=== PATIENT | male | born 1945 | race Caucasian/White ===

== ENCOUNTER 2019-11-15 10:48 | Outpatient (REF) | payer MEDICARE, BC, OTHER, SELFPAY ==
--- NOTE | 2019-11-15 | US_ITS ---
EXAMINATION: US RETROPERITONEAL COMPLETE (RENAL) CLINICAL INFORMATION: GUANACO. Rule out obstruction. COMPARISON: Renal ultrasound 07/14/2018 and 02/13/2016. KUB 08/19/2016 and 08/10/2015. CT abdomen and pelvis 06/29/2015. TECHNIQUE: Real-time imaging of the kidneys and bladder. FINDINGS: RIGHT KIDNEY: 10.6 x 6.8 x 5.6 cm (SAG x AP x TRV). The kidney is normal in size, contour, and echogenicity. Renal cortical thickness is normal. There is a 4 x 3 x 3 mm echogenic density in the lower pole with twinkle artifact and question acoustic shadowing suggestive of a stone. No focal parenchymal lesions or hydronephrosis. LEFT KIDNEY: 8.4 x 3.6 x 2.7 cm (SAG x AP x TRV). The kidney is small with renal cortical thinning. No calculi or focal parenchymal lesions. No hydronephrosis. BLADDER: Well distended and normal. Bilateral ureteral jets are demonstrated. Prevoid bladder volume is 393 mL. There is no postvoid residual. IMPRESSION: Small right renal stone. Atrophic-appearing left kidney. No hydronephrosis. Unremarkable bladder ultrasound.
== END 2019-11-15 10:49 | disposition home or self-care (01) ==
LOC: HO.HMGCX 10:48
PROVIDERS: PCP Internal Medicine; Visit Provider Internal Medicine
DX: N17.9 Acute kidney failure, unspecified (principal); N15.9 Renal tubulo-interstitial disease, unspecified
CPT/HCPCS: 76775; 76857

== ENCOUNTER 2020-01-09 07:08 | Day surgery (SDC) | payer MEDICARE, BC, OTHER, SELFPAY ==
--- NOTE | 2019-12-27 13:45 | MHC.SHP ---
Pre-Procedural Eval Section A The patient is an INPATIENT: No The History & Physical has been completed within 30 days and I have reviewed it.: Yes Section B Chief Complaint: Cataract Right Eye Allergies: Allergies Allergy/AdvReac Type Severity Reaction Status Date / Time No Known Allergies Allergy Unverified 10/27/19 15:26 [No Known Allergies*] grass, mold, trees Allergy Unknown Uncoded 01/26/19 00:00 Plan Diagnosis/Plan: Unchanged Patient has been examined and remains a candidate for the planned procedure
[2019-12-30 14:10] VITALS: BMI 36.1
--- NOTE | 2020-01-02 14:21 | P.CONAN_ITS ---
Documented by User: Indira Hendricks 01/02/20 14:22 HPI - Anesthesia Eval Consult details Narrative: 74yo M for Cataract Extraction No prev cataract [facility] Past Medical History Medical History Anxiety CKD (chronic kidney disease), stage III Elevated cholesterol History of prostate cancer HTN (hypertension) Peripheral neuropathy Surgical History Surgical History History of carpal tunnel release History of lumbar laminectomy Hx of lithotripsy Hx of prostatectomy Social History Social History Smoking Status: Never smoker Use of substances other than those prescribed or required for medical reasons: No Advance Directives: No Advance Directives Information Provided: No Advance Directives on File: No Meds Allergies Allergy/AdvReac Type Severity Reaction Status Date / Time No Known Allergies Allergy Unverified 10/27/19 15:26 [No Known Allergies*] grass, mold, trees Allergy Unknown Uncoded 01/26/19 00:00 Home Medications Medication Instructions Recorded Confirmed Type atorvastatin 1 tab PO DAILY 12/30/19 12/30/19 History gabapentin 1 tab PO TID 12/30/19 12/30/19 History lisinopril 1 tab PO DAILY 12/30/19 12/30/19 History lorazepam 1 tab PO DAILY PRN 12/30/19 12/30/19 History Exam Exam Date and Time: January 02, 2020 1421 Height,Weight and Vital Signs: Height 5 ft 9 in Weight 111.13 kg Pertinent Lab Results Pertinent Lab Results: Laboratory Tests 07/15/19 09:22 BUN 17 H Creatinine 1.22 Assessment and Plan Assessment Anesthesia Assessment: Chart Reviewed Documented by User: Danya Villagran 01/09/20 08:00 [facility] Past Medical History Medical History Anxiety CKD (chronic kidney disease), stage III Elevated cholesterol History of prostate cancer HTN (hypertension) Peripheral neuropathy Surgical History Surgical History History of carpal tunnel release History of lumbar laminectomy Hx of lithotripsy Hx of prostatectomy Social History Social History Smoking Status: Never smoker Use of substances other than those prescribed or required for medical reasons: No Advance Directives: No Advance Directives Information Provided: No Advance Directives on File: No Meds Allergies Allergy/AdvReac Type Severity Reaction Status Date / Time No Known Allergies Allergy Unverified 10/27/19 15:26 [No Known Allergies*] grass, mold, trees Allergy Unknown Uncoded 01/26/19 00:00 Home Medications Medication Instructions Recorded Confirmed Type atorvastatin 1 tab PO DAILY 12/30/19 12/30/19 History gabapentin 1 tab PO TID 12/30/19 12/30/19 History lisinopril 1 tab PO DAILY 12/30/19 12/30/19 History lorazepam 1 tab PO DAILY PRN 12/30/19 12/30/19 History Exam Airway Mallampati Class: III TM Dist: >3cm Neck ROM: Full Loose/Missing/Broken Teeth: No Heart: RRR Lungs: CTA Assessment and Plan Assessment Anesthesia Assessment: Anesthesia Plan Discussed and Chart Reviewed Final Anesthetic Review NPO: Yes ASA Class: III Final Preanesthetic Review: Meds/Allgs Chart Reviewed, Consent Obtained/Reviewed and Anes Risks/Benef Reviewed Patient Risk: Intermediate Procedure Risk: Low Anesthetic Plan Anesthetic Plan: MAC: Disposition: Standard PACU
[2020-01-09 08:09] VITALS: BP 125/75; PULSE 52; RESP 16; TEMP 36.1; O2SAT 96
[2020-01-09] MEDS: Lactated Ringers 500 ML 50 ML IV (08:13)
[2020-01-09] MEDS: Tetracaine HCl/PF 0.5% Oph Sol 4 ML DROPS 1 DROP EYE-RIGHT (08:13)
[2020-01-09] MEDS: Tropicamide 1 % Ophth Sol 3 ML BTL 1 DROP EYE-RIGHT ×3 (08:14→08:25)
--- NOTE | 2020-01-09 08:57 | HO.PNOPHT ---
Ophthalmology Procedure Procedure Date of Service: 01/09/20 Ophthalmology Viscoelastic: Healon Duet Dual Pack Pro Ophthalmology Lenses: TECNIS [id number] (15.5) Procedure Notes: PREOPERATIVE DIAGNOSIS: Decreased visual acuity right eye secondary to cataract POSTOPERATIVE DIAGNOSIS: Same PROCEDURE: Right cataract extraction with intraocular lens insertion SURGEON: Neto Victoria M.D. ANESTHESIA: Topical/MAC ESTIMATED BLOOD LOSS: None COMPLICATIONS: None After obtaining informed consent, the patient was brought to the operating room suite and placed in the supine position. After adequate sedation per anesthesia, topical drops of Tetracaine were given to the right eye. The eye was then prepped and draped in the usual sterile fashion. The operating room microscope was then positioned over the operative eye and a lid speculum placed. A paracentesis was created. Viscoelastic was then instilled into the anterior chamber. A three plane incision was then created temporally, utilizing a 2.85 mm keratome. Capsulotomy forceps were then utilized to create a circular tear capsulotomy. Hydrodissection and hydrodelineation were carried out until adequate mobilization of the nucleus occurred. Phacoemulsification was then utilized to remove the dense central nucleus followed by removal of the cortical material utilizing the automated aspiration irrigation unit. Viscoelastic was instilled into the posterior capsular bag followed by placement of a posterior chamber intraocular lens without difficulty. The residual Viscoelastic was then removed utilizing the automated IA machine. The wound was checked and found to be watertight. The patient tolerated the procedure well and the lid speculum was removed. Intracameral injection of Vigamox 0.1 mL followed by a subtenon injection of Kenalog-40 0.2 mL were administered. The patient will be seen in the a.m.
[2020-01-09 08:58] VITALS: BP 126/81; PULSE 55; RESP 18; TEMP 36.3; O2SAT 100
== END 2020-01-09 09:25 | disposition home or self-care (01) ==
PROVIDERS: PCP Internal Medicine; Visit Provider Ophthalmology
PROC: (CPT 66985; principal; 2020-01-09 09:00)
DX: H25.11 Age-related nuclear cataract, right eye (principal); H52.4 Presbyopia; I10 Essential (primary) hypertension; C61 Malignant neoplasm of prostate; E78.00 Pure hypercholesterolemia, unspecified; Z87.891 Personal history of nicotine dependence; Z96.1 Presence of intraocular lens; Z79.899 Other long term (current) drug therapy
CPT/HCPCS: 66984; J2250; J3010; J3300; V2632

== ENCOUNTER 2020-01-18 14:45 | Outpatient (REF) | payer MEDICARE, BC, OTHER, SELFPAY ==
[2020-01-18 16:42] LABS: MANUAL DIFF FLAG NO
[2020-01-18 16:43] LABS: Basophils Percent Auto 0.7 % (0-2); Eosinophils Absolute Auto 0.2 X10*3/uL (0.0-0.4); Eosinophils Percent Auto 3.6 % (0-4); Hematocrit 46.8 % (42-52); Imm Gran Abs Auto 0.01 X10*3/uL (0.00-0.03); Imm Gran Pct Auto 0.2 % (0.0-0.4); Lymphocytes Absolute Auto 2.1 X10*3/uL (1.2-4.9); Lymphocytes Percent Auto 34.6 % (20-40); Mean Corpuscular HGB Conc 32.1 g/dl (31.0-36.0); Mean Corpuscular Hemoglobin 31.7 pg (27.0-33.0); Mean Corpuscular Volume 98.9 fL (80-98); Mean Platelet Volume 11.5 fL (9.4-12.4); Monocytes Absolute Auto 0.6 X10*3/uL (0.1-1.2); Monocytes Percent Auto 10.1 % (2-11); Neutrophils Absolute Auto 3.1 X10*3/uL (2.0-8.3); Neutrophils Percent Auto 50.8 % (45-73); Platelet Count 216 X10*3/uL (160-400); Red Blood Count 4.73 X10*6/uL (4.60-5.80); Red Cell Distribution Width 13.2 % (11.0-16.0); White Blood Count 6.1 X10*3/uL (4.8-10.8)
[2020-01-18 17:02] LABS: Alanine Aminotransferase 17 U/L (0-40); Albumin Level 4.2 g/dL (3.5-5.0); Alkaline Phosphatase 128 U/L (39-117); Anion Gap 13 (12-20); Aspartate Amino Transferase 17 U/L (5-37); Blood Urea Nitrogen 22 mg/dL (9-16); Calcium 8.7 mg/dL (8.4-10.2); Carbon Dioxide 27 mmol/L (22-29); Chloride 106 mmol/L (96-108); Estimated Glomerular Filt Rate 54; Glucose Random 85 mg/dL (60-115); Potassium 4.9 mmol/l (3.3-5.1); Sodium 141 mmol/L (135-145); Total Protein 7.2 g/dL (6.5-8.0)
[2020-01-18 17:26] LABS: Prostate Specific Antigen < 0.05 ng/mL (<0.05-4.0)
== END 2020-01-18 14:46 | disposition home or self-care (01) ==
LOC: HO.HMGCLDS 14:45
PROVIDERS: Internal Medicine Medical Oncology; PCP Internal Medicine; Visit Provider Urology
DX: C61 Malignant neoplasm of prostate (principal)
CPT/HCPCS: 36415; 80053; 84153; 85025

== ENCOUNTER → 2020-01-27 09:56 | Outpatient (BNVA) | payer MEDICARE, SELFPAY | PROVIDERS: Visit Provider Urology | DX: C61 Malignant neoplasm of prostate (principal); N20.0 Calculus of kidney | CPT/HCPCS: 99212; Q3014 ==

== ENCOUNTER 2020-02-20 08:29 | Outpatient (REF) | payer MEDICARE, BC, OTHER, SELFPAY ==
--- NOTE | 2020-02-20 | US_ITS ---
EXAMINATION: US RENAL DOPPLER CLINICAL INFORMATION: Hypertension, hyperlipidemia. Evaluate for renal artery stenosis. COMPARISON: None TECHNIQUE: Routine ultrasound imaging followed by Doppler retroperitoneum was performed. FINDINGS: The right kidney is normal size measuring 11.8 cm in length, 6.5 cm in AP, and 5.3 cm in transverse dimension. A lobulated-appearing contour is noted. There is an echogenic stone lower pole measuring 0.4 x 0.3 x 0.4 cm. There is no caliectasis or hydronephrosis. The left kidney measures 8.6 x 3.4 x 4.2 cm. There is mild cortical thinning with increased echogenicity minimally greater on the left. No echogenic stones or hydronephrosis seen. On renal Doppler exam, Right kidney: Proximal renal artery velocity measures 152 cm/s, mid segment measures 134 cm/s, distal segment measures 69 cm/s. Renal aortic ratio measures 1.61 cm. The resistive index average measures 0.66. Left kidney: Proximal left renal artery velocity measures 65 cm/s, mid segment measures 63 cm/s, distal segment measures 47 cm/s. Renal aortic ratio measures 0.69 cm. The resistive index average measures 0.67. US/US renal doppler IMPRESSION: Nonobstructive echogenic stone lower pole right kidney. Mild cortical thinning with increased echogenicity left kidney. Renal Doppler exam is suggestive of No renal artery stenosis in either kidneys. Both renal arteries are patent.
--- NOTE | 2020-02-20 | US_ITS ---
EXAMINATION: US RETROPERITONEAL LIMITED (RENAL ONLY) US/US renal BI FINDINGS/IMPRESSION: Ultrasound retroperitoneum Limited was dictated with ultrasound kidneys
== END 2020-02-20 08:30 | disposition home or self-care (01) ==
LOC: HO.HMGCX 08:29
PROVIDERS: Visit Provider Internal Medicine Nephrology
DX: I10 Essential (primary) hypertension (principal); E78.5 Hyperlipidemia, unspecified
CPT/HCPCS: 76775; 93975

== ENCOUNTER 2020-05-16 07:58 | Outpatient (REF) | payer MEDICARE, BC, OTHER, SELFPAY ==
[2020-05-16 11:21] LABS: MANUAL DIFF FLAG NO
[2020-05-16 11:24] LABS: Glucose Urine UA NEG (NEG); Leukocyte Esterase Urine NEG (NEG); Nitrite Urine NEG (NEG); Urine Blood NEG (NEG); Urine Ketones NEG (NEG); Urine Protein NEG (NEG-TRACE)
[2020-05-16 11:30] LABS: Appearance Urine CLEAR; Color Urine YELLOW
[2020-05-16 11:31] LABS: Basophils Percent Auto 0.5 % (0-2); Eosinophils Absolute Auto 0.2 X10*3/uL (0.0-0.4); Eosinophils Percent Auto 4.2 % (0-4); Hematocrit 39.3 % (42-52); Imm Gran Abs Auto 0.01 X10*3/uL (0.00-0.03); Imm Gran Pct Auto 0.2 % (0.0-0.4); Lymphocytes Absolute Auto 1.9 X10*3/uL (1.2-4.9); Lymphocytes Percent Auto 33.7 % (20-40); Mean Corpuscular HGB Conc 33.1 g/dl (31.0-36.0); Mean Corpuscular Hemoglobin 32.3 pg (27.0-33.0); Mean Corpuscular Volume 97.5 fL (80-98); Mean Platelet Volume 11.9 fL (9.4-12.4); Monocytes Absolute Auto 0.6 X10*3/uL (0.1-1.2); Neutrophils Absolute Auto 2.9 X10*3/uL (2.0-8.3); Neutrophils Percent Auto 50.4 % (45-73); Platelet Count 183 X10*3/uL (160-400); Red Blood Count 4.03 X10*6/uL (4.60-5.80); Red Cell Distribution Width 13.9 % (11.0-16.0); White Blood Count 5.7 X10*3/uL (4.8-10.8)
[2020-05-16 11:34] LABS: Mucus Urine TRACE /LPF; Renal Epithelial Cells Urine TRACE /LPF; Squamous Epithelial Cell Urine TRACE /LPF
[2020-05-16 17:24] LABS: Creatinine Urine 101.61 mg/dL; Microalbum/Creatinine Ratio Ur 4.9 ug/mg cr; Total Protein Urine Random < 7 mg/dL (<12)
[2020-05-16 17:39] LABS: Anion Gap 12 (12-20); Blood Urea Nitrogen 23 mg/dL (9-16); Calcium 8.4 mg/dL (8.4-10.2); Carbon Dioxide 25 mmol/L (22-29); Chloride 108 mmol/L (96-108); Estimated Glomerular Filt Rate 48; Magnesium 2.2 mg/dL (1.6-2.6); Phosphorus 2.8 mg/dL (2.7-4.5); Sodium 141 mmol/L (135-145)
[2020-05-16 18:04] LABS: Vitamin D 25-OH Total 11.9 ng/mL (>30)
[2020-05-16 18:47] LABS: Renal w Reflex Lab Use Only Order verified
[2020-05-17 11:26] LABS: Calcium (PTHI) 8.6 mg/dL (8.6-10.3); PTHI 171 pg/mL (14-64)
== END 2020-05-16 07:59 | disposition home or self-care (01) ==
LOC: HO.HMGCLDS 07:58
PROVIDERS: PCP Internal Medicine; Visit Provider Internal Medicine Nephrology
DX: I10 Essential (primary) hypertension (principal); E78.5 Hyperlipidemia, unspecified
CPT/HCPCS: 36415; 80051; 81001; 82040; 82043; 82306; 82310; 82565; 83735; 83970; 84100; 84156; 84520; 85025

== ENCOUNTER 2020-05-22 17:46 | Outpatient (REF) | payer MEDICARE, BC, OTHER, SELFPAY ==
--- NOTE | ~2020-05-22 | MR_ITS ---
MR LUMBAR SPINE WITHOUT AND WITH CONTRAST CLINICAL INFORMATION: Worsening stenosis. Left nerve root. COMPARISON: Lumbar spine MRI 02/12/2018. TECHNIQUE: MRI of the lumbar spine was obtained using routine sequences with and without contrast. Intravenous contrast: Gadavist 10 mL FINDINGS: Severe rightward convex scoliotic curvature of the lumbar spine associated with grade 1 left lateral listhesis of L2 on L3 again noted. Stable grade 1 retrolisthesis of L1 on L2, L2 on L3, and L3 on L4. Severe disc volume loss at all lumbar levels. Degenerative endplate signal changes throughout the lumbar spine. There are no acute fractures. Vertebral body heights are maintained. There is severe left renal atrophy. There is bilateral perinephric stranding. No pathologic enhancement along the cauda equina nerve roots. T12-L1: Diffuse annular disc bulge and moderate right and mild left hypertrophic facet arthropathy. Stable right subarticular zone stenosis with mild mass effect on the traversing right nerve root. Stable moderate to severe right-sided foraminal stenosis with mass effect on the exiting right nerve root. L1-L2: Diffuse annular disc bulge the superimposed shallow left paracentral disc protrusion and moderate bilateral facet arthropathy and ligamentum flavum thickening. Stable mild central canal stenosis and moderate to severe right foraminal stenosis with mass effect on the exiting right nerve root. L2-L3: Left paracentral/far left lateral disc osteophyte protrusion compresses the traversing left L3 nerve root within the left subarticular zone and results in moderate left foraminal stenosis with mass effect on the extraforaminal left L2 nerve root. Findings are unchanged. L3-L4: There are right hemilaminectomy changes. Left paracentral/left lateral disc osteophyte protrusion continues to compress the traversing left L4 nerve root within the left subarticular zone and results in severe left foraminal stenosis with compression of the exiting left L3 nerve root. A far right lateral disc osteophyte protrusion results in mass effect on the extraforaminal right L3 nerve root. These findings are unchanged. Enhancing granulation/scar tissue within the epidural space contacting the traversing nerve roots bilaterally. L4-L5: Laminectomy changes. Diffuse annular disc bulges in part disc osteophyte and severe bilateral facet arthropathy and ligamentum flavum thickening. There is enhancing granulation/scar tissue throughout the epidural space inseparable from the traversing nerve roots bilaterally. Progressive epidural lipomatosis contributes to worsening moderate to severe central canal stenosis at the L4-L5 disc level and there is similar severe left and moderate to severe right foraminal stenosis with mass effect on the exiting left greater than right L4 nerve roots. L5-S1: There is a diffuse annular disc bulge that is in part disc osteophyte and there is bilateral facet arthropathy and ligamentum flavum thickening. Mild narrowing of the central canal. Stable severe bilateral foraminal stenosis with compression of the exiting L5 nerve roots bilaterally. MR/MR lumbar spine wo/w con IMPRESSION: - Severe rightward convex scoliotic curvature of the lumbar spine superimposed on advanced multilevel degenerative disc disease and hypertrophic facet arthropathy. - At L4-L5, progressive epidural lipomatosis results in worsening moderate to severe central canal stenosis at the L4-L5 disc level and fairly severe central canal stenosis of the L5 vertebral body level. - Additional advanced spondylitic changes throughout the lumbar spine with mass effect on multiple traversing and exiting nerve roots remains unchanged as discussed in detail above. - There is stable enhancing granulation/scar tissue throughout the epidural space at the L3-L4 and L4-L5 levels status post laminectomies at these levels that remains inseparable from the traversing nerve roots at these levels.
== END 2020-05-22 17:47 | disposition home or self-care (01) ==
LOC: HO.MRI 17:46
PROVIDERS: Visit Provider Physical Medicine & Rehabilitation
DX: M48.061 Spinal stenosis, lumbar region without neurogenic claudication (principal)
CPT/HCPCS: 72158; A9585

== ENCOUNTER 2020-07-17 11:16 | Outpatient (REF) | payer MEDICARE, BC, OTHER, SELFPAY ==
[2020-07-17 14:12] LABS: MANUAL DIFF FLAG NO
[2020-07-17 14:19] LABS: Basophils Percent Auto 0.8 % (0-2); Eosinophils Absolute Auto 0.2 X10*3/uL (0.0-0.4); Eosinophils Percent Auto 4.2 % (0-4); Hematocrit 43.4 % (42-52); Hemoglobin 13.8 g/dl (14.0-18.0); Imm Gran Abs Auto 0.01 X10*3/uL (0.00-0.03); Imm Gran Pct Auto 0.2 % (0.0-0.4); Lymphocytes Percent Auto 42.9 % (20-40); Mean Corpuscular HGB Conc 31.8 g/dl (31.0-36.0); Mean Corpuscular Hemoglobin 31.1 pg (27.0-33.0); Mean Corpuscular Volume 97.7 fL (80-98); Mean Platelet Volume 11.8 fL (9.4-12.4); Monocytes Absolute Auto 0.5 X10*3/uL (0.1-1.2); Monocytes Percent Auto 9.8 % (2-11); Neutrophils Percent Auto 42.1 % (45-73); Platelet Count 202 X10*3/uL (160-400); Red Blood Count 4.44 X10*6/uL (4.60-5.80); Red Cell Distribution Width 13.1 % (11.0-16.0); White Blood Count 4.7 X10*3/uL (4.8-10.8)
[2020-07-17 14:40] LABS: Alanine Aminotransferase 16 U/L (0-40); Alkaline Phosphatase 156 U/L (39-117); Anion Gap 10 (12-20); Aspartate Amino Transferase 21 U/L (5-37); Bilirubin Total 1.7 mg/dL (0.0-1.0); Blood Urea Nitrogen 18 mg/dL (9-16); Carbon Dioxide 28 mmol/L (22-29); Chloride 106 mmol/L (96-108); Estimated Glomerular Filt Rate 40; Glucose Random 92 mg/dL (60-115); Sodium 139 mmol/L (135-145); Total Protein 6.6 g/dL (6.5-8.0)
[2020-07-17 15:42] LABS: PSA,Total (Free>4and<10) < 0.05 ng/mL (0.00-4.00)
== END 2020-07-17 11:17 | disposition home or self-care (01) ==
LOC: HO.HMGCLDS 11:16
PROVIDERS: PCP Internal Medicine; Visit Provider Internal Medicine Medical Oncology
DX: I10 Essential (primary) hypertension (principal); C61 Malignant neoplasm of prostate; Z12.5 Encounter for screening for malignant neoplasm of prostate
CPT/HCPCS: 36415; 80053; 84153; 85025

== ENCOUNTER 2020-08-02 08:09 | Outpatient (REF) | payer MEDICARE, BC, OTHER, SELFPAY ==
--- NOTE | ~2020-08-02 | XR_ITS ---
EXAMINATION: XR HAND, RIGHT CLINICAL INFORMATION: Pain. COMPARISON: None TECHNIQUE: PA, lateral, and oblique views of the right hand. FINDINGS: There is loss of PIP and DIP joint space with periarticular spurring PIP joint first digit and PIP and DIP joints with digit. No acute fracture, dislocation or subluxation seen. The soft tissues are normal. XR/XR hand RT min 3V IMPRESSION: Mild degenerative changes PIP and DIP joints as described above. No acute fracture or dislocation seen.
== END 2020-08-02 08:10 | disposition home or self-care (01) ==
LOC: HO.HOSX 08:09
PROVIDERS: Visit Provider Physician Assistant
DX: M65.311 Trigger thumb, right thumb (principal)
CPT/HCPCS: 20550; 73130; 99212; J1020

== ENCOUNTER 2020-11-16 08:39 | Outpatient (REF) | payer MEDICARE, BC, OTHER, SELFPAY ==
[2020-11-16 11:31] LABS: Hematocrit 41.1 % (42-52); Hemoglobin 13.4 g/dl (14.0-18.0); Mean Corpuscular HGB Conc 32.6 g/dl (31.0-36.0); Mean Corpuscular Hemoglobin 31.2 pg (27.0-33.0); Mean Corpuscular Volume 95.8 fL (80-98); Mean Platelet Volume 11.6 fL (9.4-12.4); Platelet Count 204 X10*3/uL (160-400); Red Blood Count 4.29 X10*6/uL (4.60-5.80); Red Cell Distribution Width 13.8 % (11.0-16.0); White Blood Count 5.1 X10*3/uL (4.8-10.8)
[2020-11-16 11:34] LABS: Appearance Urine CLEAR; Color Urine YELLOW; Glucose Urine UA NEG (NEG); Leukocyte Esterase Urine NEG (NEG); Nitrite Urine NEG (NEG); PH 6.5 (5.0-8.0); Urine Blood NEG (NEG); Urine Ketones NEG (NEG); Urine Protein NEG (NEG-TRACE)
[2020-11-16 11:45] LABS: Anion Gap 12 (12-20); Blood Urea Nitrogen 17 mg/dL (9-16); Calcium 9.3 mg/dL (8.4-10.2); Carbon Dioxide 28 mmol/L (22-29); Chloride 106 mmol/L (96-108); Estimated Glomerular Filt Rate 48; Phosphorus 2.7 mg/dL (2.7-4.5); Potassium 4.5 mmol/L (3.3-5.1); Sodium 141 mmol/L (135-145)
[2020-11-16 11:46] LABS: Squamous Epithelial Cell Urine TRACE /LPF; WBC Urine 0-2 /HPF (0-4)
[2020-11-16 11:52] LABS: Microalbum/Creatinine Ratio Ur 9.9 ug/mg cr; Protein/Creatinine Ratio, Ur 0.07 (<0.2); Total Protein Urine Random 12 mg/dL (<12)
[2020-11-16 12:12] LABS: Vitamin D 25-OH Total 40.4 ng/mL (>30)
[2020-11-20 15:56] LABS: Calcium (PTHI) 9.2 mg/dL (8.6-10.3); PTHI 99 pg/mL (14-64)
== END 2020-11-16 08:40 | disposition home or self-care (01) ==
LOC: HO.HMGCLDS 08:39
PROVIDERS: PCP Internal Medicine; Visit Provider Internal Medicine Nephrology
DX: N25.0 Renal osteodystrophy (principal); I12.9 Hypertensive chronic kidney disease with stage 1 through stage 4 chronic kidney disease, or unspecified chronic kidney disease; N18.31 Chronic kidney disease, stage 3a
CPT/HCPCS: 36415; 80051; 81001; 82040; 82043; 82306; 82310; 82565; 83735; 83970; 84100; 84156; 84520; 85027; 87086

== ENCOUNTER 2021-01-16 09:37 | Outpatient (REF) | payer MEDICARE, BC, OTHER, SELFPAY ==
[2021-01-16 11:21] LABS: MANUAL DIFF FLAG NO
[2021-01-16 11:34] LABS: Basophils Percent Auto 0.6 % (0-2); Eosinophils Absolute Auto 0.2 X10*3/uL (0.0-0.4); Eosinophils Percent Auto 4.5 % (0-4); Hematocrit 40.7 % (42.0-52.0); Imm Gran Abs Auto 0.02 X10*3/uL (0.00-0.03); Imm Gran Pct Auto 0.4 % (0.0-0.4); Lymphocytes Absolute Auto 1.7 X10*3/uL (1.2-4.9); Lymphocytes Percent Auto 34.4 % (20-40); Mean Corpuscular HGB Conc 31.9 g/dl (31.0-36.0); Mean Corpuscular Volume 97.1 fL (80.0-98.0); Mean Platelet Volume 11.4 fL (9.4-12.4); Monocytes Absolute Auto 0.5 X10*3/uL (0.1-1.2); Monocytes Percent Auto 9.5 % (2-11); Neutrophils Absolute Auto 2.5 x10*3/uL (2.0-8.3); Neutrophils Percent Auto 50.6 % (45-73); Platelet Count 207 X10*3/uL (160-400); Red Blood Count 4.19 X10*6/uL (4.60-5.80); Red Cell Distribution Width 13.9 % (11.0-16.0); White Blood Count 4.9 X10*3/uL (4.8-10.8)
[2021-01-16 11:56] LABS: Alanine Aminotransferase 14 U/L (0-40); Albumin Level 3.8 g/dL (3.5-5.0); Alkaline Phosphatase 130 U/L (39-117); Anion Gap 12 (12-20); Aspartate Amino Transferase 20 U/L (5-37); Blood Urea Nitrogen 21 mg/dL (9-16); Calcium 9.1 mg/dL (8.4-10.2); Carbon Dioxide 29 mmol/L (22-29); Chloride 106 mmol/L (96-108); Estimated Glomerular Filt Rate 48; Glucose Random 89 mg/dL (60-115); Potassium 4.5 mmol/L (3.3-5.1); Sodium 142 mmol/L (135-145); Total Protein 6.4 g/dL (6.5-8.0)
[2021-01-16 12:16] LABS: Prostate Specific Antigen < 0.05 ng/mL (<0.05-4.0)
[2021-01-16 12:22] LABS: Prostate Specific Antigen Scr < 0.05 ng/mL (<0.05-4.0)
== END 2021-01-16 09:38 | disposition home or self-care (01) ==
LOC: HO.HMGCLDS 09:37
PROVIDERS: Absent Provider Urology; PCP Internal Medicine; Visit Provider Internal Medicine Medical Oncology
DX: C61 Malignant neoplasm of prostate (principal)
CPT/HCPCS: 36415; 80053; 84153; 85025

== ENCOUNTER 2021-01-24 18:41 | Emergency (ER) | payer MEDICARE, BC, OTHER, SELFPAY ==
[2021-01-24 18:47] VITALS: BP 142/85; PULSE 66; RESP 20; TEMP 36.6; O2SAT 96; BMI 30.1
[2021-01-24 19:23] LABS: MANUAL DIFF FLAG NO
[2021-01-24 19:24] LABS: Basophils Percent Auto 0.5 % (0-2); Eosinophils Absolute Auto 0.3 X10*3/uL (0.0-0.4); Eosinophils Percent Auto 4.5 % (0-4); Hematocrit 41.1 % (42.0-52.0); Hemoglobin 13.2 g/dl (14.0-18.0); Imm Gran Abs Auto 0.01 X10*3/uL (0.00-0.03); Imm Gran Pct Auto 0.2 % (0.0-0.4); Lymphocytes Percent Auto 34.7 % (20-40); Mean Corpuscular HGB Conc 32.1 g/dl (31.0-36.0); Mean Corpuscular Volume 96.5 fL (80.0-98.0); Mean Platelet Volume 10.5 fL (9.4-12.4); Monocytes Absolute Auto 0.6 X10*3/uL (0.1-1.2); Monocytes Percent Auto 10.1 % (2-11); Neutrophils Absolute Auto 2.9 x10*3/uL (2.0-8.3); Platelet Count 198 X10*3/uL (160-400); Red Blood Count 4.26 X10*6/uL (4.60-5.80); Red Cell Distribution Width 13.8 % (11.0-16.0); White Blood Count 5.7 X10*3/uL (4.8-10.8)
--- NOTE | 2021-01-24 23:39 | ED.GENADULT ---
HPI - General Adult General Chief complaint: General Medical Stated complaint: nose bleed Time Seen by Provider: 01/24/21 23:39 Source: patient and family ( ) Mode of arrival: ambulatory Limitations: no limitations History of Present Illness HPI narrative: 75-year-old male came in for evaluation of left nostril bleeding. left nostril bleeding started about 6 hours ago, patient stated that he blew his nose earlier today then started to bleed, patient applied external pinching on the nose with no success to stop the bleeding. Patient declined using any anticoagulation Or anti-platelet, patient declined any chest pain, no dizziness, no lightheadedness. While patient in the ED applying pressure in his nose, left nostril bleeding has stopped. Related Data Home Medications Medication Instructions Recorded Confirmed atorvastatin 10 mg tablet 1 tab PO DAILY 12/30/19 12/30/19 gabapentin 600 mg tablet 1 tab PO TID 12/30/19 12/30/19 lisinopril 10 mg tablet 1 tab PO DAILY 12/30/19 12/30/19 lorazepam 0.5 mg tablet 1 tab PO DAILY PRN 12/30/19 12/30/19 Allergies Allergy/AdvReac Type Severity Reaction Status Date / Time No Known Allergies Allergy Verified 08/02/20 10:15 [No Known Allergies*] grass, mold, trees Allergy Unknown Sneezing Uncoded 08/02/20 10:15 Review of Systems Review of Systems: All other systems are reviewed and are negative Constitutional: Reports as per HPI and Reports no additional constitutional complaints Eyes: Reports as per HPI and Reports no additional eye complaints Reports system reviewed and no additional complaints, except as documented Cardiovascular: Reports as per HPI and Reports no additional cardiovascular complaints Respiratory: Reports as per HPI and Reports no additional respiratory complaints Gastrointestinal: Reports as per HPI and Reports no additional gastrointestinal complaints Genitourinary: Reports no additional female genitourinary complaints Musculoskeletal: Reports no additional musculoskeletal complaints Skin/Breast: Reports system reviewed and no additional complaints, except as docu Psychiatric: Reports no additional psychiatric complaints Endocrine: Reports no additional endocrine complaints Hematologic/Lymphatic: Reports no additional hematologic/lymphatic complaints Allergic/Immunologic: Reports no additional allergic/immunologic complaints Reports system reviewed and no additional complaints, except as documented and Reports Abnormal speech present PMFSH Past Medical History Medical History Anxiety CKD (chronic kidney disease), stage III Elevated cholesterol History of prostate cancer HTN (hypertension) Peripheral neuropathy Surgical History History of carpal tunnel release History of lumbar laminectomy Hx of lithotripsy Hx of prostatectomy Social History Social History Advance Directives: No 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 Blood pressure normal. Heart rate normal. Respiration rate normal. Temperature normal. Oxygen saturation normal. Appearance: Alert. Oriented X3. No acute distress. Head: Normal external exam. Normocephalic. Atraumatic. No Rodriguez signs noted. No raccoon eyes noted Eyes: PERRLA. EOMI. Conjunctiva and sclera normal. Eyelids normal. ENT: TM's Normal. Pharynx normal. Uvula midline. Moist mucous membranes. No trismus noted. No drooling noted. No muffled voice noted. no active nostril bleeding, dry blood in the left nostril. Neck: Normal inspection. Neck supple. FROM. No adenopathy. Thyroid Normal. No meningeal signs. No neck mass noted. CVS: Normal heart rate and rhythm. Heart sound normal. No murmurs noted. Pulses normal throughout. Respiratory: No respiratory distress. Painless inspiration. Breath sounds normal. No wheezes/rales/rhonchi noted. Chest nontender. No accessory muscle usage noted or decreased air movement noted. Abdomen: Soft and nontender. Bowel sounds normal in all 4 quadrants. No distention noted. No organomegaly noted. No visible injury noted. Back: No CVA tenderness. Full range of motion noted. Skin: Skin warm and dry. Normal skin color. Normal skin turgor. No rashes/lesions/lacerations noted. Extremities: No lower extremity edema. Extremities exhibit normal range of motion. Extremities nontender. Neuro: Oriented X 3. Cranial nerve exam: II-XII are grossly intact No motor deficit. No sensory deficit. Reflexes normal. Course Course Course Narrative: Assessment and plan patient was observed in the emergency department stubbed left nostril bleeding after patient applied external pinching on the nose, patient has no symptoms at the current time, patient's orthostatic vital sign is stable. Cbc is stable. Will discharge to follow-up with PCP patient was instructed to apply external pension for good 10 minute if bleeding reoccur, and avoid hard blowing of the nose. Medical Decision Making Lab Data Lab results reviewed: Yes I reviewed the patient's lab results. Result diagrams: 01/24/21 19:17 Labs: Lab Results 01/24/21 Range/Units 19:17 WBC 5.7 (4.8-10.8) X10*3/uL RBC 4.26 L (4.60-5.80) X10*6/uL Hgb 13.2 L (14.0-18.0) g/dl Hct 41.1 L (42.0-52.0) % MCV 96.5 (80.0-98.0) fL MCH 31.0 (27.0-33.0) pg MCHC 32.1 (31.0-36.0) g/dl RDW 13.8 (11.0-16.0) % Plt Count 198 (160-400) X10*3/uL MPV 10.5 (9.4-12.4) fL Immature Gran % (Auto) 0.2 (0.0-0.4) % Neut % (Auto) 50.0 (45-73) % Lymph % (Auto) 34.7 (20-40) % [place] % (Auto) 10.1 (2-11) % Eos % (Auto) 4.5 H (0-4) % Baso % (Auto) 0.5 (0-2) % Lymph # (Auto) 2.0 (1.2-4.9) X10*3/uL [place] # (Auto) 0.6 (0.1-1.2) X10*3/uL Eos # (Auto) 0.3 (0.0-0.4) X10*3/uL Baso # (Auto) 0.0 (0.0-0.2) X10*3/uL Abs Immat Gran (auto) 0.01 (0.00-0.03) X10*3/uL Absolute Neuts (auto) 2.9 (2.0-8.3) x10*3/uL Absolute Nucleated RBC 0.000 (0.0-0.012) X10*3/uL Nucleated RBC % (auto) 0.0 (0.0-0.2) /100WBC Discharge Plan Discharge Clinical Impression: Acute anterior epistaxis Patient Disposition: Home, Self-Care Instructions: Nosebleed (ED) Prescriptions: No Action gabapentin 600 mg tablet 1 tab PO TID RF: 0 atorvastatin 10 mg tablet 1 tab PO DAILY RF: 0 lorazepam 0.5 mg tablet 1 tab PO DAILY PRN (Reason: Anxiety) RF: 0 lisinopril 10 mg tablet 1 tab PO DAILY RF: 0 Referrals: Jarred Ramon MD [Primary Care Provider] - 2 days
--- NOTE | 2021-01-24 23:59 | PC.NURSE ---
Pt resting on stretcher in nad, breathing with ease on RA, skin warm dry and normal in appearance for age and race. Pt aaox4, speaking in complete clear sentences, pt denies pain/discomfort, denies dizziness, lightheadedness, SOB, CP. Pt without active bleeding at this time. Pt's sitting at bedside. Pt stretcher in lowest locked position, rails raised, call tao within reach.
[2021-01-25 00:04] VITALS: BP 122/78; PULSE 88; RESP 16; TEMP 36.6; O2SAT 95
[2021-01-25 00:05] VITALS: BP 131/80; PULSE 70; RESP 16; TEMP 36.6; O2SAT 94
--- NOTE | 2021-01-25 00:56 | PC.NURSE ---
Pt continues to have no bleeding
[2021-01-25 01:20] VITALS: BP 135/84; PULSE 76; RESP 16; TEMP 36.6; O2SAT 96
== END 2021-01-25 01:26 | disposition home or self-care (01) ==
PROVIDERS: Emergency Provider Emergency Medicine; PCP Internal Medicine
DX: R04.0 Epistaxis (principal)
CPT/HCPCS: 36415; 85025; 99283; 99284

== ENCOUNTER → 2021-01-29 08:51 | Outpatient (BNVA) | payer MEDICARE, BC, OTHER, SELFPAY | PROVIDERS: PCP Internal Medicine; Visit Provider Urology | DX: N20.0 Calculus of kidney (principal); C61 Malignant neoplasm of prostate | CPT/HCPCS: Q3014 ==

== ENCOUNTER 2021-07-17 08:25 | Outpatient (REF) | payer MEDICARE, BC, OTHER, SELFPAY ==
[2021-07-17 11:41] LABS: MANUAL DIFF FLAG NO
[2021-07-17 11:52] LABS: Basophils Percent Auto 0.4 % (0-2); Eosinophils Absolute Auto 0.3 X10*3/uL (0.0-0.4); Eosinophils Percent Auto 6.6 % (0-4); Hemoglobin 13.2 g/dl (14.0-18.0); Imm Gran Abs Auto 0.01 X10*3/uL (0.00-0.03); Imm Gran Pct Auto 0.2 % (0.0-0.4); Lymphocytes Absolute Auto 1.7 X10*3/uL (1.2-4.9); Lymphocytes Percent Auto 38.2 % (20-40); Mean Corpuscular HGB Conc 32.2 g/dl (31.0-36.0); Mean Corpuscular Hemoglobin 30.8 pg (27.0-33.0); Mean Corpuscular Volume 95.6 fL (80.0-98.0); Mean Platelet Volume 11.7 fL (9.4-12.4); Monocytes Absolute Auto 0.5 X10*3/uL (0.1-1.2); Neutrophils Percent Auto 43.6 % (45-73); Platelet Count 178 X10*3/uL (160-400); Red Blood Count 4.29 X10*6/uL (4.60-5.80); Red Cell Distribution Width 14.5 % (11.0-16.0); White Blood Count 4.6 X10*3/uL (4.8-10.8)
[2021-07-17 12:06] LABS: Alanine Aminotransferase 15 U/L (0-40); Alkaline Phosphatase 133 U/L (39-117); Anion Gap 14 (12-20); Aspartate Amino Transferase 19 U/L (5-37); Bilirubin Total 1.7 mg/dL (0.0-1.0); Blood Urea Nitrogen 17 mg/dL (9-16); Carbon Dioxide 24 mmol/L (22-29); Chloride 108 mmol/L (96-108); Estimated Glomerular Filt Rate 55; Glucose Random 86 mg/dL (60-115); Potassium 4.2 mmol/L (3.3-5.1); Sodium 142 mmol/L (135-145); Total Protein 6.8 g/dL (6.5-8.0)
[2021-07-17 12:19] LABS: Prostate Specific Antigen < 0.05 ng/mL (<0.05-4.0)
== END 2021-07-17 08:26 | disposition home or self-care (01) ==
LOC: HO.HMGCLDS 08:25
PROVIDERS: PCP Internal Medicine; Visit Provider Internal Medicine Medical Oncology
DX: C61 Malignant neoplasm of prostate (principal); I10 Essential (primary) hypertension; Z12.5 Encounter for screening for malignant neoplasm of prostate
CPT/HCPCS: 36415; 80053; 84153; 85025

== ENCOUNTER 2021-07-17 09:00 | Outpatient (RCR) | payer MEDICARE, BC, OTHER, SELFPAY | END 2021-11-08 14:10 | disposition home or self-care (01) | LOC: HO.PTCHIC 09:00 | PROVIDERS: PCP Internal Medicine; Visit Provider Physical Medicine & Rehabilitation | DX: M54.50 Low back pain, unspecified (principal); M48.061 Spinal stenosis, lumbar region without neurogenic claudication; M51.36 Other intervertebral disc degeneration, lumbar region | CPT/HCPCS: 97110; 97162 ==

== ENCOUNTER 2021-08-14 08:10 | Outpatient (REF) | payer MEDICARE, BC, OTHER, SELFPAY ==
[2021-08-14 11:29] LABS: Appearance Urine CLEAR; Color Urine YELLOW; Glucose Urine UA NEG (NEG); Leukocyte Esterase Urine NEG (NEG); Nitrite Urine NEG (NEG); Urine Blood 1+ (NEG); Urine Ketones NEG (NEG); Urine Protein NEG (NEG-TRACE)
[2021-08-14 11:33] LABS: MANUAL DIFF FLAG NO
[2021-08-14 11:40] LABS: Basophils Percent Auto 0.7 % (0-2); Eosinophils Absolute Auto 0.3 X10*3/uL (0.0-0.4); Eosinophils Percent Auto 5.9 % (0-4); Hematocrit 41.8 % (42.0-52.0); Hemoglobin 13.4 g/dl (14.0-18.0); Imm Gran Abs Auto 0.01 X10*3/uL (0.00-0.03); Imm Gran Pct Auto 0.2 % (0.0-0.4); Lymphocytes Absolute Auto 1.8 X10*3/uL (1.2-4.9); Lymphocytes Percent Auto 39.9 % (20-40); Mean Corpuscular HGB Conc 32.1 g/dl (31.0-36.0); Mean Corpuscular Hemoglobin 30.8 pg (27.0-33.0); Mean Corpuscular Volume 96.1 fL (80.0-98.0); Mean Platelet Volume 12.3 fL (9.4-12.4); Monocytes Absolute Auto 0.4 X10*3/uL (0.1-1.2); Monocytes Percent Auto 8.5 % (2-11); Neutrophils Absolute Auto 2.1 x10*3/uL (2.0-8.3); Neutrophils Percent Auto 44.8 % (45-73); Platelet Count 175 X10*3/uL (160-400); Red Blood Count 4.35 X10*6/uL (4.60-5.80); Red Cell Distribution Width 14.3 % (11.0-16.0); White Blood Count 4.6 X10*3/uL (4.8-10.8)
[2021-08-14 11:57] LABS: Squamous Epithelial Cell Urine TRACE /LPF; WBC Urine 0 /HPF (0-4)
[2021-08-14 12:37] LABS: Anion Gap 10 (12-20); Blood Urea Nitrogen 16 mg/dL (9-16); Calcium 8.9 mg/dL (8.4-10.2); Carbon Dioxide 28 mmol/L (22-29); Chloride 108 mmol/L (96-108); Estimated Glomerular Filt Rate 55; Magnesium 1.9 mg/dL (1.6-2.6); Phosphorus 2.8 mg/dL (2.7-4.5); Potassium 4.6 mmol/L (3.3-5.1); Sodium 141 mmol/L (135-145)
[2021-08-14 13:10] LABS: Microalbum/Creatinine Ratio Ur 12.9 ug/mg cr; Total Protein Urine Random < 7 mg/dL (<12)
[2021-08-15 13:47] LABS: PTHI 98 pg/mL (16-77)
== END 2021-08-14 08:11 | disposition home or self-care (01) ==
LOC: HO.HMGCLDS 08:10
PROVIDERS: PCP Internal Medicine; Visit Provider Internal Medicine Nephrology
DX: N25.0 Renal osteodystrophy (principal); I12.9 Hypertensive chronic kidney disease with stage 1 through stage 4 chronic kidney disease, or unspecified chronic kidney disease; N18.31 Chronic kidney disease, stage 3a
CPT/HCPCS: 36415; 80051; 81001; 82040; 82043; 82306; 82310; 82565; 83735; 83970; 84100; 84156; 84520; 85025; 87086

== ENCOUNTER → 2021-12-24 08:28 | Outpatient (BNVA) | payer MEDICARE, BC, OTHER, SELFPAY | PROVIDERS: PCP Internal Medicine; Visit Provider Orthopaedic Surgery | DX: R22.32 Localized swelling, mass and lump, left upper limb (principal) | CPT/HCPCS: 99202 ==

== ENCOUNTER 2021-12-27 08:22 | Outpatient (REF) | payer MEDICARE, BC, OTHER, SELFPAY ==
--- NOTE | ~2021-12-27 | US_ITS ---
EXAMINATION: US RETROPERITONEAL LIMITED (RENAL ONLY) CLINICAL INFORMATION: Calculus of kidney. COMPARISON: Renal ultrasound 02/20/2020 and 11/15/2019. X-ray abdomen KUB 08/19/2016 and 08/10/2015. CT abdomen and pelvis 06/29/2015. TECHNIQUE: Real-time imaging of the kidneys. FINDINGS: RIGHT KIDNEY: 10.9 x 6.2 x 6.3 cm (SAG x AP x TRV). The kidney is normal in size and contour. Renal cortical thickness is normal. No focal parenchymal lesions or hydronephrosis. There is a echogenic stone in lower pole measuring 2.57 x 0.24 x 0.45 cm. There is no caliectasis. LEFT KIDNEY: 7.9 x 3.3 x 4.5 cm (SAG x AP x TRV). The kidney is normal in size, contour, and echogenicity. Renal cortical thickness is normal. No focal parenchymal lesions or hydronephrosis. There is an echogenic stone in midpole laterally measuring 0.31 x 0.20 x 0.33 cm. There is no caliectasis. US/US renal BI IMPRESSION: Bilateral nonobstructive echogenic renal calculi. No caliectasis or hydronephrosis. An echogenic 0.4 cm stone was noted in the lower pole right kidney on previous ultrasound renal Doppler 02/20/2020.
[2021-12-27 12:17] LABS: Prostate Specific Antigen < 0.10 ng/mL (<0.05-4.0)
== END 2021-12-27 08:23 | disposition home or self-care (01) ==
LOC: HO.HMGCX 08:22
PROVIDERS: PCP Internal Medicine; Visit Provider Urology
DX: Z12.5 Encounter for screening for malignant neoplasm of prostate (principal); N20.0 Calculus of kidney; C61 Malignant neoplasm of prostate; N13.8 Other obstructive and reflux uropathy; N40.1 Benign prostatic hyperplasia with lower urinary tract symptoms
CPT/HCPCS: 36415; 76775; 84153

== ENCOUNTER 2021-12-30 08:54 | Day surgery (SDC) | payer MEDICARE, BC, OTHER, SELFPAY ==
[2021-12-30 09:04] VITALS: BP 156/95; PULSE 65; RESP 16; TEMP 36.5; O2SAT 96; BMI 30.2
--- NOTE | 2021-12-30 09:13 | MHC.SHP ---
Pre-Procedural Eval Section A Date of Service: 12/30/21 The patient is an INPATIENT: No Changes since office visit: No Cold of Flu in the past 2 weeks, No New Medical Problems, No Changes in Medication and No Patient answered all questions The History & Physical has been completed within 30 days and I have reviewed it.: Yes Section B Chief Complaint: Localized swelling, mass and lump, left upper limb Allergies: Allergies Allergy/AdvReac Type Severity Reaction Status Date / Time grass, mold, trees Allergy Unknown Sneezing Uncoded 12/30/21 09:04 Plan I have reviewed the history and physical and performed a pertinent physical examination on my patient. No changes have occurred unless specified.
--- NOTE | 2021-12-30 09:13 | W.PM.OPN ---
Operative Note Operative Note Date of Service: 12/30/21 Narrative: Operative Note Preop diagnosis: 1. left middle finger mass and possible foreign body Postop diagnosis: . Left middle finger mucous cyst Procedure: 1. left middle finger mucous cyst excision and biopsy Surgeon: Chelle Lopez MD Anesthesia: digital block using 1% lidocaine with epinephrine Findings: 6 mm diameter mucous cyst on the dorsal radial aspect of the left middle finger. It was filled with clear viscous fluid consistent with a ganglion. Of interest, there was actually a smaller mucous cyst measuring perhaps 2-3 mm in diameter with in the larger cyst. This was also filled with clear viscous fluid consistent with a ganglion. This cyst was excised and sent for histopathology no plastic or other foreign body was found within either of the cysts. EBL: Less than 5 mL Tourniquet time: None Specimens: Left middle finger cystic mass Complications: None Disposition: Brought to recovery room in stable condition Plan: Follow-up for 7-10 days for wound check and suture removal and to check pathology Indications: The patient is 76 years old, with left middle finger cystic mass with concern about possible plastic foreign body . The risks and benefits of operative treatment including but not limited to risk of damage to blood vessels, nerves, tendons, infection, persistent pain, persistent symptoms, recurrence or possible need for additional surgery were discussed with the patient and the patient wishes to proceed with surgery. Procedure: Once consent was obtained a digital block was performed in the preop area using a combination of 1% lidocaine with epinephrine. The patient was then brought back to the operating suite and placed on the operative table in supine position. the upper extremity and the limb was prepped and draped in a standard surgical fashion. a finger tourniquet was placed about the base of the left middle finger. Once assured that we had a good block, I made a 1.5 cm longitudinal incision directly over the cystic mass that was positioned over the dorsal radial aspect of the left middle finger D IP joint. The incision was made through the skin to the subcutaneous tissues using a 15. Blade. There was clear viscous fluid consistent with a ganglion within the cystic mass. Within this ganglion cyst, interestingly, there was a smaller 2-3 mm diameter cystic mass. This also was filled with clear viscous fluid consistent with a ganglion. This deeper cystic mass was excised with its stalk tracking back to the radial aspect of the D IP joint. Was then placed on the back table to be sent for histopathology. No foreign bodies or soft tissue masses other than the 2 cystic masses noted above were identified. The skin overlying the larger cystic mass was very thin. Once satisfied with Our excisional biopsy the wound was copiously irrigated with normal saline and hemostasis was obtained with a brief period of local pressure. The skin edges were reapproximated with some 5.0 nylon suture material and a sterile dressing was applied. The patient appears to have tolerated the procedure well and with no complications. All digits were well vascularized at the conclusion of the case.
[2021-12-30 10:26] VITALS: BP 135/85; PULSE 64; RESP 18; O2SAT 94
== END 2021-12-30 10:55 | disposition home or self-care (01) ==
PROVIDERS: PCP Internal Medicine; Visit Provider Orthopaedic Surgery
PROC: (CPT 26160; principal; 2021-12-30 12:00)
DX: M67.442 Ganglion, left hand (principal); I12.9 Hypertensive chronic kidney disease with stage 1 through stage 4 chronic kidney disease, or unspecified chronic kidney disease; N18.30 Chronic kidney disease, stage 3 unspecified; G62.9 Polyneuropathy, unspecified; E78.00 Pure hypercholesterolemia, unspecified; Z85.46 Personal history of malignant neoplasm of prostate
CPT/HCPCS: 26160; 88304; J0171

== ENCOUNTER → 2022-01-14 08:32 | Outpatient (BNVA) | payer MEDICARE, BC, OTHER, SELFPAY | PROVIDERS: PCP Internal Medicine; Visit Provider Orthopaedic Surgery | DX: Z47.89 Encounter for other orthopedic aftercare (principal); Z87.39 Personal history of other diseases of the musculoskeletal system and connective tissue | CPT/HCPCS: 99212 ==

== ENCOUNTER 2022-01-15 08:15 | Outpatient (REF) | payer MEDICARE, BC, OTHER, SELFPAY ==
[2022-01-15 11:17] LABS: MANUAL DIFF FLAG NO
[2022-01-15 11:41] LABS: Basophils Percent Auto 0.9 % (0-2); Eosinophils Absolute Auto 0.2 X10*3/uL (0.0-0.4); Eosinophils Percent Auto 5.3 % (0-4); Hematocrit 42.4 % (42.0-52.0); Hemoglobin 13.8 g/dl (14.0-18.0); Imm Gran Abs Auto 0.01 X10*3/uL (0.00-0.03); Imm Gran Pct Auto 0.2 % (0.0-0.4); Lymphocytes Absolute Auto 1.8 X10*3/uL (1.2-4.9); Mean Corpuscular HGB Conc 32.5 g/dl (31.0-36.0); Mean Corpuscular Hemoglobin 31.2 pg (27.0-33.0); Mean Corpuscular Volume 95.9 fL (80.0-98.0); Mean Platelet Volume 11.4 fL (9.4-12.4); Monocytes Absolute Auto 0.5 X10*3/uL (0.1-1.2); Monocytes Percent Auto 10.8 % (2-11); Neutrophils Absolute Auto 1.9 x10*3/uL (2.0-8.3); Neutrophils Percent Auto 42.8 % (45-73); Platelet Count 203 X10*3/uL (160-400); Red Blood Count 4.42 X10*6/uL (4.60-5.80); Red Cell Distribution Width 13.6 % (11.0-16.0); White Blood Count 4.5 X10*3/uL (4.8-10.8)
[2022-01-15 12:47] LABS: Alanine Aminotransferase 15 U/L (0-40); Albumin Level 4.1 g/dL (3.5-5.0); Alkaline Phosphatase 140 U/L (39-117); Anion Gap 10 (12-20); Aspartate Amino Transferase 19 U/L (5-37); Bilirubin Total 1.7 mg/dL (0.0-1.0); Blood Urea Nitrogen 16 mg/dL (9-16); Calcium 9.2 mg/dL (8.4-10.2); Carbon Dioxide 30 mmol/L (22-29); Chloride 106 mmol/L (96-108); Estimated Glomerular Filt Rate 59; Glucose Random 87 mg/dL (60-115); Potassium 4.3 mmol/L (3.3-5.1); Prostate Specific Antigen < 0.10 ng/mL (<0.05-4.0); Sodium 142 mmol/L (135-145); Total Protein 6.7 g/dL (6.5-8.0)
== END 2022-01-15 08:16 | disposition home or self-care (01) ==
LOC: HO.HMGCLDS 08:15
PROVIDERS: PCP Internal Medicine; Visit Provider Internal Medicine Medical Oncology
DX: C61 Malignant neoplasm of prostate (principal); I10 Essential (primary) hypertension; E78.5 Hyperlipidemia, unspecified
CPT/HCPCS: 36415; 80053; 84153; 85025

== ENCOUNTER 2022-01-20 09:01 | Day surgery (SDC) | payer MEDICARE, BC, OTHER, SELFPAY ==
--- NOTE | 2022-01-17 12:28 | HO.ANESPROP2 ---
Documented by User: Indira Hendricks NP 01/17/22 12:28 HPI - Anesthesia Eval Consult details Narrative: 76yo M for Colonoscopy PMFSH Active Problems Active Problems: All Active Problems (Updated 01/17/22 @ 11:54 by Elizabeth Granger, JENNIFER) Prostate cancer (Acute) Nephrolithiasis (Acute) Trigger thumb, right thumb (Acute) Mass of left finger (Acute) Ganglion cyst of finger of left hand (Acute) Past Medical History Medical History Anxiety Cataract Cataract, right CKD (chronic kidney disease), stage III Duodenal ulcer Elevated cholesterol History of prostate cancer HTN (hypertension) Hydronephrosis Peripheral neuropathy Sinus infection Surgical History Surgical History (Updated 01/17/22 @ 11:54 by Elizabeth Granger RN) History of carpal tunnel release History of left hip replacement History of lumbar laminectomy Hx of lithotripsy Hx of prostatectomy Social History Social History Patient Tobacco Use Status: Former Tobacco user Quit Date: 50 years ago Use of substances other than those prescribed or required for medical reasons: No Are you DNR?: No Advance Directives: No Advance Directives Information Provided: Yes Current occupational status: retired 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 Allergies Allergy/AdvReac Type Severity Reaction Status Date / Time grass, mold, trees Allergy Unknown Sneezing Uncoded 12/30/21 09:04 Home Medications Medication Instructions Recorded Confirmed Last Taken Type atorvastatin 10 mg tablet 1 tab PO DAILY 12/30/19 12/30/19 Unknown History gabapentin 600 mg tablet 1 tab PO TID 12/30/19 12/30/19 01/09/20 06:30 History lisinopril 10 mg tablet 1 tab PO DAILY 12/30/19 12/30/19 Unknown History lorazepam 0.5 mg tablet 1 tab PO DAILY PRN Anxiety 12/30/19 12/30/19 Unknown History econazole 1 % topical cream appl topical BEDTIME 01/29/21 Unknown History ergocalciferol (vitamin D2) 1,250 PO 01/29/21 Unknown History mcg (50,000 unit) capsule (Vitamin D2) betamethasone dipropionate 0.05 % 1 appl topical BID 12/24/21 Unknown History topical ointment Exam Exam Date and Time: January 17, 2022 1228 Assessment and Plan Assessment Anesthesia Assessment: Chart Reviewed Documented by User: Ryan Flowers MD 01/20/22 10:54 [facility] [place] Past Medical History Medical History Anxiety Cataract Cataract, right CKD (chronic kidney disease), stage III Duodenal ulcer Elevated cholesterol History of prostate cancer HTN (hypertension) Hydronephrosis Peripheral neuropathy Sinus infection Family History Family history of problems with anesthesia: No Surgical History Surgical History (Updated 01/17/22 @ 11:54 by Elizabeth Granger RN) History of carpal tunnel release History of left hip replacement History of lumbar laminectomy Hx of lithotripsy Hx of prostatectomy History of Problems with Anesthesia: No Social History Social History Patient Tobacco Use Status: Former Tobacco user Quit Date: 50 years ago Use of substances other than those prescribed or required for medical reasons: No Are you DNR?: No Advance Directives: No Advance Directives Information Provided: Yes Current occupational status: retired 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 Allergies Allergy/AdvReac Type Severity Reaction Status Date / Time grass, mold, trees Allergy Unknown Sneezing Uncoded 12/30/21 09:04 Home Medications Medication Instructions Recorded Confirmed Last Taken Type atorvastatin 10 mg tablet 1 tab PO DAILY 12/30/19 12/30/19 Unknown History gabapentin 600 mg tablet 1 tab PO TID 12/30/19 12/30/19 01/09/20 06:30 History lisinopril 10 mg tablet 1 tab PO DAILY 12/30/19 12/30/19 Unknown History lorazepam 0.5 mg tablet 1 tab PO DAILY PRN Anxiety 12/30/19 12/30/19 Unknown History econazole 1 % topical cream appl topical BEDTIME 01/29/21 Unknown History ergocalciferol (vitamin D2) 1,250 PO 01/29/21 Unknown History mcg (50,000 unit) capsule (Vitamin D2) betamethasone dipropionate 0.05 % 1 appl topical BID 12/24/21 Unknown History topical ointment Exam Airway Mallampati Class: III TM Dist: >3cm Neck ROM: Full Heart: rr Lungs: clear Assessment and Plan Final Anesthetic Review Family History of Problems with Anesthesia: No History of Problems with Anesthesia: No NPO: Yes ASA Class: III Final Preanesthetic Review: No Changes in Pt Med Stat, Meds/Allgs Chart Reviewed, Consent Obtained/Reviewed and Anes Risks/Benef Reviewed Patient Risk: Intermediate Procedure Risk: Low Anesthetic Plan Anesthetic Plan: MAC: Disposition: Standard PACU
[2022-01-20 09:27] VITALS: BMI 29.7
[2022-01-20 09:30] VITALS: BP 144/79; PULSE 63; RESP 16; TEMP 36.4; O2SAT 96
[2022-01-20] MEDS: Lactated Ringers 1,000 ML 100 ML IVCONT (09:52)
[2022-01-20 11:43] VITALS: BP 96/45; PULSE 62; RESP 15; TEMP 36.3; O2SAT 98
--- NOTE | 2022-01-20 11:44 | P.BOP_ITS ---
Brief Operative Note Date of Service: 01/20/22 Pre-op diagnosis: Screening Post-op diagnosis: other (Polyps) Procedure: Colonoscopy to the cecum and TI with bx/removal of polyps Surgeon: Donavan Driscoll Anesthesia: MAC Was an Insights Analyst used for this Procedure?: No Estimated blood loss (mL): 2.0 Pathology: other (A. Ascending colon polyps) Condition: stable Disposition: PACU
[2022-01-20 11:58] VITALS: BP 133/78; PULSE 57; RESP 16; TEMP 36.7; O2SAT 98
--- NOTE | 2022-01-20 12:50 | OP_ITS ---
SURGEON: Donavan Driscoll MD INDICATIONS: The patient presents for evaluation of colorectal cancer screening and personal history of tubular adenoma of the colon. Full consent has been obtained from him for this, including risks of bleeding and perforation. PREOPERATIVE DIAGNOSIS: Colorectal cancer screening and personal history of tubular adenoma of the colon. POSTOPERATIVE DIAGNOSIS: PROCEDURE PERFORMED: Colonoscopy to the cecum and terminal ileum with biopsy and removal of polyps. ESTIMATED BLOOD LOSS: COMPLICATIONS: ANESTHESIA: Monitored anesthesia care. ASSISTANTS: SPECIMENS: POSTOPERATIVE DIAGNOSES: Colorectal cancer screening and personal history of tubular adenoma of the colon, colon polyps, diverticulosis, and internal hemorrhoids. DESCRIPTION OF PROCEDURE: The patient was placed in the left lateral decubitus position. The digital rectal exam revealed no abnormalities. The Olympus video pediatric colonoscope was entered into the rectum and advanced easily to the cecum. Once in the cecum, I did identify normal-appearing cecal pouch with appendiceal orifice and a normal-appearing ileocecal valve. The terminal ileum was cannulated and appeared normal. The scope withdrawn back in the colon. The entire cecum and ileocecal valve appeared normal. The scope was slowly withdrawn assessing all mucosal surfaces carefully. Preparation was excellent. In the ascending colon were 4 flat less than 10 mm polyps, which were all biopsied and completely removed with cold biopsy forceps. These were all placed in the same container. I did not visualize any sign of other polyps, colitis, nor angiodysplasia. There was a moderate amount of sigmoid diverticulosis. In the rectum, scope was retroflexed visualizing internal hemorrhoids, but no other pathology. The rectal mucosa appeared normal. Scope was straightened and withdrawn from the patient. He tolerated the procedure well, and was returned to the recovery area in stable condition. IMPRESSION: 1. Colon polyps. 2. Diverticulosis. 3. Internal hemorrhoids. PLAN: The results of the biopsies will be checked. Given his relatively minimal findings and his age, I do not think, he would need any further screening colonoscopies in the future. He will otherwise see me on a p.r.n. basis. MD JONO Martinez/RYAN / [phone]
== END 2022-01-20 12:29 | disposition home or self-care (01) ==
PROVIDERS: PCP Internal Medicine; Visit Provider Internal Medicine
PROC: 0DJD8ZZ Inspection of Lower Intestinal Tract, Via Natural or Artificial Opening Endoscopic (ICD-10-PCS; CPT 45378; principal; 2022-01-20 10:30)
DX: Z12.11 Encounter for screening for malignant neoplasm of colon (principal); D12.2 Benign neoplasm of ascending colon; K57.30 Diverticulosis of large intestine without perforation or abscess without bleeding; K64.8 Other hemorrhoids; Z86.010 Personal history of colon polyps; I12.9 Hypertensive chronic kidney disease with stage 1 through stage 4 chronic kidney disease, or unspecified chronic kidney disease; N18.30 Chronic kidney disease, stage 3 unspecified; Z79.899 Other long term (current) drug therapy
CPT/HCPCS: 45380; 88305

== ENCOUNTER → 2022-02-06 08:24 | Outpatient (BNVA) | payer MEDICARE, BC, OTHER, SELFPAY | PROVIDERS: PCP Internal Medicine; Visit Provider Urology | DX: C61 Malignant neoplasm of prostate (principal); N20.0 Calculus of kidney | CPT/HCPCS: 99212 ==

== ENCOUNTER 2022-05-19 07:48 | Outpatient (REF) | payer MEDICARE, BC, OTHER, SELFPAY ==
[2022-05-19 11:12] LABS: MANUAL DIFF FLAG NO
[2022-05-19 11:22] LABS: Basophils Percent Auto 0.6 % (0-2); Eosinophils Absolute Auto 0.3 X10*3/uL (0.0-0.4); Eosinophils Percent Auto 5.9 % (0-4); Hematocrit 42.2 % (42.0-52.0); Hemoglobin 13.9 g/dl (14.0-18.0); Imm Gran Abs Auto 0.01 X10*3/uL (0.00-0.03); Imm Gran Pct Auto 0.2 % (0.0-0.4); Lymphocytes Absolute Auto 2.1 X10*3/uL (1.2-4.9); Lymphocytes Percent Auto 43.2 % (20-40); Mean Corpuscular HGB Conc 32.9 g/dl (31.0-36.0); Mean Corpuscular Hemoglobin 31.7 pg (27.0-33.0); Mean Corpuscular Volume 96.3 fL (80.0-98.0); Mean Platelet Volume 11.6 fL (9.4-12.4); Monocytes Absolute Auto 0.4 X10*3/uL (0.1-1.2); Monocytes Percent Auto 8.4 % (2-11); Neutrophils Percent Auto 41.7 % (45-73); Platelet Count 182 X10*3/uL (160-400); Red Blood Count 4.38 X10*6/uL (4.60-5.80); Red Cell Distribution Width 13.5 % (11.0-16.0); White Blood Count 4.8 X10*3/uL (4.8-10.8)
[2022-05-19 11:52] LABS: Alanine Aminotransferase 15 U/L (0-40); Albumin Level 3.8 g/dL (3.5-5.0); Alkaline Phosphatase 135 U/L (39-117); Anion Gap 10 (12-20); Aspartate Amino Transferase 19 U/L (5-37); Bilirubin Total 1.9 mg/dL (0.0-1.0); Blood Urea Nitrogen 16 mg/dL (9-16); Carbon Dioxide 28 mmol/L (22-29); Chloride 110 mmol/L (96-108); Cholesterol 131 mg/dL; Estimated Glomerular Filt Rate 53; Glucose Fasting 87 mg/dL (60-99); HDL Cholesterol 45 mg/dL; LDL Cholesterol Calculated 71 mg/dl; Potassium 4.2 mmol/L (3.3-5.1); Sodium 144 mmol/L (135-145); Total Protein 6.3 g/dL (6.5-8.0); Triglycerides 79 mg/dL
[2022-05-19 12:11] LABS: Prostate Specific Antigen < 0.10 ng/mL (<0.05-4.0)
== END 2022-05-19 07:49 | disposition home or self-care (01) ==
LOC: HO.HMGCLDS 07:48
PROVIDERS: PCP Internal Medicine; Visit Provider Internal Medicine Medical Oncology
DX: Z12.5 Encounter for screening for malignant neoplasm of prostate (principal); C61 Malignant neoplasm of prostate; E78.5 Hyperlipidemia, unspecified
CPT/HCPCS: 36415; 80053; 80061; 84153; 85025

== ENCOUNTER 2022-05-27 11:08 | Outpatient (REF) | payer MEDICARE, BC, OTHER, SELFPAY ==
--- NOTE | ~2022-05-27 | XR_ITS ---
EXAMINATION: XR HAND, LEFT CLINICAL INFORMATION: Left hand pain COMPARISON: Correlation x-ray right hand 08/02/2020 TECHNIQUE: PA, lateral, and oblique views of the left hand. FINDINGS: Mild triscaphe and first CMC joint osteoarthritis. Mild third and fifth DIP joint space narrowing. No acute fracture or dislocation. No erosions. No abnormal soft tissue calcification. XR/XR hand LT min 3V IMPRESSION: Mild arthritis of the triscaphe joint, first CMC, third and fifth PIP joints detailed above. No acute fracture or dislocation.
== END 2022-05-27 11:09 | disposition home or self-care (01) ==
LOC: HO.HOSX 11:08
PROVIDERS: Visit Provider Orthopaedic Surgery
DX: M79.642 Pain in left hand (principal); M67.442 Ganglion, left hand
CPT/HCPCS: 73130; 99212

== ENCOUNTER 2022-06-16 11:09 | Day surgery (SDC) | payer MEDICARE, BC, OTHER, SELFPAY ==
--- NOTE | 2022-06-16 09:25 | P.OP_ITS ---
Operative Note Operative Note Date of Service: 06/16/22 Narrative: Operative Note Preop diagnosis: 1. Left middle finger DIP joint osteoarthritis and mucous cyst with recurrence Postop diagnosis: 1. same Procedure: 1. Left middle finger mucous cyst excision 2. Left middle finger DIP joint arthrotomy and excision of osteophytes. Surgeon: Chelle Lopez MD Anesthesia: Digital block using 1% lidocaine with epinephrine Findings: mucous cyst on radial aspect of D IP joint healing after rupture about 2 weeks ago. The remains of the mucous cyst adjacent to the radial aspect of the D IP joint were excised and sent for pathology. EBL: Less than 5 mL Tourniquet time: None Specimens: None Complications: None Disposition: Brought to recovery room in stable condition Plan: Follow-up for 7-10 days for wound check and suture removal Indications: The patient is 77 years old, with left middle finger D IP joint osteoarthritis and a mucous cyst that has been unresponsive to nonoperative management. The risks and benefits of operative treatment i ncluding but not limited to risk of damage to blood vessels, nerves, tendons, infection, persistent pain, persistent symptoms, recurrence or possible need for additional surgery were discussed with the patient and the patient wishes to proceed with surgery. Procedure: Once consent was obtained a digital block was performed in the preop area using a combination of 1% lidocaine with epinephrine. The patient was then brought back to the operating suite and placed on the operative table in supine position. A tourniquet was applied to the proximal aspect of the left upper extremity and the limb was prepped and draped in a standard surgical fashion. Once assured that we had a good block, an L-shaped incision was made over the dorsal aspect of the left middle finger distal phalanx. The incision was made through the skin to the subcutaneous tissues using a #15 blade. Careful dissection was made down to the level of the mucous cyst and extensor mechanism using iris scissors. The cyst Had ruptured about 2 weeks ago and there was a 2 mm diameterhealing wound over the radial aspect of the left middle finger D IP joint. the L-shaped flap was retracted ulnarly, revealing it to us the remains of the deflated mucous cyst sitting atop the radial aspect of the D IP joint. A 15. Blade and some iris scissors were used to excise the mucous cyst. It was placed on the back table to be sent for histopathology. An arthrotomy was performed on the Radial side of the extensor mechanism at the D IP joint. The periarticular osteophytes were excised using a rongeur. Once satisfied, the wound was copiously irrigated with normal saline and hemostasis was obtained with a brief period of local pressure and bipolar electrocautery. The skin edges were reapproximated with some 5.0 Prolene suture material and a sterile dressing was applied. The patient appears to have tolerated the procedure well and with no complications. All digits were well vascularized at the conclusion of the case.
[2022-06-16 11:36] VITALS: BMI 33.7
[2022-06-16 11:37] VITALS: BP 198/92; PULSE 54; RESP 18; TEMP 36.5; O2SAT 97
[2022-06-16 14:10] VITALS: BP 177/97; PULSE 60; RESP 16; O2SAT 96
--- NOTE | 2022-06-16 14:35 | MHC.SHP ---
Pre-Procedural Eval Section A Date of Service: 06/16/22 The patient is an INPATIENT: No Changes since office visit: No Cold of Flu in the past 2 weeks, No New Medical Problems, No Changes in Medication and No Patient answered all questions The History & Physical has been completed within 30 days and I have reviewed it.: Yes Section B Chief Complaint: Ganglion, left hand Allergies: Allergies Allergy/AdvReac Type Severity Reaction Status Date / Time grass, mold, trees Allergy Unknown Sneezing Uncoded 05/27/22 09:33 Plan I have reviewed the history and physical and performed a pertinent physical examination on my patient. No changes have occurred unless specified. Time Spent With Patient Time: Total time managing care of this patient today ____ minutes.
== END 2022-06-16 14:12 | disposition home or self-care (01) ==
PROVIDERS: PCP Internal Medicine; Visit Provider Orthopaedic Surgery
PROC: (CPT 26160; principal; 2022-06-16 14:00)
DX: M67.442 Ganglion, left hand (principal); M19.042 Primary osteoarthritis, left hand
CPT/HCPCS: 26160; 26080; 88304; J0171

== ENCOUNTER → 2022-07-01 09:34 | Outpatient (BNVA) | payer MEDICARE, BC, OTHER, SELFPAY | PROVIDERS: PCP Internal Medicine; Visit Provider Orthopaedic Surgery | DX: Z47.89 Encounter for other orthopedic aftercare (principal); Z87.39 Personal history of other diseases of the musculoskeletal system and connective tissue | CPT/HCPCS: 99212 ==

== ENCOUNTER 2022-08-06 07:48 | Outpatient (REF) | payer MEDICARE, BC, OTHER, SELFPAY ==
--- NOTE | ~2022-08-06 | MR_ITS ---
EXAMINATION: MR LUMBAR SPINE WITHOUT AND WITH CONTRAST CLINICAL INFORMATION: Evaluate for worsening stenosis. COMPARISON: Lumbar spine MRI 05/22/2020. TECHNIQUE: MRI of the lumbar spine was obtained using routine sequences without and with intravenous contrast. A total of 10 mL Gadavist was intravenously administered. FINDINGS: There is redemonstration of severe rightward convex scoliotic curvature, similar compared with prior. There is left lateral listhesis of L1 on L2. There is advanced intervertebral disc height loss throughout the lumbosacral levels with varying degrees of edema seen from T12 through S1. The distal spinal cord appears normal. The conus medullaris terminates normally at the L1 level. There is no abnormal enhancement along the cauda equina nerve roots. There is severe atrophy of the left kidney. There is fatty atrophy of the posterior paraspinal musculature. SPINAL LEVELS: T11-T12: Moderate to severe right neural foraminal stenosis without change. T12-L1: Moderate to severe right neural foraminal stenosis without change. L1-L2: Disc bulging with facet arthropathy. Mild spinal canal stenosis. Stable severe right neural foraminal stenosis with compression of the exiting right L1 nerve root. L2-L3: Complete loss of the disc space with partial fusion, progressed from prior. Posterior osteophytic ridging with facet arthropathy resulting in similar left subarticular stenosis and mild spinal canal stenosis. Osteophytic ridging results in compression of the extraforaminal left and right L2 nerve roots without significant change. L3-L4: Posterior decompression changes. Severe facet arthropathy with disc bulging resulting in similar left subarticular stenosis with compression of the traversing left L4 nerve root. Severe left neural foraminal stenosis with compression of the exiting left L3 nerve root, mildly progressed. Stable abutment of the extraforaminal right L3 nerve root. L4-L5: Posterior decompression changes. Disc bulging with severe facet arthropathy resulting in similar moderate spinal canal stenosis. Stable severe left neural foraminal stenosis with compression of the exiting left L4 nerve root. Right neural foramen is narrowed but without definite L4 nerve root compression. L5-S1: Disc bulging with severe facet arthropathy. Mild spinal canal stenosis. Stable severe bilateral neural foraminal stenosis with compression of both exiting L5 nerve roots. MR/MR lumbar spine wo/w con IMPRESSION: Advanced degenerative spondylosis in the setting of severe rightward convex scoliotic curvature without significant change compared with prior. Advanced multilevel degenerative spondylosis with varying degrees of spinal canal, subarticular, and neural foraminal stenosis. Spinal canal stenosis appears moderate at L4-L5. Multilevel foraminal nerve root compression is again demonstrated with compression of multiple exiting nerve roots.
== END 2022-08-06 07:49 | disposition home or self-care (01) ==
LOC: HO.MRI 07:48
PROVIDERS: PCP Internal Medicine; Visit Provider Physical Medicine & Rehabilitation
DX: M48.061 Spinal stenosis, lumbar region without neurogenic claudication (principal)
CPT/HCPCS: 72158; A9585

== ENCOUNTER 2022-08-13 08:13 | Outpatient (REF) | payer MEDICARE, BC, OTHER, SELFPAY | END 2022-08-13 08:14 | disposition home or self-care (01) | LOC: HO.HMGCLDS 08:13 | PROVIDERS: PCP Internal Medicine; Visit Provider Internal Medicine Nephrology | DX: I12.9 Hypertensive chronic kidney disease with stage 1 through stage 4 chronic kidney disease, or unspecified chronic kidney disease (principal); N18.31 Chronic kidney disease, stage 3a; N25.0 Renal osteodystrophy; R82.90 Unspecified abnormal findings in urine | CPT/HCPCS: 36415; 80051; 81001; 82040; 82043; 82306; 82310; 82565; 83735; 83970; 84100; 84156; 84520; 85027; 87086 ==

== ENCOUNTER 2022-09-22 08:24 | Outpatient (REF) | payer MEDICARE, BC, OTHER, SELFPAY ==
[2022-09-22 11:59] LABS: MANUAL DIFF FLAG NO
[2022-09-22 12:17] LABS: Basophils Percent Auto 0.7 % (0-2); Eosinophils Absolute Auto 0.2 X10*3/uL (0.0-0.4); Eosinophils Percent Auto 5.2 % (0-4); Hematocrit 41.5 % (42.0-52.0); Hemoglobin 13.4 g/dl (14.0-18.0); Imm Gran Abs Auto 0.01 X10*3/uL (0.00-0.03); Imm Gran Pct Auto 0.2 % (0.0-0.4); Lymphocytes Absolute Auto 1.8 X10*3/uL (1.2-4.9); Lymphocytes Percent Auto 40.6 % (20-40); Mean Corpuscular HGB Conc 32.3 g/dl (31.0-36.0); Mean Corpuscular Hemoglobin 31.2 pg (27.0-33.0); Mean Corpuscular Volume 96.7 fL (80.0-98.0); Monocytes Absolute Auto 0.4 X10*3/uL (0.1-1.2); Monocytes Percent Auto 9.8 % (2-11); Neutrophils Absolute Auto 1.9 x10*3/uL (2.0-8.3); Neutrophils Percent Auto 43.5 % (45-73); Platelet Count 193 X10*3/uL (160-400); Red Blood Count 4.29 X10*6/uL (4.60-5.80); Red Cell Distribution Width 13.7 % (11.0-16.0); White Blood Count 4.4 X10*3/uL (4.8-10.8)
[2022-09-22 12:58] LABS: Alanine Aminotransferase 15 U/L (0-40); Albumin Level 3.7 g/dL (3.5-5.0); Alkaline Phosphatase 112 U/L (39-117); Anion Gap 11 (12-20); Aspartate Amino Transferase 21 U/L (5-37); Bilirubin Total 1.4 mg/dL (0.0-1.0); Blood Urea Nitrogen 15 mg/dL (9-16); Calcium 9.2 mg/dL (8.4-10.2); Carbon Dioxide 27 mmol/L (22-29); Chloride 109 mmol/L (96-108); Estimated Glomerular Filt Rate > 60; Glucose Random 90 mg/dL (60-115); Potassium 4.3 mmol/L (3.3-5.1); Sodium 143 mmol/L (135-145); Total Protein 6.8 g/dL (6.5-8.0)
[2022-09-22 13:06] LABS: Prostate Specific Antigen < 0.10 ng/mL (<0.05-4.0)
== END 2022-09-22 08:25 | disposition home or self-care (01) ==
LOC: HO.HMGCLDS 08:24
PROVIDERS: PCP Internal Medicine; Visit Provider Internal Medicine Medical Oncology
DX: Z12.5 Encounter for screening for malignant neoplasm of prostate (principal); C61 Malignant neoplasm of prostate; I10 Essential (primary) hypertension; E78.5 Hyperlipidemia, unspecified; E66.3 Overweight
CPT/HCPCS: 36415; 80053; 84153; 85025

== ENCOUNTER 2022-12-11 12:52 | Outpatient (REF) | payer MEDICARE, BC, OTHER, SELFPAY ==
--- NOTE | ~2022-12-11 | XR_ITS ---
EXAMINATION: XR PELVIS CLINICAL INFORMATION: Hip pain COMPARISON: 04/01/2018 TECHNIQUE: AP view of the pelvis and crosstable lateral view of right hip. FINDINGS: There is well-positioned left hip prosthesis. There is diffuse osteopenia more prominent periarticular. On the right there is progression of osteoarthritis of the right hip joint with narrowing of the joint space, marginal spurring and subchondral sclerosis. There are changes of degenerative spondylosis at the level of L5-S1 and L4-L5. XR/XR pelvis 1-2V IMPRESSION: Well-positioned left hip prosthesis. Diffuse osteopenia. Progression of osteoarthritis of the right hip joint and changes of degenerative spondylosis in the lower lumbar spine
== END 2022-12-11 12:53 | disposition home or self-care (01) ==
LOC: HO.HOSX 12:52
PROVIDERS: Visit Provider Orthopaedic Surgery
DX: M16.11 Unilateral primary osteoarthritis, right hip (principal); M25.561 Pain in right knee; Z96.642 Presence of left artificial hip joint
CPT/HCPCS: 72170; 99212

== ENCOUNTER 2022-12-11 14:06 | Outpatient (AMB) | payer MEDICARE, BC, OTHER, SELFPAY ==
--- NOTE | 2022-12-11 14:21 | A.OFFVIS_ITS ---
Intake Vital Signs 12/11/22 14:22 Height 5 ft 10 in Weight 235 lb BMI 33.7 Intake Visit Reasons: New Prob- Right hip pain Intake Note: Gulshan is a 77 year old male who presnets today for a new problem visit with complaints of right hip and right knee pain. Patient reports that he has been having ongoing pain for about 1 year now. He has history left hip replacement about 5-6 years ago with NE. Allergies grass, mold, trees Allergy (Unknown, Uncoded 12/11/22 14:22) Sneezing HPI New Prob- Right hip pain HPI Details Gulshan is a 77 year old man who presents with complaints of right hip & knee pain. He complains of pain with daily activity, worse with prolonged walking. He says his pain is more intermittent and he says he has not been walking as often, which may have been helping his pain. He localizes his pain to his groin and says he feels it radiate down his leg and into his knee. He denies any prior treatment options. He has a hx of a left IRWIN in ~2017, which he says went well. 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 Review of Systems Const All systems reviewed & are unremarkable except as noted in HPI and below Physical Exam Vital Signs: BMI result Body Mass Index 33.7 Const General: no acute distress, alert and awake Orientation/consciousness: patient oriented x3 HEENT Head: Yes normocephalic and Yes atraumatic Eyes EOM: EOMs intact bilaterally Resp Effort & Inspection: normal respiratory effort and able to speak in complete sentences Cardio Jugular venous distension: no JVD Skin General skin exam: turgor normal Rashes: no rashes Neuro General: patient oriented x3 Extrem Other: + impingement right hip limited motion antalgic gait Psych Appearance: grossly normal Affect: normal affect Attitude: cooperative Results Reviewed Results Reviewed: I personally reviewed relevant radiographs. Right severe hip OA Left IRWIN in expected post operative position with no hardware complications or evidence of loosening Assessment & Plan Assessment & Plan (1) Osteoarthritis of right hip: Code(s): M16.11 - Unilateral primary osteoarthritis, right hip Plan: This is a 77 year old man with severe right hip OA. He has pain with daily activity, worse with prolonged ambulation, and limited ROM. He denies any prior treatment and has limited his ambulation and other activities to minimize his pain. I discussed his diagnosis and treatment options. I recommend he remain act lefty as tolerated & NSAIDs. If his symptoms persist or worsen he can follow up to discuss surgery, but he is not in a large amount of pain or particularly limited at this time. He is considering sometime in the new year to discuss surgery. He can follow up prn. Plan Scribed for Mickey Baez MD by Yury Tucker, medical billing assistant, on 12/11/22 at 2:45 PM, EST. Orders: Orders XR pelvis 1-2V 12/11/22 M25.559 - Pain in unspecified hip Coding Level of Care Code Est Pt Level 4 (42634) Diagnoses Osteoarthritis of right hip M16.11
[2022-12-11 14:22] VITALS: BMI 33.7
== END 2022-12-11 15:27 | disposition home or self-care (01) ==
PROVIDERS: PCP Internal Medicine; Visit Provider Orthopaedic Surgery
DX: M16.11 Unilateral primary osteoarthritis, right hip (principal)
CPT/HCPCS: 99213

== ENCOUNTER 2023-01-21 09:03 | Outpatient (REF) | payer MEDICARE, BC, OTHER, SELFPAY ==
[2023-01-21 11:24] LABS: MANUAL DIFF FLAG NO
[2023-01-21 11:33] LABS: Basophils Percent Auto 0.6 % (0-2); Eosinophils Absolute Auto 0.2 X10*3/uL (0.0-0.4); Eosinophils Percent Auto 4.9 % (0-4); Hematocrit 45.5 % (42.0-52.0); Hemoglobin 14.7 g/dl (14.0-18.0); Lymphocytes Absolute Auto 1.6 X10*3/uL (1.2-4.9); Mean Corpuscular HGB Conc 32.3 g/dl (31.0-36.0); Mean Corpuscular Hemoglobin 31.1 pg (27.0-33.0); Mean Corpuscular Volume 96.2 fL (80.0-98.0); Mean Platelet Volume 11.9 fL (9.4-12.4); Monocytes Absolute Auto 0.5 X10*3/uL (0.1-1.2); Neutrophils Absolute Auto 2.4 x10*3/uL (2.0-8.3); Neutrophils Percent Auto 51.5 % (45-73); Platelet Count 163 X10*3/uL (160-400); Red Blood Count 4.73 X10*6/uL (4.60-5.80); Red Cell Distribution Width 13.8 % (11.0-16.0); White Blood Count 4.7 X10*3/uL (4.8-10.8)
[2023-01-21 11:38] LABS: Alanine Aminotransferase 16 U/L (0-40); Albumin Level 4.1 g/dL (3.5-5.0); Alkaline Phosphatase 136 U/L (39-117); Anion Gap 11 (12-20); Aspartate Amino Transferase 20 U/L (5-37); Bilirubin Total 2.3 mg/dL (0.0-1.0); Blood Urea Nitrogen 14 mg/dL (9-16); Calcium 9.5 mg/dL (8.4-10.2); Carbon Dioxide 27 mmol/L (22-29); Chloride 107 mmol/L (96-108); Estimated Glomerular Filt Rate 60; Glucose Random 92 mg/dL (60-115); Potassium 4.3 mmol/L (3.3-5.1); Sodium 141 mmol/L (135-145); Total Protein 7.3 g/dL (6.5-8.0)
[2023-01-21 14:13] LABS: Prostate Specific Antigen < 0.10 ng/mL (<0.05-4.0)
== END 2023-01-21 09:04 | disposition home or self-care (01) ==
LOC: HO.HMGCLDS 09:03
PROVIDERS: Absent Provider Urology; PCP Internal Medicine; Visit Provider Internal Medicine Medical Oncology
DX: Z12.5 Encounter for screening for malignant neoplasm of prostate (principal); C61 Malignant neoplasm of prostate; E66.3 Overweight; E78.5 Hyperlipidemia, unspecified
CPT/HCPCS: 80053; 84153; 85025

== ENCOUNTER 2023-01-23 07:59 | Outpatient (REF) | payer MEDICARE, BC, SELFPAY ==
--- NOTE | ~2023-01-23 | US_ITS ---
EXAMINATION: US RETROPERITONEAL LIMITED (RENAL ONLY) CLINICAL INFORMATION: Calculus of kidney. COMPARISON: Renal ultrasound 12/27/2021 and 02/20/2020. X-ray KUB 08/19/2016 and 08/10/2015. CT abdomen and pelvis 06/29/2015. TECHNIQUE: Real-time imaging of the kidneys. FINDINGS: RIGHT KIDNEY: 10.2 x 5.8 x 5.7 cm (SAG x AP x TRV). The kidney is normal in size, contour, and echogenicity. Renal cortical thickness is normal. There is an echogenic focus seen at the lower pole of the right kidney measuring 4 mm with twinkle artifact consistent with a nonobstructing renal calculus. No focal parenchymal lesions or hydronephrosis. LEFT KIDNEY: 7.2 x 3.6 x 4.2 cm (SAG x AP x TRV). The kidney is small and demonstrates significant cortical thinning and volume loss. No calculi or focal parenchymal lesions. In the left lateral mid kidney, there is a small echogenic focus seen with some twinkle artifact which may be an area of calcification rather than a stone in the collecting system. No hydronephrosis. US/US renal BI IMPRESSION: 1. Nonobstructing right lower pole renal calculus. Similar finding can be seen on the 06/29/2015 CT scan. 2. Small left kidney with cortical thinning and volume loss. A similar finding can be seen on the 06/29/2015 CT scan.
== END 2023-01-23 08:00 | disposition home or self-care (01) ==
LOC: HO.HMGCX 07:59
PROVIDERS: PCP Internal Medicine; Visit Provider Urology
DX: N20.0 Calculus of kidney (principal)
CPT/HCPCS: 76775

== ENCOUNTER 2023-03-09 09:57 | Outpatient (AMB) | payer MEDICARE, BC, OTHER, SELFPAY ==
--- NOTE | 2023-03-09 10:46 | A.OFFVIS_ITS ---
Intake Intake Visit Reasons: 1Y PSA/US(01/23)set Intake Note: Patient is present for PSA & Ultrasound Results: PSA <0.10 ng/mL, 01/21/2023 Urology Medication: None Blood Thinner: None Administrative Executive Required: No Accompanied by: Self / Same As Patient Allergies grass, mold, trees Allergy (Unknown, Uncoded 03/09/23 10:47) Sneezing Medication List - Last Reconciled 03/09/23 by Gardenia Aavlos MD atorvastatin 1 tab PO DAILY betamethasone dipropionate 0.05% 1 appl topical BID econazole 1% appl topical BEDTIME ergocalciferol (vitamin D2) (Vitamin D2) PO gabapentin 1 tab PO TID lisinopril 1 tab PO DAILY lorazepam 1 tab PO DAILY PRN HPI HPI Comments History of Present Illness Details Danilo is a 77 year old male who is here for follow up due to history of nephrolithiasis and prostate cancer. Primary treatment, Prostatectomy (RRP/Robotic) - [facility]. PSA <0.10 ng/mL, 01/21/2023 Gulshan states he is doing well, ocassional leakage, discussed to continue kegel exercises. I have reviewed renal US 01/31/23-- Nonobstructing right lower pole renal calculus 4 mm. Small left kidney with cortical thinning and volume loss. A similar findings can be seen on the 06/29/2015 CT scan. Review of chart: Nephrolithiasis/Urolithiasis: - small stone right side.. Urolithiasis was diagnosed May 2015. 24 Hour urine evaluation none on file. Prior treatment(s) include June 2015 left , ureteroscopy. Prior imaging includes June [address] (computed tomography) scan of the abdomen/pelvis (stone protocol) - left hydronephrosis, retrograde, ureteroscopy Feb 2016 , a renal ultrasound - no stones - atrophic left 01/30 renal US - small left stone, right cyst Current therapeutic plan will be to continue with imaging surveillance. Prostate cancer: 2015 robotic prostatectomy Continue with Kegel exercises for slight leakage Prostate cancer was diagnosed [address] Adames. Initial therapy included Primary treatment, Prostatectomy (RRP/Robotic) - [facility]. Recent labs included a PSA (prostate-specific antigen), < 0.1, Plan: 03/06/23-- FU in one year - renal US and PSA PFSH Medical History Cataract, right Cataract Duodenal ulcer Hydronephrosis Sinus infection Anxiety CKD (chronic kidney disease), stage III History of prostate cancer Peripheral neuropathy Elevated cholesterol HTN (hypertension) Surgical History History of left hip replacement History of carpal tunnel release Hx of lithotripsy History of lumbar laminectomy Hx of prostatectomy Social History Patient Tobacco Use Status: Former Tobacco user Quit Date: 50 years ago Current occupational status: retired 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 Review of Systems Const All systems reviewed & are unremarkable except as noted in HPI and below Reports no additional complaints Eyes Reports no additional complaints ENT Reports no additional complaints Card Denies dyspnea Resp Denies cough and Denies dyspnea GI Reports no additional complaints Musc Reports no additional complaints Skin/Breast Denies rash and Denies unusual bruising Neuro Reports no additional complaints Psych Reports no additional complaints Endo Reports no additional complaints Wesley/Lymph Reports no additional complaints Aller/Immun Reports no additional complaints Physical Exam Const General: healthy appearing, no acute distress and well developed Orientation/consciousness: patient oriented x3 HEENT Head: Yes normocephalic and Yes atraumatic Eyes Conjunctivae: conjunctivae normal Neck Neck: Yes normal visual inspection Chest Chest palpation & inspection: normal inspection of the chest Resp Effort & Inspection: normal respiratory effort Cardio Rate: regular rate GI Inspection: Yes normal to inspection Skin General skin exam: no rashes or lesions noted Neuro General: patient oriented x3 Psych Appearance: grossly normal Affect: normal affect Results AMB Urinalysis, Automated UA Leukoctes 0 Jeny/uL Last Edit by MILLICENT Johnson on 03/09/23 10:49 UA Nitrite Negative Last Edit by MILLICENT Johnson on 03/09/23 10:49 UA Urobilinogen 0.2 mg/dL Last Edit by Walter Mcgraw Graham on 03/09/23 10:4 9 UA Protein 0 mg/dL Last Edit by Walter Mcgraw Graham on 03/09/23 10:49 UA pH 6.0 Last Edit by Walter Mcgraw [facility] on 03/09/23 10:49 UA Blood 0 Jarred/uL Last Edit by Walter Mcgraw Graham on 03/09/23 10:49 UA Specific [place] 1.015 Last Edit by Walter Mcgraw [facility] on 03/09/23 10: 49 UA Ketone Negative Last Edit by Walter Mcgraw Graham on 03/09/23 10:49 UA Bilirubin 0 mg/dL Last Edit by Walter Mcgraw Graham on 03/09/23 10:49 UA Glucose 0 mg/dL Last Edit by Walter Mcgraw Graham on 03/09/23 10:49 Results Reviewed Results Reviewed: Laboratory Last Values Urine pH (Auto) 6.0 03/09/23 10:47 Specific [place] (Auto) 1.015 03/09/23 10:47 Urine Protein (Auto) 0 mg/dL 03/09/23 10:47 Glucose (UA)(Auto) 0 mg/dL 03/09/23 10:47 Urine Ketones (Auto) Negative 03/09/23 10:47 Urine Blood (Auto) 0 Ajrred/uL 03/09/23 10:47 Urine Nitrite (Auto) Negative 03/09/23 10:47 Urine Bilirubin (Auto) 0 mg/dL 03/09/23 10:47 Urine Urobilinogen (Auto) 0.2 mg/dL 03/09/23 10:47 Leukocyte Esterase (Auto) 0 Jeny/uL 03/09/23 10:47 Date of Service: 01/23/23 EXAMINATION: US RETROPERITONEAL LIMITED (RENAL ONLY) CLINICAL INFORMATION: Calculus of kidney. COMPARISON: Renal ultrasound 12/27/2021 and 02/20/2020. X-ray KUB 08/19/2016 and 08/10/2015. CT abdomen and pelvis 06/29/2015. TECHNIQUE: Real-time imaging of the kidneys. FINDINGS: RIGHT KIDNEY: 10.2 x 5.8 x 5.7 cm (SAG x AP x TRV). The kidney is normal in size, contour, and echogenicity. Renal cortical thickness is normal. There is an echogenic focus seen at the lower pole of the right kidney measuring 4 mm with twinkle artifact consistent with a nonobstructing renal calculus. No focal parenchymal lesions or hydronephrosis. LEFT KIDNEY: 7.2 x 3.6 x 4.2 cm (SAG x AP x TRV). The kidney is small and demonstrates significant cortical thinning and volume loss. No calculi or focal parenchymal lesions. In the left lateral mid kidney, there is a small echogenic focus seen with some twinkle artifact which may be an area of calcification rather than a stone in the collecting system. No hydronephrosis. IMPRESSION: 1. Nonobstructing right lower pole renal calculus. Similar finding can be seen on the 06/29/2015 CT scan. 2. Small left kidney with cortical thinning and volume loss. A similar finding can be seen on the 06/29/2015 CT scan. Assessment & Plan Assessment & Plan (1) Nephrolithiasis: Code(s): N20.0 - Calculus of kidney (2) Prostate cancer: Code(s): C61 - Malignant neoplasm of prostate Plan US renal and PSA in one year Orders: Orders PSA,Total (Free>4and<10) 10 Months C61 - Malignant neoplasm of prostate US renal BI 10 Months N20.0 - Calculus of kidney AMB Urinalysis Automated Today Z13.9 - Encounter for screening, unspecified Patient Instructions: The patient had an opportunity to ask questions regarding treatment plan. All questions were answered. Imaging, Laboratory studies and physical exam results were discussed and reviewed in detail. No major barriers to understanding were identified. The patient expressed understanding and agreement with the above treatment plan. The patient is aware they should contact our office by phone for worsening of their current condition or the appearance of new symptoms. Compliance is encouraged with any medications and followup testing that is ordered. It is a privilege to be allowed the opportunity to participate in the urologic care of your patient. If you have any questions or concerns regarding treatment for the above conditions please do not hesitate to contact me. The office telephone contact is [phone]. This note is constructed in part using voice recognition software. While every effort has been made to ensure accuracy law firm administrator errors may have been included. Yours sincerely, Gardenia Avalos MD Coding Level of Care Code Est Pt Level 4 (07279) Diagnoses Nephrolithiasis N20.0 Prostate cancer C61
== END 2023-03-09 11:27 | disposition home or self-care (01) ==
PROVIDERS: Visit Provider Urology
DX: N20.0 Calculus of kidney (principal); C61 Malignant neoplasm of prostate; Z13.9 Encounter for screening, unspecified
CPT/HCPCS: 99214

== ENCOUNTER → 2023-03-09 09:57 | Outpatient (BNVA) | payer MEDICARE, BC, OTHER, SELFPAY | PROVIDERS: Visit Provider Urology | DX: N20.0 Calculus of kidney (principal); C61 Malignant neoplasm of prostate | CPT/HCPCS: 81003; 99212 ==

== ENCOUNTER 2023-05-22 09:20 | Outpatient (REF) | payer MEDICARE, BC, OTHER, SELFPAY ==
[2023-05-22 10:30] LABS: MANUAL DIFF FLAG NO
[2023-05-22 10:45] LABS: Basophils Percent Auto 0.6 % (0-2); Eosinophils Absolute Auto 0.2 X10*3/uL (0.0-0.4); Eosinophils Percent Auto 4.5 % (0-4); Hematocrit 43.5 % (42.0-52.0); Hemoglobin 14.3 g/dl (14.0-18.0); Imm Gran Abs Auto 0.01 X10*3/uL (0.00-0.03); Imm Gran Pct Auto 0.2 % (0.0-0.4); Lymphocytes Absolute Auto 1.8 X10*3/uL (1.2-4.9); Lymphocytes Percent Auto 35.8 % (20-40); Mean Corpuscular HGB Conc 32.9 g/dl (31.0-36.0); Mean Corpuscular Hemoglobin 31.3 pg (27.0-33.0); Mean Corpuscular Volume 95.2 fL (80.0-98.0); Mean Platelet Volume 10.7 fL (9.4-12.4); Monocytes Absolute Auto 0.5 X10*3/uL (0.1-1.2); Monocytes Percent Auto 9.3 % (2-11); Neutrophils Absolute Auto 2.4 x10*3/uL (2.0-8.3); Neutrophils Percent Auto 49.6 % (45-73); Platelet Count 211 X10*3/uL (160-400); Red Blood Count 4.57 X10*6/uL (4.60-5.80); Red Cell Distribution Width 13.5 % (11.0-16.0); White Blood Count 4.9 X10*3/uL (4.8-10.8)
[2023-05-22 11:18] LABS: Prostate Specific Antigen < 0.10 ng/mL (<0.05-4.0)
[2023-05-22 11:41] LABS: Alanine Aminotransferase 16 U/L (0-40); Albumin Level 3.8 g/dL (3.5-5.0); Alkaline Phosphatase 139 U/L (39-117); Anion Gap 12 (12-20); Aspartate Amino Transferase 22 U/L (5-37); Bilirubin Total 1.8 mg/dL (0.0-1.0); Blood Urea Nitrogen 16 mg/dL (9-16); Calcium 9.3 mg/dL (8.4-10.2); Carbon Dioxide 26 mmol/L (22-29); Chloride 109 mmol/L (96-108); Cholesterol 133 mg/dL (<200); Estimated Glomerular Filt Rate > 60; Glucose Fasting 90 mg/dL (60-99); HDL Cholesterol 43 mg/dL (>40); LDL Cholesterol Calculated 72 mg/dL (<100); Potassium 4.3 mmol/L (3.3-5.1); Sodium 143 mmol/L (135-145); Total Protein 6.9 g/dL (6.5-8.0); Triglycerides 92 mg/dL (<150)
== END 2023-05-22 09:21 | disposition home or self-care (01) ==
LOC: HO.HMGCLDS 09:20
PROVIDERS: PCP Internal Medicine; Visit Provider Internal Medicine Medical Oncology
DX: C61 Malignant neoplasm of prostate (principal); E78.5 Hyperlipidemia, unspecified; E66.3 Overweight; Z12.5 Encounter for screening for malignant neoplasm of prostate
CPT/HCPCS: 36415; 80053; 80061; 84153; 85025

== ENCOUNTER 2023-06-15 08:34 | Outpatient (AMB) | payer MEDICARE, BC, OTHER, SELFPAY ==
[2023-06-15 08:44] VITALS: BMI 33.4
--- NOTE | 2023-06-15 08:44 | MHC.OFFVIS ---
Vital Signs 06/15/23 08:44 Height 5 ft 10 in Weight 233 lb BMI 33.4 Intake Visit Reasons: OV - discuss surgery for rt hip Intake Note: Danilo is an 78 year old male who presents today for a follow up of his Right Hip OA. At his last visit with us in December IRWIN was discussed but he was relatively asymptomatic at the time. Allergies grass, mold, trees Allergy (Unknown, Uncoded 03/09/23 10:47) Sneezing HPI HPI OV - discuss surgery for rt hip: Details: Gulshan comes in today with ongoing right hip pain. He underwent a successful left IRWIN in 2018. He has been doign well with his left hip but for years has been having pain with daily activities and pain with walking. The pain localizes to his right anterior hip and groin. He has pain with standing from a seated position, walking, stairs, getting into and out of automobiles. 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 Physical Exam Vital Signs: BMI result Body Mass Index 33.4 Const General: cooperative, healthy appearing, no acute distress and well groomed Orientation/consciousness: oriented to person and oriented to place HEENT Head: Yes normal to inspection, Yes normocephalic and Yes atraumatic Eyes General: appearance normal, both eyes and all related structures Alignment and Position: alignment normal Conjunctivae: conjunctivae normal EOM: EOMs intact bilaterally Neck Neck: Yes normal visual inspection and Yes trachea midline Resp Other: No rerpiratory distress Effort & Inspection: normal respiratory effort and able to speak in complete sentences GI Other: No abdominal distension Back/Spine/Pelvis Cervical Spine: normal cervical lordosis and cervical ROM normal Skin General skin exam: no rashes or lesions noted Neuro General: oriented to person, oriented to place and gait normal Extrem Other: + impingement with no internal rotation possible + STinchfield and + gait antalgia Results Reviewed Results Reviewed: I personally reviewed relevant radiographs. Left IRWIN in expected post operative position with no hardware complications or evidence of loosening Right hip OA, severe Assessment & Plan Assessment & Plan (1) Osteoarthritis of right hip: Code(s): M16.11 - Unilateral primary osteoarthritis, right hip Category: Medical Plan: This is an 78 yo M with right hip OA that is severe. His quality of life is diminished and he cannot perform his ADLs. He would like to be able to walk for more than just a few minutes without pain and difficulty. He cannot take NSAIDs. He had a successful left IRWIN 6 years ago and I recommend right IRWIN. I discussed the risks benefits and alternatives including but not limited to the risk of pain, infection, stiffness, dislocation, fracture, LLD, need for further surgery as well as potential medical complications such as blood clots, pulmonary embolism and cardiac complications. He expressed understanding and we will proceed forward accordingly. Coding Level of Care Code Est Pt Level 4 (41294) Diagnoses Osteoarthritis of right hip M16.11
== END 2023-06-15 09:06 | disposition home or self-care (01) ==
PROVIDERS: PCP Internal Medicine; Visit Provider Orthopaedic Surgery
DX: M16.11 Unilateral primary osteoarthritis, right hip (principal)
CPT/HCPCS: 99214

== ENCOUNTER → 2023-06-15 08:34 | Outpatient (BNVA) | payer MEDICARE, BC, OTHER, SELFPAY | PROVIDERS: PCP Internal Medicine; Visit Provider Orthopaedic Surgery | DX: M16.11 Unilateral primary osteoarthritis, right hip (principal) | CPT/HCPCS: 99212 ==

== ENCOUNTER → 2023-08-07 10:44 | Outpatient (BNVA) | payer MEDICARE, BC, OTHER, SELFPAY | PROVIDERS: PCP Internal Medicine | DX: Z01.818 Encounter for other preprocedural examination (principal) ==

== ENCOUNTER 2023-08-17 07:23 | Outpatient (REF) | payer MEDICARE, BC, OTHER, SELFPAY ==
[2023-08-17 10:16] LABS: MANUAL DIFF FLAG NO
[2023-08-17 10:16] LABS: Appearance Urine Clear; Color Urine Yellow; Glucose Urine UA Negative (Negative); Leukocyte Esterase Urine Negative (Negative); Nitrite Urine Negative (Negative); PH 7.5 (5.0-9.0); Specific Gravity - Urine 1.015 (1.005-1.025); Urine Blood Negative (Negative); Urine Ketones Negative (Negative); Urine Protein Negative (Neg-Trace)
[2023-08-17 10:20] LABS: Bacteria Urine None Seen (None Seen); Hyaline Casts Urine 0-2 /LPF (0-2); RBC Urine 0-2 /HPF (0-2); Squamous Epithelial Cell Urine 0-2 /HPF (0-2); WBC Urine 0-5 /HPF (0-5)
[2023-08-17 10:23] LABS: Basophils Percent Auto 0.7 % (0-2); Eosinophils Absolute Auto 0.3 X10*3/uL (0.0-0.4); Eosinophils Percent Auto 6.2 % (0-4); Hematocrit 41.6 % (42.0-52.0); Hemoglobin 13.7 g/dl (14.0-18.0); Imm Gran Abs Auto 0.01 X10*3/uL (0.00-0.03); Imm Gran Pct Auto 0.2 % (0.0-0.4); Lymphocytes Absolute Auto 1.8 X10*3/uL (1.2-4.9); Lymphocytes Percent Auto 40.1 % (20-40); Mean Corpuscular HGB Conc 32.9 g/dl (31.0-36.0); Mean Corpuscular Hemoglobin 31.5 pg (27.0-33.0); Mean Corpuscular Volume 95.6 fL (80.0-98.0); Mean Platelet Volume 11.9 fL (9.4-12.4); Monocytes Absolute Auto 0.5 X10*3/uL (0.1-1.2); Monocytes Percent Auto 10.7 % (2-11); Neutrophils Absolute Auto 1.9 x10*3/uL (2.0-8.3); Neutrophils Percent Auto 42.1 % (45-73); Platelet Count 188 X10*3/uL (160-400); Red Blood Count 4.35 X10*6/uL (4.60-5.80); Red Cell Distribution Width 13.7 % (11.0-16.0); White Blood Count 4.5 X10*3/uL (4.8-10.8)
[2023-08-17 10:42] LABS: Anion Gap 10 (12-20); Blood Urea Nitrogen 20 mg/dL (9-16); Carbon Dioxide 26 mmol/L (22-29); Chloride 109 mmol/L (96-108); Estimated Glomerular Filt Rate 59; Potassium 4.2 mmol/L (3.3-5.1); Sodium 141 mmol/L (135-145)
[2023-08-17 12:24] LABS: Creatinine Urine 62.26 mg/dL; Microalbum/Creatinine Ratio Ur 11.2 ug/mg cr (<30); Total Protein Urine Random < 7 mg/dL (<12)
== END 2023-08-17 07:24 | disposition home or self-care (01) ==
LOC: HO.HMGCLDS 07:23
PROVIDERS: PCP Internal Medicine; Visit Provider Internal Medicine Nephrology
DX: I12.9 Hypertensive chronic kidney disease with stage 1 through stage 4 chronic kidney disease, or unspecified chronic kidney disease (principal); N18.31 Chronic kidney disease, stage 3a; N25.0 Renal osteodystrophy
CPT/HCPCS: 36415; 80051; 81001; 82043; 82310; 82565; 82570; 84156; 84520; 85025

== ENCOUNTER 2023-08-31 08:52 | Outpatient (AMB) | payer MEDICARE, BC, OTHER, SELFPAY ==
--- NOTE | 2023-08-31 08:59 | MHC.OFFVIS ---
Vital Signs 08/31/23 09:04 Height 5 ft 10 in Weight 233 lb BMI 33.4 Intake Visit Reasons: Pre-Op: R IRWIN w/NE 09/08/23 Intake Note: Gulshan an 79 year old male who presents today for a preoperative visit for right IRWIN on 09/08/23 with NE. Pain management agreement reviewed and signed. Allergies grass, mold, trees Allergy (Unknown, Uncoded 08/31/23 09:04) Sneezing Medication List - Last Reconciled 08/31/23 by Pacheco Flood PA-C amlodipine 10 mg PO DAILY atorvastatin 1 tab PO DAILY betamethasone dipropionate 0.05% 1 appl topical BID econazole 1% appl topical BEDTIME ergocalciferol (vitamin D2) (Vitamin D2) PO gabapentin 1 tab PO TID lisinopril 20 mg PO DAILY lorazepam 1 tab PO DAILY PRN walker Folding Front wheeled walker HPI Comments Details: Mr Heredia presents to the office today for preop visit. He is scheduled for right total hip arthroplasty with Dr. Baez. He continues to have ongoing pain and difficulty with ambulation in the right hip, which is affecting his quality of life; therefore, he has elected to move forward with surgery. 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 Review of Systems Const All systems reviewed & are unremarkable except as noted in HPI and below Physical Exam Vital Signs: BMI result Body Mass Index 33.4 Const General: cooperative, healthy appearing, comfortable, no acute distress, well developed and alert Orientation/consciousness: patient oriented x3 HEENT Head: Yes normal to inspection, Yes normocephalic and Yes atraumatic Eyes General: appearance normal, both eyes and all related structures Neck Neck: Yes normal visual inspection and Yes no lymphadenopathy Resp Effort & Inspection: normal respiratory effort and able to speak in complete sentences Cardio Rate: regular rate Peripheral pulses: Peripheral pulses 2+ throughout GI Inspection: Yes normal to inspection Palpation (GI): Soft to palpation Skin General skin exam: no rashes or lesions noted Neuro General: patient oriented x3 Extrem Other: Right hip normal to inspection. There are no open wounds or abrasions. Pain with range of motion of the hip and with hip flexion. He walks with antalgic gait. Neurovascularly intact. Psych Appearance: grossly normal Mental Status: mental status grossly normal Assessment & Plan Assessment & Plan (1) Osteoarthritis of right hip: Code(s): M16.11 - Unilateral primary osteoarthritis, right hip Category: Medical Plan I discussed in detail the procedure and what to expect pre and post operatively. We discussed the risks, benefits and alternatives to the surgery as well as the rehabilitation course. The risks; which include, but are not limited to infection, bleeding, nerve injury, ongoing pain, swelling, and stiffness, perioperative risk of injury to bones and soft tissues, and blood clots. I?ve answered all questions and with their understanding they have consented to move forward with Right total hip arthroplasty with Dr. Nestor Alonso post op due to GI bleed with aspirin. Coding Level of Care Code Est Pt Level 3 (23145) Diagnoses Osteoarthritis of right hip M16.11
[2023-08-31 09:04] VITALS: BMI 33.4
== END 2023-08-31 09:29 | disposition home or self-care (01) ==
PROVIDERS: PCP Internal Medicine; Visit Provider Physician Assistant
DX: M16.11 Unilateral primary osteoarthritis, right hip (principal)
CPT/HCPCS: 99024

== ENCOUNTER → 2023-08-31 08:52 | Outpatient (BNVA) | payer MEDICARE, BC, OTHER, SELFPAY | PROVIDERS: PCP Internal Medicine; Visit Provider Physician Assistant | DX: M16.11 Unilateral primary osteoarthritis, right hip (principal) | CPT/HCPCS: 99212 ==

== ENCOUNTER 2023-09-08 06:34 | Inpatient (IN) | payer MEDICARE, BC, OTHER, SELFPAY ==
[2023-08-31 10:07] VITALS: BP 109/66; PULSE 56; RESP 18; O2SAT 95; BMI 31.5
--- NOTE | 2023-08-31 10:38 | HO.ANESPROP2 ---
Documented by User: Indira Hendricks NP 09/07/23 12:01 HPI - Anesthesia Eval Consult details Narrative: 78yo M for Right Hip Total Replacement Medically cleared No recent illness No CP/SOB with limited activity, able to do some yardwork, only limited by hip pain CKD: follows Dr Jaime KESSLER Active Problems Active Problems: All Active Problems Osteoarthritis of right hip (Acute) Ganglion cyst of finger of left hand (Acute) Mass of left finger (Acute) Trigger thumb, right thumb (Acute) Nephrolithiasis (Acute) Prostate cancer (Acute) Past Medical History Medical History Arthritis Degenerative joint disease Cataract, right Cataract Duodenal ulcer Hydronephrosis Sinus infection Anxiety CKD (chronic kidney disease), stage III History of prostate cancer Peripheral neuropathy Elevated cholesterol HTN (hypertension) Family History Family history of problems with anesthesia: No Surgical History Surgical History Hx of hand surgery History of esophagogastroduodenoscopy (EGD) H/O colonoscopy History of left hip replacement History of carpal tunnel release Hx of lithotripsy History of lumbar laminectomy Hx of prostatectomy History of Problems with Anesthesia: No Social History Social History Are you a primary neonatal critical care nurse to a significant other at home: No Do you presently have visiting nurse or other home services: No Patient Tobacco Use Status: Former Tobacco user Use of substances other than those prescribed or required for medical reasons: No Have you been hit, kicked, punched, or otherwise hurt by someone within the past year? 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 Allergies Allergy/AdvReac Type Severity Reaction Status Date / Time grass, mold, trees Allergy Unknown Sneezing Uncoded 09/08/23 06:54 Home Medications ?Medication ?Instructions ?Recorded ?Confirmed ?Last Taken ?Type atorvastatin 10 mg tablet 1 tab PO BEDTIME 12/30/19 08/31/23 Unknown History gabapentin 600 mg tablet 1 tab PO TID 12/30/19 08/31/23 01/09/20 06:30 History lorazepam 0.5 mg tablet 1 tab PO BEDTIME PRN Insomnia 12/30/19 08/31/23 Unknown History econazole 1 % topical cream 1 appl topical BEDTIME 01/29/21 08/31/23 Unknown History ergocalciferol (vitamin D2) 1,250 1,250 mcg PO QMONTH 01/29/21 08/31/23 Unknown History mcg (50,000 unit) capsule (Vitamin D2) betamethasone dipropionate 0.05 % 1 appl topical BID PRN Skin 12/24/21 08/31/23 Unknown History topical ointment Irritation amlodipine 10 mg tablet 10 mg PO BEDTIME 08/07/23 08/31/23 Unknown History amoxicillin 500 mg tablet 2,000 mg PO DIRECTED 08/31/23 08/31/23 Unknown History multivitamin 1 tab PO BEDTIME 08/31/23 08/31/23 Unknown History ketoconazole 2 % topical cream 1 appl topical 09/08/23 Unknown History lisinopril 20 mg tablet 20 mg PO DAILY 09/08/23 Unknown History Exam Height,Weight and Vital Signs: Height 5 ft 10.5 in Weight 101.151 kg Last Vital Signs Pulse 56 08/31/23 10:07 Resp 18 08/31/23 10:07 BP 109/66 08/31/23 10:07 Pulse Ox 95 08/31/23 10:07 O2 Del Method Room Air 08/31/23 10:07 Pertinent Lab Results Pertinent Lab Results: Laboratory Tests 08/17/23 07:42 WBC 4.5 L Hgb 13.7 L Hct 41.6 L Plt Count 188 Sodium 141 Potassium 4.2 Chloride 109 H Carbon Dioxide 26 BUN 20 H Creatinine 1.19 Lab Results 08/31/23 08/31/23 Range/Units 10:25 11:05 Nasal Screen MRSA (PCR) NEGATIVE (Negative) Nasal S. aureus Screen NEGATIVE (Negative) Nasal MRSA/S.aureus Interp SEE NOTE Blood Type O Positive Antibody Screen NEGATIVE Airway TM Dist: >3cm Neck ROM: Full Loose/Missing/Broken Teeth: No (4 x implants upper molars) Heart: RRR Lungs: CTAB Assessment and Plan Assessment Anesthesia Assessment: Anesthesia Plan Discussed and PAT Visit Final Anesthetic Review Family History of Problems with Anesthesia: No History of Problems with Anesthesia: No Documented by User: Radha Victor MD 09/08/23 08:42 [facility] Past Medical History Medical History Arthritis Degenerative joint disease Cataract, right Cataract Duodenal ulcer Hydronephrosis Sinus infection Anxiety CKD (chronic kidney disease), stage III History of prostate cancer Peripheral neuropathy Elevated cholesterol HTN (hypertension) Surgical History Surgical History Hx of hand surgery History of esophagogastroduodenoscopy (EGD) H/O colonoscopy History of left hip replacement History of carpal tunnel release Hx of lithotripsy History of lumbar laminectomy Hx of prostatectomy Social History Social History Are you a primary neonatal critical care nurse to a significant other at home: No Do you presently have visiting nurse or other home services: No Patient Tobacco Use Status: Former Tobacco user Use of substances other than those prescribed or required for medical reasons: No Have you been hit, kicked, punched, or otherwise hurt by someone within the past year? 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 Allergies Allergy/AdvReac Type Severity Reaction Status Date / Time grass, mold, trees Allergy Unknown Sneezing Uncoded 09/08/23 06:54 Home Medications ?Medication ?Instructions ?Recorded ?Confirmed ?Last Taken ?Type atorvastatin 10 mg tablet 1 tab PO BEDTIME 12/30/19 08/31/23 Unknown History gabapentin 600 mg tablet 1 tab PO TID 12/30/19 08/31/23 01/09/20 06:30 History lorazepam 0.5 mg tablet 1 tab PO BEDTIME PRN Insomnia 12/30/19 08/31/23 Unknown History econazole 1 % topical cream 1 appl topical BEDTIME 01/29/21 08/31/23 Unknown History ergocalciferol (vitamin D2) 1,250 1,250 mcg PO QMONTH 01/29/21 08/31/23 Unknown History mcg (50,000 unit) capsule (Vitamin D2) betamethasone dipropionate 0.05 % 1 appl topical BID PRN Skin 12/24/21 08/31/23 Unknown History topical ointment Irritation amlodipine 10 mg tablet 10 mg PO BEDTIME 08/07/23 08/31/23 Unknown History amoxicillin 500 mg tablet 2,000 mg PO DIRECTED 08/31/23 08/31/23 Unknown History multivitamin 1 tab PO BEDTIME 08/31/23 08/31/23 Unknown History ketoconazole 2 % topical cream 1 appl topical 09/08/23 Unknown History lisinopril 20 mg tablet 20 mg PO DAILY 09/08/23 Unknown History Assessment and Plan Assessment Anesthesia Assessment: Chart Reviewed Final Anesthetic Review NPO: Yes ASA Class: III Final Preanesthetic Review: No Changes in Pt Med Stat, Meds/Allgs Chart Reviewed, Consent Obtained/Reviewed and Anes Risks/Benef Reviewed Patient Risk: Intermediate Procedure Risk: Intermediate Anesthetic Plan Anesthetic Plan: GA Disposition: Standard PACU
[2023-08-31 12:07] LABS: MRSA Nasal PCR NEGATIVE (Negative); SA Nasal PCR NEGATIVE (Negative)
--- NOTE | 2023-09-01 14:25 | P.PNNP_ITS ---
Subjective Subjective Date of Service: 08/25/23 Interval history: RTANE PT seen 08/25/23 in [facility] for CKD 3a stable [place] R THR later this month Ok from renal standpoint to go forward with surgery If renal or HTN prob occur feel free to contact me Physical Exam Vital Signs: Vital Signs: Last Vital Signs Pulse 56 08/31/23 10:07 Resp 18 08/31/23 10:07 BP 109/66 08/31/23 10:07 Pulse Ox 95 08/31/23 10:07 O2 Del Method Room Air 08/31/23 10:07 BMI result Body Mass Index 31.5 Procedures Date of Service Date of Service: 09/01/23 Assessment & Plan Time Spent With Patient Time: Total time managing care of this patient today ____ minutes.
[2023-09-08] VITALS (12 sets, daily range): BP systolic 112–152; BP diastolic 63–75; PULSE 50–69; RESP 10–18; TEMP 35.7–36.8; O2SAT 87–98; BMI 33.7
--- NOTE | ~2023-09-08 | XR_ITS ---
EXAMINATION: XR PELVIS CLINICAL INFORMATION: Right total hip arthroplasty, postoperative evaluation COMPARISON: X-ray pelvis and hip on 12/11/2022 TECHNIQUE: AP view of the pelvis and right hip. FINDINGS: BONES: Bony structures are intact. There is no focal bone destruction or periosteal reaction seen. JOINTS: There is normal alignment of bilateral total hip arthroplasty prostheses. SOFT TISSUE: Soft tissue is normal. No abnormal air collection is seen. XR/XR pelvis 1-2V IMPRESSION: 1. Unchanged normal pelvis x-ray. No fracture or dislocation is seen. 2. Unchanged normal alignment of right total hip arthroplasty prostheses. No fracture or dislocation or signs of loosening are seen. 3. Interval successful right total hip arthroplasty with normal alignment of prostheses.
--- NOTE | ~2023-09-08 | US_ITS ---
EXAMINATION: NONINVASIVE ASSESSMENT OF THE ARTERIES OF BOTH LOWER EXTREMITIES INCLUDING BILATERAL LOWER EXTREMITY DUPLEX. CLINICAL INFORMATION: Dusky feet bilaterally COMPARISON: None TECHNIQUE: duplex Doppler techniques with wave form analysis and measurement of velocities in the common femoral, profunda femoral, superficial femoral, popliteal, tibial and peroneal arteries. The study was performed only at rest. FINDINGS: RIGHT LEG Common femoral artery: 113 cm/s, Multiphasic Profunda femoris artery: 79 cm/s, Multiphasic Superficial femoral artery (proximal): 87 cm/s, Multiphasic Superficial femoral artery (mid): 94 cm/s, Multiphasic Superficial femoral artery (distal): 86 cm/s, Multiphasic Proximal Popliteal artery: 84 cm/s, Multiphasic Mid posterior tibial artery: 86 cm/s, Multiphasic Multiple thigh collaterals. LEFT LEG: Common femoral artery: 102 cm/s, Multiphasic Profunda femoris artery: 89 cm/s, Multiphasic Superficial femoral artery (proximal): 79 cm/s, Multiphasic Superficial femoral artery (mid): 94 cm/s, Multiphasic Superficial femoral artery (distal): 75 cm/s, Multiphasic Proximal Popliteal artery: 93 cm/s, Multiphasic Mid posterior tibial artery: 101 cm/s, Multiphasic Multiple thigh collaterals. There is complex popliteal fossa fluid collection with a calcification measuring 2.6 x 1.3 x 2.3cm. US/US arterial duplex LE BI IMPRESSION: 1. No hemodynamically significant stenosis in the bilateral lower extremities. 2. Complex left popliteal fossa fluid collection with a calcification measuring 2.6 x 1.3 x 2.3 cm.
--- OUTSIDE RECORDS SUMMARY | 2023-09-08 06:47 | XMS_ITS ---
Author Organization Donavan Kirkpatrick III, MD Address [address] [place] [address] [place] [address] Care Team Providers Care Profile Trimmer Name Role Phone Jarred Ramon MD Primary Care Provider Unavailab Donavan Man Unavailable [phone] REASON FOR VISIT Re:Annual Patient Experience Survey SOCIAL HISTORY Sex Assigned At : Social History Observation Description Sex Assigned At Male Encounters Encounter Location Date Provider Diagnosis Donavan Kirkpatrick III, MD [address] [place] [address] [place] [address] 11/21/2022 Donavan Kirkpatrick PLAN OF TREATMENT Next Appt Details Provider Name:Donavan Kirkpatrick, 11/27/2023 10:30:00 AM, [address] [place] [address] [address] MARTINEZ, [place], [id number],
--- OUTSIDE RECORDS SUMMARY | 2023-09-08 06:47 | XMS_ITS ---
Author Organization Donavan Kirkpatrick III, MD Address [address] [place] [address] Care Team Providers Care Reed Cleaner Name Role Phone Jarred Ramon MD Primary Care Provider UnavailDonavan Joseph Unavailable [phone] ALLERGIES Allergen (clinical drug ingredient) Drug/Non Drug Allergy documented on EMR Reaction Allergy Type Onset Date Status Mold Unknown Allergy Active Cockroach Unknown Allergy Active Grass Mix Pollens Allergen Ext Unknown Drug Allergy Active REASON FOR VISIT Prostate cancer, Osteoarthritis, Spinal stenosis, Hypertension, Hyperlipidemia, Low back pain MEDICATIONS Medication SIG (Take, Route, Frequency, Duration) Notes Start Date End Date Status Atorvastatin Calcium 10 MG 1 tablet Oral ly Once a day Active LORazepam 0.5 MG 1 tablet at bedtime as needed Orally Three times a day Active Gabapentin 600 MG 1 tablet Orally thre e times a day Active Lisinopril 10 MG 1 tablet Orally Once a day Active SOCIAL HISTORY Tobacco Use: Social History Observation Description Date Details (start date - stop date) Former Smoker NA - NA Sex Assigned At : Social History Observation Description Sex Assigned At Male Tobacco Use/Smoking Question Answer Notes Patient is a former smoker How long has it been since you last smoked? > 10 years Additional Findings: Tobacco Non-User Ex-cigaret te smoker VITAL SIGNS BMI 29.98 kg/m2 01/27/2023 Blood pressure systolic 138 mm Hg 01/28/20 23 Blood pressure diastolic 80 mm Hg 023 Heart Rate 68 /min 01/27/2023 Height 71.5 in 01/27/2023 Temperature 98.3 degrees Fahrenheit 01/28/20 23 Weight 218 lbs 01/27/2023 Encounters Encounter Location Date Provider Diagnosis Donavan Kirkpatrick III, MD [address] [place] [address] [address] [place] [id number] 01/27/2023 Donavan Kirkpatrick Prostate cancer C61 ; Hyperlipidemia E78.5 ; Overweight E66.3 ; Hypertension I10 and Former smoker Z87.891 ASSESSMENTS Encounter Date Diagnosis Assessment Notes Treatment Notes Treatment Clinical Notes 01/27/2023 Prostate cancer (ICD-10 - C61) There was no sign of recurrent or progressive prostate cancer on today's examination. He has no bone pain. His PSA remains undetectable. 01/27/2023 Hyperlipidemia (ICD-10 - E78.5) His lipids are in their target range and no change in his therapy is needed. I recommended aggressive weight loss and a healthy Mediterranean diet. 01/27/2023 Overweight (ICD-10 - E66.3) He has gained 3 pounds, which is winter clothing. His body mass index is 29.8. We discussed his weight loss strategy, diet and nutrition. We made a plan to lose weight at a rate of one half of a pound per week. 01/27/2023 Hypertension (ICD-10 - I10) His blood pressure is in the normal range today. I recommended a regimen of weight loss and sodium restriction. 01/27/2023 Former smoker (ICD-1 0 - Z87.891) He is highly motivated not to smoke. We have developed a plan for prevention of relapse in times of stress and illness. PLAN OF TREATMENT Medication Medication Name Sig Start Date Stop Date Notes Atorvastatin Calcium 10 MG 1 tablet Orally Once a day LORazepam 0.5 MG 1 tablet at bedtime as needed Orally Three times a day Gabapentin 600 MG 1 tablet Orally thre e times a day Lisinopril 10 MG 1 tablet Orally Once a day Pending Test Test Name Order Date PROFILE, FASTING (COMPREHENSIVE METABOLI C) 01/27/2023 PSA, TOTAL 01/27/2023 CBC WITH AUTO DIFF 01/27/2023 Lipid Panel 01/27/2023 Next Appt Details Follow Up: 4 Months, Reason: OV Provider Name:Donavan Kirkpatrick, 11/27/2023 10:30:00 AM, [address] [place] [address] [address] [place], [place], [phone], Progress Notes * Examination Category Sub-Category Detail Notes General Examination GENERAL APPEARANCE: pleasant , well nourished, well developed, in no acute distress, calm and relaxed , overweight HEAD: atraumatic, normocep halic EYES: eomi, perrla, anicte inocencio, conjugate EARS: normal NOSE: septum intact NECK/THYROID: no jugular venous di stention, no carotid bruit, thyroid normal HEART: no clicks, gallops, murmurs, or rubs, regular rhythm, S1, S2 normal, no s3, or vascular bruits LUNGS: clear to auscultatio n ABDOMEN: bowel sounds normal, no ascites, no organomegaly, no mass , overweight NEUROLOGIC: alert and oriented, cranial nerves 2-12 grossly intact, deep tendon reflexes 2+ symmetrical, motor strength normal upper and lower extremities, sensory exam intact SKIN: no suspicious lesion s, anicteric PERIPHERAL PULSES: normal BREASTS: no masses palpable b ilaterally MUSCULOSKELETAL: extremities unremark able, no clubbing, cyanosis or edema LYMPH NODES: no enlarged lymph no daniel,spleen normal RECTAL EXAM: not examined PSYCH: alert, oriented ORAL CAVITY: normal, unremarkable History and Physical Notes * HPI (History of Present Illness) Category Sub-Category Detail Notes COVID-19 Screening Questions Have you expe rienced fever, chills, cough, sore throat, shortness of breath, difficulty breathing, muscle aches, loss of taste or smell?: No Have you been exposed to the virus with n the last 10 days?: No Have you travelled internationally in e last 10 days?: No Have you been exposed to COVID-19 in the past?: No
--- OUTSIDE RECORDS SUMMARY | 2023-09-08 06:47 | XMS_ITS ---
Author Organization Donavan Kirkpatrick III, MD Address [address] [place] [address] Care Team Providers Care District Customs Director Name Role Phone Jarred Ramon MD Primary Care Provider UnavailDonavan Joseph Unavailable [phone] ALLERGIES Allergen (clinical drug ingredient) Drug/Non Drug Allergy documented on EMR Reaction Allergy Type Onset Date Status Mold Unknown Allergy Active Cockroach Unknown Allergy Active Grass Mix Pollens Allergen Ext Unknown Drug Allergy Active REASON FOR VISIT Prostate cancer, Spinal stenosis, Osteoarthritis, Low back pain, Hypertension MEDICATIONS Medication SIG (Take, Route, Frequency, Duration) Notes Start Date End Date Status Lisinopril 10 MG 1 tablet Orally Once a day Active LORazepam 0.5 MG 1 tablet at bedtime as needed Orally Three times a day Active Atorvastatin Calcium 10 MG 1 tablet Oral ly Once a day Active Gabapentin 600 MG 1 tablet Orally thre e times a day Active SOCIAL HISTORY Tobacco Use: [...] Additional Findings: Tobacco Non-User Ex-cigaret te smoker PROBLEMS Problem Type ICD Code Onset Dates Problem Status W/U Status Risk SNOMED Code Notes Problem Obesity, unspecified (E66.9) Active confirmed [id number] His body mass index is 30. We discussed diet and nutrition. He has been unrestrained in his consumption of ice cream at night. We made a plan to lose weight at a rate of one half of a pound per week. VITAL SIGNS BMI 30.12 kg/m2 05/29/2023 Blood pressure systolic 136 mm Hg 05/29/19 24 Blood pressure diastolic 79 mm Hg 024 Heart Rate 59 /min 05/29/2023 Height 71.5 in 05/29/2023 Temperature 97.3 degrees Fahrenheit 05/29/19 Weight 219 lbs 05/29/2023 Encounters Encounter Location Date Provider Diagnosis Donavan Kirkpatrick III, MD [address] [place] [address] [address] [place], [place] [phone] 05/29/2023 Donavan Kirkpatrick Prostate cancer C61 ; Osteoarthritis M19.90 ; Hypertension I10 ; Spinal stenosis M48.00 ; Atrophy of left kidney N26.1 ; Hyperlipidemia E78.5 ; Former smoker Z87.891 and Obesity, unspecified E66.9 ASSESSMENTS Encounter Date Diagnosis Assessment Notes Treatment Notes Treatment Clinical Notes 05/29/2023 Prostate cancer (ICD-10 - C61) There was no sign of recurrent or progressive prostate cancer on today's examination. He has no bone pain. His PSA remains undetectable. 05/29/2023 Osteoarthritis (ICD-10 - M19.90) He is going to have his right hip replaced this summer. His other joints are occasionally painful but he says they do not bother him too much. 05/29/2023 Hypertension (ICD-10 - I10) 05/29/2023 Spinal stenosis (ICD-10 - M48.00) He has chronic low back pain from spinal stenosis which was diagnosed in the past. There has been no increase in the pain or change in the pattern that would suggest involvement of the lumbar spine with prostate cancer. His symptoms will be followed carefully and observed. 05/29/2023 Atrophy of left kidney (ICD-10 - N26.1) His renal function is very good considering this problem. He will continue his primary care to control his blood pressure. 05/29/2023 Hyperlipidemia (ICD-10 - E78.5) His lipids are in their target range and no change in his therapy is needed. I recommended aggressive weight loss and a healthy Mediterranean diet. 05/29/2023 Former smoker (ICD-1 0 - Z87.891) He is highly motivated not to smoke. We have developed a plan for prevention of relapse in times of stress and illness. 05/29/2023 Obesity, unspecified (ICD-10 - E66.9) His body mass index is 30. We discussed diet and nutrition. He has been unrestrained in his consumption of ice cream at night. We made a plan to lose weight at a rate of one half of a pound per week. PLAN OF TREATMENT Medication Medication Name Sig Start Date Stop Date Notes Lisinopril 10 MG 1 tablet Orally Once a day LORazepam 0.5 MG 1 tablet at bedtime as needed Orally Three times a day Atorvastatin Calcium 10 MG 1 tablet Orally Once a day Gabapentin 600 MG 1 tablet Orally thre e times a day Pending Test Test Name Order Date PROFILE, RANDOM (COMPREHENSIVE METABOLIC ) 05/29/2023 PSA, TOTAL 05/29/2023 CBC w DIFF 05/29/2023 Next Appt Details Follow Up: 6 Months, Reason: ov review labs Provider Name:Donavan Kirkpatrick, 11/27/2023 10:30:00 AM, [address] [place] [address] DR, [facility] [address], [place], [address], Progress Notes * Examination Category Sub-Category Detail Notes General Examination GENERAL APPEARANCE: pleasant , well nourished, well developed, in no acute distress, calm and relaxed , obese , elderly man HEAD: atraumatic, normocep halic EYES: eomi, perrla, anicte inocencio, conjugate EARS: normal NOSE: septum intact NECK/THYROID: no jugular venous di stention, no carotid bruit, thyroid normal HEART: no clicks, gallops, murmurs, or rubs, regular rhythm, S1, S2 normal, no s3, or vascular bruits LUNGS: clear to auscultatio n ABDOMEN: bowel sounds normal, no ascites, no organomegaly, no mass , centripital obesity NEUROLOGIC: alert and oriented, cranial nerves 2-12 grossly intact, deep tendon reflexes 2+ symmetrical, motor strength normal upper and lower extremities, sensory exam intact SKIN: no suspicious lesion s, anicteric PERIPHERAL PULSES: normal BREASTS: no masses palpable b ilaterally MUSCULOSKELETAL: extremities unremark able, no clubbing, cyanosis or edema, Moderate pain to range of motion right hip LYMPH NODES: no enlarged lymph no daniel,spleen [...] days?: No Have you travelled internationally in [facility] last 10 days?: No Have you been exposed to COVID-19 in the past?: No
--- OUTSIDE RECORDS SUMMARY | 2023-09-08 06:47 | XMS_ITS | Patient Health Record ---
Author Organization Donavan Kirkpatrick III, MD Address [address] [place] [address] Care Team Providers Care Tool Straightener Name Role Phone Jarred Ramon MD Primary Care Provider UnavailDonavan Joseph Unavailable [phone] ALLERGIES Allergen (clinical drug ingredient) Drug/Non Drug Allergy documented on EMR Reaction Allergy Type Onset Date Status Mold Unknown Allergy Active Cockroach Unknown Allergy Active Grass Mix Pollens Allergen Ext Unknown Drug Allergy Active RESULTS Component Value Reference Range Notes Complete Blood Count Auto Di ff Reviewed date:09/29/2022 09:17:05 AM Interpretation: Performing Lab:[facility], [address] [place] [phone] Notes/Report: White Blood Count 4.4 4.8-10.8 X10*3/uL Red Blood Count 4.29 4.60-5.80 X10*6/uL Hemoglobin 13.4 14.0-18.0 g/dl Hematocrit 41.5 42.0-52.0 % Mean Corpuscular Volume 96.7 80.0-98.0 fL Mean Corpuscular Hemoglobin 31.2 27.0-33.0 pg Mean Corpuscular HGB Conc 32.3 31.0-36.0 g/dl Red Cell Distribution Width 13.7 11.0-16.0 % Platelet Count 193 160-400 X10*3/uL Mean Platelet Volume 12.0 9.4-12.4 fL Neutrophils Percent Auto 43.5 45-73 % Imm Gran Pct Auto 0.2 0.0-0.4 % Lymphocytes Percent Auto 40.6 20-40 % Monocytes Percent Auto 9.8 2-11 % Eosinophils Percent Auto 5.2 0-4 % Basophils Percent Auto 0.7 0-2 % NRBC Pct Auto 0.0 0.0-0.2 /100WBC Neutrophils Absolute Auto 1.9 2.0-8.3 x10*3/u L Imm Gran Abs Auto 0.01 0.00-0.03 X10*3/uL Lymphocytes Absolute Auto 1.8 1.2-4.9 X10*3/u L Monocytes Absolute Auto 0.4 0.1-1.2 X10*3/uL Eosinophils Absolute Auto 0.2 0.0-0.4 X10*3/u L Basophils Absolute Auto 0.0 0.0-0.2 X10*3/uL NRBC Abs Auto 0.000 0.0-0.012 X10*3/uL Comprehensive Met. Panel Reviewed date:09/29/2022 09:16:57 AM Interpretation: Performing Lab:[address] [phone] Notes/Report: Sodium 143 135-145 mmol/L Potassium 4.3 3.3-5.1 mmol/L Chloride 109 96-108 mmol/L Carbon Dioxide 27 22-29 mmol/L Anion Gap 11 12-20 Blood Urea Nitrogen 15 9-16 mg/dL Creatinine 1.12 0.5-1.4 mg/dL Estimated Glomerular Filt Rate > 60 NOTE: For -Gibraltarian individuals, multiply the result by 1.210. Chronic Kidney Disease: Estimated GFR < 60 mL/min/1.73m2 Severe Kidney Disease: Estimated GFR < 15 mL/min/1.73m2 Glucose Random 90 60-115 mg/dL Calcium 9.2 8.4-10.2 mg/dL Bilirubin Total 1.4 0.0-1.0 mg/dL Aspartate Amino Transferase 21 5-37 U/L Alanine Aminotransferase 15 0-40 U/L Total Protein 6.8 6.5-8.0 g/dL Albumin Level 3.7 3.5-5.0 g/dL Alkaline Phosphatase 112 39-117 U/L Prostate Specific Antigen Reviewed date:09/29/2022 09:16:40 AM Interpretation: Performing Lab:[address] [phone] Notes/Report: Prostate Specific Antigen < 0.10 <0.05-4.0 ng/mL PSA methodology: [employer] Alinity i Chemiluminescent Microparticle Immunoassay (CMIA) Complete Blood Count Auto Di ff Reviewed date:01/27/2023 10:23:17 AM Interpretation: Performing Lab:[facility], [address] [place] [phone] Notes/Report: White Blood Count 4.7 4.8-10.8 X10*3/uL Red Blood Count 4.73 4.60-5.80 X10*6/uL Hemoglobin 14.7 14.0-18.0 g/dl Hematocrit 45.5 42.0-52.0 % Mean Corpuscular Volume 96.2 80.0-98.0 fL Mean Corpuscular Hemoglobin 31.1 27.0-33.0 pg Mean Corpuscular HGB Conc 32.3 31.0-36.0 g/dl Red Cell Distribution Width 13.8 11.0-16.0 % Platelet Count 163 160-400 X10*3/uL Mean Platelet Volume 11.9 9.4-12.4 fL Neutrophils Percent Auto 51.5 45-73 % Imm Gran Pct Auto 0.0 0.0-0.4 % Lymphocytes Percent Auto 33.0 20-40 % Monocytes Percent Auto 10.0 2-11 % Eosinophils Percent Auto 4.9 0-4 % Basophils Percent Auto 0.6 0-2 % NRBC Pct Auto 0.0 0.0-0.2 /100WBC Neutrophils Absolute Auto 2.4 2.0-8.3 x10*3/u L Imm Gran Abs Auto 0.00 0.00-0.03 X10*3/uL Lymphocytes Absolute Auto 1.6 1.2-4.9 X10*3/u L Monocytes Absolute Auto 0.5 0.1-1.2 X10*3/uL Eosinophils Absolute Auto 0.2 0.0-0.4 X10*3/u L Basophils Absolute Auto 0.0 0.0-0.2 X10*3/uL NRBC Abs Auto 0.000 0.0-0.012 X10*3/uL Comprehensive Met. Panel Reviewed date:01/27/2023 10:23:17 AM Interpretation: Performing Lab:[facility], [address] [place] [phone] Notes/Report: Sodium 141 135-145 mmol/L Potassium 4.3 3.3-5.1 mmol/L Chloride 107 96-108 mmol/L Carbon Dioxide 27 22-29 mmol/L Anion Gap 11 12-20 Blood Urea Nitrogen 14 9-16 mg/dL Creatinine 1.18 0.5-1.4 mg/dL Estimated Glomerular Filt Rate 60 NOTE: For -Gibraltarian individuals, multiply the result by 1.210. Chronic Kidney Disease: Estimated GFR < 60 mL/min/1.73m2 Severe Kidney Disease: Estimated GFR < 15 mL/min/1.73m2 Glucose Random 92 60-115 mg/dL Calcium 9.5 8.4-10.2 mg/dL Bilirubin Total 2.3 0.0-1.0 mg/dL Aspartate Amino Transferase 20 5-37 U/L Alanine Aminotransferase 16 0-40 U/L Total Protein 7.3 6.5-8.0 g/dL Albumin Level 4.1 3.5-5.0 g/dL Alkaline Phosphatase 136 39-117 U/L Prostate Specific Antigen Reviewed date:01/27/2023 10:23:17 AM Interpretation: Performing Lab:[facility], [address] [place] [phone] Notes/Report: Prostate Specific Antigen < 0.10 <0.05-4.0 ng/mL PSA methodology: [employer] Alinity i Chemiluminescent Microparticle Immunoassay (CMIA) Complete Blood Count Auto Di ff Reviewed date:05/24/2023 07:54:37 PM Interpretation: Performing Lab:[address] [phone] Notes/Report: White Blood Count 4.9 4.8-10.8 X10*3/uL Red Blood Count 4.57 4.60-5.80 X10*6/uL Hemoglobin 14.3 14.0-18.0 g/dl Hematocrit 43.5 42.0-52.0 % Mean Corpuscular Volume 95.2 80.0-98.0 fL Mean Corpuscular Hemoglobin 31.3 27.0-33.0 pg Mean Corpuscular HGB Conc 32.9 31.0-36.0 g/dl Red Cell Distribution Width 13.5 11.0-16.0 % Platelet Count 211 160-400 X10*3/uL Mean Platelet Volume 10.7 9.4-12.4 fL Neutrophils Percent Auto 49.6 45-73 % Imm Gran Pct Auto 0.2 0.0-0.4 % Lymphocytes Percent Auto 35.8 20-40 % Monocytes Percent Auto 9.3 2-11 % Eosinophils Percent Auto 4.5 0-4 % Basophils Percent Auto 0.6 0-2 % NRBC Pct Auto 0.0 0.0-0.2 /100WBC Neutrophils Absolute Auto 2.4 2.0-8.3 x10*3/u L Imm Gran Abs Auto 0.01 0.00-0.03 X10*3/uL Lymphocytes Absolute Auto 1.8 1.2-4.9 X10*3/u L Monocytes Absolute Auto 0.5 0.1-1.2 X10*3/uL Eosinophils Absolute Auto 0.2 0.0-0.4 X10*3/u L Basophils Absolute Auto 0.0 0.0-0.2 X10*3/uL NRBC Abs Auto 0.000 0.0-0.012 X10*3/uL Comprehensive [place]. Panel Fa st Reviewed date:05/24/2023 07:54:37 PM Interpretation: Performing Lab:[facility], [address] [place] [phone] Notes/Report: Sodium 143 135-145 mmol/L Potassium 4.3 3.3-5.1 mmol/L Chloride 109 96-108 mmol/L Carbon Dioxide 26 22-29 mmol/L Anion Gap 12 12-20 Blood Urea Nitrogen 16 9-16 mg/dL Creatinine 1.05 0.5-1.4 mg/dL Estimated Glomerular Filt Rate > 60 NOTE: For -Gibraltarian individuals, multiply the result by 1.210. Chronic Kidney Disease: Estimated GFR < 60 mL/min/1.73m2 Severe Kidney Disease: Estimated GFR < 15 mL/min/1.73m2 Glucose Fasting 90 60-99 mg/dL Calcium 9.3 8.4-10.2 mg/dL Bilirubin Total 1.8 0.0-1.0 mg/dL Aspartate Amino Transferase 22 5-37 U/L Alanine Aminotransferase 16 0-40 U/L Total Protein 6.9 6.5-8.0 g/dL Albumin Level 3.8 3.5-5.0 g/dL Alkaline Phosphatase 139 39-117 U/L Lipid Panel Reviewed date:05/24/2023 07:54:37 PM Interpretation: Performing Lab:[facility], [address] [place] [phone] Notes/Report: Triglycerides 92 <150 mg/dL Desirable Triglyceride: less than 150 mg/dL Borderline High Triglyceride 150-199 mg/dL High Triglyceride: 200-499 mg/dL Very High Triglyceride: greater than or equal to 5OO mg/dL Cholesterol 133 <200 mg/dL Desirable Cholesterol: less than 200 mg/dL Borderline High Cholesterol: 200-239 mg/dL High Cholesterol: greater than 239 mg/dL LDL Cholesterol Calculated 72 <100 mg/dL Desirable LDL: less than 100 mg/dL Near Optimal/Above Optimal LDL: 110-129 mg/dL Borderline High LDL: 130-159 mg/dL High LDL: 160-189 mg/dL Very High LDL: greater than or equal to 190 mg/dL HDL Cholesterol 43 >40 mg/dL Desirable HDL: greater than 40 mg/dL Note: This HDL assay may give artificially low results in patients with liver disease. Prostate Specific Antigen Reviewed date:05/24/2023 07:54:37 PM Interpretation: Performing Lab:[facility], [address] [place] [phone] Notes/Report: Prostate Specific Antigen < 0.10 <0.05-4.0 ng/mL PSA methodology: [employer] Alinity i Chemiluminescent Microparticle Immunoassay (CMIA) REASON FOR REFERRAL No Information MEDICATIONS Medication SIG (Take, Route, Frequency, Duration) Notes Start Date End Date Status Lisinopril 10 MG 1 tablet Orally Once a day Active LORazepam 0.5 MG 1 tablet at bedtime as needed Orally Three times a day Active Atorvastatin Calcium 10 MG 1 tablet Oral ly Once a day Active Gabapentin 600 MG 1 tablet Orally thre e times a day Active IMMUNIZATIONS Vaccine Route Administration Date Status Comme nts COVID PFIZER Unknown 12/20/2020 Administered COVID PFIZER Unknown 03/11/2020 Administered COVID PFIZER Unknown 04/01/2020 Administered SOCIAL HISTORY Tobacco Use: Social History Observation Description Date Details (start date - stop date) Former Smoker NA - NA Sex Assigned At : Social History Observation Description Sex Assigned At Male Tobacco Use/Smoking Question Answer Notes Patient is a former smoker How long has it been since you last smoked? > 10 years Additional Findings: Tobacco Non-User Ex-cigaret te smoker Alcohol Screen Question Answer Notes Did you have a drink containing alcohol in the p ast year? No Points 0 Interpretation Negative PROBLEMS Problem Type ICD Code Onset Dates Problem Status W/U Status Risk SNOMED Code Notes Problem Former smoker (Z87.891) Active confirmed 9826617 He is highly motivated not to smoke. We have developed a plan for prevention of relapse in times of stress and illness. Problem Hyperlipidemia (E78.5) Active confirmed 77513814 His lipids are in their target range and no change in his therapy is needed. I recommended aggressive weight loss and a healthy Mediterranean diet. Problem Spinal stenosis (M48.00) Active confirmed 82859715 He has chronic low back pain from spinal stenosis which was diagnosed in the past. There has been no increase in the pain or change in the pattern that would suggest involvement of the lumbar spine with prostate cancer. His symptoms will be followed carefully and observed. Problem Overweight (E66.3) Active confirmed 755180227 He has gained 3 pounds, which is winter clothing. His body mass index is 29.8. We discussed his weight loss strategy, diet and nutrition. We made a plan to lose weight at a rate of one half of a pound per week. Problem Hypertension (I10) Active confirmed 89833541 His blood pressure is in the normal range today. I recommended a regimen of weight loss and sodium restriction. Problem Prostate cancer (C61) Active confirmed 112542503 There was no sign of recurrent or progressive prostate cancer on today's examination. He has no bone pain. His PSA remains undetectable. Problem Anxiety (F41.9) Active confirmed 960218 02 Problem Obesity, unspecified (E66.9) Active confirmed 032987938 His body mass index is 30. We discussed diet and nutrition. He has been unrestrained in his consumption of ice cream at night. We made a plan to lose weight at a rate of one half of a pound per week. Problem Low back pain (M54.5) Active confirmed 820407119 His low back pain was minimal today and did not impair his ability to live his life normally. No change in his regimen as needed. Problem Carpal tunnel syndrome (G56.00) Active confirmed 26873149 Problem Colonic polyp (K63.5) Active confirmed 00455199 He is up-to-date with colonoscopies. It is recommended that he undergo periodic colonoscopy and 5 year intervals as he has a history of tubular adenoma. Problem Osteoarthritis (M19.90) Active confirmed 380729002 He is going to have his right hip replaced this summer. His other joints are occasionally painful but he says they do not bother him too much. Problem Atrophy of left kidney (N26.1) Active confirmed 087854850 His renal function is very good considering this problem. He will continue his primary care to control his blood pressure. VITAL SIGNS Heart Rate 59 /min 05/29/2023 Temperature 97.3 degrees Fahrenheit 05/29/2023 Blood pressure diastolic 79 mm Hg 05/29/2023 Height 71.5 in 05/29/2023 Blood pressure systolic 136 mm Hg 05/29/2023 Weight 219 lbs 05/29/2023 BMI 30.12 kg/m2 05/29/2023 Encounters Encounter Location Date Provider Diagnosis Donavan Kirkpatrick III, MD [address] [place] [address] [place] [address] 09/29/2022 Donavan Kirkpatrick Prostate cancer C61 ; Hyperlipidemia E78.5 ; Overweight E66.3 ; Hypertension I10 ; Atrophy of left kidney N26.1 and Low back pain M54.5 Donavan Kirkpatrick III, MD [address] [place] [address] [place] [phone] 01/27/2023 Donavan Kirkpatrick Prostate cancer C61 ; Hyperlipidemia E78.5 ; Overweight E66.3 ; Hypertension I10 and Former smoker Z87.891 Donavan Kirkpatrick III, MD [address] [place] [address] [place] [address] 05/29/2023 Donavan Kirkpatrick Prostate cancer C61 ; Osteoarthritis M19.90 ; Hypertension I10 ; Spinal stenosis M48.00 ; Atrophy of left kidney N26.1 ; Hyperlipidemia E78.5 ; Former smoker Z87.891 and Obesity, unspecified E66.9 Donavan Kirkpatrick III, MD [address] [place] [address] [place] [address] 11/21/2022 Donavan Kirkpatrick ASSESSMENTS Encounter Date Diagnosis Assessment Notes Treatment Notes Treatment Clinical Notes 09/29/2022 Hyperlipidemia (ICD-10 - E78.5) His lipids are well controlled and no change in the regimen is necessary. 09/29/2022 Prostate cancer (ICD-10 - C61) There was no sign of recurrent or progressive prostate cancer on today's examination. He has no bone pain. His PSA remains undetectable. 01/27/2023 Hyperlipidemia (ICD-10 - E78.5) His lipids are in their target range and no change in his therapy is needed. I recommended aggressive weight loss and a healthy Mediterranean diet. 01/27/2023 Prostate cancer (ICD-10 - C61) There was no sign of recurrent or progressive prostate cancer on today's examination. He has no bone pain. His PSA remains undetectable. 05/29/2023 Prostate cancer (ICD-10 - C61) There was no sign of recurrent or progressive prostate cancer on today's examination. He has no bone pain. His PSA remains undetectable. 05/29/2023 Osteoarthritis (ICD-10 - M19.90) He is going to have his right hip replaced this summer. His other joints are occasionally painful but he says they do not bother him too much. 09/29/2022 Overweight (ICD-10 - E66.3) We reviewed his weight loss strategy and dilated nutrition today. We made a plan to lose weight at a rate of one half of a pound per week. 01/27/2023 Overweight (ICD-10 - E66.3) He has gained 3 pounds, which is winter clothing. His body mass index is 29.8. We discussed his weight loss strategy, diet and nutrition. We made a plan to lose weight at a rate of one half of a pound per week. 05/29/2023 Hypertension (ICD-10 - I10) 09/29/2022 Hypertension (ICD-10 - I10) His blood pressure is in the normal range today. I recommended a regimen of weight loss and sodium restriction. 01/27/2023 Hypertension (ICD-10 - I10) His blood pressure is in the normal range today. I recommended a regimen of weight loss and sodium restriction. 05/29/2023 Spinal stenosis (ICD-10 - M48.00) He has chronic low back pain from spinal stenosis which was diagnosed in the past. There has been no increase in the pain or change in the pattern that would suggest involvement of the lumbar spine with prostate cancer. His symptoms will be followed carefully and observed. 09/29/2022 Atrophy of left kidney (ICD-10 - N26.1) His renal function is very good considering this problem. He will continue his primary care to control his blood pressure. 01/27/2023 Former smoker (ICD-1 0 - Z87.891) He is highly motivated not to smoke. We have developed a plan for prevention of relapse in times of stress and illness. 05/29/2023 Atrophy of left kidney (ICD-10 - N26.1) His renal function is very good considering this problem. He will continue his primary care to control his blood pressure. 09/29/2022 Low back pain (ICD-1 0 - M54.5) His low back pain was minimal today and did not impair his ability to live his life normally. No change in his regimen as needed. 05/29/2023 Hyperlipidemia (ICD-10 - E78.5) His lipids [...] a pound per week. PLAN OF TREATMENT Pending Test Test Name Order Date PROFILE, FASTING (COMPREHENSIVE METABOLI C) 07/15/2017 PROFILE, FASTING (COMPREHENSIVE METABOLI C) 01/27/2023 PROFILE, RANDOM (COMPREHENSIVE METABOLIC ) 01/15/2018 PROFILE, RANDOM (COMPREHENSIVE METABOLIC ) 01/20/2019 PROFILE, RANDOM (COMPREHENSIVE METABOLIC ) 05/29/2023 PROFILE, RANDOM (COMPREHENSIVE METABOLIC ) 01/24/2020 PROFILE, RANDOM (COMPREHENSIVE METABOLIC ) 01/24/2021 PROFILE, RANDOM (COMPREHENSIVE METABOLIC ) 07/15/2017 PROFILE, RANDOM (COMPREHENSIVE METABOLIC ) 07/16/2018 PROFILE, RANDOM (COMPREHENSIVE METABOLIC ) 07/25/2019 PROFILE, RANDOM (COMPREHENSIVE METABOLIC ) 07/24/2020 PROFILE, RANDOM (COMPREHENSIVE METABOLIC ) 09/29/2022 PSA, TOTAL 09/29/2022 PSA, TOTAL 01/15/2018 PSA, TOTAL 01/20/2019 PSA, TOTAL 05/29/2023 PSA, TOTAL 01/24/2020 PSA, TOTAL 01/24/2021 PSA, TOTAL 07/15/2017 PSA, TOTAL 01/27/2023 PSA, TOTAL 07/16/2018 PSA, TOTAL 07/25/2019 PSA, TOTAL SCREEN 07/24/2020 CBC w DIFF 07/25/2019 CBC w DIFF 07/24/2020 CBC w DIFF 09/29/2022 CBC w DIFF 01/15/2018 CBC w DIFF 01/20/2019 CBC w DIFF 05/29/2023 CBC w DIFF 01/24/2020 CBC w DIFF 01/24/2021 CBC w DIFF 07/15/2017 CBC w DIFF 07/16/2018 CBC WITH AUTO DIFF 01/27/2023 Lipid Panel 01/27/2023 Next Appt Details Provider Name:Donavan Kirkpatrick, 11/27/2023 10:30:00 AM, [address] [place] [address], [place] [address], [place], [address], Insurance Providers Payer Name Payer Address Payer Phone Subscriber Number Group Number Insured Name Patient Relationship to Insured Coverage Start Date Coverage End Date MEDICARE NGS [address] [place] [address] [id number] Tabitha Obrienn Self - patient is the insured [facility] [address] [place], [place] [id number] [phone] [id number] Tabitha Obrienn Self - patient is the insured [facility] [address] [place] [address] [id number] Jethro Obrien Self - patient is the insured MEDICAL (GENERAL) HISTORY Medical History History ICD Code carcinoma prostate [id number] JO 3+4= 08/18 2013 colonic polyps and tubular adenoma osteoarthritis chronic back pain from spinal stenosis atrophic left kidney hypertension hyperlipidemia anxiety carpal tunnel syndrome, right wrist sinusitis obesity former smoker abstinent 40 years Surgical History Surgery Date(Month/Year) right eye cataract surgery 12/2019 lumbar back surgery 08/11/2016 left eye cataract surgery 05/2016 left hip surgery 03/24/2017 radical prostatectomy [facility] 01/23 colonoscopy 08/2011 colonoscopy 02/2006 colonoscopy 10/1999 biopsy of prostate 2013
[2023-09-08] MEDS: Lactated Ringers 1,000 ML 100 ML IVCONT ×3 (06:58→20:31)
[2023-09-08] MEDS: oxyCODONE HCl ER 10 MG TAB.ER.12H PO (07:13)
--- NOTE | 2023-09-08 07:24 | MHC.SHP ---
Pre-Procedural Eval Section A - 24 Hr Update-Section A only Date of Service: 09/08/23 The patient is an INPATIENT: No Changes since office visit: No Cold of Flu in the past 2 weeks, No New Medical Problems, No Changes in Medication and No Patient answered all questions The patient has been examined within 24 hours of the surgical procedure. The History & Physical has been completed within 30 days and I have reviewed it.: Yes Section B - Complete if H&P > 30 days Chief Complaint: Rt Erickson Allergies: Allergies Allergy/AdvReac Type Severity Reaction Status Date / Time grass, mold, trees Allergy Unknown Sneezing Uncoded 09/08/23 06:54 Plan I have reviewed the history and physical and performed a pertinent physical examination on my patient. No changes have occurred unless specified. Time Spent With Patient Time: Total time managing care of this patient today ____ minutes.
--- NOTE | 2023-09-08 09:26 | P.DS_ITS ---
DS: Providers Provider Date of Service: 09/09/23 Date of admission: 09/08/23 06:34 Primary care physician: Jarred Ramon MD DS: Summary Hospital Course Hospital Course: The patient underwent a successful right total hip arthroplasty, they were transferred to PACU and then to the floor to recover. During their stay, their vitals were stable, afebrile at 97.7. Labs were unremarkable, H/H 12.0/36.3. POD 1 they were started on Lovenox for DVT ppx as the patient has a history of a GI bleed with ASA, they also received Physical Therapy services twice a day. Prior to discharge, their dressing was clean dry and intact, and the plan was to be discharged home with VNA services. Time Attestation Discharge Coordination Time (in mins): 30 Quality: Safe Use of Opioids Does Pt have an Active Cancer Diagnosis on the Problem List?: No Quality: Stroke Does the patient have a stroke diagnosis?: No Physical Exam Vital Signs: Vital Signs: Last Vital Signs Temp 97.9 F 09/08/23 07:15 Pulse 61 09/08/23 07:15 Resp 18 09/08/23 07:15 BP 133/75 09/08/23 07:15 Pulse Ox 95 09/08/23 07:15 O2 Del Method Room Air 09/08/23 07:15 BMI result Body Mass Index 31.5 Const: General: cooperative, healthy appearing and no acute distress Resp: Effort & Inspection: normal respiratory effort and able to speak in complete sentences Cardio: Rate: regular rate Peripheral pulses: Peripheral pulses 2+ throughout GI: Palpation (GI): Soft to palpation Skin: Lesions: no lesions Rashes: no rashes Extrem: Other: right hip dressing is c/d/i. Able to dorsi/plantar flex. Calf is supple and nontender. Sensation intact. Pedal pulse intact. DS: Data Data Completed and Pending Pending studies at discharge: Pending at discharge 09/08/23 09:07 Surgical [PTH] Routine Discharge Plan Discharge Anticipated Discharge Date/Time: 09/09/23 13:00 Patient Disposition: Home Health Service Discharge Diagnosis: s/p RTHA Referrals: Pacheco Flood PA-C [[employer]] - 09/24/23 9:45 am Discharge Medications: New acetaminophen 325 mg Tablet 650 mg PO Q6H PRN (Reason: Pain, Mild (Pain Scale 1-3), fever or headache) 30 Days Qty: 240 0RF docusate sodium 100 mg Capsule 100 mg PO BID 30 Days Qty: 60 0RF oxycodone 5 mg Tablet 5 mg PO Q4H PRN (Reason: Pain, Moderate(Pain Scale 4-6)) 7 Days Qty: 42 0RF Rx Instructions: Partial Fill upon patient request. enoxaparin 40 mg/0.4 mL Syringe 40 mg subcut Q24H 42 Days Qty: 16.8 0RF Continued (DME) walker Misc See Rx Instructions .MEDSUPPLY Qty: 1 0RF Rx Instructions: Folding Front wheeled walker gabapentin 600 mg tablet 600 mg PO TID atorvastatin 10 mg tablet 1 tab PO BEDTIME lorazepam 0.5 mg tablet 0.5 mg PO BEDTIME PRN (Reason: Insomnia) multivitamin Tablet 1 tab PO BEDTIME lisinopril 20 mg tablet 20 mg PO DAILY ergocalciferol (vitamin D2) [Vitamin D2] 1,250 mcg (50,000 unit) capsule 1,250 mcg PO QMONTH Rx Instructions: next dose 09-18-23 amlodipine 10 mg tablet 10 mg PO BEDTIME Discharge Orders: Discharge Order (Routine); Ordered 09/09/23 Ordered By: Frannie Reed Diet: Advance to usual diet Activity on Discharge: Use cane or walker Stand Alone Forms: Patient Portal Discharge page Print Language: [place] Care Plan Goals: restore fxn to right hip Health Concerns: None Plan of Treatment: Physical Therapy for total hip arthroplasty: posterior precautions, gait training, ROM, strength Limit stair climbing No showering, no tub bath-keep dressing clean, dry and intact No driving x6 weeks Continue Lovenox x 6 weeks Follow up with [facility] in 2 weeks Assessment: stable for d/c
--- NOTE | 2023-09-08 09:28 | W.MHC.F2F ---
Service Date Service Date: 09/08/23 Encounter Date of encounter: 09/09/23 Reasons for Services Signs and symptoms assessed: s/p RTHA Pt. is considered homebound due to recent surgery. Unable to drive, poor balance, poor gait mechanics. Reason for care home: administration of IV, SQ, or IM injection Reason for physical therapy: home safety and mobility, therapeutic exercises, restore joint function, gait/transfer training, assess need for DME and ADL training Reason for occupational therapy: home safety and mobility, therapeutic exercises, restore joint function, gait/transfer training, assess need for DME and ADL training Homebound: Leaving the home is medically contraindicated at this time without the asist of a device and/or another person due th the listed conditions above and below. Reason homebound: unsteady gait / fall risk, leg weakness, pain with ambulation, pain with transfers, poor balance / fall risk and unable to drive Certification: Based on the above findings, I certify that this patient is confined to the home and needs intermittent care home care, physical therapy and/or speech therapy, or continues to need occupational therapy. The patient is under my care, and I have initiated the establishment of the plan of care. The patient will be followed by a physician who will periodically review the plan of care. Time Spent With Patient Time: Total time managing care of this patient today ____ minutes.
--- NOTE | 2023-09-08 10:23 | PM.OP ---
Brief Operative Note Date of Service: 09/08/23 Pre-op diagnosis: right hip OA Post-op diagnosis: same Procedure: Right IRWIN Implants: Blane Trident2 50/20deg Kemp Accolade2 #8 127/+7.5 35 ceramic Surgeon: Mickey Baez MD Anesthesia: GETA and local Was an Wildlife Ecology Professor used for this Procedure?: No Wildlife Ecology Professor: Pacheco Flood Estimated blood loss (mL): 250 IV fluids (mL): 1,000 Pathology: other Condition: stable Disposition: PACU Assessment and Plan (No Qualifiers) Assessment and Plan (1) Status post right hip replacement: Status: Acute Plan: ASA WBAT
--- NOTE | 2023-09-08 10:35 | W.PM.OPN ---
Operative Note Operative Note Date of Service: 09/08/23 Narrative: Date of Service: 09/08/23 Pre-op diagnosis: right hip OA Post-op diagnosis: same Procedure: Right IRWIN Implants: Edwards Trident2 50/20deg Blane Accolade2 #8 127/+7.5 35 ceramic Surgeon: Mickey Baez MD Anesthesia: GETA and local Was an Weight Loss Sales Consultant used for this Procedure?: No Weight Loss Sales Consultant: Pacheco Flood Estimated blood loss (mL): 250 IV fluids (mL): 1,000 Pathology: other Condition: stable Disposition: PACU Patient was brought into the operating room and placed in the right lateral decubitus position. All bony prominences were well padded and the limb was prepped and draped in standard sterile fashion. A time-out was called to identify proper site procedure proper surgeon IV antibiotics and 1 g of tranexamic acid were administered. I began by making a curvilinear incision over the posterolateral aspect of the greater trochanter. Dissection was taken down to the tensor fascia which was incised in line with the incision and a Charnley retractor was placed. Cautery was used to maintain hemostasis. The hip was internally rotated and the external rotators were identified. The vessels were cauterized and a full-thickness capsular/external rotator layer was developed starting just proximal to the piriformis. This layer was tagged and a dull Hohmann retractor was placed underneath the neck in the hip was dislocated. A neck cut was made 1 cm proximal to the lesser trochanter and the head and neck were removed and measured 46-48mm on the back table. The head was deformed and eburnated. I then removed the labrum and cauterized the fovea. I started with a 44 reamer and medialized to the inner table. I sequentially reamed up to a size 54 and impacted a 54mm cup at 45 degrees of inclination and 25 degrees of version. I then placed a 20 deg posterior lipped liner and turned my attention to the femur. I identified the piriformis insertion and used this as a starting point for my poonam cutter. The medius tendon was protected with a Hibs retractor. A Charnley awl was inserted in the canal and a curved curette used to remove the lateral bone. I irrigated copiously. I then sequentially broached in the patient's natural version to a size 8 and placed my trial implants. I used a #8/127/+7.5 based on my pre-operative plan. I trialed and was satisfied with the stability and length. I removed all instrumentation and copiously irrigated. I placed my final femoral implant and again took the hip through range of motion and was satisfied with the stability and length. The final +7.5 implant was impacted in place and the hip reduced. I then irrigated copiously and placed 1 g of local tranexamic acid. I performed a capsular closure with 2.0 fiberwire, Shirley's fascia with 0 Vicryl, subcuticular with 2-0 Vicryl and the skin with fanny. Patient was placed into a sterile dressing. Patient was extubated brought to the recovery room in stable condition. There were no known complications.
--- NOTE | 2023-09-08 11:02 | P.CONHOSP_ITS ---
History of Present Illness Data of Consult Service Date: 09/08/23 Requesting physician: Pacheco Flood Primary Care Provider: Jarred Ramon MD HPI Reason for consult: medical management 78 year old male with ckd stage 3, htn, hld, hx prostate cancer, anxiety admitted to orthopedic surgery for OA R hip s/p IRWIN with consult placed to hospitalist service for medical management. His only complaint at this time is 4/10 pain R hip and fatigue. No lightheadedness, n/v, sob, chest pain. Vitals stable though does remain on 2L postoperatively, satting 96%. No cigarettes, illicit substances or alcohol. Review of Systems 2 Review of Systems: Yes all other systems are reviewed and are negative [facility] Medical History Arthritis Degenerative joint disease Cataract, right Cataract Duodenal ulcer Hydronephrosis Sinus infection Anxiety CKD (chronic kidney disease), stage III History of prostate cancer Peripheral neuropathy Elevated cholesterol HTN (hypertension) Surgical History Hx of hand surgery History of esophagogastroduodenoscopy (EGD) H/O colonoscopy History of left hip replacement History of carpal tunnel release Hx of lithotripsy History of lumbar laminectomy Hx of prostatectomy Social History Household Members: Family Housing: House Are you a primary healthcare business analyst to a significant other at home: No Do you presently have visiting nurse or other home services: No Patient Tobacco Use Status: Former Tobacco user Use of substances other than those prescribed or required for medical reasons: No Have you been hit, kicked, punched, or otherwise hurt by someone within the past year? 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 Allergies Allergy/AdvReac Type Severity Reaction Status Date / Time grass, mold, trees Allergy Unknown Sneezing Uncoded 09/08/23 06:54 Active Medications: Current Medications Acetaminophen (Acetaminophen 325 Mg Tablet) 650 mg PO Q6H PRN PRN Reason: Pain, Mild (Pain Scale 1-3), fever or headache Celecoxib (Celecoxib 200 Mg Capsule) 200 mg PO BID [facility] Docusate Sodium (Docusate Sodium 100 Mg Capsule) 100 mg PO BID [facility] Enoxaparin Sodium (Enoxaparin Sodium 40 Mg/0.4 Ml Syringe) 40 mg SUBCUT Q24H [facility] Gabapentin (Gabapentin 600 Mg Tablet) 600 mg PO TID [facility] Hydromorphone HCl (Hydromorphone Hcl 0.5 Mg/0.5 Ml Syringe) 0.25 mg IVPUSH Q4H PRN; Protocol PRN Reason: Pain, Severe (Pain Scale 7-10) Lactated Ringer's (Lr) 1,000 mls @ 100 mls/hr IVCONT .Q10H MARLYN Stop: 09/09/23 09:32 Cefazolin Sodium/Dextrose (Ancef) 2 gm in 50 mls @ 100 mls/hr IV POSTOP ONE Stop: 09/08/23 11:28 Lorazepam (Lorazepam 0.5 Mg Tablet) 0.5 mg PO BEDTIME PRN PRN Reason: Insomnia Non-Formulary Medication (Betamethasone Dipropionate) 1 appl TOPICAL BID PRN PRN Reason: Skin Irritation Non-Formulary Medication (Econazole) 1 appl TOPICAL BEDTIME MARLYN Ondansetron HCl (Ondansetron Hcl 4 Mg/2 Ml Vial) 4 mg IVPUSH Q8H PRN PRN Reason: Nausea and Vomiting Oxycodone HCl (Oxycodone Hcl Immed Release 5 Mg Tablet) 5 mg PO Q4H PRN PRN Reason: Pain, Moderate(Pain Scale 4-6) Sodium Chloride (0.9 % Sodium Chloride Flush 3 Ml Syringe) 3 ml IVFLUSH QSHIFT [facility] Home Medications ?Medication ?Instructions ?Recorded ?Confirmed ?Last Taken ?Type atorvastatin 10 mg tablet 1 tab PO BEDTIME 12/30/19 08/31/23 Unknown History gabapentin 600 mg tablet 1 tab PO TID 12/30/19 08/31/23 01/09/20 06:30 History lorazepam 0.5 mg tablet 1 tab PO BEDTIME PRN Insomnia 12/30/19 08/31/23 Unknown History econazole 1 % topical cream 1 appl topical BEDTIME 01/29/21 08/31/23 Unknown History ergocalciferol (vitamin D2) 1,250 1,250 mcg PO QMONTH 01/29/21 08/31/23 Unknown History mcg (50,000 unit) capsule (Vitamin D2) betamethasone dipropionate 0.05 % 1 appl topical BID PRN Skin 12/24/21 08/31/23 Unknown History topical ointment Irritation amlodipine 10 mg tablet 10 mg PO BEDTIME 08/07/23 08/31/23 Unknown History amoxicillin 500 mg tablet 2,000 mg PO DIRECTED 08/31/23 08/31/23 Unknown History multivitamin 1 tab PO BEDTIME 08/31/23 08/31/23 Unknown History ketoconazole 2 % topical cream 1 appl topical 09/08/23 Unknown History lisinopril 20 mg tablet 20 mg PO DAILY 09/08/23 Unknown History Physical Exam 2 Vital Signs and Narrative: Vital Signs: Last Vital Signs Temp 97.8 F 09/08/23 10:39 Pulse 61 09/08/23 10:39 Resp 14 09/08/23 10:39 BP 117/64 09/08/23 10:39 Pulse Ox 96 09/08/23 10:39 O2 Del Method Nasal Cannula wit h Capnography 09/08/23 10:39 O2 Flow Rate 3 09/08/23 10:39 BMI result Body Mass Index 31.5 Constitutional - Awake and Alert, No apparent distress Eyes - PERRLA, EOMI Cardiovascular - S1S2, RRR, No edema Respiratory - Normal lung expansion, Normal respiratory effort, No respiratory distress, CTA bilaterally Gastrointestinal - NT / ND; +BS; No rebound or guarding Extremities - no calf tenderness bilaterally, no swelling Skin - Warm/Dry Neurological - Alert & oriented x3 Results Labs 09/08/23 11:29 Assessment and Plan (1) Status post right hip replacement: Status: Acute Plan 78 year old male with ckd stage 3, htn, hld, hx prostate cancer, anxiety admitted to orthopedic surgery for OA R hip s/p IRWIN with consult placed to hospitalist service for medical management. #OA R hipe s/p IRWIN -plan including pain management per ortho surgery #HTN -blood pressures reasonably controlled intra and post operatively -resume amlodipine on discharge, or this even if blood pressures become uncontrolled #HLD -statin #Anxiety -continue lorazepam Thank you for allowing me to participate in this consult. Signing off at this time. Please do not hesitate to call for further questions or for any acute medical issues.
--- NOTE | 2023-09-08 11:31 | PC.NURSE ---
+ CMS to RLE
[2023-09-08 11:50] LABS: Creatinine Clr Calc Pharmacy 57.1; Estimated Glomerular Filt Rate 55
[2023-09-08] MEDS: oxyCODONE HCl Immed Release 5 MG TABLET PO (12:18)
--- NOTE | 2023-09-08 12:51 | PHA.MEDREC ---
Addendum entered by Marlyn Arnett RPh 09/08/23 13:14: reviewed by [facility] Original Note: Pharmacy Consult ? Medication Reconciliation Pharmacy has completed the medication reconciliation. Spoke to patient to confirm med list. Patient states he takes vitamin D2 Qmonth last dose on 08-18-23 , next dose is 09-18-23. patient stays he is not taking Betamethasone Dipropionate 0.05 % oint apply bid, Econazole 1% cream apply at bedtime, and Ketoconazole cream.
[2023-09-08] MEDS: ceFAZolin Sodium/Dextrose,Iso 2 GM/50 ML PIGGYBACK IV (13:20)
[2023-09-08] MEDS: Gabapentin 600 MG TABLET PO ×2 (14:04→20:29)
[2023-09-08] MEDS: Celecoxib 200 MG CAPSULE PO (20:29)
[2023-09-08] MEDS: Docusate Sodium 100 MG CAPSULE PO (20:29)
[2023-09-08] MEDS: Acetaminophen 325 MG TABLET 650 MG PO (22:44)
[2023-09-09 03:00] VITALS: BP 116/78; PULSE 68; RESP 18; TEMP 36.5; O2SAT 96
[2023-09-09] MEDS: Lactated Ringers 1,000 ML 100 ML IVCONT (05:10)
[2023-09-09 06:35] LABS: MANUAL DIFF FLAG NO
[2023-09-09 06:42] LABS: Basophils Percent Auto 0.1 % (0-2); Hematocrit 36.3 % (42.0-52.0); Imm Gran Abs Auto 0.05 X10*3/uL (0.00-0.03); Imm Gran Pct Auto 0.4 % (0.0-0.4); Lymphocytes Absolute Auto 1.1 X10*3/uL (1.2-4.9); Lymphocytes Percent Auto 10.2 % (20-40); Mean Corpuscular HGB Conc 33.1 g/dl (31.0-36.0); Mean Corpuscular Hemoglobin 31.7 pg (27.0-33.0); Mean Corpuscular Volume 95.8 fL (80.0-98.0); Mean Platelet Volume 11.4 fL (9.4-12.4); Monocytes Absolute Auto 0.9 X10*3/uL (0.1-1.2); Neutrophils Absolute Auto 9.1 x10*3/uL (2.0-8.3); Neutrophils Percent Auto 81.3 % (45-73); Platelet Count 175 X10*3/uL (160-400); Red Blood Count 3.79 X10*6/uL (4.60-5.80); White Blood Count 11.2 X10*3/uL (4.8-10.8)
[2023-09-09 06:55] LABS: Anion Gap 14 (12-20); Blood Urea Nitrogen 21 mg/dL (9-16); Calcium 9.3 mg/dL (8.4-10.2); Carbon Dioxide 22 mmol/L (22-29); Chloride 107 mmol/L (96-108); Creatinine Clr Calc Pharmacy 67.1; Estimated Glomerular Filt Rate > 60; Glucose Fasting 110 mg/dL (60-99); Potassium 4.7 mmol/L (3.3-5.1); Sodium 138 mmol/L (135-145)
[2023-09-09 07:00] VITALS: BP 102/67; PULSE 68; RESP 16; TEMP 37.1; O2SAT 94
[2023-09-09] MEDS: Gabapentin 600 MG TABLET PO (08:16)
[2023-09-09] MEDS: Docusate Sodium 100 MG CAPSULE PO (08:16)
[2023-09-09] MEDS: Enoxaparin Sodium 40 MG/0.4 ML SYRINGE SUBCUT (08:17)
--- NOTE | 2023-09-09 08:42 | MHC.CM.PN ---
pt dcd home with ns
--- NOTE | 2023-09-09 10:07 | HO.POSTANES ---
Post Anesthesia Evaluation Post Anesthesia Evaluation Date of Service: 09/08/23 Vital Signs: Vital Signs Temp Pulse Resp BP Pulse Ox O2 Del Method 09/09/23 07:00 98.7 F 68 16 102/67 94 Room Air 09/09/23 03:00 97.7 F 68 18 116/78 96 Room Air 09/08/23 23:00 97.3 F 65 18 116/70 95 Room Air Anesthesia: General Mental Status: Awake Pain Control: Satisfactory Nausea/Vomiting: None Hydration: Adequate Anesthesia-Related Issues: No Anes. Related Issues
== END 2023-09-09 10:31 | disposition home health service (06) | DRG 470 ==
LOC: HO.SSSA 09:26 → HO.S3 10:09
PROVIDERS: Orthopaedic Surgery; Admitting Provider Physician Assistant; PCP Internal Medicine; Visit Provider Physician Assistant
PROC: 0SR903A Replacement of Right Hip Joint with Ceramic Synthetic Substitute, Uncemented, Open Approach (ICD-10-PCS; CPT 27130; principal; 2023-09-08 07:30)
DX: M16.11 Unilateral primary osteoarthritis, right hip (principal); N18.32 Chronic kidney disease, stage 3b; I12.9 Hypertensive chronic kidney disease with stage 1 through stage 4 chronic kidney disease, or unspecified chronic kidney disease; F41.9 Anxiety disorder, unspecified; Z85.46 Personal history of malignant neoplasm of prostate; E78.5 Hyperlipidemia, unspecified; Z87.891 Personal history of nicotine dependence; Z79.899 Other long term (current) drug therapy
CPT/HCPCS: 36415; 72170; 80048; 82565; 85025; 86850; 86900; 86901; 87640; 87641; 88304; 88311; 93925; 97110; 97116; 97161; 97165; 97530; C1776; J0131; J0690; J1100; J1650; J2371; J2405; J2598; J2704; J2795; J3010; J7120

== ENCOUNTER → 2023-09-08 06:34 | Outpatient (BNV) | payer MEDICARE, BC, OTHER, SELFPAY | PROVIDERS: Admitting Provider Physician Assistant; PCP Internal Medicine; Visit Provider Orthopaedic Surgery | DX: Z47.1 Aftercare following joint replacement surgery (principal); Z96.641 Presence of right artificial hip joint | CPT/HCPCS: 27130; 99024; G0180 ==

== ENCOUNTER → 2023-09-08 06:34 | Outpatient (BNV) | payer MEDICARE, BC, OTHER, SELFPAY | PROVIDERS: Admitting Provider Physician Assistant; PCP Internal Medicine; Visit Provider Physician Assistant | DX: Z96.641 Presence of right artificial hip joint (principal); I10 Essential (primary) hypertension | CPT/HCPCS: 99221 ==

== ENCOUNTER 2023-09-24 09:36 | Outpatient (AMB) | payer MEDICARE, BC, OTHER, SELFPAY ==
--- NOTE | 2023-09-24 09:44 | A.OFFVIS_ITS ---
Intake Visit Reasons: 2 WK PO: R IRWIN w/NE 09/08/23 Intake Note: Gulshan an 78 year old male who presents today for a post operative right IRWIN on 09/08/23 NE. Patient reports having some discomfort however overall he is doing well. Allergies grass, mold, trees Allergy (Unknown, Uncoded 09/24/23 09:46) Sneezing Medication List - Last Reconciled 09/24/23 by Pacheco Flood PA-C acetaminophen 650 mg (2 x 325 mg) PO Q6H PRN 30 days amlodipine 10 mg PO BEDTIME atorvastatin 1 tab PO BEDTIME docusate sodium 100 mg PO BID 30 days enoxaparin 40 mg (0.4 mL) subcut Q24H 42 days ergocalciferol (vitamin D2) (Vitamin D2) 1,250 mcg PO QMONTH gabapentin 600 mg PO TID lisinopril 20 mg PO DAILY lorazepam 0.5 mg PO BEDTIME PRN multivitamin 1 tab PO BEDTIME oxycodone 5 mg PO Q4H PRN 7 days walker Folding Front wheeled walker HPI HPI 2 WK PO: R IRWIN w/NE 09/08/23: Details: 78-year-old male who returns to the office today for post-op right IRWIN, 09/08/[address] Baez. He states he has mild discomfort in his hip however he is doing well overall. He has no concerns today. [facility] Medical History Arthritis Degenerative joint disease Cataract, right Cataract Duodenal ulcer Hydronephrosis Sinus infection Anxiety CKD (chronic kidney disease), stage III History of prostate cancer Peripheral neuropathy Elevated cholesterol HTN (hypertension) Surgical History Hx of hand surgery History of esophagogastroduodenoscopy (EGD) H/O colonoscopy History of left hip replacement History of carpal tunnel release Hx of lithotripsy History of lumbar laminectomy Hx of prostatectomy Social History Household Members: Family Housing: House Are you a primary pet caretaker to a significant other at home: No Do you presently have visiting nurse or other home services: No Patient Tobacco Use Status: Former Tobacco user service: No Current occupational status: retired 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 No redness or drainage. Calf supple, nontender. NVI. Assessment & Plan Assessment & Plan (1) Status post right hip replacement: Code(s): Z96.641 - Presence of right artificial hip joint Category: Surgical Plan Cherelle removed, steri strips applied. He will begin to transition to Outpatient PT to continue working on Gait training, ROM and quad strength. No driving for another 4 weeks. He will require ppx abx for dental procedures. He will f/u in 4 weeks, sooner if needed. Orders: Orders PT Evaluation and Treatment Today Z96.641 - Presence of right artificial hip shereen int Patient Instructions: Scribed for Pacheco Flood PA-C, by Daniel Lopez medical consultant, on 09/24/2023 at 9:45 AM EST.? I, Pacheco Flood PA-C, have personally reviewed and agree with the information entered by the scribe. Coding Level of Care Code Global (12044) Diagnoses Status post right hip replacement Z96.641
== END 2023-09-24 10:23 | disposition home or self-care (01) ==
PROVIDERS: PCP Internal Medicine; Visit Provider Physician Assistant
DX: Z96.641 Presence of right artificial hip joint (principal)
CPT/HCPCS: 99024

== ENCOUNTER → 2023-09-24 09:36 | Outpatient (BNVA) | payer MEDICARE, BC, OTHER, SELFPAY | PROVIDERS: PCP Internal Medicine; Visit Provider Physician Assistant | DX: Z47.1 Aftercare following joint replacement surgery (principal); Z96.641 Presence of right artificial hip joint | CPT/HCPCS: 99212 ==

== ENCOUNTER 2023-10-15 09:01 | Outpatient (AMB) | payer MEDICARE, BC, OTHER, SELFPAY ==
--- NOTE | 2023-10-15 09:06 | MHC.OFFVIS ---
Vital Signs 10/15/23 09:07 Height 5 ft 11 in Weight 225 lb BMI 31.4 Intake Visit Reasons: 6 WK PO: R IRWIN w/NE 09/08/23 Intake Note: Danilo is an 78 year old male who presents today for a post operative appointment s/p Right IRWIN 09/08/23. Patient reports that he is doing well but he still has some pain on the right lateral thigh area when laying flat on his back or if he sits weird. He continues to work with phsyical therapy which is going well but is diffuclut. Allergies grass, mold, trees Allergy (Unknown, Uncoded 09/24/23 09:46) Sneezing HPI HPI 6 WK PO: R IRWIN w/NE 09/08/23: Details: Danilo is an 78 year old male who presents today for a post operative appointment s/p Right IRWIN 09/08/23. Patient reports that he is doing well but he still has some pain on the right lateral thigh area when laying flat on his back or if he sits weird. He continues to work with physical therapy which is going well but is difficult. [facility] Medical History Arthritis Degenerative joint disease Cataract, right Cataract Duodenal ulcer Hydronephrosis Sinus infection Anxiety CKD (chronic kidney disease), stage III History of prostate cancer Peripheral neuropathy Elevated cholesterol HTN (hypertension) Surgical History Hx of hand surgery History of esophagogastroduodenoscopy (EGD) H/O colonoscopy History of left hip replacement History of carpal tunnel release Hx of lithotripsy History of lumbar laminectomy Hx of prostatectomy Social History Household Members: Family Housing: House Are you a primary urgent care physician assistant to a significant other at home: No Do you presently have visiting nurse or other home services: No Patient Tobacco Use Status: Former Tobacco user service: No Current occupational status: retired 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 Continue cane and PT. Coding Level of Care Code Global (20971) Diagnoses Status post right hip replacement Z96.641
[2023-10-15 09:07] VITALS: BMI 31.4
== END 2023-10-15 09:20 | disposition home or self-care (01) ==
PROVIDERS: PCP Internal Medicine; Visit Provider Orthopaedic Surgery
DX: Z96.641 Presence of right artificial hip joint (principal)
CPT/HCPCS: 99024

== ENCOUNTER → 2023-10-15 09:01 | Outpatient (BNVA) | payer MEDICARE, BC, OTHER, SELFPAY | PROVIDERS: PCP Internal Medicine; Visit Provider Orthopaedic Surgery | DX: M79.651 Pain in right thigh (principal); Z47.1 Aftercare following joint replacement surgery; Z96.641 Presence of right artificial hip joint | CPT/HCPCS: 99212 ==

== ENCOUNTER 2023-11-18 10:02 | Outpatient (REF) | payer MEDICARE, BC, OTHER, SELFPAY ==
[2023-11-18 13:29] LABS: MANUAL DIFF FLAG NO
[2023-11-18 14:00] LABS: Basophils Percent Auto 0.8 % (0-2); Eosinophils Absolute Auto 0.3 X10*3/uL (0.0-0.4); Eosinophils Percent Auto 4.9 % (0-4); Hematocrit 41.1 % (42.0-52.0); Hemoglobin 13.3 g/dl (14.0-18.0); Imm Gran Abs Auto 0.01 X10*3/uL (0.00-0.03); Imm Gran Pct Auto 0.2 % (0.0-0.4); Lymphocytes Absolute Auto 1.7 X10*3/uL (1.2-4.9); Lymphocytes Percent Auto 31.9 % (20-40); Mean Corpuscular HGB Conc 32.4 g/dl (31.0-36.0); Mean Corpuscular Hemoglobin 31.3 pg (27.0-33.0); Mean Corpuscular Volume 96.7 fL (80.0-98.0); Mean Platelet Volume 12.5 fL (9.4-12.4); Monocytes Absolute Auto 0.5 X10*3/uL (0.1-1.2); Monocytes Percent Auto 9.3 % (2-11); Neutrophils Absolute Auto 2.8 x10*3/uL (2.0-8.3); Neutrophils Percent Auto 52.9 % (45-73); Platelet Count 177 X10*3/uL (160-400); Red Blood Count 4.25 X10*6/uL (4.60-5.80); Red Cell Distribution Width 13.7 % (11.0-16.0); White Blood Count 5.3 X10*3/uL (4.8-10.8)
[2023-11-18 14:13] LABS: Alanine Aminotransferase 15 U/L (0-40); Albumin Level 4.1 g/dL (3.5-5.0); Alkaline Phosphatase 131 U/L (39-117); Anion Gap 12 (12-20); Aspartate Amino Transferase 19 U/L (5-37); Bilirubin Total 1.3 mg/dL (0.0-1.0); Blood Urea Nitrogen 20 mg/dL (9-16); Calcium 9.4 mg/dL (8.4-10.2); Carbon Dioxide 25 mmol/L (22-29); Chloride 109 mmol/L (96-108); Estimated Glomerular Filt Rate 58; Glucose Random 93 mg/dL (60-115); Potassium 4.4 mmol/L (3.3-5.1); Sodium 142 mmol/L (135-145); Total Protein 7.4 g/dL (6.5-8.0)
[2023-11-18 14:22] LABS: Prostate Specific Antigen < 0.10 ng/mL (<0.05-4.0)
== END 2023-11-18 10:03 | disposition home or self-care (01) ==
LOC: HO.HMGCLDS 10:02
PROVIDERS: PCP Internal Medicine; Visit Provider Internal Medicine Medical Oncology
DX: C61 Malignant neoplasm of prostate (principal); M19.90 Unspecified osteoarthritis, unspecified site; I10 Essential (primary) hypertension; Z12.5 Encounter for screening for malignant neoplasm of prostate
CPT/HCPCS: 36415; 80053; 84153; 85025

== ENCOUNTER 2023-11-26 08:37 | Outpatient (AMB) | payer MEDICARE, BC, OTHER, SELFPAY ==
[2023-11-26 08:38] VITALS: BMI 31.4
--- NOTE | 2023-11-26 08:38 | MHC.OFFVIS ---
Vital Signs 11/26/23 08:38 Height 5 ft 11 in Weight 225 lb BMI 31.4 Intake Visit Reasons: PO: R IRWIN w/NE 09/08/23 Intake Note: Danilo is an 78 year old male who presents today for a post operative appointment s/p Right IRWIN 09/08/23. Patient reports that he is having pain in the the thigh while sitting and laying down, this pain resolves after movement. This pain has been present for about one month, denies any injury. He has brought these symptoms to the attention of the therapists at [facility] who suggested to mention it to the surgeon. He also has questions in regards to sleeping, he was instructed to sleep on his back with pillows under the knee for support, however he is a side sleeping and wondering when he can return to normal sleeping habits Allergies grass, mold, trees Allergy (Unknown, Uncoded 09/24/23 09:46) Sneezing HPI HPI PO: R IRWIN w/NE 09/08/23: Details: Danilo is an 78 year old male who presents today for a post operative appointment s/p Right IRWIN 09/08/23. Patient reports that he is having pain in the the thigh while sitting and laying down, this pain resolves after movement. This pain has been present for about one month, denies any injury. He has brought these symptoms to the attention of the therapists at [facility] who suggested to mention it to the surgeon. He also has questions in regards to sleeping, he was instructed to sleep on his back with pillows under the knee for support, however he is a side sleeping and wondering when he can return to normal sleeping habits [facility] Medical History Arthritis Degenerative joint disease Cataract, right Cataract Duodenal ulcer Hydronephrosis Sinus infection Anxiety CKD (chronic kidney disease), stage III History of prostate cancer Peripheral neuropathy Elevated cholesterol HTN (hypertension) Surgical History (Updated 11/26/23 @ 11:56 by Mickey Baez MD) History of right hip replacement (09/08/23) Hx of hand surgery History of esophagogastroduodenoscopy (EGD) H/O colonoscopy History of left hip replacement History of carpal tunnel release Hx of lithotripsy History of lumbar laminectomy Hx of prostatectomy Social History Household Members: Family Housing: House Are you a primary transitional care manager to a significant other at home: No Do you presently have visiting nurse or other home services: No Patient Tobacco Use Status: Former Tobacco user service: No Current occupational status: retired 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 He walks with gait antalgia but negative Trendelenburg gait negative Trendelenburg sign. Results Reviewed Results Reviewed: I personally reviewed relevant radiographs. Right IRWIN in expected post operative position with no hardware complications or evidence of loosening Assessment & Plan Assessment & Plan (1) Status post right hip replacement: Code(s): Z96.641 - Presence of right artificial hip joint Category: Surgical Plan: Status post right hip replacement doing well with likely back related leg pain that is not affecting his activity but he has very poor gait mechanics. It is a little paradoxical and not sure why he is walking the way he is but I would like him to try a 1 cm shoe lift in the contralateral shoe. I discussed this with him. He will see me back in 6-8 weeks. (2) History of left hip replacement: Comment: 2018 Code(s): Z96.642 - Presence of left artificial hip joint Category: Surgical Plan: Orders: Orders XR pelvis 1-2V Today M25.559 - Pain in unspecified hip Medications: New [shoe lift, left] As directed 1 ea 0RF Coding Level of Care Code Global (79708) Diagnoses Status post right hip replacement Z96.641 History of left hip replacement Z96.642
== END 2023-11-26 09:18 | disposition home or self-care (01) ==
PROVIDERS: PCP Internal Medicine; Visit Provider Orthopaedic Surgery
DX: Z96.641 Presence of right artificial hip joint (principal); Z96.642 Presence of left artificial hip joint
CPT/HCPCS: 99024

== ENCOUNTER 2024-01-05 11:36 | Outpatient (AMB) | payer MEDICARE, BC, OTHER, SELFPAY ==
--- NOTE | 2024-01-05 11:41 | A.OFFVIS_ITS ---
Vital Signs 01/05/24 11:44 Height 5 ft 11 in Weight 225 lb BMI 31.4 Intake Visit Reasons: OV- R IRWIN w/NE 09/08/23 Intake Note: Danilo is an 78 year old male who presents today for a post operative appointment s/p Right IRWIN 09/08/23, at his last visit he was given a 1cm shoe lift. He reports that he did receive the shoe lift, which he does not notice much of a difference. He was given a muscle relaxer which has taken his pain away. At this time has had no concerns. Allergies grass, mold, trees Allergy (Unknown, Uncoded 01/05/24 11:41) Sneezing HPI HPI OV- R IRWIN w/NE 09/08/23: Details: Danilo is an 78 year old male who presents today for a post operative appointment s/p Right IRWIN 09/08/23, at his last visit he was given a 1cm shoe lift. He reports that he did receive the shoe lift, which he does not notice much of a difference. He was given a muscle relaxer which has taken his pain away. At this time has had no concerns. He continues to walk with a Trendelenburg gait but this does not bother him. [facility] Medical History Arthritis Degenerative joint disease Cataract, right Cataract Duodenal ulcer Hydronephrosis Sinus infection Anxiety CKD (chronic kidney disease), stage III History of prostate cancer Peripheral neuropathy Elevated cholesterol HTN (hypertension) Surgical History (Updated 11/26/23 @ 11:56 by Mickey Baez MD) History of right hip replacement (09/08/23) Hx of hand surgery History of esophagogastroduodenoscopy (EGD) H/O colonoscopy History of left hip replacement History of carpal tunnel release Hx of lithotripsy History of lumbar laminectomy Hx of prostatectomy Social History Household Members: Family Housing: House Are you a primary critical care unit manager to a significant other at home: No Do you presently have visiting nurse or other home services: No Patient Tobacco Use Status: Former Tobacco user service: No Current occupational status: retired 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 Positive Trendelenburg gait on the right with a equivocal Trendelenburg sign. He can contract his gluteal musculature. Assessment & Plan Assessment & Plan (1) Status post right hip replacement: Code(s): Z96.641 - Presence of right artificial hip joint Category: Surgical Plan: Status post bilateral hip replacement right being more recently done. He has no complaints but his gait is not normal. He has very weak gluteal musculature on the right and I recommend exercises to try to strengthen this. It I think physical therapy at least once a week is still warranted. Orders: Orders PT Evaluation and Treatment 01/05/24 Z96.641 - Presence of right artificial hip joint Coding Level of Care Code Est Pt Level 3 (47522) Diagnoses Status post right hip replacement Z96.641
[2024-01-05 11:44] VITALS: BMI 31.4
== END 2024-01-05 11:58 | disposition home or self-care (01) ==
PROVIDERS: PCP Internal Medicine; Visit Provider Orthopaedic Surgery
DX: Z47.1 Aftercare following joint replacement surgery (principal); Z96.641 Presence of right artificial hip joint
CPT/HCPCS: 99213

== ENCOUNTER → 2024-01-05 11:36 | Outpatient (BNVA) | payer MEDICARE, BC, OTHER, SELFPAY | PROVIDERS: PCP Internal Medicine; Visit Provider Orthopaedic Surgery | DX: R26.89 Other abnormalities of gait and mobility (principal); M62.81 Muscle weakness (generalized); Z96.641 Presence of right artificial hip joint | CPT/HCPCS: 99212 ==

== ENCOUNTER 2024-01-28 09:00 | Outpatient (RCR) | payer MEDICARE, BC, OTHER, SELFPAY ==
--- NOTE | 2023-10-01 13:30 | MHC.PT.EP ---
[facility] [place] Office [place] Office [place] Office [address] Mary Hernandez [address] [phone] F: [phone] F: [phone] F: [phone] F: [phone] Physical Therapy Plan of Care Date of Evaluation: 10/01/23 Date of Surgery: Diagnosis: s/p R IRWIN 09/08/23 Assessment: Patient is an 78 year old R handed male who presents with s/s consistent with R IRWIN on 09/08/23, R hip pain. 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 Patient past medical history includes back pain and L IRWIN. Current impairments include pain, posture, gait mechanics, ROM, strength, activity tolerance and functional mobility. Functional limitations include decreased ability to stand, walk, negotiate stairs, transfer, and be on feet for longer durations. Patient is motivated with good rehab potential. Skilled PT will address impairments and functional limitations in order to achieve goals. Frequency and Duration: The patient will be seen 2x/week for 5 weeks Short Term Goals: I with HEP - 2 weeks Able to amb with cane 500 feet with min gait deviations - 3 weeks Max pain 2/10 with daily activities - 3 weeks Clearance Rep Goals: Able to negotiate stairs reciprocally to cellar - 5 weeks LEFS 44/80 - 5 weeks Strength 4/5 grossly - 5 weeks Able to walk 1000 feet with LRAD - 5 weeks Treatment Plan: Modalities to reduce pain, spasms and effusion. Manual therapy to restore motion and function. Therapeutic exercise to improve strength and flexibility. Neuromuscular re-education for posture and balance. Therapeutic activities to return to functional activities of daily living. Electronically signed by: Frederick Son, PT Please sign and return to therapist. Thank you for your referral.
--- NOTE | 2024-04-29 12:16 | MHC.PT.DC ---
[facility] [place] [facility] [place] [facility] [place] [facility] [address] Mary Hernandez [address] [phone] F: [phone] F: [phone] F: [phone] F: [phone] Physical Therapy Discharge Report Diagnosis: s/p R IRWIN 09/08/23 Date of Surgery: Date of Evaluation: 10/01/23 Date of Discharge: 02/09/24 Treatments to Date: 21 Cancellations to Date: No Shows to Date: Discharge Status: Improved Function Independent with HEP Patient Elected to Stop Discharge Summary: 01/28/24: we reviewed all exercises and issued updated HEP. he will plan to continue until his follow up MD appt and call back if needed. He is I with HEP. Able to amb 500 feet but with gait deviations. He has 4/10 pain with activities during the day. He is able to amb with no AD. His LEFS is 46/80. He has demonstrated slow and steady progress throughout and is appropriate to d/c to HEP at this time. 01/25; Pt performing exs daily. Pt conts with antalgic gait pattern. Pt has one remaining visist and sees NW. 01/21/24: pt challenged with balance and requires SBA with EC interventions. 01/18; Pt challenged with balance exs and unilateral bridge. Pt needs assist with s/l abd. 01/13; Pt requires assist with S/L abd. Pt challenged with tandem EC, and unilateral bridge. 01/11; Pt unable to abd in s/l past 10 degrees. Pt able to A SLR. Pt amb with limp without a sc. Conet with strengthening, balance exs. 12/15; Pt will get back to us if further PT is needed. Pt I with HEP. 12/07; Pt conts with a limp with c/o pain R thigh. Pt sees in 1 month. NV assess lift. 12/01/23: after discussing the plan at length with Gulshan we decided to continue 1x/week for 3-4 more weeks to continue to pursue strength gains as well as helping him transition to walking with lift. 11/24; Pt unable to abd past 10 degrees in s/l and has dif keeping knee straight. Pt conts with poor gait. Pt sees and wishes to wait before he vasu another appt. 11/13/23: pt still has difficulty maintaining stability in 1 LE stance. we will progress program 2 more visits then transition to HEP focused on progress strength/balance/stability in single leg stance. 11/09; Pt has 1 remianing visit. Pt I with HEP. Pt has no problems wit stairs. Pt I with HEP. 11/04; Pt conts with an anatalgic gait patter with sc. Pt progressing with balance exs. Pt has 2 booked appts. 10/29/23: pt progressed with balance activities and stair activities. no adverse reactions. motivated to improve. we will continue to progress as tolerated. 10/26; Pt liked rolling pin to reduce sxs of thigh pain. Cont with balance exs. 10/20/23: pt progressing well with skilled PT. no adverse reactions. motivated and encouraged him to use stepper at home. 10/15/23: pt progressing with stairs and educated/cued on mechanics. encouraged him to use R LE for up/down with Hand rails at home. 10/12; Pt fatigued after exs. Pt challenged with balance exs. NV stairs. 10/08/23: pt progressing slowly. requires cues for upright posture and pacing of exercise. requires SBA/CGA for balance ex. 10/05; Pt has been doing exs at home will bring in program NV to review and condense. Pt balance challenged with foam. No increase in pain after exs. NV Bridge, psoas stretch and review balance exs. Patient is an 78 year old R handed male who presents with s/s consistent with R IRWIN on 09/08/23, R hip pain. 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 Patient past medical history includes back pain and L IRWIN. Current impairments include pain, posture, gait mechanics, ROM, strength, activity tolerance and functional mobility. Functional limitations include decreased ability to stand, walk, negotiate stairs, transfer, and be on feet for longer durations. Patient is motivated with good rehab potential. Skilled PT will address impairments and functional limitations in order to achieve goals. Electronically signed by: Frederick Son, PT Please sign and return to therapist. Thank you for your referral.
== END 2024-04-29 12:16 | disposition home or self-care (01) ==
LOC: HO.PTCHIC 09:00
PROVIDERS: PCP Internal Medicine; Visit Provider Physician Assistant
DX: Z96.641 Presence of right artificial hip joint (principal)
CPT/HCPCS: 97110; 97112; 97116; 97163; 97530

== ENCOUNTER 2024-03-02 08:15 | Outpatient (REF) | payer MEDICARE, BC, OTHER, SELFPAY ==
--- NOTE | ~2024-03-02 | US_ITS ---
CLINICAL HISTORY: N20.0 - Calculus of kidney US Renal Comparison: None Findings: Right kidney normal size and echotexture, 10.2 cm length. Left kidney 8.3 cm length. Ytpatzog-ib-folmxe left renal cortical atrophy width questionable increased cortical echogenicity. No hydronephrosis. 5 mm right lower polar renal nonobstructive stone. No renal mass lesion. IMPRESSION: Atrophied left kidney. 5 mm right lower polar renal nonobstructive stone. This document has been electronically signed by: Nohemy Jaramillo MD on 03/03/2024 09:08:20
--- OUTSIDE RECORDS SUMMARY | 2024-03-02 08:22 | XMS_ITS | Clinical Summary ---
Author Organization [facility] Facility Address [address] [address] Care Team Providers Care Ambulette Driver Name Role Phone Jarred Ramon MD Primary Care Provider [phone] Allergies Active Allergy Reactions Criticality Noted Date Comments Molds & Smuts 08/25/2023 Other Reaction(s): Unknown Medications atorvastatin (LIPITOR) 10 MG tablet Take 1 tablet by mouth at bed time Active econazole nitrate 1 % cream 04/20/2020 Active Gabapentin, Once-Daily, 600 MG tablet Take 1 tablet by mouth 3 (three) times a day Active lisinopril (PRINIVIL,ZESTR IL) 10 MG tablet Take 20 mg by mouth 1 (one) time each day Active Magnesium Citrate 125 MG capsule Take 2 capsules by mouth 1 (one) time each day Active LORazepam (ATIVAN) 0.5 MG tablet Take 0.5 mg by mouth every 6 (six) hours if needed for anxiety Active ergocalciferol 1.25 MG (48333 UT) capsule TAKE ONE CAPSULE BY MOUTH EVERY 30 DAYS 8 capsule 2 11/03/2023 Active Active Problems Problem Noted Date Diagnosed Date Essential hypertension 05/25/2020 Hyperlipidemia 05/25/2020 Stage 3a chronic kidney disease 05/25/2020 Renal osteodystrophy 05/25/2020 Hypertensive chronic kidney disease 05/25/2020 Family History Medical History Relation Comments Heart disease Father Cancer Mother Heart disease Mother Relation Status Comments Father Mother Social History Tobacco Use Types Packs/Day Years Used Date Smoking Tobacco: Never Alcohol Use Standard Drinks/Week Comments No 0 (1 standard drink = 0.6 oz pur e alcohol) Sex and Gender Information Value Date Recorded Sex Assigned at Not on file Legal Sex Male 4:58 PM EST Gender Identity Not on file Sexual Orientation Not on file Last Filed Vital Signs Vital Sign Reading Time Taken Comments Blood Pressure 119/64 08/25/2023 1:09 PM EDT Pulse 70 08/25/2023 1:09 PM EDT Temperature - - Respiratory Rate - - Oxygen Saturation 92% 08/25/2023 1:09 PM EDT Inhaled Oxygen Concentration - - Weight 99.6 kg (219 lb 9.6 oz) 08/25/2023 1:09 P M EDT Height 180.3 cm (5' 11 ) 01/27/2020 12:00 PM EST Body Mass Index 30.63 01/27/2020 12:00 PM EST Plan of Treatment Upcoming Encounters Date Type Department Care Team (Late st Contact Info) Description 08/23/2024 1:00 PM EDT [facility] [address] [phone] Doug Sandoval MD [address] [phone] Health Maintenance Due Date Last Done Comments Pneumococcal Vaccine: 65+ Ye ars (1 of 2 - PCV) 04/29/1951 Influenza Vaccine (#1) 2023 Hepatitis B Vaccine Aged Out No longe r eligible based on patient's age to complete this topic Insurance [facility] MEDICARE [facility] MEDICARE [facility] Care Teams Ambulette Driver Relationship Specialty Start Date End Date Jarred Ramon MD [address] [place] [address] PCP - General Internal Medicine 08/20/22
[2024-03-02 11:23] LABS: PSA,Total (Free>4and<10) < 0.10 ng/mL (0.00-4.00)
== END 2024-03-02 08:16 | disposition home or self-care (01) ==
LOC: HO.HMGCX 08:15
PROVIDERS: PCP Internal Medicine; Visit Provider Urology
DX: N20.0 Calculus of kidney (principal); C61 Malignant neoplasm of prostate; Z12.5 Encounter for screening for malignant neoplasm of prostate
CPT/HCPCS: 36415; 76775; 84153

== ENCOUNTER → 2024-03-02 08:23 | Outpatient (BNV) | payer MEDICARE, BC, OTHER, SELFPAY | PROVIDERS: PCP Internal Medicine; Visit Provider Radiology Diagnostic Radiology | DX: N20.0 Calculus of kidney (principal) | CPT/HCPCS: 76775 ==

== ENCOUNTER 2024-04-07 11:44 | Outpatient (REF) | payer MEDICARE, BC, OTHER, SELFPAY ==
--- NOTE | ~2024-04-07 | XR_ITS ---
CLINICAL HISTORY: M25.559 - Pain in unspecified hip 1 view pelvis Comparison: 11/26/2023 Findings: No acute fracture or dislocation. Bilateral hip prostheses are intact and well aligned. No significant arthritic changes. Soft tissues are unremarkable. IMPRESSION: 1. No acute findings. This document has been electronically signed by: Tan Becker MD on 04/07/2024 19:20:25
--- OUTSIDE RECORDS SUMMARY | 2024-04-07 14:17 | XMS_ITS | Clinical Summary ---
Author Organization [facility] Facility Address [address] [address] Care Team Providers Care Machine Dyer Name Role Phone Jarred Ramon MD Primary Care Provider [phone] Allergies Active Allergy Reactions Criticality Noted Date [...] needed for anxiety Active ergocalciferol 1.25 MG (00157 UT) capsule TAKE ONE CAPSULE BY MOUTH [...] [facility] [address] [phone] Doug Sandoval MD [address] [phone] Health Maintenance Due Date Last Done Comments Pneumococcal Vaccine: 65+ Ye ars (1 of 2 - PCV) 04/29/1951 Influenza Vaccine (#1) 2023 Hepatitis B Vaccine Aged Out No longe r eligible based on patient's age to complete this topic Insurance [facility] MEDICARE [facility] MEDICARE [facility] Care Teams Machine Dyer Relationship Specialty Start Date End Date Jarred Ramon MD [address] [place] [address] PCP - General Internal Medicine 08/20/22
--- OUTSIDE RECORDS SUMMARY | 2024-04-07 14:17 | XMS_ITS ---
Author Organization Donavan Kirkpatrick III, MD Address [address] [place] [address] [place] [address] Care Team Providers Care Ui Programmer Name Role Phone Jarred Ramon MD Primary Care Provider Unavailab Donavan Man Unavailable [phone] Allergies Allergen (clinical drug ingredient) Drug/Non Drug Allergy documented on EMR Reaction Allergy Type Onset Date Status Mold Unknown Allergy Active Cockroach Unknown Allergy Active Grass Mix Pollens Allergen Ext Unknown Drug Allergy Active REASON FOR VISIT Prostate cancer, Spinal stenosis, Osteoarthritis, Low back pain, Hypertension Medications Medication SIG (Take, Route, Frequency, Duration) [...] e times a day Active Social History Tobacco Use: Social History Observation Description Date Details (start date - stop date) Former Smoker NA - NA Sex Assigned At : Social History Observation Description Sex Assigned At Male Tobacco Use/Smoking Question Answer Notes Patient is a former smoker How long has it been since you last smoked? > 10 years Additional Findings: Tobacco Non-User Ex-cigaret te smoker Problems Problem Type SNOMED Code ICD Code Onset Dates Problem Status W/U Status Risk Notes Problem 124308056 Obesity, unspecified (E66.9) Active confirmed His body mass index is 30. We discussed diet and nutrition. He has been unrestrained in his consumption of ice cream at night. We made a plan to lose weight at a rate of one half of a pound per week. Vital Signs Temperature 97.3 degrees Fahrenheit 05/29/19 24 Blood pressure systolic 136 mm Hg 05/29/19 24 Blood pressure diastolic 79 mm Hg 024 Heart Rate 59 /min 05/29/2023 Height 71.5 in 05/29/2023 Weight 219 lbs 05/29/2023 BMI 30.12 kg/m2 05/29/2023 Encounters Encounter Location Date Provider Diagnosis Donavan Kirkpatrick III, MD [address] [place] [address] [place] [phone] 05/29/2023 Donavan Kirkpatrick Prostate cancer C61 ; Osteoarthritis M19.90 ; Hypertension I10 ; Spinal stenosis M48.00 ; Atrophy of left kidney N26.1 ; Hyperlipidemia E78.5 ; Former smoker Z87.891 and Obesity, unspecified E66.9 Assessments Encounter Date Diagnosis (ICD Code) Assessment Notes Treat ment Notes Treatment Clinical Notes 05/29/2023 Prostate cancer [...] Reason: ov review labs Provider Name:Donavan Kirkpatrick, 05/31/2024 09:00:00 AM, [address] [place] [address] [address] [place] [address], [id number], Progress Notes * Anamaria OBRIENOB:1945 (78 yo M)Acc No.[id number]:05/29/2023 Progress Notes Patient:?Yan Jethro Provider:?Donavan Kirkpatrick MD :1945???Age:78 Y???Sex:Male Curtis e:05/29/2023 Address:[address] [place], [place] [id number] Pcp:Jarred Ramon MD Subjective: * Chief Complaints: * ???Prostate cancerSpinal jesenia nosisOsteoarthritisLow back painHypertension * HPI: ???COVID-19 Screening:? He returns to the office for management of numerous issues. His arthritis is stable and does not bother him overly. He is scheduled to have a right hip replacement this summer at [facility] with Dr. Baez.He has no other bone pain. He has no bleeding. His blood pressure was stable today at 136/79. He is not smoking. He is trying to lose weight. ?Questions?Have you experienced fever, chills, cough, sore throat, shortness of breath, difficulty breathing, muscle aches, loss of taste or smell??No ?Have you been exposed to the virus within the last 10 days??No ?Have you travelled internationally in the last 10 days??No ?Have you been exposed to COVID-19 in the past??No * ROS:?General/Constitutional:?pain?Right hip, otherwise only normal aches and pains.?Chills?denies.?Fatigue?admits.?Fever?denies.?ENT:?Decreased hearing?mild.?Respiratory:?Cough?denies.?Cardiovascular:?Chest pain with exertion?denies.?Dyspnea on exertion?denies.?Shortness of breath?denies.?Gastrointestinal:?Constipation?that is mild.?Decreased appetite?denies.?Diarrhea?denies.?Heartburn?denies.?Nausea?denies.?Rectal bleeding?denies.?Vomiting?denies.?Hematology:?bruising?denies.?petechiae?denies.?Swollen glands?none have been noted.?Genitourinary:?Frequent urination?once a night.?Musculoskeletal:?Muscle aches?denies.?Painful joints?Right hip and lumbar spine.?Sciatica?denies.?Weakness?denies.?Skin:?Itching?denies.?Rash?denies.?Skin lesion(s)?denies.?Neurologic:?Difficulty speaking?denies.?Dizziness?denies.?Headache?denies.?Low back pain?that is chronic.?Psychiatric:?Depressed mood?denies.? * Medical History:? * Surgical History:?biopsy of prostate 2014colonoscopy 10/1999colonoscopy 02/2006colonoscopy 08/2011radical prostatectomy [facility] 01/23/2014le hip surgery 03/24/2017le eye cataract surgery 05/2016lumbar back surgery 08/11/2016rig eye cataract surgery 12/2019 * Hospitalization/Major Diagno stic Procedure:?Denies Past Hospitalization * Family History:?Father: dece ased 74 yrs, of heartattack, diagnosed with CVD.?Mother: 93 yrs, of heart failure, diagnosed with CVD.?Children: alive.?Son(s): alive.?1 brother(s) , 1 sister(s) - healthy. 2 son(s) . .? One child has Down's syndrome. Two half-sisters, one of cancer. His father of a myocardial infarction and congestive heart failure. He Has 2 Sons Jerry and Danilo. He Has No Grandchildren. His brother had a diagnosis of bladder cancer in 2014. * Social History:?Tobacco Use:?Tobacco Use/Smoking?Patient is a?former smoker ?How long has it been since you last smoked??> 10 years ?Additional Findings: Tobacco Non-User?Ex-cigarette smoker ???He has been to Iesha for 42 years and they have 2 children. 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 He was born in [facility]. * Medications:?TakingLisinopri l 20 MG Tablet 1 tablet Orally Once a dayAtorvastatin Calcium 10 MG Tablet 1 tablet Orally Once a dayLORazepam 0.5 MG Tablet 1 tablet at bedtime as needed Orally Three times a dayGabapentin 600 MG Tablet 1 tablet Orally three times a dayMedication List reviewed and reconciled with the patientTaking Lisinopril 20 MG Tablet 1 tablet Orally Once a dayTaking Atorvastatin Calcium 10 MG Tablet 1 tablet Orally Once a dayTaking LORazepam 0.5 MG Tablet 1 tablet at bedtime as needed Orally Three times a dayTaking Gabapentin 600 MG Tablet 1 tablet Orally three times a dayMedication List reviewed and reconciled with the patient * Allergies:?Grass Mix Pollens Allergen ExtMoldCockroachno[Allergies Verified] Objective: * Vitals:?Ht: 71.5, Wt:219, BM I:30.12, BP:136/79, HR:59, Temp:97.3. * ???Past Orders: Lab:Prostate Specific Antige n * Order Date 05/22/2023 01/21/2023 09/22/2022 Prostate Specific Antigen < 0.10 (Ref Range: <0.05-4.0 ng/mL) < 0.10 (Ref Range: <0.05-4.0 ng/mL) < 0.10 (Ref Range: <0.05-4.0 ng/mL) * Lab:Lipid Panel * Order Date 05/22/2023 05/19/2022 Triglycerides 92 (Ref Range: <150 mg/dL) 79 (Ref Range: mg/dL) Cholesterol 133 (Ref Range: <200 mg/dL) 131 (Ref Range: mg/dL) LDL Cholesterol Calculated 72 (Ref Range: <100 mg/dL) 71 (Ref Range: mg/dl) HDL Cholesterol 43 (Ref Range: >40 mg/dL) 45 (Ref Range: mg/dL) * Lab:Comprehensive [place]. Pane l Fast * Order Date 05/22/2023 05/19/2022 Sodium 143 (Ref Range: 135-145 mmol/L) 144 (Ref Range: 135-145 mmol/L) Bilirubin Total 1.8?H (Ref Range: 0.0-1.0 mg/dL) 1.9?H (Ref Range: 0.0-1.0 mg/dL) Aspartate Amino Transferase 22 (Ref Range: 5-37 U/L) 19 (Ref Range: 5-37 U/L) Alanine Aminotransferase 16 (Ref Range: 0-40 U/L) 15 (Ref Range: 0-40 U/L) Total Protein 6.9 (Ref Range: 6.5-8.0 g/dL) 6.3?L (Ref Range: 6.5-8.0 g/dL) Albumin Level 3.8 (Ref Range: 3.5-5.0 g/dL) 3.8 (Ref Range: 3.5-5.0 g/dL) Alkaline Phosphatase 139?H (Ref Range: 39-117 U/L) 135?H (Ref Range: 39-117 U/L) Potassium 4.3 (Ref Range: 3.3-5.1 mmol/L) 4.2 (Ref Range: 3.3-5.1 mmol/L) Chloride 109?H (Ref Range: 96-108 mmol/L) 110?H (Ref Range: 96-108 mmol/L) Carbon Dioxide 26 (Ref Range: 22-29 mmol/L) 28 (Ref Range: 22-29 mmol/L) Anion Gap 12 (Ref Range: 12-20) 10?L (Ref Range: 12-20) Blood Urea Nitrogen 16 (Ref Range: 9-16 mg/dL) 16 (Ref Range: 9-16 mg/dL) Creatinine 1.05 (Ref Range: 0.5-1.4 mg/dL) 1.30 (Ref Range: 0.5-1.4 mg/dL) Estimated Glomerular Filt Rate > 60 53 Glucose Fasting 90 (Ref Range: 60-99 mg/dL) 87 (Ref Range: 60-99 mg/dL) Calcium 9.3 (Ref Range: 8.4-10.2 mg/dL) 9.0 (Ref Range: 8.4-10.2 mg/dL) * Lab:Complete Blood Count Aut o Diff * Order Date 05/22/2023 01/21/2023 09/22/2022 White Blood Count 4.9 (Ref Range: 4.8-10.8 X10*3/uL) 4.7?L (Ref Range: 4.8-10.8 X10*3/uL) 4.4?L (Ref Range: 4.8-10.8 X10*3/uL) Red Blood Count 4.57?L (Ref Range: 4.60-5.80 X10*6/uL) 4.73 (Ref Range: 4.60-5.80 X10*6/uL) 4.29?L (Ref Range: 4.60-5.80 X10*6/uL) Hemoglobin 14.3 (Ref Range: 14.0-18.0 g/dl) 14.7 (Ref Range: 14.0-18.0 g/dl) 13.4?L (Ref Range: 14.0-18.0 g/dl) Hematocrit 43.5 (Ref Range: 42.0-52.0 %) 45.5 (Ref Range: 42.0-52.0 %) 41.5?L (Ref Range: 42.0-52.0 %) Mean Corpuscular Volume 95.2 (Ref Range: 80.0-98.0 fL) 96.2 (Ref Range: 80.0-98.0 fL) 96.7 (Ref Range: 80.0-98.0 fL) Mean Corpuscular Hemoglobin 31.3 (Ref Range: 27.0-33.0 pg) 31.1 (Ref Range: 27.0-33.0 pg) 31.2 (Ref Range: 27.0-33.0 pg) Mean Corpuscular HGB Conc 32.9 (Ref Range: 31.0-36.0 g/dl) 32.3 (Ref Range: 31.0-36.0 g/dl) 32.3 (Ref Range: 31.0-36.0 g/dl) Red Cell Distribution Width 13.5 (Ref Range: 11.0-16.0 %) 13.8 (Ref Range: 11.0-16.0 %) 13.7 (Ref Range: 11.0-16.0 %) Platelet Count 211 (Ref Range: 160-400 X10*3/uL) 163 (Ref Range: 160-400 X10*3/uL) 193 (Ref Range: 160-400 X10*3/uL) Mean Platelet Volume 10.7 (Ref Range: 9.4-12.4 fL) 11.9 (Ref Range: 9.4-12.4 fL) 12.0 (Ref Range: 9.4-12.4 fL) Neutrophils Percent Auto 49.6 (Ref Range: 45-73 %) 51.5 (Ref Range: 45-73 %) 43.5?L (Ref Range: 45-73 %) Imm Gran Pct Auto 0.2 (Ref Range: 0.0-0.4 %) 0.0 (Ref Range: 0.0-0.4 %) 0.2 (Ref Range: 0.0-0.4 %) Lymphocytes Percent Auto 35.8 (Ref Range: 20-40 %) 33.0 (Ref Range: 20-40 %) 40.6?H (Ref Range: 20-40 %) Monocytes Percent Auto 9.3 (Ref Range: 2-11 %) 10.0 (Ref Range: 2-11 %) 9.8 (Ref Range: 2-11 %) Eosinophils Percent Auto 4.5?H (Ref Range: 0-4 %) 4.9?H (Ref Range: 0-4 %) 5.2?H (Ref Range: 0-4 %) Basophils Percent Auto 0.6 (Ref Range: 0-2 %) 0.6 (Ref Range: 0-2 %) 0.7 (Ref Range: 0-2 %) NRBC Pct Auto 0.0 (Ref Range: 0.0-0.2 /100WBC) 0.0 (Ref Range: 0.0-0.2 /100WBC) 0.0 (Ref Range: 0.0-0.2 /100WBC) Neutrophils Absolute Auto 2.4 (Ref Range: 2.0-8.3 x10*3/uL) 2.4 (Ref Range: 2.0-8.3 x10*3/uL) 1.9?L (Ref Range: 2.0-8.3 x10*3/uL) Imm Gran Abs Auto 0.01 (Ref Range: 0.00-0.03 X10*3/uL) 0.00 (Ref Range: 0.00-0.03 X10*3/uL) 0.01 (Ref Range: 0.00-0.03 X10*3/uL) Lymphocytes Absolute Auto 1.8 (Ref Range: 1.2-4.9 X10*3/uL) 1.6 (Ref Range: 1.2-4.9 X10*3/uL) 1.8 (Ref Range: 1.2-4.9 X10*3/uL) Monocytes Absolute Auto 0.5 (Ref Range: 0.1-1.2 X10*3/uL) 0.5 (Ref Range: 0.1-1.2 X10*3/uL) 0.4 (Ref Range: 0.1-1.2 X10*3/uL) Eosinophils Absolute Auto 0.2 (Ref Range: 0.0-0.4 X10*3/uL) 0.2 (Ref Range: 0.0-0.4 X10*3/uL) 0.2 (Ref Range: 0.0-0.4 X10*3/uL) Basophils Absolute Auto 0.0 (Ref Range: 0.0-0.2 X10*3/uL) 0.0 (Ref Range: 0.0-0.2 X10*3/uL) 0.0 (Ref Range: 0.0-0.2 X10*3/uL) NRBC Abs Auto 0.000 (Ref Range: 0.0-0.012 X10*3/uL) 0.000 (Ref Range: 0.0-0.012 X10*3/uL) 0.000 (Ref Range: 0.0-0.012 X10*3/uL) * Examination: ???General Examination: ?GENERAL APPEARANCE:?pleasant, well nourished, well developed, in no acute distress, calm and relaxed , obese , elderly man.?HEAD:?atraumatic, normocephalic.?EYES:?eomi, perrla, anicteric, conjugate.?EARS:?normal.?NOSE:?septum intact.?ORAL CAVITY:?normal, unremarkable.?NECK/THYROID:?no jugular venous distention, no carotid bruit, thyroid normal.?LYMPH NODES:?no enlarged lymph nodes,spleen normal.?SKIN:?no suspicious lesions, anicteric.?HEART:?no clicks, gallops, murmurs, or rubs, regular rhythm, S1, S2 normal, no s3, or vascular bruits.?LUNGS:?clear to auscultation .?BREASTS:??no masses palpable bilaterally.?ABDOMEN:?bowel sounds normal, no ascites, no organomegaly, no mass , centripital obesity.?RECTAL EXAM:?not examined.?MUSCULOSKELETAL:?extremities unremarkable, no clubbing, cyanosis or edema, Moderate pain to range of motion right hip.?PERIPHERAL PULSES:?normal.?NEUROLOGIC:?alert and oriented, cranial nerves 2-12 grossly intact, deep tendon reflexes 2+ symmetrical, motor strength normal upper and lower extremities, sensory exam intact.?PSYCH:?alert, oriented.? Assessment: * Assessment: 1.?Prostate cancer - C61 (Pr imary), There was no sign of recurrent or progressive prostate cancer on today's examination. He has no bone pain. His PSA remains undetectable.?2.?Osteoarthritis - M19.90, He is going to have his right hip replaced this summer. His other joints are occasionally painful but he says they do not bother him too much.?3.?Hypertension - I10?4. Spinal stenosis - M48.00, He has chronic low back pain from spinal stenosis which was diagnosed in the past. There has been no increase in the pain or change in the pattern that would suggest involvement of the lumbar spine with prostate cancer. His symptoms will be followed carefully and observed.?5.?Atrophy of left kidney - N26.1, His renal function is very good considering this problem. He will continue his primary care to control his blood pressure.?6.?Hyperlipidemia - E78.5, His lipids are in their target range and no change in his therapy is needed. I recommended aggressive weight loss and a healthy Mediterranean diet.?7.?Former smoker - Z87.891, He is highly motivated not to smoke. We have developed a plan for prevention of relapse in times of stress and illness.?8.?Obesity, unspecified - E66.9, His body mass index is 30. We discussed diet and nutrition. He has been unrestrained in his consumption of ice cream at night. We made a plan to lose weight at a rate of one half of a pound per week.? Plan: * Treatment: 2.?Osteoarthritis?LAB: PROFILE, RANDOM (COMPREHENSIVE METABOLIC) ?LAB: PSA, TOTAL ?LAB: CBC w DIFF 3.?Hypertension?LAB: PROFILE, RANDOM (COMPREHENSIVE METABOLIC) ?LAB: PSA, TOTAL ?LAB: CBC w DIFF * Procedure Codes:? * Preventive Medicine:? ??Counseling:?Care goal follow-up plan:?Counseling for abnormal BMI given?Yes ?Above Normal BMI Follow-up?Dietary management education, guidance, and counseling, Dietary needs education, Exercise promotion: strength training, Exercise promotion: stretching, Feeding regime, Giving encouragement to exercise, Lifestyle education regarding diet, Nutrition / feeding management, Nutrition therapy, Prescribed activity/exercise education, Prescribed diet education, Prescribed dietary intake, Special diet education, Weight monitoring , Intervention, Order not done: Medical or Other reason not done ?Smoking/Tobacco Use?Patient counseled on the dangers of tobacco use and urged to quit.?05/29/2023 * Follow Up:?6 Months (Reason: ov review labs ) * Images: * Sign off status: Completed true * Provider:?Donavan Kirkpatrick MD Date:?05/10 Generated for [place]/Jimmy/eTransmitting on:?04/07/2024 02:16 PM EST History and Physical Notes * HPI [...]
--- OUTSIDE RECORDS SUMMARY | 2024-04-07 14:17 | XMS_ITS | Patient Health Record ---
Author Organization Donavan Kirkpatrick III, MD Address [address] [place] [address] Care Team Providers Care Cotton Grower Name Role Phone Jarred Ramon MD Primary Care Provider UnavailDonavan Joseph Unavailable [phone] Allergies Allergen (clinical drug ingredient) Drug/Non Drug Allergy documented on EMR Reaction Allergy Type Onset Date Status Mold Unknown Allergy Active Cockroach Unknown Allergy Active Grass Mix Pollens Allergen Ext Unknown Drug Allergy Active Results Component Value Reference Range Notes Complete Blood Count Auto Di ff Reviewed date:05/24/2023 07:54:37 PM Interpretation: Performing Lab:[facility], [address] [place] [phone] Notes/Report: White Blood Count 4.9 4.8-10.8 X10*3/uL [...] NRBC Abs Auto 0.000 0.0-0.012 X10*3/uL Comprehensive [place]. Panel Fa Reviewed date:05/24/2023 07:54:37 PM Interpretation: Performing Lab:[address] [phone] Notes/Report: Sodium 143 135-145 mmol/L Potassium 4.3 3.3-5.1 mmol/L Chloride 109 96-108 mmol/L Carbon Dioxide 26 22-29 mmol/L Anion Gap 12 12-20 Blood Urea Nitrogen 16 9-16 mg/dL Creatinine 1.05 0.5-1.4 mg/dL Estimated Glomerular Filt Rate > 60 NOTE: For -Italian individuals, multiply the result by 1.210. Chronic [...] Panel Reviewed date:05/24/2023 07:54:37 PM Interpretation: Performing Lab:[facility], [address] [place] [phone] Notes/Report: Triglycerides 92 <150 mg/dL Desirable Triglyceride: [...] Antigen Reviewed date:05/24/2023 07:54:37 PM Interpretation: Performing Lab:[facility], [address] [place] [phone] Notes/Report: Prostate Specific Antigen < 0.10 <0.05-4.0 ng/mL PSA methodology: [employer] Al[employer] i Chemiluminescent Microparticle Immunoassay (CMIA) Complete Blood Count Auto Di ff Reviewed date:11/23/2023 07:11:15 AM Interpretation: Performing Lab:[facility], [address] [place] [phone] Notes/Report: White Blood Count 5.3 4.8-10.8 X10*3/uL Red Blood Count 4.25 4.60-5.80 X10*6/uL Hemoglobin 13.3 14.0-18.0 g/dl Hematocrit 41.1 42.0-52.0 % Mean Corpuscular Volume 96.7 80.0-98.0 fL Mean Corpuscular Hemoglobin 31.3 27.0-33.0 pg Mean Corpuscular HGB Conc 32.4 31.0-36.0 g/dl Red Cell Distribution Width 13.7 11.0-16.0 % Platelet Count 177 160-400 X10*3/uL Mean Platelet Volume 12.5 9.4-12.4 fL Neutrophils Percent Auto 52.9 45-73 % Imm Gran Pct Auto 0.2 0.0-0.4 % Lymphocytes Percent Auto 31.9 20-40 % Monocytes Percent Auto 9.3 2-11 % Eosinophils Percent Auto 4.9 0-4 % Basophils Percent Auto 0.8 0-2 % NRBC Pct Auto 0.0 0.0-0.2 /100WBC Neutrophils Absolute Auto 2.8 2.0-8.3 x10*3/u L Imm Gran Abs Auto 0.01 0.00-0.03 X10*3/uL Lymphocytes Absolute Auto 1.7 1.2-4.9 X10*3/u L Monocytes Absolute Auto 0.5 0.1-1.2 X10*3/uL Eosinophils Absolute Auto 0.3 0.0-0.4 X10*3/u L Basophils Absolute Auto 0.0 0.0-0.2 X10*3/uL NRBC Abs Auto 0.000 0.0-0.012 X10*3/uL Comprehensive Met. Panel Reviewed date:11/23/2023 07:11:15 AM Interpretation: Performing Lab:[address] [phone] Notes/Report: Sodium 142 135-145 mmol/L Potassium 4.4 3.3-5.1 mmol/L Chloride 109 96-108 mmol/L Carbon Dioxide 25 22-29 mmol/L Anion Gap 12 12-20 Blood Urea Nitrogen 20 9-16 mg/dL Creatinine 1.21 0.5-1.4 mg/dL Estimated Glomerular Filt Rate 58 NOTE: For -Italian individuals, multiply the result by 1.210. Chronic Kidney Disease: Estimated GFR < 60 mL/min/1.73m2 Severe Kidney Disease: Estimated GFR < 15 mL/min/1.73m2 Glucose Random 93 60-115 mg/dL Calcium 9.4 8.4-10.2 mg/dL Bilirubin Total 1.3 0.0-1.0 mg/dL Aspartate Amino Transferase 19 5-37 U/L Alanine Aminotransferase 15 0-40 U/L Total Protein 7.4 6.5-8.0 g/dL Albumin Level 4.1 3.5-5.0 g/dL Alkaline Phosphatase 131 39-117 U/L Prostate Specific Antigen Reviewed date:11/23/2023 07:11:15 AM Interpretation: Performing Lab:[address] [phone] Notes/Report: Prostate Specific Antigen < 0.10 <0.05-4.0 ng/mL PSA methodology: [employer] i Chemiluminescent Microparticle Immunoassay (CMIA) Reason For Referral No Information Medications Medication SIG (Take, Route, Frequency, Duration) Notes Start Date End Date Status Lisinopril 10 MG 1 tablet Orally Once a day Active Atorvastatin Calcium 10 MG 1 tablet Oral ly Once a day Active LORazepam 0.5 MG 1 tablet at bedtime as needed Orally Three times a day Active Gabapentin 600 MG 1 tablet Orally thre e times a day Active Immunizations Vaccine Route Administration Date Status Comme nts COVID PFIZER Unknown 12/20/2020 Administered COVID PFIZER Unknown 03/11/2020 Administered COVID PFIZER Unknown 04/01/2020 Administered Social History Sex Assigned At : Social History Observation Description Sex Assigned At Male Alcohol Screen Question Answer Notes Did you have a drink containing alcohol in the p ast year? No Points 0 Interpretation Negative Problems Problem Type SNOMED Code ICD Code Onset Dates Problem Status W/U Status Risk Notes Problem 5779807 Former smoker (Z87.891) Active confirmed He is highly motivated not to smoke. We have developed a plan for prevention of relapse in times of stress and illness. Problem 71322708 Hyperlipidemia (E78.5) Active confirmed His lipids are in their target range and no change in his therapy is needed. I recommended aggressive weight loss and a healthy Mediterranean diet. Problem 02220290 Spinal stenosis (M48.00) Active confirmed He has chronic low back pain from spinal stenosis which was diagnosed in the past. There has been no increase in the pain or change in the pattern that would suggest involvement of the lumbar spine with prostate cancer. His symptoms will be followed carefully and observed. Problem 793983152 Overweight (E66.3) Active confirmed He has gained 3 pounds, which is winter clothing. His body mass index is 29.8. We discussed his weight loss strategy, diet and nutrition. We made a plan to lose weight at a rate of one half of a pound per week. Problem 48043618 Hypertension (I10) Active confirmed His blood pressure is in the normal range today. I recommended a regimen of weight loss and sodium restriction. Problem 403752872 Prostate cancer (C61) Active confirmed There was no sign of recurrent or progressive prostate cancer on today's examination. He has no bone pain. His PSA remains undetectable. Problem 27816626 Anxiety (F41.9) Active confirmed Problem 585391103 Obesity, unspecified (E66.9) Active confirmed His body mass index is 30. We discussed diet and nutrition. He has been unrestrained in his consumption of ice cream at night. We made a plan to lose weight at a rate of one half of a pound per week. Problem 471284432 Low back pain (M54.5) Active confirmed His low back pain was minimal today and did not impair his ability to live his life normally. No change in his regimen as needed. Problem 22596862 Carpal tunnel syndrome (G56.00) Active confirmed Problem 71602004 Colonic polyp (K63.5) Active confirmed He is up-to-date with colonoscopies. It is recommended that he undergo periodic colonoscopy and 5 year intervals as he has a history of tubular adenoma. Problem 808368979 Osteoarthritis (M19.90) Active confirmed He is going to have his right hip replaced this summer. His other joints are occasionally painful but he says they do not bother him too much. Problem 326028953 Atrophy of left kidney (N26.1) Active confirmed His renal function is very good considering this problem. He will continue his primary care to control his blood pressure. Vital Signs Heart Rate 54 /min 11/27/2023 Temperature 97.5 degrees Fahrenheit 11/27/2023 Blood pressure diastolic 66 mm Hg 11/27/2023 Height 71.5 in 11/27/2023 Blood pressure systolic 119 mm Hg 11/27/2023 Weight 228 lbs 11/27/2023 BMI 31.35 kg/m2 11/27/2023 Encounters Encounter Location Date Provider Diagnosis Donavan Kirkpatrick III, MD [address] [place] [address] [place] [phone] 05/29/2023 Donavan Kirkpatrick Prostate cancer C61 ; Osteoarthritis M19.90 ; Hypertension I10 ; Spinal stenosis M48.00 ; Atrophy of left kidney N26.1 ; Hyperlipidemia E78.5 ; Former smoker Z87.891 and Obesity, unspecified E66.9 Donavan Kirkpatrick III, MD [address] [place] [address] [place] [phone] 11/27/2023 Donavan Kirkpatrick Prostate cancer C61 ; [...] do not bother him too much. 11/27/2023 Prostate cancer (ICD-10 - C61) There [...] too much. 05/29/2023 Hypertension (ICD-10 - I10) 11/27/2023 Spinal stenosis (ICD-10 - M48.00) He has chronic low back pain from spinal stenosis which was diagnosed in the past. There has been no increase in the pain or change in the pattern that would suggest involvement of the lumbar spine with prostate cancer. His symptoms will be followed carefully and observed. 05/29/2023 Spinal stenosis (ICD-10 - M48.00) He [...] of weight loss and sodium restriction. 05/29/2023 Atrophy of left kidney (ICD-10 - N26.1) His renal function is very good considering this problem. He will continue his primary care to control his blood pressure. 11/27/2023 Hyperlipidemia (ICD-10 - E78.5) His lipids are in their target range and no change in his therapy is needed. I recommended aggressive weight loss and a healthy Mediterranean diet. 05/29/2023 Hyperlipidemia (ICD-10 - E78.5) His lipids are in their target range and no change in his therapy is needed. I recommended aggressive weight loss and a healthy Mediterranean diet. 11/27/2023 Atrophy of left kidney (ICD-10 - N26.1) His renal function is very good considering this problem. He will continue his primary care to control his blood pressure. 05/29/2023 Former smoker (ICD-1 0 - Z87.891) He is highly motivated not to smoke. We have developed a plan for prevention of relapse in times of stress and illness. 11/27/2023 Obesity, unspecified (ICD-10 - E66.9) His body mass index is 30. We discussed diet and nutrition. He has been unrestrained in his consumption of ice cream at night. We made a plan to lose weight at a rate of one half of a pound per week. 05/29/2023 Obesity, unspecified (ICD-10 - E66.9) His body mass index is 30. We discussed diet and nutrition. He has been unrestrained in his consumption of ice cream at night. We made a plan to lose weight at a rate of one half of a pound per week. Plan Of Treatment Pending Test Test Name Order Date PROFILE, FASTING (COMPREHENSIVE METABOLI C) 07/15/2017 PROFILE, FASTING (COMPREHENSIVE METABOLI C) 01/27/2023 PROFILE, FASTING (COMPREHENSIVE METABOLI C) 11/27/2023 PROFILE, RANDOM (COMPREHENSIVE METABOLIC ) 09/29/2022 PROFILE, RANDOM (COMPREHENSIVE METABOLIC ) 01/15/2018 PROFILE, RANDOM (COMPREHENSIVE METABOLIC ) 01/20/2019 PROFILE, RANDOM (COMPREHENSIVE METABOLIC ) 01/24/2020 PROFILE, RANDOM (COMPREHENSIVE METABOLIC ) 05/29/2023 PROFILE, RANDOM (COMPREHENSIVE METABOLIC ) 01/24/2021 PROFILE, RANDOM (COMPREHENSIVE METABOLIC ) 07/15/2017 PROFILE, RANDOM (COMPREHENSIVE METABOLIC ) 07/16/2018 PROFILE, RANDOM (COMPREHENSIVE METABOLIC ) 07/25/2019 PROFILE, RANDOM (COMPREHENSIVE METABOLIC ) 07/24/2020 PSA, TOTAL 07/25/2019 PSA, TOTAL 11/27/2023 PSA, TOTAL 09/29/2022 PSA, TOTAL 01/15/2018 PSA, TOTAL 01/20/2019 PSA, TOTAL 01/24/2020 PSA, TOTAL 05/29/2023 PSA, TOTAL 01/24/2021 PSA, TOTAL 07/15/2017 PSA, TOTAL 01/27/2023 PSA, TOTAL 07/16/2018 PSA, TOTAL SCREEN 07/24/2020 CBC w DIFF 07/16/2018 CBC w DIFF 07/25/2019 CBC w DIFF 07/24/2020 CBC w DIFF 09/29/2022 CBC w DIFF 01/15/2018 CBC w DIFF 01/20/2019 CBC w DIFF 01/24/2020 CBC w DIFF 05/29/2023 CBC w DIFF 01/24/2021 CBC w DIFF 07/15/2017 CBC WITH AUTO DIFF 01/27/2023 CBC WITH AUTO DIFF 11/27/2023 Lipid Panel 01/27/2023 Lipid Panel 11/27/2023 Next Appt Details Provider Name:Donavan Kaya, 05/31/2024 09:00:00 AM, [address] [place] [address] [address]Z, [place], [address], Insurance Providers Payer Name Payer Address Payer Phone Subscriber Number Group Number Insured Name Patient Relationship to Insured Coverage Start Date Coverage End Date MEDICARE NGS [address] [place] [address] [id number] Tabitha Obrienn Self - patient is the insured [facility] [address] [place], [place] [phone] [id number] Tabitha Obrienn Self - patient is the insured [facility] [address] [place] [address] [id number] Jethro Obrien Self - patient is the insured Medical (General) History Medical History History ICD Code carcinoma prostate [id number] JO 3+4= 08/18 2013 colonic polyps and tubular adenoma osteoarthritis chronic back pain from spinal stenosis atrophic left kidney hypertension hyperlipidemia anxiety carpal tunnel syndrome, right wrist sinusitis obesity former smoker abstinent 40 years The patient has a history of prostate cancer, which was treated with surgery over six years ago. He also has a history of cataract surgery in both eyes. Surgical History Surgery Date(Month/Year) biopsy of prostate 2013 colonoscopy 10/1999 colonoscopy 02/2006 colonoscopy 08/2011 radical prostatectomy [facility] 01/23 left hip surgery 03/24/2017 left eye cataract surgery 05/2016 lumbar back surgery 08/11/2016 right eye cataract surgery 12/2019 Hip replacement surgery, prostatectomy, cataract surgery Hospitalization History Reason Date(Month/Year) No history
--- OUTSIDE RECORDS SUMMARY | 2024-04-07 14:17 | XMS_ITS ---
Author Organization Donavan Kirkpatrick III, MD Address [address] [place] [address] [place] [address] Care Team Providers Care Receivable Executive Name Role Phone Jarred Ramon MD Primary Care Provider Unavailab Donavan Man Unavailable [phone] Allergies Allergen (clinical drug ingredient) Drug/Non Drug Allergy documented on EMR Reaction Allergy Type Onset Date Status Mold Unknown Allergy Active Cockroach Unknown Allergy Active Grass Mix Pollens Allergen Ext Unknown Drug Allergy Active REASON FOR VISIT Prostate cancer, Osteoarthritis, Spinal stenosis, Hypertension, Hyperlipidemia, Low back pain Medications Medication SIG (Take, Route, Frequency, Duration) Notes Start Date End Date Status Atorvastatin Calcium 10 MG 1 tablet Oral ly Once a day Active LORazepam 0.5 MG 1 tablet at bedtime as needed Orally Three times a day Active Gabapentin 600 MG 1 tablet Orally thre e times a day Active Lisinopril 10 MG 1 tablet Orally Once a day Active Social History Tobacco Use: [...] Additional Findings: Tobacco Non-User Ex-cigaret te smoker Vital Signs Temperature 98.3 degrees Fahrenheit 01/28/20 23 Blood pressure systolic 138 mm Hg 01/28/20 23 Blood pressure diastolic 80 mm Hg 023 Heart Rate 68 /min 01/27/2023 Height 71.5 in 01/27/2023 Weight 218 lbs 01/27/2023 BMI 29.98 kg/m2 01/27/2023 Encounters Encounter Location Date Provider Diagnosis Donavan Kirkpatrick III, MD [address] [place] [address] [place] [address] 01/27/2023 Donavan Kirkpatrick Prostate cancer C61 ; Hyperlipidemia E78.5 ; Overweight E66.3 ; Hypertension I10 and Former smoker Z87.891 Assessments Encounter Date Diagnosis (ICD Code) Assessment Notes Treat ment Notes Treatment Clinical Notes 01/27/2023 Prostate cancer [...] relapse in times of stress and illness. Plan Of Treatment Medication Medication Name Sig [...] 4 Months, Reason: OV Provider Name:Donavan Kirkpatrick, 05/31/2024 09:00:00 AM, [address] [place] [address] [address], [place], [address], Progress Notes * Champ OBRIEN:1945 (77 yo M)Acc No.[id number]:01/27/2023 Progress Notes Patient:Jethro Goodson Provider:?Donavan Kirkpatrick MD :1945???Age:77 Y???Sex:Male Curtis e:01/27/2023 Address:[address] [place], [place] [id number] Pcp:Jarred Ramon MD Subjective: * Chief Complaints: * ???Prostate cancerOsteoarthr itisSpinal stenosisHypertensionHyperlipidemiaLow back pain * HPI: ???COVID-19 Screening:?Questions?Have you experienced fever, chills, cough, sore throat, shortness of breath, difficulty breathing, muscle aches, loss of taste or smell??No ?Have you been exposed to the virus within the last 10 days??No ?Have you travelled internationally in the last 10 days??No ?Have you been exposed to COVID-19 in the past??No ? He returns to the office for a routine scheduled visit to manage his medical issues. His low back pain is present but mild and he is doing well with his medication. He says his back is getting worse over time but he ddoes not wish to take stronger medication at this time. He is doing well with acetaminophen and ibuprofen.He arises frrom sleep once or twice a night depending on his fluid intake. His blood work was reviewed with him in detail. His PSA is not detectable. His blood pressure is138/80. * ROS:?General/Constitutional:?pain?Intermittent mild to moderate low back pain, otherwise only normal aches and pains.?Chills?denies.?Fatigue?admits.?Fever?denies.?ENT:?Decreased hearing?mild.?Respiratory:?Cough?denies.?Cardiovascular:?Chest pain with exertion?denies.?Dyspnea on exertion?denies.?Shortness of breath?denies.?Gastrointestinal:?Constipation?occasional.?Decreased appetite?denies.?Diarrhea?denies.?Heartburn?denies.?Nausea?denies.?Rectal bleeding?denies.?Vomiting?denies.?Hematology:?bruising?denies.?petechiae?denies.?Swollen glands?none have been noted.?Genitourinary:?Frequent urination?once a night.?Musculoskeletal:?Muscle aches?denies.?Painful joints?denies.?Sciatica?denies.?Weakness?denies.?Skin:?Itching?denies.?Rash?denies.?Skin lesion(s)?denies.?Neurologic:?Difficulty speaking?denies.?Dizziness?denies.?Headache?denies.?Low back pain?that is chronic.?Psychiatric:?Depressed mood?denies.? * Medical History:? * Surgical History:?biopsy of prostate 2013colonoscopy 10/1999colonoscopy 02/2006colonoscopy 08/2011radical prostatectomy [facility] 01/23/2014[facility] hip surgery 03/24/2017[facility] eye cataract surgery 05/2016[facility] 08/11/2016formerly [facility] eye cataract surgery 12/2019 * Hospitalization/Major Diagno [...] had a diagnosis of bladder cancer in 2015. * Social History:?Tobacco Use:?Tobacco Use/Smoking?Patient is a?former smoker ?How long has it been since you last smoked??> 10 years ?Additional Findings: Tobacco Non-User?Ex-cigarette smoker ???He has been to Iesha for 42 years and they have 2 children. 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 He was born in [facility]. * Medications:?TakingLisinopri l 10 MG Tablet 1 tablet Orally Once [...] Allergen ExtMoldCockroachno[Allergies Verified] Objective: * Vitals:?Ht: 71.5, Wt:218, BM I:29.98, BP:138/80, HR:68, Temp:98.3, Wt-k.88. * ???Past Orders: Lab:Complete Blood Count Aut o Diff * Order Date 01/21/2023 09/22/2022 05/19/2022 White Blood Count 4.7?L (Ref Range: 4.8-10.8 X10*3/uL) 4.4?L (Ref Range: 4.8-10.8 X10*3/uL) 4.8 (Ref Range: 4.8-10.8 X10*3/uL) Red Blood Count 4.73 (Ref Range: 4.60-5.80 X10*6/uL) 4.29?L (Ref Range: 4.60-5.80 X10*6/uL) 4.38?L (Ref Range: 4.60-5.80 X10*6/uL) Hemoglobin 14.7 (Ref Range: 14.0-18.0 g/dl) 13.4?L (Ref Range: 14.0-18.0 g/dl) 13.9?L (Ref Range: 14.0-18.0 g/dl) Hematocrit 45.5 (Ref Range: 42.0-52.0 %) 41.5?L (Ref Range: 42.0-52.0 %) 42.2 (Ref Range: 42.0-52.0 %) Mean Corpuscular Volume 96.2 (Ref Range: 80.0-98.0 fL) 96.7 (Ref Range: 80.0-98.0 fL) 96.3 (Ref Range: 80.0-98.0 fL) Mean Corpuscular Hemoglobin 31.1 (Ref Range: 27.0-33.0 pg) 31.2 (Ref Range: 27.0-33.0 pg) 31.7 (Ref Range: 27.0-33.0 pg) Mean Corpuscular HGB Conc 32.3 (Ref Range: 31.0-36.0 g/dl) 32.3 (Ref Range: 31.0-36.0 g/dl) 32.9 (Ref Range: 31.0-36.0 g/dl) Red Cell Distribution Width 13.8 (Ref Range: 11.0-16.0 %) 13.7 (Ref Range: 11.0-16.0 %) 13.5 (Ref Range: 11.0-16.0 %) Platelet Count 163 (Ref Range: 160-400 X10*3/uL) 193 (Ref Range: 160-400 X10*3/uL) 182 (Ref Range: 160-400 X10*3/uL) Mean Platelet Volume 11.9 (Ref Range: 9.4-12.4 fL) 12.0 (Ref Range: 9.4-12.4 fL) 11.6 (Ref Range: 9.4-12.4 fL) Neutrophils Percent Auto 51.5 (Ref Range: 45-73 %) 43.5?L (Ref Range: 45-73 %) 41.7?L (Ref Range: 45-73 %) Imm Gran Pct Auto 0.0 (Ref Range: 0.0-0.4 %) 0.2 (Ref Range: 0.0-0.4 %) 0.2 (Ref Range: 0.0-0.4 %) Lymphocytes Percent Auto 33.0 (Ref Range: 20-40 %) 40.6?H (Ref Range: 20-40 %) 43.2?H (Ref Range: 20-40 %) Monocytes Percent Auto 10.0 (Ref Range: 2-11 %) 9.8 (Ref Range: 2-11 %) 8.4 (Ref Range: 2-11 %) Eosinophils Percent Auto 4.9?H (Ref Range: 0-4 %) 5.2?H (Ref Range: 0-4 %) 5.9?H (Ref Range: 0-4 %) Basophils Percent Auto 0.6 (Ref Range: 0-2 %) 0.7 (Ref Range: 0-2 %) 0.6 (Ref Range: 0-2 %) NRBC Pct Auto 0.0 (Ref Range: 0.0-0.2 /100WBC) 0.0 (Ref Range: 0.0-0.2 /100WBC) 0.0 (Ref Range: 0.0-0.2 /100WBC) Neutrophils Absolute Auto 2.4 (Ref Range: 2.0-8.3 x10*3/uL) 1.9?L (Ref Range: 2.0-8.3 x10*3/uL) 2.0 (Ref Range: 2.0-8.3 x10*3/uL) Imm Gran Abs Auto 0.00 (Ref Range: 0.00-0.03 X10*3/uL) 0.01 (Ref Range: 0.00-0.03 X10*3/uL) 0.01 (Ref Range: 0.00-0.03 X10*3/uL) Lymphocytes Absolute Auto 1.6 (Ref Range: 1.2-4.9 X10*3/uL) 1.8 (Ref Range: 1.2-4.9 X10*3/uL) 2.1 (Ref Range: 1.2-4.9 X10*3/uL) Monocytes Absolute Auto 0.5 (Ref Range: 0.1-1.2 X10*3/uL) 0.4 (Ref Range: 0.1-1.2 X10*3/uL) 0.4 (Ref Range: 0.1-1.2 X10*3/uL) Eosinophils Absolute Auto 0.2 (Ref Range: 0.0-0.4 X10*3/uL) 0.2 (Ref Range: 0.0-0.4 X10*3/uL) 0.3 (Ref Range: 0.0-0.4 X10*3/uL) Basophils Absolute Auto 0.0 (Ref Range: 0.0-0.2 X10*3/uL) 0.0 (Ref Range: 0.0-0.2 X10*3/uL) 0.0 (Ref Range: 0.0-0.2 X10*3/uL) NRBC Abs Auto 0.000 (Ref Range: 0.0-0.012 X10*3/uL) 0.000 (Ref Range: 0.0-0.012 X10*3/uL) 0.000 (Ref Range: 0.0-0.012 X10*3/uL) * Lab:Comprehensive Met. Panel * Order Date 01/21/2023 09/22/2022 01/15/2022 Sodium 141 (Ref Range: 135-145 mmol/L) 143 (Ref Range: 135-145 mmol/L) 142 (Ref Range: 135-145 mmol/L) Bilirubin Total 2.3?H (Ref Range: 0.0-1.0 mg/dL) 1.4?H (Ref Range: 0.0-1.0 mg/dL) 1.7?H (Ref Range: 0.0-1.0 mg/dL) Aspartate Amino Transferase 20 (Ref Range: 5-37 U/L) 21 (Ref Range: 5-37 U/L) 19 (Ref Range: 5-37 U/L) Alanine Aminotransferase 16 (Ref Range: 0-40 U/L) 15 (Ref Range: 0-40 U/L) 15 (Ref Range: 0-40 U/L) Total Protein 7.3 (Ref Range: 6.5-8.0 g/dL) 6.8 (Ref Range: 6.5-8.0 g/dL) 6.7 (Ref Range: 6.5-8.0 g/dL) Albumin Level 4.1 (Ref Range: 3.5-5.0 g/dL) 3.7 (Ref Range: 3.5-5.0 g/dL) 4.1 (Ref Range: 3.5-5.0 g/dL) Alkaline Phosphatase 136?H (Ref Range: 39-117 U/L) 112 (Ref Range: 39-117 U/L) 140?H (Ref Range: 39-117 U/L) Potassium 4.3 (Ref Range: 3.3-5.1 mmol/L) 4.3 (Ref Range: 3.3-5.1 mmol/L) 4.3 (Ref Range: 3.3-5.1 mmol/L) Chloride 107 (Ref Range: 96-108 mmol/L) 109?H (Ref Range: 96-108 mmol/L) 106 (Ref Range: 96-108 mmol/L) Carbon Dioxide 27 (Ref Range: 22-29 mmol/L) 27 (Ref Range: 22-29 mmol/L) 30?H (Ref Range: 22-29 mmol/L) Anion Gap 11?L (Ref Range: 12-20) 11?L (Ref Range: 12-20) 10?L (Ref Range: 12-20) Blood Urea Nitrogen 14 (Ref Range: 9-16 mg/dL) 15 (Ref Range: 9-16 mg/dL) 16 (Ref Range: 9-16 mg/dL) Creatinine 1.18 (Ref Range: 0.5-1.4 mg/dL) 1.12 (Ref Range: 0.5-1.4 mg/dL) 1.19 (Ref Range: 0.5-1.4 mg/dL) Estimated Glomerular Filt Rate 60 > 60 59 Glucose Random 92 (Ref Range: 60-115 mg/dL) 90 (Ref Range: 60-115 mg/dL) 87 (Ref Range: 60-115 mg/dL) Calcium 9.5 (Ref Range: 8.4-10.2 mg/dL) 9.2 (Ref Range: 8.4-10.2 mg/dL) 9.2 (Ref Range: 8.4-10.2 mg/dL) * Lab:Prostate Specific Antige n * Order Date 01/21/2023 09/22/2022 05/19/2022 Prostate Specific Antigen < 0.10 (Ref Range: <0.05-4.0 ng/mL) < 0.10 (Ref Range: <0.05-4.0 ng/mL) < 0.10 (Ref Range: <0.05-4.0 ng/mL) * Examination: ???General Examination: ?GENERAL APPEARANCE:?pleasant, well nourished, well developed, in no acute distress, calm and relaxed , overweight.?HEAD:?atraumatic, normocephalic.?EYES:?eomi, perrla, anicteric, conjugate.?EARS:?normal.?NOSE:?septum intact.?ORAL CAVITY:?normal, unremarkable.?NECK/THYROID:?no jugular venous distention, no carotid bruit, thyroid normal.?LYMPH NODES:?no enlarged lymph nodes,spleen normal.?SKIN:?no suspicious lesions, anicteric.?HEART:?no clicks, gallops, murmurs, or rubs, regular rhythm, S1, S2 normal, no s3, or vascular bruits.?LUNGS:?clear to auscultation .?BREASTS:??no masses palpable bilaterally.?ABDOMEN:?bowel sounds normal, no ascites, no organomegaly, no mass , overweight.?RECTAL EXAM:?not examined.?MUSCULOSKELETAL:?extremities unremarkable, no clubbing, cyanosis or edema.?PERIPHERAL PULSES:?normal.?NEUROLOGIC:?alert and oriented, cranial nerves 2-12 grossly intact, deep tendon reflexes 2+ symmetrical, motor strength normal upper and lower extremities, sensory exam intact.?PSYCH:?alert, oriented.? Assessment: * Assessment: 1.?Prostate cancer - C61 (Pr imary), There was no sign of recurrent or progressive prostate cancer on today's examination. He has no bone pain. His PSA remains undetectable.?2.?Hyperlipidemia - E78.5, His lipids are in their target range and no change in his therapy is needed. I recommended aggressive weight loss and a healthy Mediterranean diet.?3.?Overweight - E66.3, He has gained 3 pounds, which is winter clothing. His body mass index is 29.8. We discussed his weight loss strategy, diet and nutrition. We made a plan to lose weight at a rate of one half of a pound per week.?4.?Hypertension - I10, His blood pressure is in the normal range today. I recommended a regimen of weight loss and sodium restriction.?5.?Former smoker - Z87.891, He is highly motivated not to smoke. We have developed a plan for prevention of relapse in times of stress and illness.? Plan: * Treatment: 2.?Hyperlipidemia?LAB: PROFILE, FASTING (COMPREHENSIVE METABOLIC) ?LAB: PSA, TOTAL ?LAB: CBC WITH AUTO DIFF ?LAB: Lipid Panel 3.?Overweight?LAB: PROFILE, FASTING (COMPREHENSIVE METABOLIC) ?LAB: PSA, TOTAL ?LAB: CBC WITH AUTO DIFF ?LAB: Lipid Panel * Procedure Codes:? * Preventive Medicine:? ??Counseling:?Care [...] dangers of tobacco use and urged to quit.?01/27/2023 * Follow Up:?4 Months (Reason: OV) * Images: * Sign off status: Completed true * Provider:?Donavan Kirkpatrick MD Date:?01/09 Generated for Printi ng/Favijayag/eTransmitting on:?04/07/2024 02:16 PM EST History and Physical [...]
--- OUTSIDE RECORDS SUMMARY | 2024-04-07 14:17 | XMS_ITS ---
Author Organization Donavan Kirkpatrick III, MD Address [address] [place] [address] Care Team Providers Care Accounts Supervisor Name Role Phone Jarred Ramon MD Primary Care Provider Unavailab Donavan Man Unavailable [phone] Allergies Allergen (clinical drug ingredient) Drug/Non Drug [...] Date Provider Diagnosis Donavan Kirkpatrick III, MD [address] [place] [address] [place] [address] 11/27/2023 Donavan Kirkpatrick Prostate cancer C61 ; [...] ths, Reason: OV, Annual Physical Provider Name:Donavan Kirkpatrick, 05/31/2024 09:00:00 AM, [address] [place] [address] [address] [place], [place], [address], Progress Notes * Anamaria OBRIENOB:1945 (78 yo M)Acc No.[id number]:11/27/2023 Progress Notes Patient:?Jethro OBRIEN Provider:?Donavan Kirkpatrick MD :1945???Age:78 Y???Sex:Male Curtis e:11/27/2023 Address:[address] [place], [place] [id number] Pcp:Jarred Ramon MD Subjective: * Chief Complaints: * ???Prostate cancerSpinal jesenia nosisHypertensionHyperlipidemiaLeft kidney atrophyObesity * HPI: ???COVID-19 Screening:?Questions?Have you experienced fever, chills, cough, sore throat, shortness of breath, difficulty breathing, muscle aches, loss of taste or smell??No ?Have you been exposed to the virus within the last 10 days??No ?Have you travelled internationally in the last 10 days??No ?Have you been exposed to COVID-19 in the past??No ???:? The patient, an 78-year-old male, had a [...] problems. Blood Sugar Level is Normal. * ROS:?General/Constitutional:?pain?only normal aches and pains.?Chills?denies.?Fatigue?admits.?Fever?denies.?ENT:?Decreased hearing?mild.?Respiratory:?Cough?denies.?Cardiovascular:?Chest pain with exertion?denies.?Dyspnea on exertion?denies.?Shortness of breath?denies.?Gastrointestinal:?Constipation?occasional.?Decreased appetite?denies.?Diarrhea?denies.?Heartburn?denies.?Nausea?denies.?Rectal bleeding?denies.?Vomiting?denies.?Hematology:?bruising?denies.?petechiae?denies.?Swollen glands?none have been noted.?Genitourinary:?Frequent urination?once a night.?Musculoskeletal:?Muscle aches?denies.?Painful joints?denies.?Sciatica?denies.?Weakness?denies.?Skin:?Itching?denies.?Rash?denies.?Skin lesion(s)?denies.?Neurologic:?Difficulty speaking?denies.?Dizziness?denies.?Headache?denies.?Low back pain?denies.?Psychiatric:?Depressed mood?denies.? * Medical History:? * Surgical History:?biopsy of prostate 2014colonoscopy 10/1999colonoscopy 02/2006colonoscopy 08/2011radical prostatectomy [facility] 01/23/2014[facility] hip surgery 03/24/2017[facility] eye cataract surgery 05/2016lumbar back surgery 08/11/2016[facility] eye cataract surgery 12/2019Hip replacement surgery, prostatectomy, cataract surgery * Hospitalization/Major Diagno stic Procedure:?No history * Family History:?Father: dece ased 74 yrs, [...] cancer in 2014. * Social History:?Tobacco Use:?Tobacco Use/Smoking?.?Drugs/Alcohol:?Drugs?Have you used drugs other than those for medical reasons in the past 12 months??No ?Alcohol Screen?Did you have a drink containing alcohol in the past year??No ?Points?0 ?Interpretation?Negative ???He has been to Iesha for 42 years and they have 2 children. 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 He was born in [facility]. The patient is a non-smoker. He wakes up at least once a night to urinate. * Medications:?TakingLisinopri l 10 MG Tablet 1 [...] Allergen ExtMoldCockroachno[Allergies Verified] Objective: * Vitals:?Ht: 71.5, Wt:228, BM I:31.35, BP:119/66, HR:54, Temp:97.5, Wt-k.42. * ???Past Orders: Lab:Comprehensive Met. Panel * Collection Date 11/18/2023 01/21/2023 09/22/2022 Collection Time 10:09 AM 09:18 AM 08:32 AM Order Date 11/18/2023 01/21/2023 09/22/2022 Sodium 142 (Ref Range: 135-145 mmol/L) 141 (Ref Range: 135-145 mmol/L) 143 (Ref Range: 135-145 mmol/L) Bilirubin Total 1.3?H (Ref Range: 0.0-1.0 mg/dL) 2.3?H (Ref Range: 0.0-1.0 mg/dL) 1.4?H (Ref Range: 0.0-1.0 mg/dL) Aspartate Amino Transferase [...] 3.7 (Ref Range: 3.5-5.0 g/dL) Alkaline Phosphatase 131?H (Ref Range: 39-117 U/L) 136?H (Ref Range: 39-117 U/L) 112 (Ref Range: 39-117 U/L) Potassium 4.4 (Ref Range: 3.3-5.1 mmol/L) 4.3 (Ref Range: 3.3-5.1 mmol/L) 4.3 (Ref Range: 3.3-5.1 mmol/L) Chloride 109?H (Ref Range: 96-108 mmol/L) 107 (Ref Range: 96-108 mmol/L) 109?H (Ref Range: 96-108 mmol/L) Carbon Dioxide 25 (Ref Range: 22-29 mmol/L) 27 (Ref Range: 22-29 mmol/L) 27 (Ref Range: 22-29 mmol/L) Anion Gap 12 (Ref Range: 12-20) 11?L (Ref Range: 12-20) 11?L (Ref Range: 12-20) Blood Urea Nitrogen 20?H (Ref Range: 9-16 mg/dL) 14 (Ref Range: [...] 4.8-10.8 X10*3/uL) 4.9 (Ref Range: 4.8-10.8 X10*3/uL) 4.7?L (Ref Range: 4.8-10.8 X10*3/uL) Red Blood Count 4.25?L (Ref Range: 4.60-5.80 X10*6/uL) 4.57?L (Ref Range: 4.60-5.80 X10*6/uL) 4.73 (Ref Range: 4.60-5.80 X10*6/uL) Hemoglobin 13.3?L (Ref Range: 14.0-18.0 g/dl) 14.3 (Ref Range: 14.0-18.0 g/dl) 14.7 (Ref Range: 14.0-18.0 g/dl) Hematocrit 41.1?L (Ref Range: 42.0-52.0 %) 43.5 (Ref Range: [...] (Ref Range: 160-400 X10*3/uL) Mean Platelet Volume 12.5?H (Ref Range: 9.4-12.4 fL) 10.7 (Ref Range: [...] Percent Auto 4.9?H (Ref Range: 0-4 %) 4.5?H (Ref Range: 0-4 %) 4.9?H (Ref Range: 0-4 %) Basophils Percent Auto [...] acute distress, calm and relaxed, obese, elderly man.?HEAD:?atraumatic, normocephalic.?EYES:?eomi, perrla, anicteric, conjugate.?EARS:?normal.?NOSE:?septum intact.?ORAL CAVITY:?normal, unremarkable.?NECK/THYROID:?no jugular venous distention, no carotid bruit, thyroid normal.?LYMPH NODES:?no enlarged lymph nodes,spleen normal.?SKIN:?no suspicious lesions, anicteric, Occasional purpura.?HEART:?no clicks, gallops, murmurs, or rubs, regular rhythm, S1, S2 normal, no s3, or vascular bruits.?LUNGS:?clear to auscultation .?BREASTS:??no masses palpable bilaterally.?ABDOMEN:?bowel sounds normal, no ascites, no organomegaly, no mass, centripital obesity.?RECTAL EXAM:?not examined.?MUSCULOSKELETAL:?extremities unremarkable, no clubbing, cyanosis or edema, Diminished range of motion lumbar spine.?PERIPHERAL PULSES:?normal.?NEUROLOGIC:?alert and oriented, cranial nerves 2-12 grossly intact, deep tendon reflexes 2+ symmetrical, motor strength normal upper and lower extremities, sensory exam intact.?PSYCH:?alert, oriented.? : ???Hip Examination:Soreness and imbalance noted, Prostate Examination: No detectable PSA, indicating no current signs of cancer, Eye Examination: No issues reported post-cataract surgery, Ear Examination: Chronic tinnitus reported, Skin Examination: No concerning spots reported, Heart Examination: No chest pain or heart problems reported. ??? Assessment: * Assessment: 1.?Prostate cancer - C61 (Pr imary)???Notes :There was no sign of recurrent or progressive prostate cancer on today's examination. He has no bone pain. His PSA remains undetectable.???2.?Osteoarthritis - M19.90???Notes :He is going to have his right hip replaced this summer. His other joints are occasionally painful but he says they do not bother him too much.???3.?Spinal stenosis - M48.00???Notes :He has chronic low back pain from spinal stenosis which was diagnosed in the past. There has been no increase in the pain or change in the pattern that would suggest involvement of the lumbar spine with prostate cancer. His symptoms will be followed carefully and observed.???4.?Hypertension - I10???Notes :His blood pressure is in the normal range today. I recommended a regimen of weight loss and sodium restriction.???5.?Hyperlipidemia - E78.5???Notes :His lipids are in their target range and no change in his therapy is needed. I recommended aggressive weight loss and a healthy Mediterranean diet.???6.?Atrophy of left kidney - N26.1???Notes :His renal function is very good considering this problem. He will continue his primary care to control his blood pressure.???7.?Obesity, unspecified - E66.9???Notes :His body mass index is 30. We discussed diet and nutrition. He has been unrestrained in his consumption of ice cream at night. We made a plan to lose weight at a rate of one half of a pound per week.??? Plan: * Treatment: * Procedure Codes:? * Preventive Medicine:? ??Counseling:?Care goal follow-up plan:?Counseling for abnormal BMI given?Yes ?Above Normal BMI Follow-up?Dietary management education, guidance, and counseling, Dietary needs education * Follow Up:?6 Months, Six mon ths (Reason: OV, Annual Physical) * Images: * Sign off status: Completed true * Provider:?Donavan Kirkpatrick MD Date:?11/09 Generated for [place]/Jimmy/eTransmitting on:?04/07/2024 02:17 PM EST History and Physical Notes * HPI (History of Present Illness) Category Sub-Category Detail Notes COVID-19 Screening Questions Have you had any new onset fever, chills, cough, congestion, sore throat, shortness of breath, muscle aches?: No Have you been exposed to the virus withi n the last 10 days?: No Have you travelled internationally in [facility] last 10 days?: No Have you been [...]
== END 2024-04-07 11:45 | disposition home or self-care (01) ==
LOC: HO.HOSX 11:44
PROVIDERS: Visit Provider Orthopaedic Surgery
DX: M25.559 Pain in unspecified hip (principal); N20.0 Calculus of kidney; Z96.643 Presence of artificial hip joint, bilateral; C61 Malignant neoplasm of prostate; Z13.9 Encounter for screening, unspecified
CPT/HCPCS: 72170; 81003; 99212

== ENCOUNTER 2024-04-07 12:13 | Outpatient (AMB) | payer MEDICARE, BC, OTHER, SELFPAY ==
--- NOTE | 2024-04-07 12:17 | MHC.OFFVIS ---
Intake Visit Reasons: OV- R IRWIN w/NE 09/08/23 Intake Note: Gulshan is an 78 year old male who presents today for a follow up visit of his Right Hip. Hx of Right IRWIN 09/08/23. At his last visit it was discussed that while he is dong well, he does not have a normal gait. It was recommended that he continue to work with PT at least once a week for glute strengthening / activation. He reports that he continues to have pain in his lower back Allergies grass, mold, trees Allergy (Unknown, Uncoded 01/05/24 11:41) Sneezing HPI HPI OV- R IRWIN w/NE 09/08/23: Details: Gulshan is an 78 year old male who presents today for a follow up visit of his Right Hip. Hx of Right IRWIN 09/08/23. At his last visit it was discussed that while he is dong well, he does not have a normal gait. It was recommended that he continue to work with PT at least once a week for glute strengthening / activation. He reports that he continues to have pain in his lower back [facility] Medical History (Reviewed 11/26/23 @ 08:39 by Leda Dove [facility]) Arthritis Degenerative joint disease Cataract, right Cataract Duodenal ulcer Hydronephrosis Sinus infection Anxiety CKD (chronic kidney disease), stage III History of prostate cancer Peripheral neuropathy Elevated cholesterol HTN (hypertension) Surgical History (Updated 04/07/24 @ 12:59 by Mickey Baez MD) History of right hip replacement (09/08/23) Hx of hand surgery History of esophagogastroduodenoscopy (EGD) H/O colonoscopy History of left hip replacement History of carpal tunnel release Hx of lithotripsy History of lumbar laminectomy Hx of prostatectomy Social History (Reviewed 11/26/23 @ 08:39 by Leda Dove [facility]) Household Members: Family Housing: House Are you a primary career and guidance counselor to a significant other at home: No Do you presently have visiting nurse or other home services: No Patient Tobacco Use Status: Former Tobacco user service: No Current occupational status: retired 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 He states he has walked like this for a long time. He states the reason he walks like this is because of his back. There is no pain with range of motion of the right or left hip. Results Reviewed Results Reviewed: Bilateral IRWIN in expected post operative position with no hardware complications or evidence of loosening Assessment & Plan Assessment & Plan (1) Status post bilateral hip replacements: Code(s): Z96.643 - Presence of artificial hip joint, bilateral Category: Surgical Plan: He states occasionally has some mild pain in his right thigh but he is amenable and for the most part he states he is very happy with his surgery . He has no complaints. He may continue activity as tolerated and follow up as needed. Orders: Orders XR pelvis 1-2V Today M25.559 - Pain in unspecified hip Coding Level of Care Code Est Pt Level 3 (85886) Diagnoses Status post bilateral hip replacements Z96.643
--- OUTSIDE RECORDS SUMMARY | 2024-04-07 14:41 | XMS_ITS | Clinical Summary ---
Author Organization [facility] Facility Address [address] [address] Care Team Providers Care Road Boss Name Role Phone Jarred Ramon MD Primary Care Provider Allergies Active Allergy Reactions Criticality Noted Date [...] needed for anxiety Active ergocalciferol 1.25 MG (25291 UT) capsule TAKE ONE CAPSULE BY MOUTH [...] [facility] [address] [phone] Doug Sandoval MD [address] [phone] Health Maintenance Due Date Last Done Comments Pneumococcal Vaccine: 65+ Ye ars (1 of 2 - PCV) 04/29/1951 Influenza Vaccine (#1) 2023 Hepatitis B Vaccine Aged Out No longe r eligible based on patient's age to complete this topic Insurance [facility] MEDICARE [facility] MEDICARE [facility] Care Teams Road Boss Relationship Specialty Start Date End Date Jarred Ramon MD [address] [place] [address] PCP - General Internal Medicine 08/20/22
== END 2024-04-07 12:41 | disposition home or self-care (01) ==
PROVIDERS: PCP Internal Medicine; Visit Provider Orthopaedic Surgery
DX: Z47.1 Aftercare following joint replacement surgery (principal); Z96.641 Presence of right artificial hip joint
CPT/HCPCS: 99213

== ENCOUNTER → 2024-04-07 12:22 | Outpatient (BNV) | payer MEDICARE, BC, OTHER, SELFPAY | PROVIDERS: Visit Provider Specialist | DX: M25.551 Pain in right hip (principal); Z96.643 Presence of artificial hip joint, bilateral; R26.9 Unspecified abnormalities of gait and mobility | CPT/HCPCS: 72170 ==

== ENCOUNTER 2024-04-07 12:52 | Outpatient (AMB) | payer MEDICARE, BC, OTHER, SELFPAY ==
--- NOTE | 2024-04-07 14:36 | A.OFFVIS_ITS ---
Intake Visit Reasons: 1Y PSA/US(set) Intake Note: Patient is present for 1 year PSA f/u Urology Meds:none Antibiotic Allergies: no Blood Thinners: none Last PVR: Todays PVR: Allergies grass, mold, trees Allergy (Unknown, Uncoded 01/05/24 11:41) Sneezing Medication List - Last Reconciled 04/07/24 by Gardenia Avalos MD acetaminophen 650 mg (2 x 325 mg) PO Q6H PRN 30 days amlodipine 10 mg PO BEDTIME atorvastatin 1 tab PO BEDTIME cyclobenzaprine 10 mg PO TID docusate sodium 100 mg PO BID 30 days enoxaparin 40 mg (0.4 mL) subcut Q24H 42 days ergocalciferol (vitamin D2) (Vitamin D2) 1,250 mcg PO QMONTH gabapentin 600 mg PO TID lisinopril 20 mg PO DAILY lorazepam 0.5 mg PO BEDTIME PRN multivitamin 1 tab PO BEDTIME [shoe lift, left As directed] walker Folding Front wheeled walker HPI Comments Details: 04/07/24-- 02/27/13--Danilo is a 77 year old male who is here for follow up due to history of nephrolithiasis and prostate cancer. Primary treatment, Prostatectomy (RRP/Robotic) - [facility]. PSA <0.10 ng/mL, 01/21/2023 Gulshan states he is doing well, ocassional leakage, discussed to continue kegel exercises. I have reviewed renal US 01/31/23-- Nonobstructing right lower pole renal calculus 4 mm. Small left kidney with cortical thinning and volume loss. A similar findings can be seen on the 06/29/2015 CT scan. Review of chart: Nephrolithiasis/Urolithiasis: - small stone right side.. Urolithiasis was diagnosed May 2015. 24 Hour urine evaluation none on file. Prior treatment(s) include June 2015 left , ureteroscopy. Prior imaging includes June [address] (computed tomography) scan of the abdomen/pelvis (stone protocol) - left hydronephrosis, retrograde, ureteroscopy Feb 2016 , a renal ultrasound - no stones - atrophic left 01/30 renal US - small left stone, right cyst Current therapeutic plan will be to continue with imaging surveillance. Prostate cancer: 2014 robotic prostatectomy Continue with Kegel exercises for slight leakage Prostate cancer was diagnosed [address] Adames. Initial therapy included Primary treatment, Prostatectomy (RRP/Robotic) - [facility]. Recent labs included a PSA (prostate-specific antigen), < 0.1, Plan: 03/06/23-- FU in one year - renal US and PSA PFSH Medical History Arthritis Degenerative joint disease Cataract, right Cataract Duodenal ulcer Hydronephrosis Sinus infection Anxiety CKD (chronic kidney disease), stage III History of prostate cancer Peripheral neuropathy Elevated cholesterol HTN (hypertension) Surgical History (Updated 04/07/24 @ 12:59 by Mickey Baez MD) History of right hip replacement (09/08/23) Hx of hand surgery History of esophagogastroduodenoscopy (EGD) H/O colonoscopy History of left hip replacement History of carpal tunnel release Hx of lithotripsy History of lumbar laminectomy Hx of prostatectomy Social History Household Members: Family Housing: House Are you a primary resident care technician to a significant other at home: No Do you presently have visiting nurse or other home services: No Patient Tobacco Use Status: Former Tobacco user service: No Current occupational status: retired 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 Results AMB Urinalysis, Automated UA Leukoctes 0 Jeny/uL Last Edit by Clarita Dowell MA on 04/07/24 15:01 UA Nitrite Negative Last Edit by Clarita Dowell MA on 04/07/24 15:01 UA Urobilinogen 0.2 mg/dL Last Edit by Clarita Dowell MA on 04/07/24 15:01 UA Protein 0 mg/dL Last Edit by Clarita Dowell MA on 04/07/24 15:01 UA pH 6.5 Last Edit by Clarita Dowell MA on 04/07/24 15:01 UA Blood 0 Jarred/uL Last Edit by Clarita Dowell MA on 04/07/24 15:01 UA Specific [place] 1.010 Last Edit by Clarita Dowell MA on 04/07/24 15:01 UA Ketone Negative Last Edit by Clarita Dowell MA on 04/07/24 15:01 UA Bilirubin 0 mg/dL Last Edit by Clarita Dowell MA on 04/07/24 15:01 UA Glucose 0 mg/dL Last Edit by Clarita Dowell MA on 04/07/24 15:01 Results Reviewed Results Reviewed: Date of Service: 03/02/24 Procedure(s): US renal BI Accession Number(s): [id number] cc: Gardenia Avalos MD; Jarred Ramon MD~ CLINICAL HISTORY: N20.0 - Calculus of kidney US Renal Comparison: None Findings: Right kidney normal size and echotexture, 10.2 cm length. Left kidney 8.3 cm length. Xexqqcli-ux-ghhsce left renal cortical atrophy width questionable increased cortical echogenicity. No hydronephrosis. 5 mm right lower polar renal nonobstructive stone. No renal mass lesion. IMPRESSION: Atrophied left kidney. 5 mm right lower polar renal nonobstructive stone. Date of Service: 01/23/23 EXAMINATION: US RETROPERITONEAL LIMITED (RENAL ONLY) CLINICAL INFORMATION: Calculus of kidney. COMPARISON: Renal ultrasound 12/27/2021 and 02/20/2020. X-ray KUB 08/19/2016 and 08/10/2015. CT abdomen and pelvis 06/29/2015. TECHNIQUE: Real-time imaging of the kidneys. FINDINGS: RIGHT KIDNEY: 10.2 x 5.8 x 5.7 cm (SAG x AP x TRV). The kidney is normal in size, contour, and echogenicity. Renal cortical thickness is normal. There is an echogenic focus seen at the lower pole of the right kidney measuring 4 mm with twinkle artifact consistent with a nonobstructing renal calculus. No focal parenchymal lesions or hydronephrosis. LEFT KIDNEY: 7.2 x 3.6 x 4.2 cm (SAG x AP x TRV). The kidney is small and demonstrates significant cortical thinning and volume loss. No calculi or focal parenchymal lesions. In the left lateral mid kidney, there is a small echogenic focus seen with some twinkle artifact which may be an area of calcification rather than a stone in the collecting system. No hydronephrosis. IMPRESSION: 1. Nonobstructing right lower pole renal calculus. Similar finding can be seen on the 06/29/2015 CT scan. 2. Small left kidney with cortical thinning and volume loss. A similar finding can be seen on the 06/29/2015 CT scan. Assessment & Plan Assessment & Plan (1) Nephrolithiasis: Code(s): N20.0 - Calculus of kidney Category: Medical (2) Prostate cancer: Code(s): C61 - Malignant neoplasm of prostate Category: Medical Orders: Orders AMB Urinalysis Automated Today Z13.9 - Encounter for screening, unspecified PSA,Total (Free>4and<10) 11 Months C61 - Malignant neoplasm of prostate US renal BI 11 Months N20.0 - Calculus of kidney Coding Diagnoses Nephrolithiasis N20.0 Prostate cancer C61
--- OUTSIDE RECORDS SUMMARY | 2024-04-07 15:19 | XMS_ITS | Clinical Summary ---
Author Organization [facility] Facility Address [address] [address] Care Team Providers Care Molder Name Role Phone Jarred Ramon MD Primary Care Provider [phone] Allergies Active Allergy Reactions Criticality Noted Date [...] needed for anxiety Active ergocalciferol 1.25 MG (23745 UT) capsule TAKE ONE CAPSULE BY MOUTH [...] [facility] [address] [phone] Doug Sandoval MD [address] [phone] Health Maintenance Due Date Last Done Comments Pneumococcal Vaccine: 65+ Ye ars (1 of 2 - PCV) 04/29/1951 Influenza Vaccine (#1) 2023 Hepatitis B Vaccine Aged Out No longe r eligible based on patient's age to complete this topic Insurance [facility] MEDICARE [facility] MEDICARE [facility] Care Teams Molder Relationship Specialty Start Date End Date Jarred Ramon MD [address] [place] [address] PCP - General Internal Medicine 08/20/22
== END 2024-04-07 15:08 | disposition home or self-care (01) ==
LOC: HO.HUSH 12:52
PROVIDERS: PCP Internal Medicine; Visit Provider Urology
DX: Z13.9 Encounter for screening, unspecified (principal)

== ENCOUNTER 2024-05-26 08:30 | Outpatient (REF) | payer MEDICARE, BC, OTHER, SELFPAY ==
--- OUTSIDE RECORDS SUMMARY | 2024-05-26 08:53 | XMS_ITS | Clinical Summary ---
Author Organization [facility] Facility Address [address] [address] Care Team Providers Care Hand Lacer Name Role Phone Jarred Ramon MD Primary Care Provider [phone] Allergies Active Allergy Reactions Criticality Noted Date [...] needed for anxiety Active ergocalciferol 1.25 MG (11220 UT) capsule TAKE ONE CAPSULE BY MOUTH [...] [facility] [address] [phone] Doug Sandoval MD [address] [phone] Health Maintenance Due Date Last Done Comments Pneumococcal Vaccine: 50+ Ye ars (1 of 2 - PCV) 04/29/1964 Influenza Vaccine (Season Ended) 2024 Hepatitis B Vaccine Aged Out No longe r eligible based on patient's age to complete this topic Insurance [facility] Medicare [facility] Medicare [facility] Care Teams Hand Lacer Relationship Specialty Start Date End Date Jarred Ramon MD [address] [place] [address] PCP - General Internal Medicine 08/20/22
--- OUTSIDE RECORDS SUMMARY | 2024-05-26 08:53 | XMS_ITS ---
Author Organization Donavan Kirkpatrick III, MD Address [address] [place] [address] [place] [address] Care Team Providers Care Apn Name Role Phone Jarred Ramon MD Primary Care Provider Unavailab Donavan Man Unavailable [phone] Allergies Allergen (clinical drug ingredient) Drug/Non Drug [...] Problem Status W/U Status Risk Notes Problem [id number] Obesity, unspecified (E66.9) Active confirmed His body [...] Date Provider Diagnosis Donavan Kirkpatrick III, MD [address] [place] [address] [place] [address] 05/29/2023 Donavan Kirkpatrick Prostate cancer C61 ; [...] labs Provider Name:Donavan Kirkpatrick, 05/31/2024 09:00:00 AM, [address] [place] [address] [address] [place] [address], [phone], Progress Notes * Anamaria OBRIENOB:1945 (78 yo M)Acc No.[id number]:05/29/2023 Progress Notes Patient:?Yan Jethro Provider:?Donavan Kirkpatrick MD :1945???Age:78 Y???Sex:Male Curtis e:05/29/2023 Address:[address] [place], [place] [phone] Pcp:Jarred Ramon MD Subjective: * Chief Complaints: * ???Prostate cancerSpinal jesenia nosisOsteoarthritisLow back painHypertension * HPI: ???COVID-19 Screening:? He returns to the office for management of numerous issues. His arthritis is stable and does not bother him overly. He is scheduled to have a right hip replacement this summer at [facility] with Dr. Baez.He has no other bone [...] of prostate 2014colonoscopy 10/1999colonoscopy 02/2006colonoscopy 08/2011radical prostatectomy [facility] 01/23/2014le hip surgery 03/24/2017le eye cataract surgery [...] have 2 children. 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 He was born in [facility]. * Medications:?TakingLisinopri l 20 MG Tablet [...] mg/dL) 45 (Ref Range: mg/dL) * Lab:[facility] [place]. Pane l Fast * Order Date 05/22/2023 [...] * Provider:?Donavan Kirkpatrick MD Date:?05/10 Generated for Printi ng/Sayrag/eTransmitting on:?05/26/2024 08:53 AM EDT History and Physical Notes * HPI (History of Present Illness) Category Sub-Category Detail Notes COVID-19 Screening Questions Have you had any new onset fever, chills, cough, congestion, sore throat, shortness of breath, muscle aches?: No Have you been exposed to the virus withi n the last 10 days?: No Have you travelled internationally in last 10 days?: No Have you been exposed to COVID-19 in the past?: No Examination Category Sub-Category Detail Notes General Examination GENERAL APPEARANCE: pleasant , well nourished, well developed, in no acute distress, calm and relaxed , obese , elderly man HEAD: atraumatic, normocep halic EYES: eomi, perrla, anicte inoecncio, conjugate EARS: normal NOSE: septum intact NECK/THYROID: [...]
--- OUTSIDE RECORDS SUMMARY | 2024-05-26 08:53 | XMS_ITS ---
Author Organization Donavan Kirkpatrick III, MD Address [address] [place] [address] [place] [address] Care Team Providers Care Guide Cruise Name Role Phone Jarred Ramon MD Primary Care Provider Unavailab Donavan Man Unavailable [phone] Allergies Allergen (clinical drug ingredient) Drug/Non Drug [...] Date Provider Diagnosis Donavan Kirkpatrick III, MD [address] [place] [address] [place] [phone] 01/27/2023 Donavan Kirkpatrick Prostate cancer C61 ; [...] OV Provider Name:Donavan Kirkpatrick, 05/31/2024 09:00:00 AM, [address] [place] [address] [address], [place], [phone], Progress Notes * Champ OBRIEN:1945 (77 yo M)Acc No.[id number]:01/27/2023 Progress Notes Patient:Jethro Goodson Provider:?Donavan Kirkpatrick MD :1945???Age:77 Y???Sex:Male Curtis e:01/27/2023 Address:[address] [place], [place] [phone] Pcp:Jarred Ramon MD Subjective: * Chief Complaints: [...] of prostate 2013colonoscopy 10/1999colonoscopy 02/2006colonoscopy 08/2011radical prostatectomy [facility] 01/23/2014[facility] hip surgery 03/24/2017[facility] eye cataract surgery 05/2016[facility] back surgery 08/11/2016[facility] eye cataract surgery 12/2019 * Hospitalization/Major Diagno [...] have 2 children. 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 He was born in [facility]. * Medications:?TakingLisinopri l 10 MG Tablet [...] Kirkpatrick MD Date:?01/09 Generated for Printi ng/Favijayag/eTransmitting on:?05/26/2024 08:53 AM EDT History and Physical [...]
--- OUTSIDE RECORDS SUMMARY | 2024-05-26 08:54 | XMS_ITS ---
Author Organization Donavan Kirkpatrick III, MD Address [address] [place] [address] Care Team Providers Care Profiling Machine Setup Operator Name Role Phone Jarred Ramon MD Primary Care Provider Unavailab Donavan Man Unavailable [phone] Allergies Allergen (clinical drug ingredient) Drug/Non Drug [...] Date Provider Diagnosis Donavan Kirkpatrick III, MD [address] [place] [address] [place] [address] 11/27/2023 Donavan Kirkpatrick Prostate cancer C61 ; [...] Physical Provider Name:Donavan Kirkpatrick, 05/31/2024 09:00:00 AM, [address] [place] [address] [address], [place], [phone], Progress Notes * Anamaria OBRIENOB:1945 (78 yo M)Acc No.[id number]:11/27/2023 Progress Notes Patient:?Jethro OBRIEN Provider:?Donavan Kirkpatrick MD :1945???Age:78 Y???Sex:Male Curtis e:11/27/2023 Address:[address] [place], [place] [phone] Pcp:Jarred Ramon MD Subjective: * Chief Complaints: [...] of prostate 2014colonoscopy 10/1999colonoscopy 02/2006colonoscopy 08/2011radical prostatectomy [facility] 01/23/2014le hip surgery 03/24/2017le eye cataract surgery 05/2016lumbar back surgery 08/11/2016[facility] eye cataract surgery 12/2019Hip replacement surgery, [...] have 2 children. 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 He was born in [facility]. The patient is a non-smoker. He wakes [...] Kirkpatrick MD Date:?11/09 Generated for [place]/Jimmy/eTransmitting on:?05/26/2024 08:53 AM EDT History and Physical Notes * HPI (History of Present Illness) Category Sub-Category Detail Notes COVID-19 Screening Questions Have you had any new onset fever, chills, cough, congestion, sore throat, shortness of breath, muscle aches?: No Have you been exposed to the virus withi n the last 10 days?: No Have you travelled internationally in [facility] last 10 days?: No Have you [...]
--- OUTSIDE RECORDS SUMMARY | 2024-05-26 08:54 | XMS_ITS | Patient Health Record ---
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 Name Role Phone Jarred Ramon MD Primary Care Provider UnavailDonavan Joseph Unavailable [phone] Allergies Allergen (clinical drug ingredient) Drug/Non Drug Allergy documented on EMR Reaction Allergy Type Onset Date Status Mold Unknown Allergy Active Cockroach Unknown Allergy Active Grass Mix Pollens Allergen Ext Unknown Drug Allergy Active Results Component Value Reference Range Notes Complete Blood Count Auto Di ff Reviewed date:11/23/2023 07:11:15 AM Interpretation: Performing Lab:[facility], [address] [place] [id number] Notes/Report: White Blood Count 5.3 4.8-10.8 X10*3/uL [...] Panel Reviewed date:11/23/2023 07:11:15 AM Interpretation: Performing Lab:[address] [phone] Notes/Report: Sodium 142 135-145 mmol/L Potassium 4.4 3.3-5.1 mmol/L Chloride 109 96-108 mmol/L Carbon Dioxide 25 22-29 mmol/L Anion Gap 12 12-20 Blood Urea Nitrogen 20 9-16 mg/dL Creatinine 1.21 0.5-1.4 mg/dL Estimated Glomerular Filt Rate 58 NOTE: For -[place] individuals, multiply the result by 1.210. Chronic [...] Antigen Reviewed date:11/23/2023 07:11:15 AM Interpretation: Performing Lab:[facility], [address] [place] [id number] Notes/Report: Prostate Specific Antigen < 0.10 <0.05-4.0 ng/mL PSA methodology: Mobio Alinity i Chemiluminescent Microparticle Immunoassay (CMIA) Reason For [...] History Observation Description Sex Assigned At Male Problems Problem Type SNOMED Code ICD Code Onset Dates Problem Status W/U Status Risk Notes Problem 0598817 Former smoker (Z87.891) Active confirmed He is highly motivated not to smoke. We have developed a plan for prevention of relapse in times of stress and illness. Problem 64428621 Hyperlipidemia (E78.5) Active confirmed His lipids are in their target range and no change in his therapy is needed. I recommended aggressive weight loss and a healthy Mediterranean diet. Problem 01116929 Spinal stenosis (M48.00) Active confirmed He has chronic low back pain from spinal stenosis which was diagnosed in the past. There has been no increase in the pain or change in the pattern that would suggest involvement of the lumbar spine with prostate cancer. His symptoms will be followed carefully and observed. Problem 701878646 Overweight (E66.3) Active confirmed He has gained 3 pounds, which is winter clothing. His body mass index is 29.8. We discussed his weight loss strategy, diet and nutrition. We made a plan to lose weight at a rate of one half of a pound per week. Problem 94392956 Hypertension (I10) Active confirmed His blood pressure is in the normal range today. I recommended a regimen of weight loss and sodium restriction. Problem 010057491 Prostate cancer (C61) Active confirmed There was no sign of recurrent or progressive prostate cancer on today's examination. He has no bone pain. His PSA remains undetectable. Problem 30484268 Anxiety (F41.9) Active confirmed Problem 584282548 Obesity, unspecified (E66.9) Active confirmed His body mass index is 30. We discussed diet and nutrition. He has been unrestrained in his consumption of ice cream at night. We made a plan to lose weight at a rate of one half of a pound per week. Problem 411944028 Low back pain (M54.5) Active confirmed His low back pain was minimal today and did not impair his ability to live his life normally. No change in his regimen as needed. Problem 56599458 Carpal tunnel syndrome (G56.00) Active confirmed Problem 74515294 Colonic polyp (K63.5) Active confirmed He is up-to-date with colonoscopies. It is recommended that he undergo periodic colonoscopy and 5 year intervals as he has a history of tubular adenoma. Problem 981706736 Osteoarthritis (M19.90) Active confirmed He is going to have his right hip replaced this summer. His other joints are occasionally painful but he says they do not bother him too much. Problem 935283396 Atrophy of left kidney (N26.1) Active confirmed [...] Date Provider Diagnosis Donavan Kirkpatrick III, MD [address] [place] [address] [place] [address] 05/29/2023 Donavan Kirkpatrick Prostate cancer C61 ; Osteoarthritis M19.90 ; Hypertension I10 ; Spinal stenosis M48.00 ; Atrophy of left kidney N26.1 ; Hyperlipidemia E78.5 ; Former smoker Z87.891 and Obesity, unspecified E66.9 Donavan Kirkpatrick III, MD [address] [place] [address] [place] [address] 11/27/2023 Donavan Kirkpatrick Prostate cancer C61 ; [...] C) 11/27/2023 PROFILE, RANDOM (COMPREHENSIVE METABOLIC ) 01/20/2019 PROFILE, RANDOM (COMPREHENSIVE METABOLIC ) 01/24/2020 PROFILE, RANDOM (COMPREHENSIVE METABOLIC ) 05/29/2023 PROFILE, RANDOM (COMPREHENSIVE METABOLIC ) 01/24/2021 PROFILE, RANDOM (COMPREHENSIVE METABOLIC ) 07/15/2017 PROFILE, RANDOM (COMPREHENSIVE METABOLIC ) 07/16/2018 PROFILE, RANDOM (COMPREHENSIVE METABOLIC ) 07/25/2019 PROFILE, RANDOM (COMPREHENSIVE METABOLIC ) 07/24/2020 PROFILE, RANDOM (COMPREHENSIVE METABOLIC ) 09/29/2022 PROFILE, RANDOM (COMPREHENSIVE METABOLIC ) 01/15/2018 PSA, TOTAL 09/29/2022 PSA, TOTAL 01/15/2018 PSA, TOTAL 01/20/2019 PSA, TOTAL 01/24/2020 PSA, TOTAL 05/29/2023 PSA, TOTAL 01/24/2021 PSA, TOTAL 07/15/2017 PSA, TOTAL 01/27/2023 PSA, TOTAL 07/16/2018 PSA, TOTAL 07/25/2019 PSA, TOTAL 11/27/2023 PSA, TOTAL SCREEN 07/24/2020 CBC w DIFF 07/25/2019 CBC w DIFF 07/24/2020 CBC w DIFF 09/29/2022 CBC w DIFF 01/15/2018 CBC w DIFF 01/20/2019 CBC w DIFF 01/24/2020 CBC w DIFF 05/29/2023 CBC w DIFF 01/24/2021 CBC w DIFF 07/15/2017 CBC w DIFF 07/16/2018 CBC WITH AUTO DIFF 11/27/2023 CBC WITH AUTO DIFF 01/27/2023 Lipid Panel 01/27/2023 Lipid Panel 11/27/2023 Next Appt Details Provider Name:Donavan Schroederne, 05/31/2024 09:00:00 AM, [address] [place] [address] [address]ITA Lauren, [place], [address], Insurance Providers Payer Name Payer Address Payer Phone Subscriber Number Group Number Insured Name Patient Relationship to Insured Coverage Start Date Coverage End Date MEDICARE NGS [address] [place] [address] [id number] Jethro Obrien Self - patient is the insured [facility] [address] [place], [place] [phone] [id number] Tabitha Obrienn Self - patient is the insured [facility] [address] [place] [address] [id number] Jethro Obrien Self - patient is the insured Medical (General) History Medical History History ICD Code carcinoma prostate [id number] JO 3+4= 08/18 2013 colonic polyps and [...] in both eyes. Surgical History Surgery Date(Month/Year) Hip replacement surgery, prostatectomy, cataract surgery right eye cataract surgery 12/2019 lumbar back surgery 08/11/2016 left eye cataract surgery 05/2016 left hip surgery 03/24/2017 radical prostatectomy [facility] 01/23 colonoscopy 08/2011 colonoscopy 02/2006 colonoscopy 10/1999 biopsy of prostate 2013 Hospitalization History Reason Date(Month/Year) No history
[2024-05-26 10:02] LABS: MANUAL DIFF FLAG NO
[2024-05-26 10:14] LABS: Basophils Absolute Auto 0.1 X10*3/uL (0.0-0.2); Basophils Percent Auto 0.9 % (0-2); Eosinophils Absolute Auto 0.3 X10*3/uL (0.0-0.4); Eosinophils Percent Auto 4.9 % (0-4); Hematocrit 42.6 % (42.0-52.0); Hemoglobin 14.1 g/dl (14.0-18.0); Imm Gran Abs Auto 0.01 X10*3/uL (0.00-0.03); Imm Gran Pct Auto 0.2 % (0.0-0.4); Lymphocytes Absolute Auto 2.1 X10*3/uL (1.2-4.9); Lymphocytes Percent Auto 37.3 % (20-40); Mean Corpuscular HGB Conc 33.1 g/dl (31.0-36.0); Mean Corpuscular Hemoglobin 31.7 pg (27.0-33.0); Mean Corpuscular Volume 95.7 fL (80.0-98.0); Mean Platelet Volume 11.3 fL (9.4-12.4); Monocytes Absolute Auto 0.6 X10*3/uL (0.1-1.2); Monocytes Percent Auto 10.2 % (2-11); Neutrophils Absolute Auto 2.6 x10*3/uL (2.0-8.3); Neutrophils Percent Auto 46.5 % (45-73); Platelet Count 196 X10*3/uL (160-400); Red Blood Count 4.45 X10*6/uL (4.60-5.80); Red Cell Distribution Width 13.6 % (11.0-16.0); White Blood Count 5.7 X10*3/uL (4.8-10.8)
[2024-05-26 10:48] LABS: Alanine Aminotransferase 12 U/L (0-40); Anion Gap 13 (12-20); Aspartate Amino Transferase 25 U/L (5-37); Bilirubin Total 1.7 mg/dL (0.0-1.0); Blood Urea Nitrogen 15 mg/dL (9-16); Calcium 9.2 mg/dL (8.4-10.2); Carbon Dioxide 25 mmol/L (22-29); Chloride 110 mmol/L (96-108); Cholesterol 127 mg/dL (<200); Estimated Glomerular Filt Rate > 60; Glucose Fasting 87 mg/dL (60-99); HDL Cholesterol 39 mg/dL (>40); LDL Cholesterol Calculated 67 mg/dL (<100); Potassium 4.5 mmol/L (3.3-5.1); Prostate Specific Antigen < 0.10 ng/mL (<0.05-4.0); Sodium 143 mmol/L (135-145); Triglycerides 108 mg/dL (<150)
[2024-05-26 10:56] LABS: Alkaline Phosphatase 128 U/L (39-117)
== END 2024-05-26 08:31 | disposition home or self-care (01) ==
LOC: HO.HMGCLDS 08:30
PROVIDERS: PCP Internal Medicine; Visit Provider Internal Medicine Medical Oncology
DX: C61 Malignant neoplasm of prostate (principal); E66.3 Overweight
CPT/HCPCS: 36415; 80053; 80061; 84153; 85025

== ENCOUNTER 2024-06-02 13:00 | Outpatient (RCR) | payer MEDICARE, BC, OTHER, SELFPAY | END 2024-08-19 07:44 | disposition home or self-care (01) | LOC: HO.PTCHIC 13:00 | PROVIDERS: PCP Internal Medicine; Visit Provider Physical Medicine & Rehabilitation | DX: M54.50 Low back pain, unspecified (principal); G89.29 Other chronic pain; M48.061 Spinal stenosis, lumbar region without neurogenic claudication | CPT/HCPCS: 97110; 97140; 97162 ==

== ENCOUNTER 2024-08-16 07:58 | Outpatient (REF) | payer MEDICARE, BC, OTHER, SELFPAY ==
--- OUTSIDE RECORDS SUMMARY | 2024-05-31 05:00 | XMS_ITS ---
Author Organization Donavan Kirkpatrick III, MD Address [address] [place] [address] [place] [address] Care Team Providers Care Generator Switchboard Operator Name Role Phone Jarred Ramon MD Primary Care Provider Unavailab Donavan Man [facility] [phone] Allergies Allergen (clinical drug ingredient) Drug/Non Drug [...] Date Provider Diagnosis Donavan Kirkpatrick III, MD [address] [place] [address] [place] [address] 05/31/2024 Donavan Kirkpatrick Prostate cancer C61 ; Hyperlipidemia [...] Up: 6 Months, Reason: OV Provider Name:Donavan Kirkpatrick, 12/21/2024 10:30:00 AM, [address] [place] [address] [address], [place], [address], Progress Notes * Anamaria OBRIENOB:1945 (79 yo M)Acc No.[id number]:05/31/2024 Progress Notes Patient: Jethro TOBIN Provider: Rich Kirkpatrick MD :1945 A ge:79 Y S ex:Male Date:05/31/2024 Address:[address] [place] [address], [id number] Pcp:Jarred Ramon MD Subjective: * Chief Complaints: [...] * Surgical History: b iopsy of prostate 2013colonoscopy 10/1999colonoscopy 02/2006colonoscopy 08/2011radical prostatectomy [facility] 01/23/2014le hip surgery 03/24/2017[facility] eye cataract surgery 05/2016lumbar back surgery 08/11/2016[facility] eye cataract surgery 12/2019Hip replacement surgery, prostatectomy, cataract surgery right hip surgery August [address] Baez * Hospitalization/Major Diagno stic Procedure: N o history * Family History: F ather: 74 yrs, of heartattack, diagnosed with CVD. M other: 93 yrs, of heart failure, diagnosed with CVD. C jorgeen: alive. S on(s): alive. 1 brother(s) , [...] have 2 children. 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 He was born in [facility]. The patient is a non-smoker. He [...] (Ref Range: 0.0-0.012 X10*3/uL) * Lab:Kourtney Gomes. Ericke l Fast * Collection Date 05/26/2024 05/22/2023 [...] Kirkpatrick MD Date: 0 05/31/2024 Generated for Caio salas/Jimmy/Coraitting on: 0 08/16/2024 08:01 AM EDT History and Physical Notes * [...]
--- OUTSIDE RECORDS SUMMARY | 2024-08-16 08:01 | XMS_ITS | Patient Health Record ---
Author Organization [facility] Anaedwina reeves [place] Address [address] [place] [address] Care Team Providers Care Rug Hooker Name Role Phone Jarred Ramon MD Primary Care Provider UnavailBandar Dunn Unavailable [phone] Reason For Referral No Information Medications Medication SIG (Take, Route, Frequency, Duration) Notes Start Date End Date Status Lipitor 10 MG 1 tablet Orally Once a day; Duration: 30 day(s) Unknown LORazepam 0.5 MG 1 tablet Orally Thre e times a day Active Fexofenadine HCl 60 MG 1 tablet Orally T wice a day; Duration: 30 day(s) Unknown Propranolol HCl 160 MG 1 capsule Orally Once a day; Duration: 30 day(s) Unknown Atorvastatin Calcium Active Cranberry Unknown Super B-50 B Complex Unknown Naproxen 500 MG 1 tablet Orally Twic e a day; Duration: 30 day(s) Active Lisinopril Active Vitamin D3 Super Strength 2000 UNIT as directed Orally Unknown Glucosamine HCl-MSM Unknown Fish Oil 1200 MG 1 capsule Orally Thr ee times a day; Duration: 30 day(s) Unknown Problems Problem Type SNOMED Code ICD Code Onset Dates Problem Status W/U Status Risk Notes Problem Plantar fascial fibromatosis (70803442) Plantar fascial fibromatosis (M72.2) Active confirmed Problem Raynaud's disease (540689045) Raynaud's syndrome without gangrene (I73.00) Active confirmed Plan Of Treatment No Information Insurance Providers Payer Name Payer Address Payer Phone Subscriber Number Group Number Insured Name Patient Relationship to Insured Coverage Start Date Coverage End Date Medicare National Govt Sv[employer] [address] [place] [phone] [id number] Gulshan Heredia Self - patient is the insured [facility] [address] [place] [address] [phone] [id number] Gulshan Heredia Self - patient is the insured [employer] [address] [place] [phone] [id number] Gulshan Heredia Self - patient is the insured Medical (General) History Medical History History ICD Code Anxiety disorder Arthritis hypertension measles chronic sinusitis Back,Hip,and Knee pain prostate cancer Chicken pox Cholesterol Surgical History Surgery Date(Month/Year) carpal tunnel surgery - Hand
--- OUTSIDE RECORDS SUMMARY | 2024-08-16 08:01 | XMS_ITS | Clinical Summary ---
Author Organization [facility] Facility Address [address] [address] Care Team Providers Care Floorwalker Name Role Phone Jarred Ramon MD Primary Care Provider [phone] Allergies Active Allergy Reactions Criticality Noted Date [...] needed for anxiety Active ergocalciferol 1.25 MG (25579 UT) capsule TAKE ONE CAPSULE BY MOUTH [...] [facility] [address] [phone] Doug Sandoval MD [address] [phone] Health Maintenance Due Date Last Done Comments Pneumococcal Vaccine: 50+ Ye ars (1 of 2 - PCV) 04/29/1962 Influenza Vaccine (#1) 2024 Hepatitis B Vaccine Aged Out No longe r eligible based on patient's age to complete this topic Insurance [facility] Medicare [facility] Medicare [facility] Care Teams Floorwalker Relationship Specialty Start Date End Date Jarred Ramon MD [address] [place] [address] PCP - General Internal Medicine 08/20/22
[2024-08-16 11:10] LABS: Appearance Urine Clear; Glucose Urine UA Negative (Negative); PH 7.0 (5.0-9.0); Specific Gravity - Urine 1.010 (1.005-1.025)
[2024-08-16 11:21] LABS: Hematocrit 39.9 % (42.0-52.0); Hemoglobin 13.2 g/dl (14.0-18.0); Mean Corpuscular HGB Conc 33.1 g/dl (31.0-36.0); Mean Corpuscular Hemoglobin 31.3 pg (27.0-33.0); Mean Corpuscular Volume 94.5 fL (80.0-98.0); NRBC Abs Auto 0.000 X10*3/uL (0.0-0.012); NRBC Pct Auto 0.0 /100WBC (0.0-0.2); Platelet Count 183 X10*3/uL (160-400); Red Blood Count 4.22 X10*6/uL (4.60-5.80); White Blood Count 5.1 X10*3/uL (4.8-10.8)
[2024-08-16 11:38] LABS: Albumin Level 4.0 g/dL (3.5-5.0); Anion Gap 12 (12-20); Blood Urea Nitrogen 18 mg/dL (9-16); Calcium 8.9 mg/dL (8.4-10.2); Carbon Dioxide 26 mmol/L (22-29); Chloride 108 mmol/L (96-108); Estimated Glomerular Filt Rate 53; Magnesium 2.0 mg/dL (1.6-2.6); Potassium 4.0 mmol/L (3.3-5.1); Sodium 142 mmol/L (135-145); Total Protein 6.7 g/dL (6.5-8.0)
[2024-08-16 11:51] LABS: Total Protein Urine Random < 7 mg/dL (<12)
[2024-08-16 11:59] LABS: Parathyroid Hormone Intact 108.2 pg/mL (8.7-77.1)
== END 2024-08-16 07:59 | disposition home or self-care (01) ==
LOC: HO.HMGCLDS 07:58
PROVIDERS: PCP Internal Medicine; Visit Provider Internal Medicine Nephrology
DX: I12.9 Hypertensive chronic kidney disease with stage 1 through stage 4 chronic kidney disease, or unspecified chronic kidney disease (principal); N18.31 Chronic kidney disease, stage 3a; N25.0 Renal osteodystrophy
CPT/HCPCS: 36415; 80051; 81001; 82040; 82306; 82310; 82565; 82570; 83735; 83970; 84100; 84155; 84156; 84520; 85027

== ENCOUNTER 2024-08-26 14:28 | Outpatient (AMB) | payer MEDICARE, BC, OTHER, SELFPAY ==
--- OUTSIDE RECORDS SUMMARY | 2024-05-31 05:00 | XMS_ITS ---
Author Organization Donavan Kirkpatrick III, MD Address [address] [place] [address] [place] [address] Care Team Providers Care Doorkeeper Name Role Phone Jarred Ramon MD Primary Care Provider Unavailab Donavan Man [facility] [phone] Allergies Allergen (clinical drug ingredient) Drug/Non Drug [...] Date Provider Diagnosis Donavan Kirkpatrick III, MD [address] [place] [address] [place] [address] 05/31/2024 Donavan Kirkpatrick Prostate cancer C61 ; [...] OV Provider Name:Donavan Kirkpatrick, 12/21/2024 10:30:00 AM, [address] [place] [address] [address], [place], [address], Progress Notes * Anamaria OBRIENOB:1945 (79 yo M)Acc No.[id number]:05/31/2024 Progress Notes Patient: Jethro TOBIN Provider: Rich Kirkpatrick MD :1945 A ge:79 Y S ex:Male Date:05/31/2024 Address:[address] [place] [address], [id number] Pcp:Jarred Ramon MD Subjective: * Chief Complaints: [...] of prostate 2013colonoscopy 10/1999colonoscopy 02/2006colonoscopy 08/2011radical prostatectomy [facility] 01/23/2014le hip surgery 03/24/2017[facility] eye cataract surgery 05/2016lumbar back surgery 08/11/2016[facility] eye cataract surgery 12/2019Hip replacement surgery, prostatectomy, [...] have 2 children. 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 He was born in [facility]. The patient is a non-smoker. [...] 05/31/2024 Generated for Caio salas/Jimmy/Coraitting on: 0 08/26/2024 02:30 PM EDT History and Physical Notes * HPI [...]
--- NOTE | 2024-08-26 14:30 | MHC.PC.OV ---
Vital Signs 08/26/24 14:52 Height 5 ft 9.17 in Weight 227 lb 2 oz BMI 33.4 BP 134/79 Blood Pressure Location Lt brachial Position Sitting Respiration 20 Pulse 57 Pulse Source Pulse Oximeter Temp 98.1 F Temp Source Temporal Artery Scan Pulse Oximetry (%) 94 Oxygen Delivery Method Room Air Intake Visit Reasons: Est Care HTN, Cholesterol Institute Director Required: No Accompanied by: Spouse Allergies grass, mold, trees Allergy (Unknown, Uncoded 08/26/24 15:08) Sneezing Medication List - Last Reconciled 08/26/24 by Fani Andersen PA-C acetaminophen 650 mg (2 x 325 mg) PO Q6H PRN 30 days amlodipine 10 mg PO BEDTIME atorvastatin 1 tab PO BEDTIME econazole nitrate 1% 1 appl topical BID ergocalciferol (vitamin D2) (Vitamin D2) 1,250 mcg PO QMONTH gabapentin 600 mg PO TID ketoconazole 2% appl topical lisinopril 20 mg PO DAILY lorazepam 0.5 mg PO BEDTIME PRN multivitamin 1 tab PO BEDTIME [shoe lift, left As directed] triamcinolone acetonide 0.1% 1 appl topical BID-TID walker Folding Front wheeled walker Tobacco use date assessed: 08/26/24 Fall risk assessment: No Falls in past year Last assessed Fall Risk: 08/26/24 Dental Screening Dental Screen Date: 08/26/24 Did you have a dental visit in the last 12 months?: Yes Did you have a dental problem in the last 6 months where you did not have access to dental care?: No Was dental information given to patient?: Patient has dentist HPI Est Care HTN, Cholesterol HPI Details The patient is an 79-year-old male presenting for a new patient visit and management of chronic conditions. He has a history of anemia, which was noted during his last blood work on August 15, showing fluctuating levels with a hemoglobin of 13 g/dL. The anemia is chronic, with no reports of black or bloody stools, and is managed through regular monitoring. The patient has chronic kidney disease, with a recent GFR of 53 mL/min/1.73m?, indicating mild renal impairment. He is under the care of Dr. Sandoval for this condition, and his BUN was noted to be 18 mg/dL, likely elevated due to dehydration from fasting. The patient underwent prostate cancer resection in 2013 and has been monitored since then. He also has a history of carpal tunnel syndrome, kidney stones, and cataract surgery in both eyes. The patient reports worsening allergic rhinitis over the past few years, managed with sublingual drops instead of allergy shots. He has been advised to continue this management approach due to its convenience and cost-effectiveness. A colonoscopy performed on January 20, 2022, revealed colonic polyps, diverticulosis, and hemorrhoids. Given his age, further colonoscopy may not be necessary unless symptoms arise. The patient has a heart murmur detected during auscultation, prompting a referral for an echocardiogram to assess cardiac function. He denies any chest pain, dyspnea, or palpitations, and there is no family history of early cardiac disease. Social History - Mobility: Uses a cane for ambulation, previously used a walker post-hip surgery. - Family: , involved in healthcare decisions. [facility] Medical History (Updated 08/26/24 @ 15:53 by Fani Andersen PA-C) CKD (chronic kidney disease) Anemia Establishing care with new doctor, encounter for Heart murmur Arthritis Degenerative joint disease Cataract, right Cataract Duodenal ulcer Hydronephrosis Sinus infection Anxiety CKD (chronic kidney disease), stage III History of prostate cancer Peripheral neuropathy Elevated cholesterol HTN (hypertension) Surgical History History of right hip replacement (09/08/23) Hx of hand surgery History of esophagogastroduodenoscopy (EGD) H/O colonoscopy (~01/20/22) History of left hip replacement History of carpal tunnel release Hx of lithotripsy History of lumbar laminectomy Hx of prostatectomy Family History Father Heart attack Mother Congestive heart failure Social History Household Members: Family Housing: House Are you a primary neurocritical care physician to a significant other at home: No Do you presently have visiting nurse or other home services: No Alcohol intake: current Alcohol intake frequency: holidays/special occasions only Alcohol type: beer Patient Tobacco Use Status: Former Tobacco user service: Yes Current occupational status: retired Cognitive needs: Yes (cane) Hearing needs: No Vision needs: Yes (rx glasses) Questionnaire PHQ-9 Over the last 2 weeks, how often have you been bothered by any of the following problems? 1. Little interest or pleasure in doing things: not at all 2. Feeling down, depressed, or hopeless: not at all 3. Trouble falling or staying asleep, or sleeping too much: not at all 4. Feeling tired or having little energy: not at all 5. Poor appetite or overeating: not at all 6. Feeling bad about yourself - or that you are a failure or have let yourself or your family down: not at all 7. Trouble concentrating on things, such as reading the newspaper or watching television: not at all 8. Moving or speaking so slowly that other people could have noticed. Or the opposite - being so fidgety or restless that you have been moving around a lot more than usual: not at all 9. Thoughts that you would be better off or of hurting yourself in some way: not at all Total score: 0 Depression Screening Interpretation: Negative Depression Screening Done: Yes 24960 - PHQ-9 Billing: Yes Source: Developed by Drs. Donavan Bloom, Tori Larose, Romeo Albright and colleagues, with an educational manny from [employer]. Thrive Questionnaire Date Thrive assessed: 08/26/24 I am a: Patient What is your living situation today?: I have a steady place to live Within the past 12 months, did the food you bought not last and you didn't have the money to get more?: Never true Within the past 12 months, did you worry whether your food would run out before you got money to buy more?: Never true Do you have trouble paying for medicines?: No Do you have trouble getting transportation to medical appointments?: No Do you have trouble paying your heating and electricity bill?: No Do you have trouble taking care of your child, family member or friend?: No Do you have trouble with day-to-day activities such as bathing, preparing meals, shopping, managing finances, etc.?: No Are you currently unemployed and looking for a job?: No Are you interested in more education?: No Please select the resources that you would like help with: None Currently or been in a relationship where the following occur: No concerns reported THRIVE Score: 0 AUDIT C Alcohol Use Questionnaire (AUDIT-C) 1. How often do you have a drink containing alcohol?: Monthly or less 2. How many drinks containing alcohol do you have on a typical day when you are drinking?: 1 or 2 3. How often do you have six or more drinks on one occasion?: Never Total Score: 1 Score Reviewed/Action Taken: No ALLYSON-7 AMB Questionnaire ALLYSON-7 Date ALLYSON - 7 assessed: 08/26/24 Feeling nervous, anxious, or on edge: 0 = Not at all Not being able to stop or control worryin = Not at all Worrying too much about different things: 0 = Not at all Trouble relaxin = Not at all Being so restless that it is hard to sit still: 0 = Not at all Becoming easily annoyed or irritable: 0 = Not at all Feeling afraid as if something awful might happen: 0 = Not at all Total ALLYSON-7 score (0-4 normal; 5-9 mild; 10-14 moderate; 15-21 severe): 0 Source: Developed by Drs. Donavan Bloom, Tori Larose, Romeo Albright and colleagues, with an educational manny from [employer]. ALLYSON-7 Assessment Billing ALLYSON-7 Assessment Tool: ALLYSON-7 Assessment 51860 Review of Systems Const Details: - Cardiovascular: Denies chest pain, dyspnea, or palpitations. - Gastrointestinal: Denies black or bloody stools. - Musculoskeletal: Reports leg swelling, managed with compression stockings. - General: Denies unintentional weight loss. All systems reviewed & are unremarkable except as noted in HPI and below Physical exam (Primary Care) Vital Signs: Last Vital Signs Temp 98.1 F 08/26/24 14:52 Pulse 57 08/26/24 14:52 Resp 20 08/26/24 14:52 BP 134/79 08/26/24 14:52 Pulse Ox 94 08/26/24 14:52 Oxygen Delivery Method Room Air 08/26/24 14:52 Care Plan Goal for BP management: <140/90 at Goal BMI result Body Mass Index 33.4 BMI Assessment/Plan discussion: High BMI High, discussed plan: lifestyle, weight reduction, dietary, physical activity and alcohol moderation Tobacco/Smoking Status: Tobacco use Status Tobacco use date assessed 08/26/24 08/26/24 14:33 Patient Tobacco Use Status Former Tobacco user 08/26/24 15:02 PHQ-9: PHQ-9 Score PHQ-9: Total score 0 08/26/24 15:02 Depression Screening Interpretation: Negative Thrive Assessment: Date of Thrive Assessment Date Thrive assessed 08/26/24 08/26/24 14:33 Currently or been in a relationship where the following occur: No concerns reported Const Other: Appearance: Alert. Oriented X3. No acute distress. Head: Normal external exam. Normocephalic. Atraumatic. Eyes: Pupils are equal, round, and reactive to light. Extraocular movements intact. Conjunctiva and sclera normal. Eyelids normal. Ears: External auditory canal normal. Tympanic membranes normal. Throat: Pharynx normal. Uvula midline. Moist mucous membranes. Neck: Normal inspection. Neck supple. Full range of motion. No adenopathy. Thyroid Normal. No meningeal signs. No neck mass noted. Cardiovascular: Heart rate and rhythm normal. Heart sound normal. Murmur noted. Pulses normal throughout. Respiratory: No respiratory distress. Painless inspiration. Breath sounds normal. No wheezes/rales/rhonchi noted. Chest nontender. No accessory muscle usage noted or decreased air movement noted. Abdomen: Soft and nontender. Bowel sounds normal in all 4 quadrants. No distention noted. No organomegaly noted. No visible injury noted. Back: No costovertebral angle tenderness. Full range of motion noted. Skin: Skin warm and dry. Normal skin color. Normal skin turgor. No rashes/lesions/lacerations noted. Extremities: No lower extremity edema. Extremities exhibit normal range of motion. Extremities nontender. Neuro: Oriented X 3. No motor deficit. No sensory deficit. Reflexes normal. Results Reviewed Results Reviewed: - Labs: Hemoglobin 13 g/dL, BUN 18 mg/dL, GFR 53 mL/min/1.73m?, HDL < 40 mg/dL, triglycerides 108 mg/dL, total cholesterol 127 mg/dL, alkaline phosphatase 128 U/L, total bilirubin 1.7 mg/dL, PTH elevated. - Procedures: Colonoscopy on 01/20/2022 showed colonic polyps, diverticulosis, and hemorrhoids. Coding Level of Care Code New Pt Level 5 (49118) Complex EM visit Add On G2211 Diagnoses Establishing care with new doctor, encounter for Z76.89 Anemia D64.9 CKD (chronic kidney disease) N18.9 Prostate cancer C61 Heart murmur R01.1 Additional Codes PHQ-9 - 30255 - PHQ-9 Billing: Yes ([id number]) ALLYSON-7 Assessment Billing - ALLYSON-7 Assessment Tool: ALLYSON-7 Assessment 48943 ([id number]) Assessment & Plan Assessment & Plan (1) Establishing care with new doctor, encounter for: Code(s): Z76.89 - Persons encountering health services in other specified circumstances Category: Medical (2) Anemia: Code(s): D64.9 - Anemia, unspecified Category: Medical Plan: The patient has chronic anemia with fluctuating hemoglobin levels, currently at 13 g/dL. There are no signs of gastrointestinal bleeding, and the condition is managed through regular monitoring and follow-up blood tests. (3) CKD (chronic kidney disease): Code(s): N18.9 - Chronic kidney disease, unspecified Category: Medical Plan: The patient has chronic kidney disease with a GFR of 53 mL/min/1.73m?, indicating mild renal impairment. He is under the care of Dr. Sandoval, and recent labs showed a BUN of 18 mg/dL, likely elevated due to dehydration from fasting. (4) Prostate cancer: Comment: Status post history of resection Code(s): C61 - Malignant neoplasm of prostate Category: Medical Plan: The patient underwent prostate cancer resection in 2013 and continues to be monitored for recurrence. (5) Heart murmur: Code(s): R01.1 - Cardiac murmur, unspecified Category: Medical Plan: A heart murmur was detected during auscultation, and an echocardiogram has been ordered to assess cardiac function. The patient denies any symptoms such as chest pain or dyspnea, and there is no significant family history of cardiac disease. Plan Plan Patient was informed and verbally consented to the use of an ambient scribe for clinic note documentation during this visit. 1. Anemia The patient has chronic anemia with fluctuating hemoglobin levels, currently at 13 g/dL. There are no signs of gastrointestinal bleeding, and the condition is managed through regular monitoring and follow-up blood tests. 2. Chronic Kidney Disease The patient has chronic kidney disease with a GFR of 53 mL/min/1.73m?, indicating mild renal impairment. He is under the care of Dr. Sandoval, and recent labs showed a BUN of 18 mg/dL, likely elevated due to dehydration from fasting. 3. Prostate Cancer (Status Post Resection) The patient underwent prostate cancer resection in 2013 and continues to be monitored for recurrence. 4. Heart Murmur A heart murmur was detected during auscultation, and an echocardiogram has been ordered to assess cardiac function. The patient denies any symptoms such as chest pain or dyspnea, and there is no significant family history of cardiac disease. During the visit, we discussed the patient's chronic anemia and the importance of regular monitoring to manage this condition effectively. We also reviewed his chronic kidney disease, emphasizing the need for ongoing care with Dr. Sandoval and the potential impact of dehydration on lab results. The patient's history of prostate cancer was acknowledged, with continued monitoring advised. A heart murmur was detected, and an echocardiogram was recommended to evaluate cardiac function further. We discussed the patient's allergic rhinitis management with sublingual drops and the benefits of this approach. Orders: Orders CA echo transthoracic complete Today R01.1 - Cardiac murmur, unspecified Medications: New lorazepam 0.5 mg PO BEDTIME PRN 90 tabs 0RF anxiety Patient Instructions: - Continue using sublingual drops for allergic rhinitis as prescribed. - Wear compression stockings to manage leg swelling. - Follow up with Dr. Sandoval for kidney disease management. - Attend scheduled echocardiogram to assess heart murmur. - Monitor for any new symptoms and report them promptly.
--- OUTSIDE RECORDS SUMMARY | 2024-08-26 14:30 | XMS_ITS | Patient Health Record ---
Author Organization [facility] [place] Address [address] [place] [address] Care Team Providers Care Assistant Shift Supervisor Name Role Phone Jarred Ramon MD Primary Care Provider UnavailBandar Dunn Unavailable [phone] Reason For Referral No Information Medications Medication [...] Status Risk Notes Problem Plantar fascial fibromatosis (31434158) Plantar fascial fibromatosis (M72.2) Active confirmed Problem Raynaud's syndrome without gangrene (I73.00) Active confirmed Plan Of Treatment No Information Insurance Providers Payer Name Payer Address Payer Phone Subscriber Number Group Number Insured Name Patient Relationship to Insured Coverage Start Date Coverage End Date Medicare National Govt Svcs Inc [address] [facility] [phone] [id number] Gulshan Heredia Self - patient is the insured [facility] [address] [place] [address] [phone] [id number] Gulshan Heredia Self - patient is the insured [employer] [address] [place] [phone] [id number] Gulshan Heredia Self - patient is the insured Medical (General) History Medical History History ICD Code Anxiety disorder Arthritis hypertension measles chronic sinusitis Back,Hip,and Knee pain prostate cancer Chicken pox Cholesterol Surgical History Surgery Date(Month/Year) carpal tunnel surgery - Hand
--- OUTSIDE RECORDS SUMMARY | 2024-08-26 14:30 | XMS_ITS | Clinical Summary ---
Author Organization [facility] Facility Address [address] [address] Care Team Providers Care Hospital Nursing Assistant Name Role Phone Mike Dixon MD Primary Care Provider + Allergies Active Allergy Reactions Criticality Noted Date [...] needed for anxiety Active ergocalciferol 1.25 MG (02167 UT) capsule TAKE ONE CAPSULE BY MOUTH EVERY 30 DAYS 8 capsule 2 11/03/2023 Active amLODIPine (NORVASC) 10 MG tablet 07/25/2024 Active Active Problems Problem Noted Date Diagnosed Date Essential hypertension 05/25/2020 Hyperlipidemia 05/25/2020 Stage 3a chronic kidney disease 05/25/2020 Renal osteodystrophy 05/25/2020 Hypertensive chronic kidney disease 05/25/2020 Encounters Date Type Department Care Team Description 08/23/2024 9:45 AM EDT Office Visit [facility] [address] [place] [address] Doug Sandoval MD Stage 3a chronic kidney disease (HCC) (Primary Dx); Renal osteodystrophy; Hypertensive chronic kidney disease 08/18/2024 Office Communication [facility] [address] [address] Chris Roth 08/16/2024 Orders Only [facility] [address] [phone] Doug Sandoval MD from Last 3 Months Family History Medical History Relation Comments Heart [...] Sign Reading Time Taken Comments Blood Pressure 110/64 08/23/2024 9:46 AM EDT Pulse 88 08/23/2024 9:46 AM EDT Temperature - - Respiratory Rate - - Oxygen Saturation 99% 08/23/2024 9:46 AM EDT Inhaled Oxygen Concentration - - Weight 104 kg (229 lb 12.8 oz) 08/23/2024 9:46 A M EDT Height 180.3 cm (5' 11 ) 01/27/2020 12:00 PM EST Body Mass Index 32.05 01/27/2020 12:00 PM EST Plan of Treatment Upcoming Encounters Date Type Department Care Team (Late st Contact Info) Description 08/30/2025 1:00 PM EDT [facility] [address] [phone] Doug Sandoval MD [address] [address] Health Maintenance Due Date Last Done Comments Pneumococcal Vaccine: 50+ Ye ars (2 of 2 - PCV) 01/03/2015 01/03/2014 Influenza Vaccine (#1) 2024 11/09/2013 Pneumococcal Vaccine: Peds ( 0 to 5 Years) and At-Risk Patients (6 to 49 Years) Discontinued 01/03/2014 Hepatitis B Vaccine Aged Out No longe r eligible based on patient's age to complete this topic Procedures Procedure Name Priority Date/Time Associated Diagnosis Comments VITAMIN D 25 HYDROXY Routine 08/16/2024 11:16 AM EDT ALBUMIN Routine 08/16/2024 11:16 AM EDT TOTAL PROTEIN Routine 08/16/2024 11:16 AM EDT MAGNESIUM Routine 08/16/2024 11:16 AM EDT PHOSPHATE ( PHOSPHORUS) Routine 08/16/2024 11:16 AM EDT CALCIUM Routine 08/16/2024 11:16 AM EDT CREATININE, BLOOD Routine 08/16/2024 11: 16 AM EDT BUN Routine 08/16/2024 11:16 AM EDT ELECTROLYTE PANEL Routine 08/16/2024 11: 16 AM EDT PTH, INTACT (HC) Routine 08/16/2024 11:1 4 AM EDT CBC Routine 08/16/2024 11:08 AM EDT PROTEIN / CREATININE RATIO, URINE Routine 08/16/2024 10:58 AM EDT ALBUMIN, URINE, RANDOM Routine 08/16/2024 10:58 AM EDT URINALYSIS WITH MICROSCOPIC Routine 08/16/2024 10:58 AM EDT from Last 3 Months Results * Total Protein (08/16/2024 11:16 AM EDT) Total Protein 6.7 6.5 - 8.0 g/dL See order comments 08/16/2024 11:1 6 AM EDT 08/16/2024 11:16 AM EDT Doug Sandoval MD LAB [id number] SOLICITED RESULTS Final Result [place] See order comments [place] [address] * Creatinine (08/16/2024 11:16 AM EDT) Creatinine Serum 1.29 0.5 - 1.4 mg/dL See order comments eGFR (Calc) 53 See orde r comments Comment: Chronic Kidney Disease: Estimated GFR < 60 mL/min/1.73m2 Severe Kidney Disease: Estimated GFR < 15 mL/min/1.73m2 08/16/2024 11:1 6 AM EDT 08/16/2024 11:16 AM EDT Doug Sandoval MD LAB BLOOD ORDERABLES Final Re sult Performing Organization Address City/State/[facility] [[email or web address]] Co de Phone Number [place] See order comments [place] [address] * Vitamin D 25 Hydroxy (08/16/2024 11:16 AM EDT) Vitamin D, 25-Hydroxy 60.5 >30 ng/mL See order comments Comment: Health Based Reference Values* < 20 ng/mL Deficient 20-30 ng/mL Insufficient > 30 ng/mL Sufficient *Ezra SCHERER. N Engl J Med. 2007;357:266-280 There is no well-established upper level of normal vitamin D levels. Some laboratories use 50 ng/mL as an upper limit of normal. However, toxicity is patient-dependent and may occur at any level. Careful correlation with the patient's presentation is necessary and, if there is concern for vitamin D toxicity, treatment should be considered irrespective of the serum level. Care must be taken in interpreting Vitamin D results from different laboratories and methodologies. Published data demonstrated that results from patients undergoing hemodialysis may show a negative bias when tested with various automated 25-OH vitamin D assays when compared to LC-MS/MS. When testing samples from patients whose predominant form of Vitamin D is Vitamin D2, such as patients receiving Vitamin D2 supplementation, results that are subtherapeutic should be confirmed with another method such as LC-MS/MS. 08/16/2024 11:1 6 AM EDT 08/16/2024 11:16 AM EDT us Doug Sandoval MD LAB BLOOD ORDERABLES Final Re sult Performing Organization Address [facility] Phone Number [place] See order comments [place] [address] * (ABNORMAL) BUN (08/16/2024 11:16 AM EDT) BUN 18(H) 9 - 16 mg/dL See order comments 08/16/2024 11:1 6 AM EDT 08/16/2024 11:16 AM EDT us Doug Sandoval MD LAB BLOOD ORDERABLES Final Re sult Performing Organization Address [facility] Phone Number [place] See order comments [place] [address] * Phosphorus (08/16/2024 11:16 AM EDT) Phosphorus, Serum 2.8 2.7 - 4.5 mg/dL See order comments 08/16/2024 11:1 6 AM EDT 08/16/2024 11:16 AM EDT us Doug Sandoval MD LAB BLOOD ORDERABLES Final Re sult Performing Organization Address [facility] Phone Number [place] See order comments [place] [address] * Magnesium (08/16/2024 11:16 AM EDT) Magnesium 2.0 1.6 - 2.6 mg/dL See order comments 08/16/2024 11:1 6 AM EDT 08/16/2024 11:16 AM EDT us Doug Sandoval MD LAB BLOOD ORDERABLES Final Re sult Performing Organization Address [facility]/ZIP Co de Phone Number [place] See order comments [place] [address] * Calcium (08/16/2024 11:16 AM EDT) Calcium 8.9 8.4 - 10.2 mg/dL See order comments 08/16/2024 11:1 6 AM EDT 08/16/2024 11:16 AM EDT us Doug Sandoval MD LAB BLOOD ORDERABLES Final Re sult Performing Organization Address [facility] de Phone Number [place] See order comments [place] [address] * Albumin (08/16/2024 11:16 AM EDT) Albumin 4.0 3.5 - 5.0 g/dL See order comments 08/16/2024 11:1 6 AM EDT 08/16/2024 11:16 AM EDT us Doug Sandoval MD LAB BLOOD ORDERABLES Final Re sult Performing Organization Address [facility] Phone Number [place] See order comments [place] [address] * Electrolyte panel (08/16/2024 11:16 AM EDT) Sodium 142 135 - 145 mmol/L See order comments Potassium 4.0 3.3 - 5.1 mmol/L See order comments Chloride 108 96 - 108 mmol/L See order comments Bicarbonate (CO2) 26 22 - 29 mmol/L See order comments Anion Gap 12 12 - 20 See order comments 08/16/2024 11:1 6 AM EDT 08/16/2024 11:16 AM EDT us Doug Sandoval MD LAB BLOOD ORDERABLES Final Re sult Performing Organization Address [facility] de Phone Number [facility] See order comments [place] [address] * (ABNORMAL) PTH, Intact (08/16/2024 11:14 AM EDT) Parathyroid Hormone, Intact 108.2(H) 8.7 - 77.1 pg/mL See order comments 08/16/2024 11:1 4 AM EDT 08/16/2024 11:14 AM EDT Doug Sandoval MD LAB [id number] SOLICITED RESULTS Final Result Performing Organization Address City/[facility]/ZIP Co de Phone Number [place] See order comments [place] [address] * (ABNORMAL) CBC (08/16/2024 11:08 AM EDT) [facility] WBC 5.1 4.8 - 10.8 X10*3/uL See order comments RBC 4.22(L) 4.60 - 5.80 X10*6/uL See order comments Hgb 13.2(L) 14.0 - 18.0 g/dl See order comments Hematocrit 39.9(L) 42.0 - 52.0 % See order comments MCV 94.5 80.0 - 98.0 fL See order comments MCH 31.3 27.0 - 33.0 pg See order comments MCHC 33.1 31.0 - 36.0 g/dl See order comments RDW 14.5 11.0 - 16.0 % See order comments Platelets 183 160 - 400 X10*3/uL See order comments MPV 12.2 9.4 - 12.4 fL See order comments nRBC Count 0.0 0.0 - 0.2 /100WBC See order comments NRBC Absolute 0.000 0.0 - 0.012 X10*3/uL See order comments 08/16/2024 11:0 8 AM EDT 08/16/2024 11:08 AM EDT Doug Sandoval MD LAB BLOOD ORDERABLES Final Re sult Performing Organization Address [facility] [[email or web address]] Co de Phone Number [facility] See order comments [place] [address] * Protein, Total, Random Urine w/Creatinine (Protein/Creat Ratio) (08/16/2024 10:58 AM EDT) Protein Urine Random <7 <12 mg/dL See order comments Protein/Creatin ine Ratio, Urine TNP <0.2 See order comments Comment: Unable to calculate urine protein creatinine ratio due to low creatinine or protein result. 08/16/2024 10:5 8 AM EDT 08/16/2024 10:58 AM EDT Doug Sandoval MD LAB URINE ORDERABLES Final Re sult Performing Organization Address [facility] [[email or web address]] Co de Phone Number [place] See order comments [place] [address] * Albumin, urine, random (08/16/2024 10:58 AM EDT) Creatinine, Urine 51.79 mg/dL Se e order comments Urine Microalbumin <5.0 mg/L See order comments Microalbumin/Crea tinine Ratio TNP <30 ug/mg cr See order comments Comment: Unable to calculate albumin/creatinine ratio due to low microalbumin or creatinine result. 08/16/2024 10:5 8 AM EDT 08/16/2024 10:58 AM EDT Doug Sandoval MD LAB URINE ORDERABLES Final Re sult Performing Organization Address [facility] de Phone Number [place] See order comments [place] [address] * Urinalysis with microscopic (08/16/2024 10:58 AM EDT) Color Urine Yellow See orde r comments Appearance Urine Clear See order comments pH Urine 7.0 5.0 - 9.0 See order comments Glucose Urine Negative Negative mg/dL See order comments Blood, Urine Negative Negative See ord er comments Specific [place] Urine 1.010 1.005 - 1.025 See order comments Protein Urine Negative Neg-Trace mg/dL See order comments Ketones, Urine Negative Negative mg/dL See order comments Nitrite, Urine Negative Negative See o rder comments Leukocyte Esterase Urine Negative Negative See order comments RBC, Urine 0-2 0 - 2 /HPF See orde r comments WBC 0-5 0 - 5 /HPF See order comments Squamous Epithelial, Urine 0-2 0 - 2 /HPF See order comments Bacteria, Urine None Seen None Seen See order comments Hyaline Casts, Urine 0-2 0 - 2 /LPF See order comments 08/16/2024 10:5 8 AM EDT 08/16/2024 10:58 AM EDT us Doug Sandoval MD LAB URINE ORDERABLES Final Re sult [place] See order comments [place] [address] from Last 3 Months Insurance [facility] Medicare [facility] Medicare [facility] Care Teams Hospital Nursing Assistant Relationship Specialty Start Date End Date Mike Dixon MD [address] [address] PCP - General Internal Medicine 08/23/24
[2024-08-26 14:52] VITALS: BP 134/79; PULSE 57; RESP 20; TEMP 36.7; O2SAT 94; BMI 33.4
== END 2024-08-26 15:24 | disposition home or self-care (01) ==
LOC: HO.HMCSH 14:28
PROVIDERS: PCP Internal Medicine; Visit Provider Physician Assistant Medical
DX: D64.9 Anemia, unspecified (principal); N18.9 Chronic kidney disease, unspecified; C61 Malignant neoplasm of prostate; R01.1 Cardiac murmur, unspecified

== ENCOUNTER → 2024-08-26 14:28 | Outpatient (BNVA) | payer MEDICARE, BC, OTHER, SELFPAY | PROVIDERS: PCP Internal Medicine; Visit Provider Physician Assistant Medical | DX: Z76.89 Persons encountering health services in other specified circumstances (principal); D64.9 Anemia, unspecified; N18.9 Chronic kidney disease, unspecified; C61 Malignant neoplasm of prostate; R01.1 Cardiac murmur, unspecified | CPT/HCPCS: 96127; 99202 ==

== ENCOUNTER → 2024-10-27 14:49 | Outpatient (REF) | payer MEDICARE, BC, OTHER, SELFPAY ==
--- NOTE | 2024-10-27 14:52 | CA_ITS ---
Transthoracic Echocardiogram Patient (Last, First, Middle): Gulshan Heredia E Gender: Male Date of : 1945 Age: 79 Procedure Date: 10/27/2024 Procedure Type: Transthoracic Echocardiogram Location: OP Height: 175.26 cm Weight: 102.97 kg BSA: 2.18 m2 Heart Rate: bpm BP: 134 / 80 mmHg Manager Chemistry: TO Referring MD: Fani Andersen PA-C Symptoms: R01.1 - Cardiac murmur, unspecified Study Quality: Fair ECG Rhythm: Sinus Conclusions: - The left ventricular systolic function is normal. The calculated ejection fraction is 64% by biplane method. - No obvious valvular pathology seen on this study. - There is mild dilatation of the ascending aorta measuring 4.10 cm. Findings Left Ventricle Normal left ventricular cavity size. The left ventricular systolic function is normal. The calculated ejection fraction is 64% by biplane method. There is no evidence of regional wall motion abnormalities. There is mild septal asymmetric hypertrophy. Difficult to differentiate if normal diastolic function versus grade 2 dysfunction. Right Ventricle Normal right ventricular cavity size and systolic function. Atria The left atrium is mildly dilated. The right atrium is normal in size. Aortic Valve There is a normal trileaflet aortic valve. There is mild calcification of the aortic valve. There is no aortic valve stenosis. There is no aortic valve regurgitation. Mitral Valve The mitral valve appears normal. There is trace mitral valve regurgitation. There is no mitral valve stenosis. Pulmonic Valve The pulmonic valve is likely normal. Tricuspid Valve There is trace tricuspid valve regurgitation. There is no evidence of pulmonary hypertension. Great Vessels There is mild dilatation of the ascending aorta measuring 4.10 cm. Small plaque is seen in the sino tubular ridge. Venous The inferior vena cava is mildly dilated and collapses greater than 50% with inspiration. Pericardium/Pleural There is no evidence of pericardial effusion. Prior Study Comparison No prior study available for comparison. Recommendations, Care & Conclusions No obvious valvular pathology seen on this study. Measurements 2D Linear Measurements IVSd: 1.22 0.6-0.9/0.6-1.0 cm LVIDd: 4.49 3.9-5.3/4.2-5.9 cm LVIDd Index: 2.06 2.4-3.2/2.2-3.1 cm/m2 LVIDs: 2.85 2.0-3.6 cm LVPWd: 0.91 0.7-1.1 cm LA Diam: 4.00 2.7-3.8/3.0-4.0 cm LAIDs Index: 1.83 1.5-2.3 cm/m2 LV Mass: 207.99 67-162/88-224 g LV Mass Index: 95.41 43-95/49-115 g/m2 LVOT Diam: 2.40 3.0+(-)1.3 cm 2D Systolic Function EF 4C: 63.30 >55% EF 2C: 62.80 >55% EF BiP: 64.00 >55% Mitral Valve MV Pk E: 0.74 MV PK A: 0.32 MV Decel Time: 236.00 E/A: 2.30 E'Lateral: 11.50 E'Medial: 7.18 E/E' Med: 10.30 E/E' Lat: 6.40 PHT: 69.00 MVA PHT: 3.19 Decel Early: 3.14 Aortic Valve AoV Pk Steve: 1.49 AoV Mn Steve: 1.01 AoV VTI: 0.34 AoV Pk Grad: 9.00 Aov Mn Grad: 5.00 MIAN Cont.VTI: 3.00 LVOT LVOT Pk Steve: 1.10 LVOT Mn Steve: 0.68 LVOT VTI: 0.22 LVOT Pk Grad: 5.00 LVOT Mn Grad: 2.00 LVOT Diam: 2.40 LVOT Area: 4.52 Diastolic Function MV Pk E: 0.74 MV Pk A: 0.32 E/A: 2.30 E'Medial: 7.18 E/E' Med: 10.30 E' Laterial: 11.50 E/E' Lat: 6.40 Right Ventricle TAPSE (mm): 32.70 TVS' Steve: 12.80 Tricuspid Valve TR Pk Steve: 2.09 TR Pk Grad: 17.00 RA Press: 3.00 RVSP: 20.00 Great Vessels Aorta Sinus of Valsalva: 3.43 2.0-3.5 cm Ao Asc: 4.10 2.1-3.4 cm Pulmonary Veins Pulm Vein S/D 0.70 Updated in Other Vendor System with Status of Final Zhao Andre MD electronically signed on 10/28/2024 4:23:36 PM with status of Final
--- OUTSIDE RECORDS SUMMARY | 2024-10-27 16:31 | XMS_ITS | Clinical Summary ---
Author Organization [facility] Facility Address [address] [address] Care Team Providers Care Pouncer Machine Name Role Phone Mike Dixon MD Primary [...] needed for anxiety Active ergocalciferol 1.25 MG (41342 UT) capsule TAKE ONE CAPSULE BY MOUTH [...] Visit [facility] [address] [place] [address] Doug Sandoval MD Stage 3a chronic kidney disease (HCC) (Primary Dx); Renal osteodystrophy; Hypertensive chronic kidney disease 08/18/2024 Office Communication [facility] [address] [phone] Chris Roth 08/16/2024 Orders Only [facility] [address] [phone] Doug Sandoval MD from Last 3 Months [...] Office Visit [facility] [address] [phone] Doug Sandoval MD [address] [phone] Health Maintenance Due Date Last [...] 11:16 AM EDT Doug Sandoval MD LAB [id number] SOLICITED RESULTS Final Result [place] See order comments [place] [address] * Creatinine (08/16/2024 11:16 AM EDT) Creatinine Serum 1.29 0.5 - 1.4 mg/dL See order comments eGFR (Calc) 53 See orde r comments Comment: Chronic Kidney Disease: Estimated GFR < 60 mL/min/1.73m2 Severe Kidney Disease: Estimated GFR < 15 mL/min/1.73m2 08/16/2024 11:1 6 AM EDT 08/16/2024 11:16 AM EDT Doug Sandoval MD LAB BLOOD ORDERABLES Final Re sult Performing Organization Address City/State/[place] Co de Phone Number [place] See order comments [place] [address] * Vitamin D 25 Hydroxy (08/16/2024 11:16 [...] ORDERABLES Final Re sult Performing Organization Address [facility] Phone Number [place] See order comments [place] [address] * (ABNORMAL) BUN (08/16/2024 11:16 AM EDT) BUN 18(H) 9 - 16 mg/dL See order comments 08/16/2024 11:1 6 AM EDT 08/16/2024 11:16 AM EDT us Doug Sandoval MD LAB BLOOD ORDERABLES Final Re sult Performing Organization Address [facility] Phone Number [place] See order comments [place] [address] * Phosphorus (08/16/2024 11:16 AM EDT) Phosphorus, Serum 2.8 2.7 - 4.5 mg/dL See order comments 08/16/2024 11:1 6 AM EDT 08/16/2024 11:16 AM EDT us Doug Sandoval MD LAB BLOOD ORDERABLES Final Re sult Performing Organization Address [facility] Phone Number [place] See order comments [place] [address] * Magnesium (08/16/2024 11:16 AM EDT) Magnesium 2.0 1.6 - 2.6 mg/dL See order comments 08/16/2024 11:1 6 AM EDT 08/16/2024 11:16 AM EDT us Doug Sandoval MD LAB BLOOD ORDERABLES Final Re sult Performing Organization Address [facility]/ZIP Co de Phone Number [place] See order comments [place] [address] * Calcium (08/16/2024 11:16 AM EDT) Calcium 8.9 8.4 - 10.2 mg/dL See order comments 08/16/2024 11:1 6 AM EDT 08/16/2024 11:16 AM EDT us Doug Sandoval MD LAB BLOOD ORDERABLES Final Re sult Performing Organization Address [facility] de Phone Number [place] See order comments [place] [address] * Albumin (08/16/2024 11:16 AM EDT) Albumin 4.0 3.5 - 5.0 g/dL See order comments 08/16/2024 11:1 6 AM EDT 08/16/2024 11:16 AM EDT us Doug Sandoval MD LAB BLOOD ORDERABLES Final Re sult Performing Organization Address [facility] Phone Number [place] See order comments [place] [address] * Electrolyte panel (08/16/2024 11:16 AM EDT) [...] ORDERABLES Final Re sult Performing Organization Address [facility] de Phone Number [facility] See order comments [place] [address] * (ABNORMAL) PTH, Intact (08/16/2024 11:14 AM EDT) Parathyroid Hormone, Intact 108.2(H) 8.7 - 77.1 pg/mL See order comments 08/16/2024 11:1 4 AM EDT 08/16/2024 11:14 AM EDT Doug Sandoval MD LAB [id number] SOLICITED RESULTS Final Result Performing Organization Address City/[facility]/ZIP Co de Phone Number [place] See order comments [place] [address] * (ABNORMAL) CBC (08/16/2024 11:08 AM EDT) [facility] WBC 5.1 4.8 - 10.8 X10*3/uL [...] ORDERABLES Final Re sult Performing Organization Address [facility]/[place] de Phone Number [facility] See order comments [place] [address] * Protein, Total, Random Urine w/Creatinine (Protein/Creat [...] ORDERABLES Final Re sult Performing Organization Address [facility]/[place] de Phone Number [place] See order comments [place] [address] * Albumin, urine, random (08/16/2024 10:58 AM [...] ORDERABLES Final Re sult Performing Organization Address [facility] de Phone Number [place] See order comments [place] [address] * Urinalysis with microscopic (08/16/2024 10:58 AM EDT) Color Urine Yellow See orde r comments Appearance Urine Clear See order comments pH Urine 7.0 5.0 - 9.0 See order comments Glucose Urine Negative Negative mg/dL See order comments Blood, Urine Negative Negative See ord er comments Specific [place] Urine 1.010 1.005 - 1.025 See order [...] order comments [place] [address] from Last 3 Months Insurance [facility] Medicare [facility] Medicare [facility] Care Teams Pouncer Machine Relationship Specialty Start Date End Date Mike Dixon MD [address] [address] PCP - General Internal Medicine 08/23/24
== END ==
LOC: HO.CARD 14:49
PROVIDERS: PCP Physician Assistant Medical; Visit Provider Physician Assistant Medical
DX: R01.1 Cardiac murmur, unspecified (principal)
CPT/HCPCS: 93306

== ENCOUNTER → 2024-10-27 14:52 | Outpatient (BNV) | payer MEDICARE, BC, OTHER, SELFPAY | PROVIDERS: PCP Physician Assistant Medical; Visit Provider Internal Medicine | DX: R01.1 Cardiac murmur, unspecified (principal); I77.810 Thoracic aortic ectasia; I51.89 Other ill-defined heart diseases | CPT/HCPCS: 93306 ==

== ENCOUNTER 2024-12-14 08:30 | Outpatient (REF) | payer MEDICARE, BC, OTHER, SELFPAY ==
--- OUTSIDE RECORDS SUMMARY | 2023-11-27 05:30 | XMS_ITS ---
Author Organization Donavan Kirkpatrick III, MD Address [address] [place] [address] Care Team Providers Care Cook Pie Name Role Phone Jarred Ramon MD Primary Care Provider Unavailab Dr. Donavan Man III Unavailable [phone] Allergies Allergen (clinical drug ingredient) Drug/Non Drug Allergy documented on EMR Reaction Allergy Type Onset Date Status Mold Unknown Allergy Active Cockroach Unknown Allergy Active Grass Mix Pollens Allergen Ext Unknown Drug Allergy Active REASON FOR VISIT Prostate cancer, Spinal stenosis, Hypertension, Hyperlipidemia, Left kidney atrophy, Obesity Medications Medication SIG (Take, Route, Frequency, Duration) Notes Start Date End Date Status Lisinopril 10 MG 1 tablet Orally Once a day Active Atorvastatin Calcium 10 MG 1 tablet Oral ly Once a day Active LORazepam 0.5 MG 1 tablet at bedtime as needed Orally Three times a day Active Gabapentin 600 MG 1 tablet Orally thre e times a day Active Social History Sex Assigned At : Social History Observation Description Sex Assigned At Male Alcohol Screen Question Answer Notes Did you have a drink containing alcohol in the p ast year? No Points 0 Interpretation Negative Vital Signs Temperature 97.5 degrees Fahrenheit 11/27/19 24 Blood pressure systolic 119 mm Hg 11/27/19 24 Blood pressure diastolic 66 mm Hg 024 Heart Rate 54 /min 11/27/2023 Height 71.5 in 11/27/2023 Weight 228 lbs 11/27/2023 BMI 31.35 kg/m2 11/27/2023 Encounters Encounter Location Date Provider Diagnosis Donavan Kirkpatrick III, MD [address] [place] [address] [place] [address] 11/27/2023 Donavan Kirkpatrick Prostate cancer C61 ; Osteoarthritis M19.90 ; Spinal stenosis M48.00 ; Hypertension I10 ; Hyperlipidemia E78.5 ; Atrophy of left kidney N26.1 and Obesity, unspecified E66.9 Assessments Encounter Date Diagnosis (ICD Code) Assessment Notes Treat ment Notes Treatment Clinical Notes 11/27/2023 Prostate cancer (ICD-10 - C61) There was no sign of recurrent or progressive prostate cancer on today's examination. He has no bone pain. His PSA remains undetectable. 11/27/2023 Osteoarthritis (ICD-10 - M19.90) He is going to have his right hip replaced this summer. His other joints are occasionally painful but he says they do not bother him too much. 11/27/2023 Spinal stenosis (ICD-10 - M48.00) He has chronic low back pain from spinal stenosis which was diagnosed in the past. There has been no increase in the pain or change in the pattern that would suggest involvement of the lumbar spine with prostate cancer. His symptoms will be followed carefully and observed. 11/27/2023 Hypertension (ICD-10 - I10) His blood pressure is in the normal range today. I recommended a regimen of weight loss and sodium restriction. 11/27/2023 Hyperlipidemia (ICD-10 - E78.5) His lipids are in their target range and no change in his therapy is needed. I recommended aggressive weight loss and a healthy Mediterranean diet. 11/27/2023 Atrophy of left kidney (ICD-10 - N26.1) His renal function is very good considering this problem. He will continue his primary care to control his blood pressure. 11/27/2023 Obesity, unspecified (ICD-10 - E66.9) His body mass index is 30. We discussed diet and nutrition. He has been unrestrained in his consumption of ice cream at night. We made a plan to lose weight at a rate of one half of a pound per week. Plan Of Treatment Medication Medication Name Sig Start Date Stop Date Notes Lisinopril 10 MG 1 tablet Orally Once a day Atorvastatin Calcium 10 MG 1 tablet Orally Once a day LORazepam 0.5 MG 1 tablet at bedtime as needed Orally Three times a day Gabapentin 600 MG 1 tablet Orally thre e times a day Pending Test Test Name Order Date PROFILE, FASTING (COMPREHENSIVE METABOLI C) 11/27/2023 PSA, TOTAL 11/27/2023 CBC WITH AUTO DIFF 11/27/2023 Lipid Panel 11/27/2023 Next Appt Details Follow Up: 6 Months, Six mon ths, Reason: OV, Annual Physical Provider Name:Donavan Kirkpatrick , 12/21/2024 10:30:00 AM, [address] [place] [address] NITA MARTINEZ, [place], [place], [address], Progress Notes * Anamaria OBRIENOB:1945 (78 yo M)Acc No.[id number]:11/27/2023 Progress Notes Patient: Jethro TOBIN Provider: Rich Kirkpatrick MD :1945 A ge:78 Y S ex:Male Date:11/27/2023 Address:[address] [place] [address] [id number] Pcp:Jarred Ramon MD Subjective: * Chief Complaints: * P rostate cancerSpinal stenosisHypertensionHyperlipidemiaLeft kidney atrophyObesity * HPI: C OVID-19 Screening: Questions H ave you experienced fever, chills, cough, sore throat, shortness of breath, difficulty breathing, muscle aches, loss of taste or smell? N o H ave you been exposed to the virus within the last 10 days? N o H ave you travelled internationally in the last 10 days? N o H ave you been exposed to COVID-19 in the past? N o * : The patient, an 78-year-old male, had a hip replacement surgery about three months ago, on September 07. He has been experiencing some soreness and imbalance, which he attributes to a leg length discrepancy. He has been using a cane for mobility and has been prescribed a lift for his left foot to address the imbalance. He has a history of prostate cancer, which was diagnosed over six years ago and treated with surgery. His recent PSA test shows a value of less than .1, indicating that the cancer is currently undetectable. He also has a history of cataract surgery in both eyes. He has been experiencing tinnitus, or ringing in the ears, which is a chronic condition. He has gained 9 lbs since May and his blood pressure is 119/66. His recent blood work shows normal levels for all tested parameters. He has no reported chest pain or heart problems. Blood Sugar Level is Normal. * ROS: G eneral/Constitutional: pain o nly normal aches and pains. C hills d enies.?Fatigue a dmits. F ever d enies. E NT: Decreased hearing m ild. R espiratory: Cough d enies. C ardiovascular: Chest pain with exertion d enies. D yspnea on exertion?denies. S hortness of breath d enies. G astrointestinal: Constipation o ccasional. D ecreased appetite d enies. D iarrhea d enies. H eartburn d enies. N ausea d enies. R ectal bleeding d enies. V omiting d enies. H ematology: bruising d enies. p etechiae d enies. S wollen glands n one have been noted. G enitourinary: Frequent urination o nce a night. M usculoskeletal: Muscle aches d enies. P ainful joints d enies. S ciatica d enies. W eakness d enies. S kin: Itching d enies. R lyla d enies. S kin lesion(s)?denies. N eurologic: Difficulty speaking d enies. D izziness d enies.?Headache d enies. L ow back pain d enies. P sychiatric: Depressed mood d enies. * Medical History: * Surgical History: b iopsy of prostate 2014colonoscopy 10/1999colonoscopy 02/2006colonoscopy 08/2011radical prostatectomy [facility] 01/23/2014le hip surgery 03/24/2017le eye cataract surgery 05/2016lumbar back surgery 08/11/2016rig eye cataract surgery 12/2019Hip replacement surgery, prostatectomy, cataract surgery * Hospitalization/Major Diagno stic Procedure: N o history * Family History: F ather: 74 yrs, of heartattack, diagnosed with CVD. M other: 93 yrs, of heart failure, diagnosed with CVD. C hildren: alive. S on(s): alive. 1 brother(s) , 1 sister(s) - healthy. 2 son(s) . . One child has Down's syndrome. Two half-sisters, one of cancer. His father of a myocardial infarction and congestive heart failure. He Has 2 Sons Jerry and Danilo. He Has No Grandchildren. His brother had a diagnosis of bladder cancer in 2014. * Social History: T obacco Use: T obacco Use/Smoking . D rugs/Alcohol: D rugs H ave you used drugs other than those for medical reasons in the past 12 months? N o Alcohol Screen D id you have a drink containing alcohol in the past year? N o P oints 0 I nterpretation N egative Rafa tong has been to Iesha for 42 years and they have 2 children. 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 He was born in [facility]. The patient is a non-smoker. He wakes up at least once a night to urinate. * Medications: T akingLisinopril 10 MG Tablet 1 tablet Orally Once a day Atorvastatin Calcium 10 MG Tablet 1 tablet Orally Once a day LORazepam 0.5 MG Tablet 1 tablet at bedtime as needed Orally Three times a day Gabapentin 600 MG Tablet 1 tablet Orally three times a day Medication List reviewed and reconciled with the patientTaking Lisinopril 10 MG Tablet 1 tablet Orally Once a day Taking Atorvastatin Calcium 10 MG Tablet 1 tablet Orally Once a day Taking LORazepam 0.5 MG Tablet 1 tablet at bedtime as needed Orally Three times a day Taking Gabapentin 600 MG Tablet 1 tablet Orally three times a day Medication List reviewed and reconciled with the patient * Allergies: G rass Mix Pollens Allergen ExtMoldCockroachno[Allergies Verified] Objective: * Vitals: H t: 71.5, Wt:228, BMI:31.35, BP:119/66, HR:54, Temp:97.5, Wt-k.42. * P ast Orders: Lab:Comprehensive Met. Panel * Collection Date 11/18/2023 01/21/2023 09/22/2022 Collection Time 10:09 AM 09:18 AM 08:32 AM Order Date 11/18/2023 01/21/2023 09/22/2022 Sodium 142 (Ref Range: 135-145 mmol/L) 141 (Ref Range: 135-145 mmol/L) 143 (Ref Range: 135-145 mmol/L) Bilirubin Total 1.3 H (Ref Range: 0.0-1.0 mg/dL) 2.3 H (Ref Range: 0.0-1.0 mg/dL) 1.4 H (Ref Range: 0.0-1.0 mg/dL) Aspartate Amino Transferase 19 (Ref Range: 5-37 U/L) 20 (Ref Range: 5-37 U/L) 21 (Ref Range: 5-37 U/L) Alanine Aminotransferase 15 (Ref Range: 0-40 U/L) 16 (Ref Range: 0-40 U/L) 15 (Ref Range: 0-40 U/L) Total Protein 7.4 (Ref Range: 6.5-8.0 g/dL) 7.3 (Ref Range: 6.5-8.0 g/dL) 6.8 (Ref Range: 6.5-8.0 g/dL) Albumin Level 4.1 (Ref Range: 3.5-5.0 g/dL) 4.1 (Ref Range: 3.5-5.0 g/dL) 3.7 (Ref Range: 3.5-5.0 g/dL) Alkaline Phosphatase 131 H (Ref Range: 39-117 U/L) 136 H (Ref Range: 39-117 U/L) 112 (Ref Range: 39-117 U/L) Potassium 4.4 (Ref Range: 3.3-5.1 mmol/L) 4.3 (Ref Range: 3.3-5.1 mmol/L) 4.3 (Ref Range: 3.3-5.1 mmol/L) Chloride 109 H (Ref Range: 96-108 mmol/L) 107 (Ref Range: 96-108 mmol/L) 109 H (Ref Range: 96-108 mmol/L) Carbon Dioxide 25 (Ref Range: 22-29 mmol/L) 27 (Ref Range: 22-29 mmol/L) 27 (Ref Range: 22-29 mmol/L) Anion Gap 12 (Ref Range: 12-20) 11 L (Ref Range: 12-20) 11 L (Ref Range: 12-20) Blood Urea Nitrogen 20 H (Ref Range: 9-16 mg/dL) 14 (Ref Range: 9-16 mg/dL) 15 (Ref Range: 9-16 mg/dL) Creatinine 1.21 (Ref Range: 0.5-1.4 mg/dL) 1.18 (Ref Range: 0.5-1.4 mg/dL) 1.12 (Ref Range: 0.5-1.4 mg/dL) Estimated Glomerular Filt Rate 58 60 > 60 Glucose Random 93 (Ref Range: 60-115 mg/dL) 92 (Ref Range: 60-115 mg/dL) 90 (Ref Range: 60-115 mg/dL) Calcium 9.4 (Ref Range: 8.4-10.2 mg/dL) 9.5 (Ref Range: 8.4-10.2 mg/dL) 9.2 (Ref Range: 8.4-10.2 mg/dL) * Lab:Prostate Specific Antige n * Collection Date 11/18/2023 05/22/2023 01/21/2023 Collection Time 10:09 AM 09:25 AM 09:32 AM Order Date 11/18/2023 05/22/2023 01/21/2023 Prostate Specific Antigen < 0.10 (Ref Range: <0.05-4.0 ng/mL) < 0.10 (Ref Range: <0.05-4.0 ng/mL) < 0.10 (Ref Range: <0.05-4.0 ng/mL) * Lab:Complete Blood Count Aut o Diff * Collection Date 11/18/2023 05/22/2023 01/21/2023 Collection Time 10:09 AM 08:25 AM 09:18 AM Order Date 11/18/2023 05/22/2023 01/21/2023 White Blood Count 5.3 (Ref Range: 4.8-10.8 X10*3/uL) 4.9 (Ref Range: 4.8-10.8 X10*3/uL) 4.7 L (Ref Range: 4.8-10.8 X10*3/uL) Red Blood Count 4.25 L (Ref Range: 4.60-5.80 X10*6/uL) 4.57 L (Ref Range: 4.60-5.80 X10*6/uL) 4.73 (Ref Range: 4.60-5.80 X10*6/uL) Hemoglobin 13.3 L (Ref Range: 14.0-18.0 g/dl) 14.3 (Ref Range: 14.0-18.0 g/dl) 14.7 (Ref Range: 14.0-18.0 g/dl) Hematocrit 41.1 L (Ref Range: 42.0-52.0 %) 43.5 (Ref Range: 42.0-52.0 %) 45.5 (Ref Range: 42.0-52.0 %) Mean Corpuscular Volume 96.7 (Ref Range: 80.0-98.0 fL) 95.2 (Ref Range: 80.0-98.0 fL) 96.2 (Ref Range: 80.0-98.0 fL) Mean Corpuscular Hemoglobin 31.3 (Ref Range: 27.0-33.0 pg) 31.3 (Ref Range: 27.0-33.0 pg) 31.1 (Ref Range: 27.0-33.0 pg) Mean Corpuscular HGB Conc 32.4 (Ref Range: 31.0-36.0 g/dl) 32.9 (Ref Range: 31.0-36.0 g/dl) 32.3 (Ref Range: 31.0-36.0 g/dl) Red Cell Distribution Width 13.7 (Ref Range: 11.0-16.0 %) 13.5 (Ref Range: 11.0-16.0 %) 13.8 (Ref Range: 11.0-16.0 %) Platelet Count 177 (Ref Range: 160-400 X10*3/uL) 211 (Ref Range: 160-400 X10*3/uL) 163 (Ref Range: 160-400 X10*3/uL) Mean Platelet Volume 12.5 H (Ref Range: 9.4-12.4 fL) 10.7 (Ref Range: 9.4-12.4 fL) 11.9 (Ref Range: 9.4-12.4 fL) Neutrophils Percent Auto 52.9 (Ref Range: 45-73 %) 49.6 (Ref Range: 45-73 %) 51.5 (Ref Range: 45-73 %) Imm Gran Pct Auto 0.2 (Ref Range: 0.0-0.4 %) 0.2 (Ref Range: 0.0-0.4 %) 0.0 (Ref Range: 0.0-0.4 %) Lymphocytes Percent Auto 31.9 (Ref Range: 20-40 %) 35.8 (Ref Range: 20-40 %) 33.0 (Ref Range: 20-40 %) Monocytes Percent Auto 9.3 (Ref Range: 2-11 %) 9.3 (Ref Range: 2-11 %) 10.0 (Ref Range: 2-11 %) Eosinophils Percent Auto 4.9 H (Ref Range: 0-4 %) 4.5 H (Ref Range: 0-4 %) 4.9 H (Ref Range: 0-4 %) Basophils Percent Auto 0.8 (Ref Range: 0-2 %) 0.6 (Ref Range: 0-2 %) 0.6 (Ref Range: 0-2 %) NRBC Pct Auto 0.0 (Ref Range: 0.0-0.2 /100WBC) 0.0 (Ref Range: 0.0-0.2 /100WBC) 0.0 (Ref Range: 0.0-0.2 /100WBC) Neutrophils Absolute Auto 2.8 (Ref Range: 2.0-8.3 x10*3/uL) 2.4 (Ref Range: 2.0-8.3 x10*3/uL) 2.4 (Ref Range: 2.0-8.3 x10*3/uL) Imm Gran Abs Auto 0.01 (Ref Range: 0.00-0.03 X10*3/uL) 0.01 (Ref Range: 0.00-0.03 X10*3/uL) 0.00 (Ref Range: 0.00-0.03 X10*3/uL) Lymphocytes Absolute Auto 1.7 (Ref Range: 1.2-4.9 X10*3/uL) 1.8 (Ref Range: 1.2-4.9 X10*3/uL) 1.6 (Ref Range: 1.2-4.9 X10*3/uL) Monocytes Absolute Auto 0.5 (Ref Range: 0.1-1.2 X10*3/uL) 0.5 (Ref Range: 0.1-1.2 X10*3/uL) 0.5 (Ref Range: 0.1-1.2 X10*3/uL) Eosinophils Absolute Auto 0.3 (Ref Range: 0.0-0.4 X10*3/uL) 0.2 (Ref Range: 0.0-0.4 X10*3/uL) 0.2 (Ref Range: 0.0-0.4 X10*3/uL) Basophils Absolute Auto 0.0 (Ref Range: 0.0-0.2 X10*3/uL) 0.0 (Ref Range: 0.0-0.2 X10*3/uL) 0.0 (Ref Range: 0.0-0.2 X10*3/uL) NRBC Abs Auto 0.000 (Ref Range: 0.0-0.012 X10*3/uL) 0.000 (Ref Range: 0.0-0.012 X10*3/uL) 0.000 (Ref Range: 0.0-0.012 X10*3/uL) * Examination: G eneral Examination: GENERAL APPEARANCE: p leasant, well nourished, well developed, in no acute distress, calm and relaxed, obese, elderly man. HEAD: a traumatic, normocephalic. EYES: e gabriela, perrla, anicteric, conjugate. EARS: n ormal. NOSE: s eptum intact. ORAL CAVITY: n ormal, unremarkable. NECK/THYROID: n o jugular venous distention, no carotid bruit, thyroid normal. LYMPH NODES: n o enlarged lymph nodes,spleen normal. SKIN: n o suspicious lesions, anicteric, Occasional purpura. HEART: n o clicks, gallops, murmurs, or rubs, regular rhythm, S1, S2 normal, no s3, or vascular bruits. LUNGS: c lear to auscultation . BREASTS: no masses palpable bilaterally. ABDOMEN: b owel sounds normal, no ascites, no organomegaly, no mass, centripital obesity. RECTAL EXAM: n ot examined. MUSCULOSKELETAL: e xtremities unremarkable, no clubbing, cyanosis or edema, Diminished range of motion lumbar spine. PERIPHERAL PULSES: n ormal. NEUROLOGIC: a lert and oriented, cranial nerves 2-12 grossly intact, deep tendon reflexes 2+ symmetrical, motor strength normal upper and lower extremities, sensory exam intact. PSYCH: a lert, oriented. - : H ip Examination:Soreness and imbalance noted, Prostate Examination: No detectable PSA, indicating no current signs of cancer, Eye Examination: No issues reported post-cataract surgery, Ear Examination: Chronic tinnitus reported, Skin Examination: No concerning spots reported, Heart Examination: No chest pain or heart problems reported. Assessment: * Assessment: 1. P rostate cancer - C61 (Primary) N otes :There was no sign of recurrent or progressive prostate cancer on today's examination. He has no bone pain. His PSA remains undetectable. 2 . O steoarthritis - M19.90 N otes :He is going to have his right hip replaced this summer. His other joints are occasionally painful but he says they do not bother him too much. 3 . S romina stenosis - M48.00 N otes :He has chronic low back pain from spinal stenosis which was diagnosed in the past. There has been no increase in the pain or change in the pattern that would suggest involvement of the lumbar spine with prostate cancer. His symptoms will be followed carefully and observed. 4 . H ypertension - I10 N otes :His blood pressure is in the normal range today. I recommended a regimen of weight loss and sodium restriction. 5 . H yperlipidemia - E78.5 N otes :His lipids are in their target range and no change in his therapy is needed. I recommended aggressive weight loss and a healthy Mediterranean diet. 6 . 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 He will continue his primary care to control his blood pressure. 7 . O besity, unspecified - E66.9 N otes :His body mass index is 30. We discussed diet and nutrition. He has been unrestrained in his consumption of ice cream at night. We made a plan to lose weight at a rate of one half of a pound per week. Plan: * Treatment: * Procedure Codes: * Preventive Medicine: Counseling: C are goal follow-up plan: Counseling for abnormal BMI given Y es Above Normal BMI Follow-up D ietary management education, guidance, and counseling, Dietary needs education * Follow Up: 6 Months, Six months (Reason: OV, Annual Physical) * Images: * Sign off status: Completed true * Provider: Rich Kirkpatrick MD Date: Generated for Printi ng/Favijayag/eTransmitting on: 02/14/2024 08:41 AM EST History and Physical Notes * HPI (History of Present Illness) Category Sub-Category Detail Notes COVID-19 Screening Questions Have you had any new onset fever, chills, cough, congestion, sore throat, shortness of breath, muscle aches?: No Have you been exposed to the virus withi n the last 10 days?: No Have you travelled internationally in [facility] last 10 days?: No Have you been exposed to COVID-19 in the past?: No Examination Category Sub-Category Detail Notes General Examination GENERAL APPEARANCE: pleasant , well nourished, well developed, in no acute distress, calm and relaxed, obese, elderly man HEAD: atraumatic, normocep halic EYES: eomi, perrla, anicte inocencio, conjugate EARS: normal NOSE: septum intact NECK/THYROID: no jugular venous di stention, no carotid bruit, thyroid normal HEART: no clicks, gallops, murmurs, or rubs, regular rhythm, S1, S2 normal, no s3, or vascular bruits LUNGS: clear to auscultatio n ABDOMEN: bowel sounds normal, no ascites, no organomegaly, no mass, centripital obesity NEUROLOGIC: alert and oriented, cranial nerves 2-12 grossly intact, deep tendon reflexes 2+ symmetrical, motor strength normal upper and lower extremities, sensory exam intact SKIN: no suspicious lesion s, anicteric, Occasional purpura PERIPHERAL PULSES: normal BREASTS: no masses palpable b ilaterally MUSCULOSKELETAL: extremities unremark able, no clubbing, cyanosis or edema, Diminished range of motion lumbar spine LYMPH NODES: no enlarged lymph no daniel,spleen normal RECTAL EXAM: not examined PSYCH: alert, oriented ORAL CAVITY: normal, unremarkable
--- OUTSIDE RECORDS SUMMARY | 2024-05-31 04:00 | XMS_ITS ---
Author Organization Donavan Kirkpatrick III, MD Address [address] [place] [address] [place] [address] Care Team Providers Care Ground Systems Engineer Name Role Phone Jarred Ramon MD Primary Care Provider UnavailDr. Donavan Joseph III Unavailable Allergies Allergen (clinical drug ingredient) Drug/Non Drug Allergy documented on EMR Reaction Allergy Type Onset Date Status Mold Unknown Allergy Active Cockroach Unknown Allergy Active Grass Mix Pollens Allergen Ext Unknown Drug Allergy Active REASON FOR VISIT Prostate cancer, Hypertension, Hyperlipidemia, Atrophy left kidney, Obesity Medications Medication SIG (Take, Route, Frequency, Duration) Notes Start Date End Date Status Lisinopril 10 MG 1 tablet Orally Once a day Active Gabapentin 600 MG 1 tablet Orally thre e times a day Active LORazepam 0.5 MG 1 tablet at bedtime as needed Orally Three times a day Active Atorvastatin Calcium 10 MG 1 tablet Oral ly Once a day Active Social History Sex Assigned At : Social History Observation Description Sex Assigned At Male Vital Signs Temperature 97.5 degrees Fahrenheit 06/01/19 25 Blood pressure systolic 107 mm Hg 06/01/19 25 Blood pressure diastolic 64 mm Hg 025 Heart Rate 57 /min 05/31/2024 Height 71.5 in 05/31/2024 Weight 225 lbs 05/31/2024 BMI 30.94 kg/m2 05/31/2024 Encounters Encounter Location Date Provider Diagnosis Donavan Kirkpatrick III, MD [address] [place] [address] [place] [address] 05/31/2024 Donvaan Kirkpatrick Prostate cancer C61 ; Hyperlipidemia E78.5 ; Obesity, unspecified E66.9 ; Osteoarthritis M19.90 ; Spinal stenosis M48.00 ; Atrophy of left kidney N26.1 and Carpal tunnel syndrome G56.00 Assessments Encounter Date Diagnosis (ICD Code) Assessment Notes Treat ment Notes Treatment Clinical Notes 05/31/2024 Prostate cancer (ICD-10 - C61) There was no sign of recurrent or progressive prostate cancer on today's examination. He has no bone pain. His PSA remains undetectable. 05/31/2024 Hyperlipidemia (ICD-10 - E78.5) His lipids are currently very well controlled and no change in his regimen as necessary. 05/31/2024 Obesity, unspecified (ICD-10 - E66.9) His body mass index is 30.9. We reviewed his weight loss strategy. We reviewed his diet and nutrition. We made a plan to lose weight at a rate of one half of a pound per week through a diet restricteed in fat calories sodium unconcentrated sweets. 05/31/2024 Osteoarthritis (ICD-10 - M19.90) He is going to have his right hip replaced this summer. His other joints are occasionally painful but he says they do not bother him too much. 05/31/2024 Spinal stenosis (ICD-10 - M48.00) He has chronic low back pain from spinal stenosis which was diagnosed in the past. There has been no increase in the pain or change in the pattern that would suggest involvement of the lumbar spine with prostate cancer. His symptoms will be followed carefully and observed. 05/31/2024 Atrophy of left kidney (ICD-10 - N26.1) His renal function is very good considering this problem. He will continue his primary care to control his blood pressure. 05/31/2024 Carpal tunnel syndrome (ICD-10 - G56.00) Plan Of Treatment Medication Medication Name Sig Start Date Stop Date Notes Lisinopril 10 MG 1 tablet Orally Once a day Gabapentin 600 MG 1 tablet Orally thre e times a day LORazepam 0.5 MG 1 tablet at bedtime as needed Orally Three times a day Atorvastatin Calcium 10 MG 1 tablet Orally Once a day Pending Test Test Name Order Date PROFILE, FASTING (COMPREHENSIVE METABOLI C) 05/31/2024 PSA, TOTAL 05/31/2024 CBC w DIFF 05/31/2024 Lipid Panel 05/31/2024 Next Appt Details Follow Up: 6 Months, Reason: OV Provider Name:Donavan Kirkpatrick , 12/21/2024 10:30:00 AM, [address] [place] [address] N[address], [place], [address], Progress Notes * Anamaria OBRIENOB:1945 (79 yo M)Acc No.[id number]:05/31/2024 Progress Notes Patient: Jethro TOBIN Provider: Rich Kirkpatrick MD :1945 A ge:79 Y S ex:Male Date:05/31/2024 Address:[address] [place] [address], [id number] Pcp:Jarred Ramon MD Subjective: * Chief Complaints: * P rostate cancerHypertensionHyperlipidemiaAtrophy left kidneyObesity * HPI: C OVID-19 Screening: He has been healthy and well since his last visit in November 2024. He is beginning to experience pollen allergies and takes antihistamines. This back pain is occasionally present but mild and he albino with acetaminophen. His PSA is not detectable. He sees his urologist regularly and follow-up of the prostate cancer which is in remission. He is taking no anti-neoplastic treatments at this time. He admits to nocturia twice a night. We discussed lifestyle modification as a way to reduce nocturia. Blood work that was done May 26, 2024 showed glucose 87 BUN 15 creatinine 1.14 total cholesterol 127 triglycerides 108 HDL 39 LDL 67 PSA less than 0.10 white count 5.7 hematocrit 42.6 platelets 196. Questions H ave you had any new onset fever, chills, cough, congestion, sore throat, shortness of breath, muscle aches? N o * ROS: G eneral/Constitutional: pain o nly normal aches and pains. C hills d enies.?Fatigue a dmits. F ever d enies. E NT: Decreased hearing d enies. R espiratory: Cough d enies. C ardiovascular: [...] have been noted. G enitourinary: Frequent urination d enies. M usculoskeletal: Muscle aches d enies. P ainful joints d enies. S ciatica d enies. W eakness d enies. S kin: Itching d enies. R lyla d enies. S kin lesion(s)?denies. N eurologic: Difficulty speaking d enies. D izziness d enies.?Headache d enies. L ow back pain t hat is chronic. P sychiatric: Depressed mood d enies. * Medical History: * Surgical History: b iopsy of prostate 2014colonoscopy 10/1999colonoscopy 02/2006colonoscopy 08/2011radical prostatectomy [facility] 01/23/2014le hip surgery 03/24/2017[facility] eye cataract surgery 05/2016lumbar back surgery 08/11/2016[facility] eye cataract surgery 12/2019Hip replacement surgery, prostatectomy, cataract surgery right hip surgery August [address] Baez * Hospitalization/Major Diagno stic Procedure: N o [...] bladder cancer in 2014. * Social History: Rafa tong has been to Iesha for 42 years and they have 2 children. 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 He was born in [facility]. The patient is a non-smoker. He [...] Verified] Objective: * Vitals: H t: 71.5, Wt:225, BMI:30.94, BP:107/64, HR:57, Temp:97.5, Wt-k.06. * P ast Orders: Lab:Complete Blood Count Aut o Diff * Collection Date 05/26/2024 11/18/2023 05/22/2023 Collection Time 08:36 AM 10:09 AM 08:25 AM Order Date 05/26/2024 11/18/2023 05/22/2023 White Blood Count 5.7 (Ref Range: 4.8-10.8 X10*3/uL) 5.3 (Ref Range: 4.8-10.8 X10*3/uL) 4.9 (Ref Range: 4.8-10.8 X10*3/uL) Red Blood Count 4.45 L (Ref Range: 4.60-5.80 X10*6/uL) 4.25 L (Ref Range: 4.60-5.80 X10*6/uL) 4.57 L (Ref Range: 4.60-5.80 X10*6/uL) Hemoglobin 14.1 (Ref Range: 14.0-18.0 g/dl) 13.3 L (Ref Range: 14.0-18.0 g/dl) 14.3 (Ref Range: 14.0-18.0 g/dl) Hematocrit 42.6 (Ref Range: 42.0-52.0 %) 41.1 L (Ref Range: 42.0-52.0 %) 43.5 (Ref Range: 42.0-52.0 %) Mean Corpuscular Volume 95.7 (Ref Range: 80.0-98.0 fL) 96.7 (Ref Range: 80.0-98.0 fL) 95.2 (Ref Range: 80.0-98.0 fL) Mean Corpuscular Hemoglobin 31.7 (Ref Range: 27.0-33.0 pg) 31.3 (Ref Range: 27.0-33.0 pg) 31.3 (Ref Range: 27.0-33.0 pg) Mean Corpuscular HGB Conc 33.1 (Ref Range: 31.0-36.0 g/dl) 32.4 (Ref Range: 31.0-36.0 g/dl) 32.9 (Ref Range: 31.0-36.0 g/dl) Red Cell Distribution Width 13.6 (Ref Range: 11.0-16.0 %) 13.7 (Ref Range: 11.0-16.0 %) 13.5 (Ref Range: 11.0-16.0 %) Platelet Count 196 (Ref Range: 160-400 X10*3/uL) 177 (Ref Range: 160-400 X10*3/uL) 211 (Ref Range: 160-400 X10*3/uL) Mean Platelet Volume 11.3 (Ref Range: 9.4-12.4 fL) 12.5 H (Ref Range: 9.4-12.4 fL) 10.7 (Ref Range: 9.4-12.4 fL) Neutrophils Percent Auto 46.5 (Ref Range: 45-73 %) 52.9 (Ref Range: 45-73 %) 49.6 (Ref Range: 45-73 %) Imm Gran Pct Auto 0.2 (Ref Range: 0.0-0.4 %) 0.2 (Ref Range: 0.0-0.4 %) 0.2 (Ref Range: 0.0-0.4 %) Lymphocytes Percent Auto 37.3 (Ref Range: 20-40 %) 31.9 (Ref Range: 20-40 %) 35.8 (Ref Range: 20-40 %) Monocytes Percent Auto 10.2 (Ref Range: 2-11 %) 9.3 (Ref Range: 2-11 %) 9.3 (Ref Range: 2-11 %) Eosinophils Percent Auto 4.9 H (Ref Range: 0-4 %) 4.9 H (Ref Range: 0-4 %) 4.5 H (Ref Range: 0-4 %) Basophils Percent Auto 0.9 (Ref Range: 0-2 %) 0.8 (Ref Range: 0-2 %) 0.6 (Ref Range: 0-2 %) NRBC Pct Auto 0.0 (Ref Range: 0.0-0.2 /100WBC) 0.0 (Ref Range: 0.0-0.2 /100WBC) 0.0 (Ref Range: 0.0-0.2 /100WBC) Neutrophils Absolute Auto 2.6 (Ref Range: 2.0-8.3 x10*3/uL) 2.8 (Ref Range: 2.0-8.3 x10*3/uL) 2.4 (Ref Range: 2.0-8.3 x10*3/uL) Imm Gran Abs Auto 0.01 (Ref Range: 0.00-0.03 X10*3/uL) 0.01 (Ref Range: 0.00-0.03 X10*3/uL) 0.01 (Ref Range: 0.00-0.03 X10*3/uL) Lymphocytes Absolute Auto 2.1 (Ref Range: 1.2-4.9 X10*3/uL) 1.7 (Ref Range: 1.2-4.9 X10*3/uL) 1.8 (Ref Range: 1.2-4.9 X10*3/uL) Monocytes Absolute Auto 0.6 (Ref Range: 0.1-1.2 X10*3/uL) 0.5 (Ref Range: 0.1-1.2 X10*3/uL) 0.5 (Ref Range: 0.1-1.2 X10*3/uL) Eosinophils Absolute Auto 0.3 (Ref Range: 0.0-0.4 X10*3/uL) 0.3 (Ref Range: 0.0-0.4 X10*3/uL) 0.2 (Ref Range: 0.0-0.4 X10*3/uL) Basophils Absolute Auto 0.1 (Ref Range: 0.0-0.2 X10*3/uL) 0.0 (Ref Range: 0.0-0.2 X10*3/uL) 0.0 (Ref Range: 0.0-0.2 X10*3/uL) NRBC Abs Auto 0.000 (Ref Range: 0.0-0.012 X10*3/uL) 0.000 (Ref Range: 0.0-0.012 X10*3/uL) 0.000 (Ref Range: 0.0-0.012 X10*3/uL) * Lab:Kourtney Gomes. Natasha l Fast * Collection Date 05/26/2024 05/22/2023 05/19/2022 Collection Time 08:36 AM 09:25 AM 07:54 AM Order Date 05/26/2024 05/22/2023 05/19/2022 Sodium 143 (Ref Range: 135-145 mmol/L) 143 (Ref Range: 135-145 mmol/L) 144 (Ref Range: 135-145 mmol/L) Bilirubin Total 1.7 H (Ref Range: 0.0-1.0 mg/dL) 1.8 H (Ref Range: 0.0-1.0 mg/dL) 1.9 H (Ref Range: 0.0-1.0 mg/dL) Aspartate Amino Transferase 25 (Ref Range: 5-37 U/L) 22 (Ref Range: 5-37 U/L) 19 (Ref Range: 5-37 U/L) Alanine Aminotransferase 12 (Ref Range: 0-40 U/L) 16 (Ref Range: 0-40 U/L) 15 (Ref Range: 0-40 U/L) Total Protein 7.0 (Ref Range: 6.5-8.0 g/dL) 6.9 (Ref Range: 6.5-8.0 g/dL) 6.3 L (Ref Range: 6.5-8.0 g/dL) Albumin Level 4.0 (Ref Range: 3.5-5.0 g/dL) 3.8 (Ref Range: 3.5-5.0 g/dL) 3.8 (Ref Range: 3.5-5.0 g/dL) Alkaline Phosphatase 128 H (Ref Range: 39-117 U/L) 139 H (Ref Range: 39-117 U/L) 135 H (Ref Range: 39-117 U/L) Potassium 4.5 (Ref Range: 3.3-5.1 mmol/L) 4.3 (Ref Range: 3.3-5.1 mmol/L) 4.2 (Ref Range: 3.3-5.1 mmol/L) Chloride 110 H (Ref Range: 96-108 mmol/L) 109 H (Ref Range: 96-108 mmol/L) 110 H (Ref Range: 96-108 mmol/L) Carbon Dioxide 25 (Ref Range: 22-29 mmol/L) 26 (Ref Range: 22-29 mmol/L) 28 (Ref Range: 22-29 mmol/L) Anion Gap 13 (Ref Range: 12-20) 12 (Ref Range: 12-20) 10 L (Ref Range: 12-20) Blood Urea Nitrogen 15 (Ref Range: 9-16 mg/dL) 16 (Ref Range: 9-16 mg/dL) 16 (Ref Range: 9-16 mg/dL) Creatinine 1.14 (Ref Range: 0.5-1.4 mg/dL) 1.05 (Ref Range: 0.5-1.4 mg/dL) 1.30 (Ref Range: 0.5-1.4 mg/dL) Estimated Glomerular Filt Rate > 60 > 60 53 Glucose Fasting 87 (Ref Range: 60-99 mg/dL) 90 (Ref Range: 60-99 mg/dL) 87 (Ref Range: 60-99 mg/dL) Calcium 9.2 (Ref Range: 8.4-10.2 mg/dL) 9.3 (Ref Range: 8.4-10.2 mg/dL) 9.0 (Ref Range: 8.4-10.2 mg/dL) * Lab:Lipid Panel * Collection Date 05/26/2024 05/22/2023 05/19/2022 Collection Time 08:36 AM 09:25 AM 07:54 AM Order Date 05/26/2024 05/22/2023 05/19/2022 Triglycerides 108 (Ref Range: <150 mg/dL) 92 (Ref Range: <150 mg/dL) 79 (Ref Range: mg/dL) Cholesterol 127 (Ref Range: <200 mg/dL) 133 (Ref Range: <200 mg/dL) 131 (Ref Range: mg/dL) LDL Cholesterol Calculated 67 (Ref Range: <100 mg/dL) 72 (Ref Range: <100 mg/dL) 71 (Ref Range: mg/dl) HDL Cholesterol 39 L (Ref Range: >40 mg/dL) 43 (Ref Range: >40 mg/dL) 45 (Ref Range: mg/dL) * Lab:Prostate Specific Antige n * Collection Date 05/26/2024 11/18/2023 05/22/2023 Collection Time 08:36 AM 10:09 AM 09:25 AM Order Date 05/26/2024 11/18/2023 05/22/2023 Prostate Specific Antigen < 0.10 (Ref Range: <0.05-4.0 ng/mL) < 0.10 (Ref Range: <0.05-4.0 ng/mL) < 0.10 (Ref Range: <0.05-4.0 ng/mL) * Examination: G eneral Examination: GENERAL APPEARANCE: p leasant, well nourished, well developed, in no acute distress, calm and relaxed, obese, man. HEAD: a traumatic, normocephalic. EYES: e gabriela, perrla, anicteric, conjugate. EARS: n ormal. NOSE: s eptum intact. ORAL CAVITY: n ormal, unremarkable. NECK/THYROID: n o jugular venous distention, no carotid bruit, thyroid normal. LYMPH NODES: n o enlarged lymph nodes,spleen normal. SKIN: n o suspicious lesions, anicteric. HEART: n o clicks, gallops, murmurs, or rubs, regular rhythm, S1, S2 normal, no s3, or vascular bruits. LUNGS: c lear to auscultation . BREASTS: no masses palpable bilaterally. ABDOMEN: b owel sounds normal, no ascites, no organomegaly, no mass. RECTAL EXAM: n ot examined. MUSCULOSKELETAL: e xtremities unremarkable, no clubbing, cyanosis or edema, Decreased range of motion lumbar spine in all directions mild to moderate pain.? PERIPHERAL PULSES: n ormal. NEUROLOGIC: a lert and oriented, cranial nerves 2-12 grossly intact, deep tendon reflexes 2+ symmetrical, motor strength normal upper and lower extremities, sensory exam intact. PSYCH: a lert, oriented. Assessment: * Assessment: 1. P rostate cancer - C61 (Primary) N otes :There was no sign of recurrent or progressive prostate cancer on today's examination. He has no bone pain. His PSA remains undetectable. 2 . H yperlipidemia - E78.5 N otes :His lipids are currently very well controlled and no change in his regimen as necessary. 3 . O besity, unspecified - E66.9 N otes :His body mass index is 30.9. We reviewed his weight loss strategy. We reviewed his diet and nutrition. We made a plan to lose weight at a rate of one half of a pound per week through a diet restricteed in fat calories sodium unconcentrated sweets. 4 . O steoarthritis - M19.90 N otes :He is going to have his right hip replaced this summer. His other joints are occasionally painful but he says they do not bother him too much. 5 . S romina stenosis - M48.00 N otes :He has chronic low back pain from spinal stenosis which was diagnosed in the past. There has been no increase in the pain or change in the pattern that would suggest involvement of the lumbar spine with prostate cancer. His symptoms will be followed carefully and observed. 6 . 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 He will continue his primary care to control his blood pressure. 7 . C arpal tunnel syndrome - G56.00 Plan: * Treatment: 2. H yperlipidemia L AB: PROFILE, FASTING (COMPREHENSIVE METABOLIC) L AB: PSA, TOTAL L AB: CBC w DIFF L AB: Lipid Panel 3. O besity, unspecified L AB: PROFILE, FASTING (COMPREHENSIVE METABOLIC) L AB: PSA, TOTAL L AB: CBC w DIFF L AB: Lipid Panel * Procedure Codes: * Preventive Medicine: Counseling: C are goal follow-up plan: Counseling for abnormal BMI given Y es Above Normal BMI Follow-up D ietary management education, guidance, and counseling, Dietary needs education * Follow Up: 6 Months (Reason: OV) * Images: * Sign off status: Completed true * Provider: Rich Kirkpatrick MD Date: 0 05/31/2024 Generated for Marianai maritza/Jimmy/Coraitting on: 02/14/2024 08:40 AM EST History and Physical Notes * HPI (History of Present Illness) Category Sub-Category Detail Notes COVID-19 Screening Questions Have you had any new onset fever, chills, cough, congestion, sore throat, shortness of breath, muscle aches?: No Examination Category Sub-Category Detail Notes General Examination GENERAL APPEARANCE: pleasant , well nourished, well developed, in no acute distress, calm and relaxed, obese, man HEAD: atraumatic, normocep halic EYES: eomi, perrla, anicte inocencio, conjugate EARS: normal NOSE: septum intact NECK/THYROID: no jugular venous di stention, no carotid bruit, thyroid normal HEART: no clicks, gallops, murmurs, or rubs, regular rhythm, S1, S2 normal, no s3, or vascular bruits LUNGS: clear to auscultatio n ABDOMEN: bowel sounds normal, no ascites, no organomegaly, no mass NEUROLOGIC: alert and oriented, cranial nerves 2-12 grossly intact, deep tendon reflexes 2+ symmetrical, motor strength normal upper and lower extremities, sensory exam intact SKIN: no suspicious lesion s, anicteric PERIPHERAL PULSES: normal BREASTS: no masses palpable b ilaterally MUSCULOSKELETAL: extremities unremark able, no clubbing, cyanosis or edema, Decreased range of motion lumbar spine in all directions mild to moderate pain LYMPH NODES: no enlarged lymph no daniel,spleen normal RECTAL EXAM: not examined PSYCH: alert, oriented ORAL CAVITY: normal, unremarkable
--- OUTSIDE RECORDS SUMMARY | 2024-11-30 12:00 | XMS_ITS ---
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 Donavan Joseph III Unavailable REASON FOR VISIT Follow Up Social History Sex Assigned At : Social History Observation Description Sex Assigned At Male Encounters Encounter Location Date Provider Diagnosis Donavan Kirkpatrick III, MD [address] [place] [address] [address] [place] [address] 11/30/2024 Donavan Kirkpatrick Plan Of Treatment Next Appt Details Provider Name:Donavan Kirkpatrick , 12/21/2024 10:30:00 AM, [address] [place] [address] [place], [address], Progress Notes * CAMILLE TabithanDOB:1945 (79 yo M)Acc No.[id number]:11/30/2024 Progress Notes Patient: Jehtro TOBIN Provider: Rich Kirkpatrick MD :1945 A ge:79 Y S ex:Male Date:11/30/2024 Address:[address] [place], [id number] Pcp:Jarred Ramon MD Subjective: * Chief Complaints: * 1 . Follow Up. * Medical History: Objective: * Vitals: Assessment: Plan: * Treatment: * Images: * The named appointment provid er may or may not be the originator of this progress note, and it is not deemed complete until electronically signed by the appointment provider. Sign off status: Pending * Provider: Rich Kirkpatrick MD Date: Generated for Caio salas/Jimmy/Shaye on: 02/14/2024 08:41 AM EST
--- OUTSIDE RECORDS SUMMARY | 2024-12-14 08:40 | XMS_ITS | Patient Health Record ---
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 confirmed Problem Raynaud's disease (870622822) Raynaud's syndrome without gangrene (I73.00) Active confirmed Plan Of Treatment No Information Insurance Providers Payer Name Payer Address Payer Phone Subscriber Number Group Number Insured Name Patient Relationship to Insured Coverage Start Date Coverage End Date Medicare National [employer] [address] [place] [phone] [id number] Gulshan Heredia Self - patient is the insured [facility] [address] [place] [address] [phone] [id number] Gulshan Heredia Self - patient is the insured Mayomi for [facility] [address] [place] [phone] [id number] Gulshan Heredia Self - patient is the insured Medical (General) History Medical History History ICD Code Anxiety disorder Arthritis hypertension measles chronic sinusitis Back,Hip,and Knee pain prostate cancer Chicken pox Cholesterol Surgical History Surgery Date(Month/Year) carpal tunnel surgery - Hand
--- OUTSIDE RECORDS SUMMARY | 2024-12-14 08:41 | XMS_ITS | Patient Health Record ---
Author Organization Donavan Kirkpatrick III, MD Address [address] [place] [address] [place] [address] Care Team Providers Care Director Utilization Management Name Role Phone Jarred Ramon MD Primary Care Provider UnavailDr. Donavan Joseph III Unavailable Allergies Allergen (clinical drug ingredient) Drug/Non Drug Allergy documented on EMR Reaction Allergy Type Onset Date Status Mold Unknown Allergy Active Cockroach Unknown Allergy Active Grass Mix Pollens Allergen Ext Unknown Drug Allergy Active Results Component Value Reference Range Notes Complete Blood Count Auto Di ff Reviewed date:05/28/2024 07:14:48 AM Interpretation: Performing Lab:[facility], [address] [place] [address] Notes/Report: White Blood Count 5.7 4.8-10.8 X10*3/uL Red Blood Count 4.45 4.60-5.80 X10*6/uL Hemoglobin 14.1 14.0-18.0 g/dl Hematocrit 42.6 42.0-52.0 % Mean Corpuscular Volume 95.7 80.0-98.0 fL Mean Corpuscular Hemoglobin 31.7 27.0-33.0 pg Mean Corpuscular HGB Conc 33.1 31.0-36.0 g/dl Red Cell Distribution Width 13.6 11.0-16.0 % Platelet Count 196 160-400 X10*3/uL Mean Platelet Volume 11.3 9.4-12.4 fL Neutrophils Percent Auto 46.5 45-73 % Imm Gran Pct Auto 0.2 0.0-0.4 % Lymphocytes Percent Auto 37.3 20-40 % Monocytes Percent Auto 10.2 2-11 % Eosinophils Percent Auto 4.9 0-4 % Basophils Percent Auto 0.9 0-2 % NRBC Pct Auto 0.0 0.0-0.2 /100WBC Neutrophils Absolute Auto 2.6 2.0-8.3 x10*3/u L Imm Gran Abs Auto 0.01 0.00-0.03 X10*3/uL Lymphocytes Absolute Auto 2.1 1.2-4.9 X10*3/u L Monocytes Absolute Auto 0.6 0.1-1.2 X10*3/uL Eosinophils Absolute Auto 0.3 0.0-0.4 X10*3/u L Basophils Absolute Auto 0.1 0.0-0.2 X10*3/uL NRBC Abs Auto 0.000 0.0-0.012 X10*3/uL Comprehensive [facility]. Panel Fa st Reviewed date:05/28/2024 07:14:48 AM Interpretation: Performing Lab:[address] [address] Notes/Report: Sodium 143 135-145 mmol/L Potassium 4.5 3.3-5.1 mmol/L Chloride 110 96-108 mmol/L Carbon Dioxide 25 22-29 mmol/L Anion Gap 13 12-20 Blood Urea Nitrogen 15 9-16 mg/dL Creatinine 1.14 0.5-1.4 mg/dL Estimated Glomerular Filt Rate > 60 Chronic Kidney Disease: Estimated GFR < 60 mL/min/1.73m2 Severe Kidney Disease: Estimated GFR < 15 mL/min/1.73m2 Glucose Fasting 87 60-99 mg/dL Calcium 9.2 8.4-10.2 mg/dL Bilirubin Total 1.7 0.0-1.0 mg/dL Slight Icte spencer. Aspartate Amino Transferase 25 5-37 U/L Alanine Aminotransferase 12 0-40 U/L Total Protein 7.0 6.5-8.0 g/dL Albumin Level 4.0 3.5-5.0 g/dL Alkaline Phosphatase 128 39-117 U/L Lipid Panel Reviewed date:05/28/2024 07:14:48 AM Interpretation: Performing Lab:[address] [address] Notes/Report: Triglycerides 108 <150 mg/dL Desirable Triglyceride: less than 150 mg/dL Borderline High Triglyceride 150-199 mg/dL High Triglyceride: 200-499 mg/dL Very High Triglyceride: greater than or equal to 5OO mg/dL Cholesterol 127 <200 mg/dL Desirable Cholesterol: less than 200 mg/dL Borderline High Cholesterol: 200-239 mg/dL High Cholesterol: greater than 239 mg/dL LDL Cholesterol Calculated 67 <100 mg/dL Desirable LDL: less than 100 mg/dL Near Optimal/Above Optimal LDL: 110-129 mg/dL Borderline High LDL: 130-159 mg/dL High LDL: 160-189 mg/dL Very High LDL: greater than or equal to 190 mg/dL HDL Cholesterol 39 >40 mg/dL Desirable HDL: greater than 40 mg/dL Note: This HDL assay may give artificially low results in patients with liver disease. Prostate Specific Antigen Reviewed date:05/28/2024 07:14:48 AM Interpretation: Performing Lab:[facility], [address] [place] [address] Notes/Report: Prostate Specific Antigen < 0.10 <0.05-4.0 ng/mL PSA methodology: Ininal i Chemiluminescent Microparticle Immunoassay (CMIA) Reason For [...] tablet Oral ly Once a day Active Immunizations Vaccine Route Administration [...] Problem Status W/U Status Risk Notes Problem 4882821 Former smoker (Z87.891) Active confirmed He is highly motivated not to smoke. We have developed a plan for prevention of relapse in times of stress and illness. Problem 15237900 Hyperlipidemia (E78.5) Active confirmed His lipids are currently very well controlled and no change in his regimen as necessary. Problem 50661137 Spinal stenosis (M48.00) Active confirmed He has chronic low back pain from spinal stenosis which was diagnosed in the past. There has been no increase in the pain or change in the pattern that would suggest involvement of the lumbar spine with prostate cancer. His symptoms will be followed carefully and observed. Problem 68778786 Hypertension (I10) Active confirmed His blood pressure is in the normal range today. I recommended a regimen of weight loss and sodium restriction. Problem 469737888 Prostate cancer (C61) Active confirmed There was no sign of recurrent or progressive prostate cancer on today's examination. He has no bone pain. His PSA remains undetectable. Problem 017279641 Obesity, unspecified (E66.9) Active confirmed His body mass index is 30.9. We reviewed his weight loss strategy. We reviewed his diet and nutrition. We made a plan to lose weight at a rate of one half of a pound per week through a diet restricteed in fat calories sodium unconcentrated sweets. Problem 229786418 Low back pain (M54.5) Active confirmed His low back pain was minimal today and did not impair his ability to live his life normally. No change in his regimen as needed. Problem 94631536 Carpal tunnel syndrome (G56.00) Active confirmed Problem 38223233 Colonic polyp (K63.5) Active confirmed He is up-to-jaci e with colonoscopies. It is recommended that he undergo periodic colonoscopy and 5 year intervals as he has a history of tubular adenoma. Problem 274404443 Osteoarthritis (M19.90) Active confirmed He is going to have his right hip replaced this summer. His other joints are occasionally painful but he says they do not bother him too much. Problem 705426057 Atrophy of left kidney (N26.1) Active confirmed His renal function is very good considering this problem. He will continue his primary care to control his blood pressure. Vital Signs Heart Rate 57 /min 05/31/2024 Temperature 97.5 degrees Fahrenheit 05/31/2024 Blood pressure diastolic 64 mm Hg 05/31/2024 Height 71.5 in 05/31/2024 Blood pressure systolic 107 mm Hg 05/31/2024 Weight 225 lbs 05/31/2024 BMI 30.94 kg/m2 05/31/2024 Encounters Encounter Location Date Provider Diagnosis Donavan Kirkpatrick III, MD [address] [place] [address] [place] [address] 05/31/2024 Donavan Kirkpatrick Prostate cancer C61 ; Hyperlipidemia E78.5 ; Obesity, unspecified E66.9 ; Osteoarthritis M19.90 ; Spinal stenosis M48.00 ; Atrophy of left kidney N26.1 and Carpal tunnel syndrome G56.00 Assessments Encounter Date Diagnosis (ICD Code) Assessment Notes Treat ment Notes Treatment Clinical Notes 05/31/2024 Hyperlipidemia (ICD-10 - E78.5) His lipids are currently very well controlled and no change in his regimen as necessary. 05/31/2024 Prostate cancer (ICD-10 - C61) There was no sign of recurrent or progressive prostate cancer on today's examination. He has no bone pain. His PSA remains undetectable. 05/31/2024 Obesity, unspecified (ICD-10 - E66.9) His [...] syndrome (ICD-10 - G56.00) Plan Of Treatment Pending Test Test Name Order Date PROFILE, FASTING (COMPREHENSIVE METABOLI C) 07/15/2017 PROFILE, FASTING (COMPREHENSIVE METABOLI C) 01/27/2023 PROFILE, FASTING (COMPREHENSIVE METABOLI C) 05/31/2024 PROFILE, FASTING (COMPREHENSIVE METABOLI C) 11/27/2023 PROFILE, [...] TOTAL 07/15/2017 PSA, TOTAL 01/27/2023 PSA, TOTAL 05/31/2024 PSA, TOTAL 07/16/2018 PSA, TOTAL 07/25/2019 PSA, TOTAL 11/27/2023 PSA, TOTAL SCREEN 07/24/2020 CBC w DIFF 07/25/2019 CBC w DIFF 07/24/2020 CBC w DIFF 09/29/2022 CBC w DIFF 01/15/2018 CBC w DIFF 01/20/2019 CBC w DIFF 05/29/2023 CBC w DIFF 01/24/2020 CBC w DIFF 01/24/2021 CBC w DIFF 07/15/2017 CBC w DIFF 05/31/2024 CBC w DIFF 07/16/2018 CBC WITH AUTO DIFF 11/27/2023 CBC WITH AUTO DIFF 01/27/2023 Lipid Panel 01/27/2023 Lipid Panel 05/31/2024 Lipid Panel 11/27/2023 Next Appt Details Provider Name:Donavan Schroederne , 12/21/2024 10:30:00 AM, [address] [place] [address] [address], [place], [address], Insurance Providers Payer Name Payer Address Payer Phone Subscriber Number Group Number Insured Name Patient Relationship to Insured Coverage Start Date Coverage End Date MEDICARE [facility] [address] [place] [address] [id number] Jethro Obrien Self - patient is the insured [facility] [address] [place], [place] [id number] [phone] [id number] Jethro Obrien Self - patient is the insured [facility] [address] [place] [address] [id number] Jethro Obrien Self - patient is the insured Medical (General) History Medical History History ICD Code carcinoma prostate [id number] 3+4= 08/18 2013 colonic polyps and tubular adenoma osteoarthritis chronic back pain from spinal stenosis atrophic left kidney hypertension hyperlipidemia anxiety carpal tunnel syndrome, right wrist sinusitis obesity former smoker abstinent 40 years August [address] Baez Surgical History Surgery Date(Month/Year) right hip surgery August [address] Nasir torres Hip replacement surgery, prostatectomy, cataract surgery right eye cataract surgery 12/2019 lumbar back surgery 08/11/2016 left eye cataract surgery 05/2016 left hip surgery 03/24/2017 radical prostatectomy [facility] 01/23 colonoscopy 08/2011 colonoscopy 02/2006 colonoscopy 10/1999 biopsy of prostate 2013 Hospitalization History Reason Date(Month/Year) No history
[2024-12-14 10:35] LABS: MANUAL DIFF FLAG NO
[2024-12-14 10:52] LABS: Hematocrit 40.9 % (42.0-52.0); Hemoglobin 13.4 g/dl (14.0-18.0); Imm Gran Abs Auto 0.03 X10*3/uL (0.00-0.03); Imm Gran Pct Auto 0.3 % (0.0-0.4); Lymphocytes Absolute Auto 1.7 X10*3/uL (1.2-4.9); Mean Corpuscular HGB Conc 32.8 g/dl (31.0-36.0); Mean Corpuscular Hemoglobin 30.9 pg (27.0-33.0); Mean Corpuscular Volume 94.2 fL (80.0-98.0); NRBC Abs Auto 0.000 X10*3/uL (0.0-0.012); NRBC Pct Auto 0.0 /100WBC (0.0-0.2); Platelet Count 228 X10*3/uL (160-400); Red Blood Count 4.34 X10*6/uL (4.60-5.80); White Blood Count 10.8 X10*3/uL (4.8-10.8)
[2024-12-14 11:11] LABS: Alanine Aminotransferase 21 U/L (0-40); Albumin Level 4.1 g/dL (3.5-5.0); Alkaline Phosphatase 139 U/L (39-117); Anion Gap 13 (12-20); Aspartate Amino Transferase 34 U/L (5-37); Blood Urea Nitrogen 18 mg/dL (9-16); Calcium 9.3 mg/dL (8.4-10.2); Carbon Dioxide 24 mmol/L (22-29); Chloride 105 mmol/L (96-108); Cholesterol 111 mg/dL (<200); Estimated Glomerular Filt Rate 53; HDL Cholesterol 37 mg/dL (>40); Potassium 4.4 mmol/L (3.3-5.1); Sodium 138 mmol/L (135-145); Total Protein 7.6 g/dL (6.5-8.0); Triglycerides 72 mg/dL (<150)
[2024-12-14 11:50] LABS: Prostate Specific Antigen < 0.10 ng/mL (<0.05-4.0)
[2024-12-14 15:07] LABS: Magnesium 2.1 mg/dL (1.6-2.6)
[2024-12-14 15:30] LABS: Folate 12.1 ng/mL (> or = 4.0); Vitamin B12 819 pg/mL (200-900)
== END 2024-12-14 08:31 | disposition home or self-care (01) ==
LOC: HO.HMGCLDS 08:30
PROVIDERS: Physician Assistant Medical; PCP Internal Medicine Medical Oncology; Visit Provider Internal Medicine Medical Oncology
DX: Z00.00 Encounter for general adult medical examination without abnormal findings (principal); D64.9 Anemia, unspecified; J32.9 Chronic sinusitis, unspecified; G62.9 Polyneuropathy, unspecified; N18.30 Chronic kidney disease, stage 3 unspecified; Z12.5 Encounter for screening for malignant neoplasm of prostate; Z13.1 Encounter for screening for diabetes mellitus
CPT/HCPCS: 36415; 80053; 80061; 82607; 82746; 83036; 83735; 84153; 84443; 85025; 96127; 99212

== ENCOUNTER 2024-12-14 13:50 | Outpatient (AMB) | payer MEDICARE, BC, OTHER, SELFPAY ==
[2024-12-14 13:56] VITALS: BP 103/57; PULSE 88; RESP 16; TEMP 36.8; O2SAT 94; BMI 33.1
--- NOTE | 2024-12-14 13:56 | MHC.PC.OV ---
Vital Signs 12/14/24 13:56 Height 5 ft 9.17 in Weight 225 lb BMI 33.1 BP 103/57 L Blood Pressure Location Rt brachial Position Sitting Respiration 16 Pulse 88 Pulse Source Pulse Oximeter Temp 98.2 F Temp Source Temporal Artery Scan Pulse Oximetry (%) 94 Oxygen Delivery Method Room Air Intake Visit Reasons: Sinus infection Deputy K 9 Required: No Accompanied by: Self / Same As Patient Allergies grass, mold, trees Allergy (Unknown, Uncoded 12/14/24 16:46) Sneezing Medication List - Last Reconciled 12/14/24 by Fani Andersen PA-C acetaminophen 650 mg (2 x 325 mg) PO Q6H PRN 30 days amlodipine 10 mg PO BEDTIME amoxicillin-pot clavulanate 875-125 mg 1 tab PO BID 10 days atorvastatin 10 mg PO BEDTIME codeine-guaifenesin 10-100 mg/5 mL 5 mL PO Q6H PRN econazole nitrate 1% 1 appl topical BID ergocalciferol (vitamin D2) (Vitamin D2) 1,250 mcg PO QMONTH fexofenadine-pseudoephedrine 60-120 mg ER (Cindi-D 12 Hour) 1 tab PO Q12H PRN gabapentin 600 mg PO TID ketoconazole 2% appl topical lisinopril 20 mg PO DAILY lorazepam 0.5 mg PO BEDTIME PRN multivitamin 1 tab PO BEDTIME triamcinolone acetonide 0.1% 1 appl topical BID-TID Tobacco use date assessed: 08/26/24 Dental Screening Dental Screen Date: 08/26/24 HPI Sinus infection HPI Details The patient is an 79-year-old male presenting for follow-up of sinus symptoms. He reports an 8 to 9-day history of sinus symptoms, including headaches, facial pain, and constant postnasal drip at night. He also has a cough, which is sometimes productive of mucus, but denies any fevers. The patient has a history of recurrent sinus infections, which in the past have responded to Augmentin or doxycycline. He also reports a sensation in his feet like he is walking on concrete. A client experience specialist evaluated him and determined the symptoms are not originating from his spine and suggested it may be neuropathy. The patient is currently taking gabapentin 600 mg three times a day for this issue. His medical history is significant for chronic anemia, which is stable compared to labs from August. He denies any black or bloody stools. He has chronic kidney disease and is followed by a cane stripper. He also has a history of osteoarthritis for which he sees Dr. Rodriguez. 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 [facility] Medical History (Updated 12/14/24 @ 16:50 by Fani Andersen PA-C) Healthcare maintenance Neuropathy Mild ascending aorta dilatation CKD (chronic kidney disease) Anemia Establishing care with new doctor, encounter for Heart murmur Arthritis Degenerative joint disease Cataract, right Cataract Duodenal ulcer Hydronephrosis Sinus infection Anxiety CKD (chronic kidney disease), stage III History of prostate cancer Peripheral neuropathy Elevated cholesterol HTN (hypertension) Surgical History History of right hip replacement (09/08/23) Hx of hand surgery History of esophagogastroduodenoscopy (EGD) H/O colonoscopy (~01/20/22) History of left hip replacement History of carpal tunnel release Hx of lithotripsy History of lumbar laminectomy Hx of prostatectomy Family History Father Heart attack Mother Congestive heart failure Social History Household Members: Family Housing: House Are you a primary home health care coordinator to a significant other at home: No Do you presently have visiting nurse or other home services: No Alcohol intake: current Alcohol intake frequency: holidays/special occasions only Alcohol type: beer Patient Tobacco Use Status: Former Tobacco user service: Yes Current occupational status: retired Cognitive needs: Yes (cane) Hearing needs: No Vision needs: Yes (rx glasses) Questionnaire PHQ-9 Over the last 2 weeks, how often have you been bothered by any of the following problems? 1. Little interest or pleasure in doing things: not at all 2. Feeling down, depressed, or hopeless: not at all 3. Trouble falling or staying asleep, or sleeping too much: not at all 4. Feeling tired or having little energy: not at all 5. Poor appetite or overeating: not at all 6. Feeling bad about yourself - or that you are a failure or have let yourself or your family down: not at all 7. Trouble concentrating on things, such as reading the newspaper or watching television: not at all 8. Moving or speaking so slowly that other people could have noticed. Or the opposite - being so fidgety or restless that you have been moving around a lot more than usual: not at all 9. Thoughts that you would be better off or of hurting yourself in some way: not at all Total score: 0 Depression Screening Interpretation: Negative Depression Screening Done: Yes 65639 - PHQ-9 Billing: Yes Source: Developed by Drs. Donavan Bloom, Tori Larose, Romeo Albright and colleagues, with an educational manny from [employer]. Thrive Questionnaire Date Thrive assessed: 08/26/24 I am a: Patient What is your living situation today?: I have a steady place to live Within the past 12 months, did the food you bought not last and you didn't have the money to get more?: Never true Within the past 12 months, did you worry whether your food would run out before you got money to buy more?: Never true Do you have trouble paying for medicines?: No Do you have trouble getting transportation to medical appointments?: No Do you have trouble paying your heating and electricity bill?: No Do you have trouble taking care of your child, family member or friend?: No Do you have trouble with day-to-day activities such as bathing, preparing meals, shopping, managing finances, etc.?: No Are you currently unemployed and looking for a job?: No Are you interested in more education?: No Please select the resources that you would like help with: None Currently or been in a relationship where the following occur: No concerns reported THRIVE Score: 0 AUDIT C Alcohol Use Questionnaire (AUDIT-C) 1. How often do you have a drink containing alcohol?: Monthly or less 2. How many drinks containing alcohol do you have on a typical day when you are drinking?: 1 or 2 3. How often do you have six or more drinks on one occasion?: Never Total Score: 1 Score Reviewed/Action Taken: No ALLYSON-7 AMB Questionnaire ALLYSON-7 Date ALLYSON - 7 assessed: 08/26/24 Feeling nervous, anxious, or on edge: 0 = Not at all Not being able to stop or control worryin = Not at all Worrying too much about different things: 0 = Not at all Trouble relaxin = Not at all Being so restless that it is hard to sit still: 0 = Not at all Becoming easily annoyed or irritable: 0 = Not at all Feeling afraid as if something awful might happen: 0 = Not at all Total ALLYSON-7 score (0-4 normal; 5-9 mild; 10-14 moderate; 15-21 severe): 0 Source: Developed by Drs. Donavan Bloom, Tori aLrose, Romeo Albright and colleagues, with an educational manny from [employer]. ALLYSON-7 Assessment Billing ALLYSON-7 Assessment Tool: ALLYSON-7 Assessment 10590 Review of Systems Const Details: - General: Denies fevers. - HEENT: Reports headaches, facial pain, and postnasal drip. - Respiratory: Reports cough, sometimes productive, and feeling unable to breathe due to nasal congestion. - Denies wheezing. - Cardiovascular: Denies chest pain or shortness of breath. - Gastrointestinal: Denies abdominal pain, black stools, and bloody stools. - Neurological: Reports a sensation in his feet as if he's walking on concrete. - Denies tingling in his hands. All systems reviewed & are unremarkable except as noted in HPI and below Physical exam (Primary Care) Vital Signs: Last Vital Signs Temp 98.2 F 12/14/24 13:56 Pulse 88 12/14/24 13:56 Resp 16 12/14/24 13:56 BP 103/57 L 12/14/24 13:56 Pulse Ox 94 12/14/24 13:56 Oxygen Delivery Method Room Air 12/14/24 13:56 Care Plan Goal for BP management: <140/90 at Goal BMI result Body Mass Index 33.1 BMI Assessment/Plan discussion: High BMI High, discussed plan: lifestyle, weight reduction, dietary, physical activity, alcohol moderation and other Tobacco/Smoking Status: Tobacco use Status Tobacco use date assessed 08/26/24 12/14/24 14:05 Patient Tobacco Use Status Former Tobacco user 12/14/24 14:05 PHQ-9: PHQ-9 Score PHQ-9: Total score 0 12/14/24 14:35 Depression Screening Interpretation: Negative Thrive Assessment: Date of Thrive Assessment Date Thrive assessed 08/26/24 12/14/24 14:05 Currently or been in a relationship where the following occur: No concerns reported Const Other: Appearance: Alert. Oriented X3. No acute distress. Head: Normal external exam. Normocephalic. Atraumatic. Eyes: Pupils are equal, round, and reactive to light. Extraocular movements intact. Conjunctiva and sclera normal. Eyelids normal. Ears: External auditory canal normal. Tympanic membranes normal. Throat: Pharynx normal. Uvula midline. Moist mucous membranes. Neck: Normal inspection. Neck supple. Full range of motion. No adenopathy. Thyroid Normal. No meningeal signs. No neck mass noted. Cardiovascular: Normal heart rate and rhythm. Heart sound normal. No murmurs noted. Pulses normal throughout. Respiratory: No respiratory distress. Painless inspiration. Breath sounds normal. No wheezes/rales/rhonchi noted. No accessory muscle usage noted or decreased air movement noted. Abdomen: Soft and nontender. Bowel sounds normal in all 4 quadrants. No distention noted. No organomegaly noted. No visible injury noted. Back: Full range of motion noted. Skin: Skin warm and dry. Normal skin color. Normal skin turgor. No rashes/lesions/lacerations noted. Extremities: No lower extremity edema. Extremities exhibit normal range of motion. Neuro: Oriented X 3. No motor deficit. No sensory deficit. Reflexes normal. Results AMB Hemoglobin A1c AMB Hemoglobin A1c 5.5 % Last Edit by MILLICENT Singh on 12/14/24 14:35 Results Reviewed Results Reviewed: Laboratory Last Values Hgb A1c (Clinic) 5.5 % (4.0-6.0) 12/14/24 14:34 - Lab results from 12/14/2024 reviewed: - CBC: Shows chronic anemia, stable since August. - CMP: Sodium 138, eGFR 53, glucose 107, total bilirubin 2.0. - Lipid panel: LDL 60 mg/dL, HDL 37 mg/dL, total cholesterol 111 mg/dL. - PSA: Negative. - Flnld-zt-[id number] HgbA1c: 5.5%. Coding Level of Care Code Est Pt Level 4 (32407) Complex EM visit Add On G2211 Diagnoses Sinus infection J32.9 Peripheral neuropathy G62.9 Healthcare maintenance Z00.00 Additional Codes ALLYSON-7 Assessment Billing - ALLYSON-7 Assessment Tool: ALLYSON-7 Assessment 65860 ([id number]) PHQ-9 - 68246 - PHQ-9 Billing: Yes ([id number]) Time Spent (min) 60 Assessment & Plan Assessment & Plan (1) Sinus infection: Code(s): J32.9 - Chronic sinusitis, unspecified Category: Medical Plan: The patient's symptoms of headache, facial pain, postnasal drip, and cough for 8-9 days are consistent with acute sinusitis. A prescription for Augmentin to be taken twice a day for 10 days will be sent. Cindi-D was prescribed every 12 hours for sinus congestion. Robitussin with codeine was also prescribed for cough and to aid sleep, with a warning not to drink or drive while taking it. (2) Peripheral neuropathy: Code(s): G62.9 - Polyneuropathy, unspecified Category: Medical Plan: The patient's symptom of feeling like he is walking on concrete, with decreased sensation on foot exam, is likely due to peripheral neuropathy. Diabetes was ruled out as a cause with an in-office A1c of 5.5%. A referral to podiatry will be placed for further evaluation. If podiatry does not find an answer, nerve testing with neurology may be considered. The patient's current gabapentin dose of 600 mg three times daily was noted as high, but he will continue it for now. (3) Healthcare maintenance: Code(s): Z00.00 - Encounter for general adult medical examination without abnormal findings Category: Medical Plan: A review of recent labs from 12/14 showed stable chronic anemia, chronic kidney disease, and well-controlled cholesterol. The lab has been instructed to add on orders for a thyroid function test, vitamin D, vitamin B12, and magnesium. The patient has a scheduled 6-month follow-up appointment on February 22, 2025, and will have fasting blood work done a week prior. Plan Plan Patient was informed and verbally consented to the use of an ambient scribe for clinic note documentation during this visit. 1. Acute Sinusitis The patient's symptoms of headache, facial pain, postnasal drip, and cough for 8-9 days are consistent with acute sinusitis. A prescription for Augmentin to be taken twice a day for 10 days will be sent. Cindi-D was prescribed every 12 hours for sinus congestion. Robitussin with codeine was also prescribed for cough and to aid sleep, with a warning not to drink or drive while taking it. 2. Peripheral Neuropathy The patient's symptom of feeling like he is walking on concrete, with decreased sensation on foot exam, is likely due to peripheral neuropathy. Diabetes was ruled out as a cause with an in-office A1c of 5.5%. A referral to podiatry will be placed for further evaluation. If podiatry does not find an answer, nerve testing with neurology may be considered. The patient's current gabapentin dose of 600 mg three times daily was noted as high, but he will continue it for now. 3. Health Maintenance A review of recent labs from 12/14 showed stable chronic anemia, chronic kidney disease, and well-controlled cholesterol. The lab has been instructed to add on orders for a thyroid function test, vitamin D, vitamin B12, and magnesium. The patient has a scheduled 6-month follow-up appointment on February 22, 2025, and will have fasting blood work done a week prior. I discussed with the patient that his sinus symptoms lasting over a week are consistent with a bacterial infection, for which I prescribed Augmentin. I also prescribed Cindi-D for congestion and Robitussin with codeine for his cough, advising him it is a narcotic and he should not drive while using it. We discussed his foot symptoms, which are likely peripheral neuropathy. An in-office A1c was 5.5%, ruling out diabetes as a cause. I explained that statin medication could be a cause. I will refer him to podiatry for further evaluation, and we discussed that nerve testing with neurology could be a future step. We reviewed his current high dose of gabapentin and I informed him that he does not have to take it three times a day if he feels it is too much, as there are no withdrawal symptoms. We reviewed his recent lab work and I ordered add-on tests including a thyroid panel, vitamin D, vitamin B12, and magnesium. He has a follow-up visit scheduled in February and will call a week prior for a lab order. Orders: Orders C Reactive Protein Today Z00.00 - Encounter for general adult medical examination without abnormal findings AMB Hemoglobin A1c Today Z13.9 - Encounter for screening, unspecified Vitamin B12 and Folate Today Z00.00 - Encounter for general adult medical examination without abnormal findings TSH reflex Free T4 Today Z00.00 - Encounter for general adult medical examination without abnormal findings Magnesium Today Z00.00 - Encounter for general adult medical examination without abnormal findings Referrals Podiatry Referral G62.9 - Polyneuropathy, unspecified Medications: New amoxicillin-pot clavulanate 875-125 mg 1 tab PO BID 20 tabs 0RF 10 days fexofenadine-pseudoephedrine 60-120 mg ER (Cindi-D 12 Hour) 1 tab PO Q12H PRN 30 tabs 3RF allergy symptoms codeine-guaifenesin 10-100 mg/5 mL 5 mL PO Q6H PRN 120 mL 0RF cough Patient Instructions: - Take Augmentin twice a day for 10 days for your sinus infection. - You can take Cindi-D every 12 hours for sinus congestion. - For your cough, you can take the prescribed Robitussin with codeine. - Do not drink alcohol or drive while taking this medication as it can cause drowsiness. - I have ordered additional blood tests for you; the lab will add these to the blood sample you already gave today, so you do not need to have your blood drawn again. - I am referring you to a early intervention specialist (podiatry) for your foot symptoms. - Their office will call you to schedule an appointment. - You have a follow-up appointment scheduled for February 22, 2025. - Please call the office one week before this appointment to get an order for fasting blood work.
== END 2024-12-14 14:43 | disposition home or self-care (01) ==
LOC: HO.HMCSH 13:50
PROVIDERS: PCP Physician Assistant Medical; Visit Provider Physician Assistant Medical
DX: J32.9 Chronic sinusitis, unspecified (principal); G62.9 Polyneuropathy, unspecified; Z00.00 Encounter for general adult medical examination without abnormal findings; Z13.9 Encounter for screening, unspecified

== ENCOUNTER 2025-01-16 08:41 | Outpatient (REF) | payer MEDICARE, BC, OTHER, SELFPAY | END 2025-01-16 08:42 | disposition home or self-care (01) | LOC: HO.LNP 08:41 | PROVIDERS: PCP Physician Assistant Medical; Visit Provider Student in an Organized Health Care Education/Training Program | DX: G60.9 Hereditary and idiopathic neuropathy, unspecified (principal); I73.9 Peripheral vascular disease, unspecified; B35.1 Tinea unguium; M79.89 Other specified soft tissue disorders | CPT/HCPCS: 87101; 87220; 88304; 88311; 88312; 88313; 99202 ==

== ENCOUNTER 2025-01-16 08:41 | Outpatient (AMB) | payer MEDICARE, BC, OTHER, SELFPAY ==
[2025-01-16 09:08] VITALS: BMI 32.5
--- NOTE | 2025-01-16 09:08 | A.OFFVIS_ITS ---
Vital Signs 01/16/25 09:08 Height 5 ft 9 in Weight 220 lb BMI 32.5 Intake Visit Reasons: polyneuropothy Intake Note: Gulshan is a 79 year old male who presents to the office today as a new patient visit referred by his PCP Fani Andersen for Polyneuropathy. Pt states he feels like he is walking on concrete and at PCP visit diabetes was ruled out with an A1C of 5.5%. Pt is currently taking gabapentin 600 mg three times daily. Pt states he has no pain in his feet however the numbness has been going on bilaterally for about 6 months. Allergies grass, mold, trees Allergy (Unknown, Uncoded 12/14/24 16:46) Sneezing HPI HPI polyneuropothy: Details: 79-year-old male past medical history of CKD, prostate cancer status post resection, bilateral hip replacement, back pain status post injections, presents for bilateral leg heaviness. He describes occasional sensations of heaviness to his legs, only present when walking. Denies any numbness tingling shooting pains down his back thigh or in his feet. Denies any injuries prior. Denies any sensations of cramping or pain to his thighs/calves and walking. He also explains he has bilateral lower extremity swelling which he wears compression stockings for. [facility] Medical History (Updated 01/16/25 @ 12:17 by Franck March DPM) Healthcare maintenance Neuropathy Mild ascending aorta dilatation CKD (chronic kidney disease) Anemia Establishing care with new doctor, encounter for Heart murmur Arthritis Degenerative joint disease Cataract, right Cataract Duodenal ulcer Hydronephrosis Sinus infection Anxiety CKD (chronic kidney disease), stage III History of prostate cancer Peripheral neuropathy Elevated cholesterol HTN (hypertension) Surgical History History of right hip replacement (09/08/23) Hx of hand surgery History of esophagogastroduodenoscopy (EGD) H/O colonoscopy (~01/20/22) History of left hip replacement History of carpal tunnel release Hx of lithotripsy History of lumbar laminectomy Hx of prostatectomy Family History Father Heart attack Mother Congestive heart failure Social History Household Members: Family Housing: House Are you a primary home care provider to a significant other at home: No Do you presently have visiting nurse or other home services: No Alcohol intake: current Alcohol intake frequency: holidays/special occasions only Alcohol type: beer Patient Tobacco Use Status: Former Tobacco user service: Yes Current occupational status: retired Cognitive needs: Yes (cane) Hearing needs: No Vision needs: Yes (rx glasses) Review of Systems Const All systems reviewed & are unremarkable except as noted in HPI and below Physical Exam Vital Signs: BMI result Body Mass Index 32.5 Extrem Other: *Bilateral Lower Extremity Focused Foot Exam Vascular: DP/PT faintly palpable, CFT<3s to digits, TG warm to cool, mild nonpitting pedal and pretibial edema bilateral feet, pedal hair absent Derm: Skin: No open lesions, ulcerations, or calluses. Interdigital spaces: Clear, no maceration or fungal infection. Nails: Dystrophic thickened discolored right hallux nail, left hallux 2nd and 3rd digits with subungual debris. Neuro: [place]-arthur monofilament (10g) test 9/10 intact to right foot, 6/10 intact to left foot. Msk: Deformities: Tracking hallux valgus deformity right foot with mild extension deformity of the 2nd digit bilateral feet. Muscle strength: 5/5 in all muscle groups. Gait: Normal, no antalgic or steppage gait observed. Footwear Assessment: Shoes inspected; appropriate fit, no excessive wear, or foreign objects noted. Assessment & Plan Assessment & Plan (1) Peripheral artery disease: Code(s): I73.9 - Peripheral vascular disease, unspecified Category: Medical Plan: * Referred for ultrasound arterial duplex (2) Peripheral neuropathy: Code(s): G62.9 - Polyneuropathy, unspecified Category: Medical Qualifiers: Peripheral neuropathy type: idiopathic neuropathy, unspecified Qualified Code(s): G60.9 - Hereditary and idiopathic neuropathy, unspecified Plan: * Etiology may be peripheral versus spinal * Rx EMG/NCV studies (3) Tinea unguium: Code(s): B35.1 - Tinea unguium Category: Medical Plan: * Nail biopsy performed of bilateral hallux nail. * Discussed treatment options including topical treatment versus oral antifungal medications. * Patient was counseled on the importance of anti-fungal foot hygiene, including daily washing and thorough drying of feet, regular changing of socks, and use of breathable footwear. Recommended antifungal sprays shoes. Education provided on keeping toenails trimmed and clean to reduce risk of fungal infections. Preventive strategies discussed to minimize recurrence of fungal infections. * Rx ciclopirox (4) Symptom of leg swelling: Code(s): M79.89 - Other specified soft tissue disorders Category: Medical Plan: * May require venous ultrasound in the future however at this time heel knee has mild swelling with no obvious varicosities. Orders: Orders Fungus Cult Hair/Skin/Nail Today B35.1 - Tinea unguium Surgical Today B35.1 - Tinea unguium NE nerve conduction velocity Today G62.9 - Polyneuropathy, unspecified NE electromyogram (EMG) Today G62.9 - Polyneuropathy, unspecified US arterial duplex LE BI Today G62.9 - Polyneuropathy, unspecified Coding Level of Care Code New Pt Level 4 (73553) Diagnoses Peripheral artery disease I73.9 Idiopathic peripheral neuropathy G60.9 Peripheral neuropathy type: idiopathic neuropathy, unspecified Tinea unguium B35.1 Symptom of leg swelling M79.89 Time Spent (min) 35
== END 2025-01-16 09:34 | disposition home or self-care (01) ==
LOC: HO.HPODS 08:42
PROVIDERS: PCP Physician Assistant Medical; Visit Provider Student in an Organized Health Care Education/Training Program
DX: I73.9 Peripheral vascular disease, unspecified (principal); G60.9 Hereditary and idiopathic neuropathy, unspecified; B35.1 Tinea unguium; M79.89 Other specified soft tissue disorders
CPT/HCPCS: 99204